=== PATIENT | female | born 1945 | race Caucasian/White ===

== ENCOUNTER → 2017-03-05 | Outpatient (CLI) | payer MEDICARE, OTHER ==
[~2017-03-05] MED LIST: CATHETER FLUSH 10 ML SYR IV PRN; REGADENOSON 0.4 MG/5 ML SYR (LEXISCAN) IV ONE
[2017-03-05 12:41] VITALS: BP 174/69
--- NOTE | 2017-03-05 16:26 | STRESS TEST ---
DATE OF SERVICE: 03/05/2017 PHARMACOLOGICAL STRESS TEST REPORT PRIMARY PHYSICIAN: Dr. Mao Zamora. PRIMARY PILE DRIVER: Dr. Smith. INTERPRETING PILE DRIVER: Dr. Kirby. DIAGNOSIS: Diabetes, preoperative evaluation. PROCEDURE DETAILS: The patient was brought to the stress lab after informed consent was taken. Lexiscan stress test was performed according to the protocol. A 0.4 mg Lexiscan was given IV. Baseline EKG showed sinus rhythm with occasional premature complexes. Heart rate was 75 BPM. Blood pressure was 149/65 mmHg. Maximum heart rate was 93 BPM and blood pressure was 134/64 mmHg. There was no chest pain, arrhythmias or ST-T wave abnormalities during this stress test. A 10.6 mCi of Myoview were given for rest imaging and 29.0 mCi of Myoview were given for stress imaging. TID was 1.21. EF 60%. Mild anterior reversible ischemia noted. There is an intermediate apical small reversible defect noted as well. Normal wall motion. CONCLUSION: 1. Pharmacological stress test is negative for ischemia. 2. Normal EF with no wall motion abnormalities. 3. Elevated t.i.d. and evidence of ischemia in the anterior and apical territories. Coronary angiography was recommended. Job ID: [id number] DocumentID: [id number] Dictated Date: 03/05/2017 16:04:42 Nuclear Medicine Technologist Date: 03/05/2017 16:25:34 Dictated By: SAM KIRBY MD
== END ==
LOC: CARD 09:49
PROVIDERS: ATTEND Internal Medicine Cardiovascular Disease
DX: E11.9 Type 2 diabetes mellitus without complications (principal); I10 Essential (primary) hypertension; E03.9 Hypothyroidism, unspecified; Z72.0 Tobacco use
CPT/HCPCS: 78452; 93017; 93306

== ENCOUNTER 2017-03-12 11:25 | Day surgery (SDC) | payer MEDICARE, OTHER ==
[~2017-03-12] VITALS: Ht 160 cm; Wt 72.6 kg
--- OUTSIDE RECORDS SUMMARY | 2017-03-12 11:29 | XMS REPORT ---
Author Author Teresa Anglin Organization [facility] Address [address] [place], [place] [address] Care Team Providers Care Boat Outboard Engine Mechanic Name Role Phone Teresa Anglin PCP Unavailable Allergies and Adverse Reactions Name Reaction Notes Morphine Sulfate Plan of Treatment Planned Activity Comments Planned Date Planned Time Plan/Goal Boostrix vaccine 03/13/2016 12:00 AM TSH 03/13/2016 12:00 AM screening colonoscopy Medications Active Name Start Date Estimated Completion Date SIG Comments Novolog 100 unit/mL subcutaneous solution inject by subcutaneous route per prescriber's instructions. Insulin dosing requires individualization. Lantus 100 unit/mL subcutaneous solution inject by subcutaneous route as per insulin protocol Plavix 75 mg oral tablet take 1 tablet (75 mg) by oral route once daily levothyroxine 150 mcg oral tablet take 1 tablet (150 mcg) by oral route once daily amlodipine 5 mg oral tablet take 1 tablet (5 mg) by oral route once daily diclofenac sodium 75 mg oral tablet,delayed release (DR/EC) take 1 tablet (75 mg) by oral route 2 times per day cilostazol 50 mg oral tablet take 1 tablet (50 mg) by oral route 2 times per day 1/2 hour before or 2 hours after breakfast and dinner Cymbalta 60 mg oral capsule,delayed release(DR/EC) take 2 capsules (120 mg) by oral route once daily gabapentin 800 mg oral tablet take 1 tablet (800 mg) by oral route 3 times per day Lasix 20 mg oral tablet 03/13/2016 06/11/2016 take 1/2 tablet (10 mg) by oral route once daily PRN for increased swelling Zyban 150 mg oral tablet extended release 03/13/2016 06/11/2016 take 1 tablet by oral route daily for 3 days, then increase to twice a day Problem List Description Status Onset Diabetes Active Hypertension Active Hypothyroidism Active Peripheral edema Active 03/13/2016 PVD (peripheral vascular disease) with claudication Active 03/13/2016 Vital Signs Date Time BP-Sys(mm[Hg] BP-Richa(mm[Hg]) HR(bpm) RR(rpm) Temp WT HT HC BMI BSA BMI Percentile O2 Sat(%) 03/13/2016 8:13:00 AM 118 mmHg 67 mmHg 77 bpm 20 rpm 97.8 F 190 lbs 64 in 32.61 kg/m2 1.97 m2 99 % 03/08/2016 1:53:00 PM 168 mmHg 72 mmHg 77 bpm 18 rpm 97.8 F 186.375 lbs 64 in 31.9909 kg/m 1.9538 m 98 % Social History Name Description Comments Tobacco Current every day smoker Alcohol Use - Rare History of Procedures Date Ordered Description Order Status 03/09/2016 12:00 AM Toradol 60 Mg Injection, RHC Medicare Reviewed 03/09/2016 12:00 AM THER/PROPH/DIAG INJ SC/IM Reviewed 03/11/2016 12:00 AM COMPLETE CBC W/AUTO DIFF WBC Returned 03/11/2016 12:00 AM COMPREHEN METABOLIC PANEL Returned 03/11/2016 12:00 AM GLYCOSYLATED HEMOGLOBIN TEST Returned 03/11/2016 12:00 AM LIPID PANEL Returned 03/11/2016 12:00 AM ASSAY THYROID STIM HORMONE Returned 03/11/2016 12:00 AM ASSAY OF NATRIURETIC PEPTIDE Returned 03/11/2016 12:00 AM URNLS DIP STICK/TABLET REAGENT AUTO MICROSCOPY Returned 03/11/2016 12:00 AM ROUTINE VENIPUNCTURE Reviewed Results Summary Data and Description Results 03/12/2016 8:53 AM WBC 4.5 RBC 4.30 HGB 13.20 g/dLHCT 39.70 %MCV 92.0 fLMCH 30.70 pgMCHC 33.20 g/dLRDW SD 46 RDW CV 13.40 %MPV 10.20 fLPLT 295 NRBC# 0.00 NRBC% 0.0 %NEUT 66.90 %%LYMP 22.30 %%MONO 8.60 %%EOS 2.0 %%BASO 0.0 %#NEUT 3.03 #LYMP 1.01 #MONO 0.39 #EOS 0.09 #BASO 0.00 MANUAL DIFF NOT IND COLOR YELLOW APPEARANCE CLEAR SPEC GRAV 1.015 pH 6.0 PROTEIN NEGATIVE GLUCOSE NEGATIVE mg/ dLKETONE NEGATIVE BILIRUBIN NEGATIVE BLOOD NEGATIVE NITRITE NEGATIVE LEUK SCREEN TRACE MICRO IND? SEE BELOW WBC/HPF 0-5 RBC/HPF NEGATIVE CASTS/LPF NEGATIVE /LPFCRYSTALS NEGATIVE MUCOUS THRDS NEGATIVE BACTERIA 1+ EPITH CELLS 1+ SQUAMOUS /HPFTRICHOMONAS NEGATIVE YEAST FEW BUDDING GLUCOSE 219.0 mg/dLSODIUM 138.0 mmol/LPOTASSIUM 4.90 mmol/LCHLORIDE 103.0 mmol/LCO2 26.0 mmol/LBUN 20.0 mg /dLCREATININE 0.90 mg/dLSGOT/AST 14.0 IU/LSGPT/ALT 11.0 IU/LALK PHOS 89.0 IU/ LTOTAL PROTEIN 7.0 g/dLALBUMIN 4.40 g/dLTOTAL BILI 0.40 mg/dLCALCIUM 9.70 mg/ dLAGE 72 GFR NonAA 62 GFR AA 75 eGFR >60 mL/min/1.73meGFR AA* >60 TRIGLYCERIDES 131.0 mg/dLCHOLESTEROL 289.0 mg/dLHDL 67.0 mg/dLTOT CHOL/HDL 4.3 LDL (CALC) 196.0 mg/dLHGB A1C 5.80 %Est Avg Glucose 119.8 mg/dL History Of Immunizations Name Date Admin Mfg Name Mfg Code Trade Name Lot# Route Inj Vis Given Vis Pub CVX Influenza 01/11/2016 sanofi pasteur PMC Fluzone Quadrivalent Not Entered Not Entered 03/13/2016 01/11/2016 141 Pneumococcal 01/11/2016 Not Entered NE Not Entered Not Entered Not Entered 01/11/2016 02/11/2016 33 History of Past Illness Name Date of Onset Comments Diabetes Hypothyroidism Hypertension Depression Chronic pain Peripheral edema 03/13/2016 2+ pitting edemaVenous stasis from DM vs increased swelling from PVD vs medication side effectAdvised patient on the right size of compression stockingShe can massage the legs to help with the painWill try her on low dose lasix to improve the swelling PVD (peripheral vascular disease) with claudication 03/13/2016 Will get records from her in file operator before deciding if we need to order a doppler for her bypass Pedal edema Mar 08 2016 1:56PM Diabetes Mar 08 2016 1:56PM HTN (hypertension) Mar 08 2016 1:56PM Hypothyroid Mar 08 2016 1:56PM Smoker Mar 08 2016 1:56PM Peripheral edema Mar 13 2016 8:21AM PVD (peripheral vascular disease) with claudication Mar 13 2016 8:21AM Preventative health care Mar 13 2016 8:21AM Tobacco abuse counseling Mar 13 2016 8:21AM Tobacco abuse Mar 13 2016 8:21AM Fatigue Mar 13 2016 11:05AM Payers Insurance Name Company Name Plan Name Plan Number Policy Number Policy Group Number Start Date Medicare RHC Medicare RHC [id number] N/A Hum[employer] Hum[employer] Claims Center [id number] N/A Medicare Part A Medicare - Lab/Xray [id number] N/A [employer] [place] Compensation [employer] [id number] Sunday, November 22, 2009 Medicare Part B Medicare Of [place] [id number] N/A History of Encounters Visit Date Visit Type Provider 03/13/2016 Office visit Teresa Anglin MD 03/12/2016 Laboratory Wayne Lowe APRN 03/08/2016 Office visit 03/08/2016 Office visit Wayne Lowe APRN 01/15/2016 Hospital Kadeem Fowler DO 01/03/2016 Hospital Adan Fermin MD 01/09/2010 Rena Paz MD
--- OUTSIDE RECORDS SUMMARY | 2017-03-12 11:29 | XMS REPORT ---
Author Author Teresa Anglin Organization [facility] Address [address] [facility] [address] [place], [place] [id number] Care Team Providers Care Viscosity Tester Name Role Phone Teresa Anglin PCP Unavailable Allergies and Adverse Reactions Name Reaction Notes Morphine Sulfate Plan of Treatment Planned Activity Comments Planned Date Planned Time Plan/Goal screening colonoscopy Medications Active Name Start Date [...] days, then increase to twice a day Name Start Date Expiration Date SIG Comments lift chair 04/02/2016 05/02/2016 use as needed tizanidine 2 mg oral tablet 04/02/2016 04/16/2016 take 2 tablets by oral route every 6 hours for 14 days [place] 5-325 mg oral tablet 04/04/2016 05/04/2016 take 1 tablet by oral route every 4 hours as needed for pain for 30 days Problem List Description Status Onset Diabetes Active Hypertension Active Hypothyroidism Active Peripheral edema Active 03/13/2016 PVD (peripheral vascular disease) with claudication Active 03/13/2016 Pedal edema Active 03/14/2016 Cellulitis of both lower extremities Active 03/14/2016 Vital Signs Date Time BP-Sys(mm[Hg] BP-Richa(mm[Hg]) HR(bpm) RR(rpm) Temp WT HT HC BMI BSA BMI Percentile O2 Sat(%) 04/02/2016 10:45:00 AM 144 mmHg 85 mmHg 78 bpm 20 rpm 97.9 F 64 in 100 % 03/21/2016 10:50:00 AM 162 mmHg 84 mmHg 89 bpm 22 rpm 97.7 F 191 lbs 64 in 32.7847 kg/m 1.9779 m 97 % 03/13/2016 8:13:00 AM 118 mmHg 67 mmHg [...] 03/09/2016 12:00 AM THER/PROPH/DIAG INJ SC/IM Reviewed 03/13/2016 12:00 AM TDAP VACCINE 7 YRS/> IM Reviewed 03/13/2016 12:00 AM ASSAY THYROID STIM HORMONE Reviewed 03/11/2016 12:00 AM COMPLETE CBC W/AUTO DIFF WBC Reviewed 03/11/2016 12:00 AM COMPREHEN METABOLIC PANEL Reviewed 03/11/2016 12:00 AM GLYCOSYLATED HEMOGLOBIN TEST Reviewed 03/11/2016 12:00 AM LIPID PANEL Reviewed 03/11/2016 12:00 AM ASSAY THYROID STIM HORMONE Reviewed 03/11/2016 12:00 AM ASSAY OF NATRIURETIC PEPTIDE Reviewed 03/11/2016 12:00 AM URNLS DIP STICK/TABLET REAGENT AUTO MICROSCOPY Reviewed 03/11/2016 12:00 AM ROUTINE VENIPUNCTURE Reviewed 03/12/2016 12:00 AM COMPLETE CBC W/AUTO DIFF WBC Reviewed 03/12/2016 12:00 AM COMPREHEN METABOLIC PANEL Reviewed 03/12/2016 12:00 AM GLYCOSYLATED HEMOGLOBIN TEST Reviewed 03/12/2016 12:00 AM LIPID PANEL Reviewed 03/12/2016 12:00 AM ASSAY THYROID STIM HORMONE Reviewed 03/12/2016 12:00 AM ASSAY OF NATRIURETIC PEPTIDE Reviewed 03/12/2016 12:00 AM URNLS DIP STICK/TABLET REAGENT AUTO MICROSCOPY Reviewed 03/12/2016 12:00 AM ROUTINE VENIPUNCTURE Reviewed 03/21/2016 12:00 AM X-RAY EXAM OF HIP Reviewed 03/21/2016 12:00 AM RADEX HIP UNILATERAL COMPLETE MINIMUM 2 VIEWS Reviewed 03/21/2016 12:00 AM RADIOLOGIC EXAMINATION KNEE 3 VIEWS Reviewed 04/02/2016 12:00 AM MRI PELVIS W/O & W/DYE Reviewed Results Summary Data and Description Results [...] mg/dLHGB A1C 5.80 %Est Avg Glucose 119.8 mg/dLBNP 64.0 pg/ mLTSH 0.480 uIU/mL History Of Immunizations Name Date Admin Mfg [...] claudication 03/13/2016 Will get records from her field rep before deciding if we need to order a doppler for her bypass Pedal edema 03/14/2016 Cellulitis of both lower extremities 03/14/2016 Pedal edema Mar 08 2016 1:56PM Diabetes [...] 2016 8:21AM Fatigue Mar 13 2016 11:05AM Peripheral edema Mar 14 2016 5:00PM Cellulitis of left lower limb Mar 14 2016 5:00PM Cellulitis of right lower limb Mar 14 2016 5:00PM Diabetes Mar 14 2016 5:00PM Pain of right hip joint Mar 21 2016 10:54AM Knee pain, right Mar 21 2016 10:54AM Right hip pain Apr 02 2016 10:48AM Payers Insurance Name Company Name Plan Name Plan Number Policy Number Policy Group Number Start Date Medicare RHC Medicare RHC [id number] N/A Hum[employer] Hum[employer] Claims Center [id number] N/A Medicare Part A Medicare - Lab/Xray [id number] N/A [employer] [place] Compensation [employer] [id number] Sunday, November 22, 2009 Medicare Part B Medicare Of [place] [id number] N/A History of Encounters Visit Date Visit Type Provider 04/02/2016 Office visit Teresa Anglin MD 03/21/2016 Office visit Teresa Anglin MD 03/13/2016 Office visit Teresa Anglin MD 03/12/2016 Laboratory Wayne Lowe APRN 03/08/2016 Office visit Wayne Lowe APRN 01/15/2016 Hospital Kadeem Fowler DO 01/03/2016 [facility] Adan Fermin MD 01/09/2010 [facility] Mary Paz MD
--- OUTSIDE RECORDS SUMMARY | 2017-03-12 11:29 | XMS REPORT ---
Author Author Wayne Lowe Organization [facility] Address [address] [place], [place] [address] Care Team Providers Care Medical Office Technologist Name Role Phone Wayne Lowe PCP Unavailable Allergies and Adverse Reactions Name Reaction Notes Morphine Sulfate Plan of Treatment Planned Activity Comments Planned Date Planned Time Plan/Goal CBC for General Health Panel 03/11/2016 12:00 AM CMP 03/11/2016 12:00 AM HGB A1C 03/11/2016 12:00 AM LIPID PANEL 03/11/2016 12:00 AM TSH 03/11/2016 12:00 AM BNP 03/11/2016 12:00 AM URINALYSIS ONLY 03/11/2016 12:00 AM Medications Active Name Start Date Estimated Completion [...] by oral route 3 times per day Problem List Description Status Onset Diabetes Active Hypertension Active Hypothyroidism Active Vital Signs Date Time BP-Sys(mm[Hg] BP-Richa(mm[Hg]) HR(bpm) RR(rpm) Temp WT HT HC BMI BSA BMI Percentile O2 Sat(%) 03/08/2016 1:53:00 PM 168 mmHg 72 mmHg 77 bpm 18 rpm 97.8 F 186.375 lbs 64 in 31.99 kg/m2 1.95 m2 98 % Social History Name Description Comments Tobacco Current every day smoker Alcohol Use - Rare History of Procedures Date Ordered Description Order Status 03/09/2016 12:00 AM Toradol 60 Mg Injection, C Medicare Reviewed 03/09/2016 12:00 AM THER/PROPH/DIAG INJ SC/IM Reviewed Results Summary Not available. History Of Immunizations Not available. History of Past Illness Name Date of Onset Comments Diabetes Hypothyroidism Hypertension Pedal edema Mar 08 2016 1:56PM Diabetes Mar 08 2016 1:56PM HTN (hypertension) Mar 08 2016 1:56PM Hypothyroid Mar 08 2016 1:56PM Smoker Mar 08 2016 1:56PM Payers Insurance Name Company Name Plan Name Plan Number Policy Number Policy Group Number Start Date Medicare RHC Medicare RHC [id number] N/A [employer] Humana Claims Center [id number] N/A Medicare Part A Medicare - Lab/Xray [id number] N/A [employer] [place] Compensation [employer] [id number] Sunday, November 22, 2009 Medicare Part B Medicare Of [place] [id number] N/A History of Encounters Visit Date Visit Type Provider 03/08/2016 Office visit 03/08/2016 Office visit Wayne Lowe APRN 01/15/2016 [facility] Kadeem Fowler DO 01/03/2016 [facility] Adan Fermin MD 01/09/2010 Rena Paz MD
--- OUTSIDE RECORDS SUMMARY | 2017-03-12 11:29 | XMS REPORT | Continuity of Care Document ---
Author Author [facility] Organization [facility] Address [facility] [address] [place] [address] Phone Unavailable Support Name Relationship Address Phone JARVIS HENNING MD Caregiver [address] [place] [address] Unavailable Kendell Pagan MD Caregiver [address] [place] [address] YESSENIA DURAN MD Caregiver [address] [place], [place] [address] FILI SARAH Next Of Kin [address] [id number] Insurance Providers Payer Name Policy Number Subscriber Name Relationship Medicare [id number] Leslye Sarah 18 Self / Same As Patient Humana Other [id number] Leslye Sarah 18 Self / Same As Patient Advance Directives Directive Response Recorded Date/Time Advance Directives No 05/02/16 10:26pm Living Will No 05/02/16 10:26pm Health Care Proxy No 05/02/16 10:26pm Power of Drafting Layout Man for Health Care No 05/02/16 10:26pm Organ, Tissue, or Eye Donor No 05/02/16 10:26pm Do you have a signed organ donor card? No 04/16/16 10:41am Problems No problem information available. Medications Current Home Medications Medication Dose Units Route Directions Days/Qty Instructions Start Date Insulin Aspart 100 U/Ml 8 Units Sub-Q With Meals And At Bedtime Insulin Glargine 100 U/Ml 20 Units Sub-Q Bedtime 04/25/16 Clopidogrel Bisulfate 75 Mg 75 Mg Oral Daily 04/25/16 Levothyroxine Sodium 150 Mcg 150 Mcg Oral Daily 04/25/16 [Cilostazol] 50 Mcg Oral Twice A Day 04/25/16 Duloxetine Hcl 60 Mg 60 Mg Oral Twice A Day 04/25/16 Baclofen 10 Mg 10 Mg Oral Three Times Daily As Needed 04/25/16 Amlodipine Besylate 5 Mg 10 Mg Oral Bedtime 30 05/06/16 Past Home Medications Medication Directions Ordered Status Amlodipine Besylate 5 Mg Tablet, 5 Mg Oral Bedtime 04/25/16 Discontinued Diclofenac Sodium 50 Mg Tablet., 50 Mg Oral Twice A Day 04/25/16 Discontinued Diclofenac Sodium 75 Mg Tablet., 75 Mg Oral Twice A Day 04/25/16 Discontinued Gabapentin 800 Mg Tablet, 800 Mg Oral Five Times Daily 04/25/16 Discontinued Hydrocodone/Acetaminophen 1 Each Tablet, 1 Tab Oral As Needed 04/25/16 Discontinued Social History Social History Problem Response Recorded Date/Time Smoking Status Current every day smoker 05/02/2016 10:26pm Query Response Start Date Stop Date Smoking Status Current every day smoker Hospital Discharge Instructions Discharge Instructions Provider Instructions Make Appointment with: Dr. Fan [phone] Follow Up In: 1 Week Make additional appointment wi: Dr. Pagan [phone] Other: May 16, please call for afternoon appt for staple, wound check Referral: Rehab Services (PT,OT,ST) Diet: Diabetic Smoking Cessation If you are a smoker, the following is recommended: Stop all tobacco use; for help quitting, please call [phone]. Notify Physician If: Weight Gain More Than 5lb, Fever Greater 100.5 F Additional Instructions: Per neurosurgery Pt to be discharged to [facility] today for PT. and pt agree. Pt may have activity as tolerated. Wear TLSO when ambulatory. No lifting greater than 10 lb. No bending or twisting motions. May shower tomorrow. Leave bertha [employer]. Monitor for s/s infection and return and/or report. Drain is removed. No drainage noted from drain site or incisional site. Diabetic diet as tolerated. Appreciate the assistance of medical in managing. Return to clinic at 2 weeks postop, (will need appt in afternoon), for wound check and staple removal. Pt and instructed to call with any questions or concerns. FU with PCP, Dr. Fan, as directed. May restart Plavix tomorrow. Rx on chart. Nursing Instructions Flu Vaccine Received this Visit: No Comment: current Pneumonia Vaccine Received this Visit: No Comment: current VTE Education: Educational session w pt [place] Education Materials Provided: No Education #1 Topic: Lumbar Fusion Methods: Handout Printed Material Provided: Yes Response: Return demonstration Recipient: Family Note: Follow up with Dr. Fan on 05/13/2016 @ 4:20 pm. Follow up with Dr. Pagan for a wound check on 05/16/2016 @ 2:00. Patient specific education materials provided?: Yes Patient Request Electronic Discharge Instructions: No Patient Received Electronic Discharge Instructions: No Patient Health Summary printed/downloaded for the patient?: Yes Valuables Returned: No Plan of Care Discharge Date 05/06/16 2:17pm Disposition [facility] Instructions/Education Provided Lumbar Spinal Fusion (DC) Prescriptions See Medication Section Care Plan and Goals See Discharge Instructions Section Functional Status Query Response Date Recorded Addi Coma Scale Total 15 May 05, 2016 11:04pm Patient Behavior Appropriate Cooperative May 05, 2016 11:04pm Allergies, Adverse Reactions, Alerts Allergen Type Severity Reaction Status Last Updated Morphine Allergy Severe "closes up my throat" Active 05/02/16 Immunizations Name Given Type Hx Influenza Vaccination Y 11/2015 Historical Hx Pneumococcal Vaccination Y 11/2015 Historical Vital Signs Acute Vital Signs Vital Response Date/Time Temperature (Fahrenheit) 98.4 degrees F (97.6 - 99.5) 05/06/2016 12:10pm Temperature Source Temporal Artery 05/06/2016 12:10pm Pulse Rate (adult) 88 bpm (60 - 90) 05/06/2016 12:10pm Respiratory Rate 20 bpm (12 - 24) 05/06/2016 12:10pm Blood Pressure 159/82 mm Hg 05/06/2016 12:10pm O2 Sat by Pulse Oximetry 95 % (90 - 100) 05/06/2016 10:09am Oxygen Flow Rate 3.0 L/min 05/05/2016 1:50pm Pain Intensity 9 05/05/2016 5:00pm Pain Intensity 10 05/04/2016 10:15am Pain Location Body Site Modifier Medial 05/06/2016 6:43am Pain Description 05/06/2016 2:18pm Height 5 ft 3 in Weight 180 lb Body Mass Index 31.0 kg/m^2 Results Pending Laboratory Results Test Name Collection Date/Time Pending Microbiology Results Procedure Source Collection Date/Time Procedures Procedure Status Date Provider(s) CT HEADBRAIN WO DYE Completed 04/16/16 MRI NECK SPINE WO DYE Completed 04/16/16 ROUTINE VENIPUNCTURE Completed 04/17/16 CHEST X-RAY 2VW FRONTAL&LATL Completed 04/17/16 COMPREHEN METABOLIC PANEL Completed 04/17/16 COMPLETE CBC AUTOMATED Completed 04/17/16 ELECTROCARDIOGRAM TRACING Completed 04/17/16 ROUTINE VENIPUNCTURE Completed 04/30/16 KULDEEP TEST INDIRECT QUAL Completed 04/30/16 BLOOD TYPING SEROLOGIC ABO Completed 04/30/16 BLOOD TYPING SEROLOGIC RH(D) Completed 04/30/16 Posterior fusion of lumbar spine with laminectomy Completed 05/02/16 Kendell Pagan MD Computed tomography of head without contrast Active 04/16/16 Pagan,Kendell VARGAS Magnetic resonance imaging of cervical spine without contrast Active Pagan,Kendell VARGAS X-ray of chest, PA and lateral views Active 04/17/16 Pagan,Kendell VARGAS X-ray of lumbar spine, single view Active 05/02/16 Pagan,Kendell VARGAS Flu-W/Wo Pin.(In Surg) Active 05/02/16 Latasha,Kendell VARGAS Portable x-ray of chest Active 05/04/16 YESSENIA DURAN MD Computed tomography of head without contrast Completed 05/05/16 YESSENIA DURAN MD Encounters Encounter Location Arrival/Admit Date Discharge/Depart Date Attending Provider Discharged Inpatient [place] 05/02/16 5:37am 05/06/16 2:17pm YESSENIA DURAN MD Registered Clinic [place] 04/30/16 10:40am Kendell Pagan MD Registered Clinic [place] 04/17/16 3:11pm Kendell Pagan MD Registered Clinic [place] 04/16/16 10:46am Kendell Pagan MD
--- OUTSIDE RECORDS SUMMARY | 2017-03-12 11:30 | XMS REPORT ---
Author Author Teresa Anglin Organization [facility] Address [address] [place], [place] [id number] Care Team Providers Care Small Animal Veterinarian Name Role Phone Teresa Anglin PCP Unavailable Allergies and Adverse Reactions Name Reaction Notes Morphine Sulfate Plan of Treatment Planned Activity Comments Planned Date Planned Time Plan/Goal Boostrix vaccine 03/13/2016 12:00 AM TSH 03/13/2016 12:00 AM CBC for General Health Panel 03/12/2016 12:00 AM CMP 03/12/2016 12:00 AM HGB A1C 03/12/2016 12:00 AM LIPID PANEL 03/12/2016 12:00 AM TSH 03/12/2016 12:00 AM BNP 03/12/2016 12:00 AM URINALYSIS ONLY 03/12/2016 12:00 AM Hip X-ray: AP / Lat 03/21/2016 12:00 AM Hip X-ray: AP / Lat 03/21/2016 12:00 AM Knee 3Views - [place] 03/21/2016 12:00 AM screening colonoscopy Medications Active Name [...] HC BMI BSA BMI Percentile O2 Sat(%) 03/21/2016 10:50:00 AM 162 mmHg 84 mmHg 89 bpm 22 rpm 97.7 F 191 lbs 64 in 32.78 kg/m2 1.98 m2 97 % 03/13/2016 8:13:00 AM 118 mmHg 67 mmHg 77 bpm 20 rpm 97.8 F 190 lbs 64 in 32.6131 kg/m 1.9727 m 99 % 03/08/2016 1:53:00 PM 168 mmHg [...] claudication 03/13/2016 Will get records from her health screener before deciding if we need to order a doppler for her bypass Pedal edema 03/14/2016 Cellulitis of both lower extremities 03/14/2016 Pedal edema Mar 08 2016 1:56PM Diabetes Mar 08 2016 1:56PM HTN (hypertension) Mar 08 2016 1:56PM Hypothyroid Mar 08 2016 1:56PM Smoker Mar 08 2016 1:56PM Peripheral edema b 2016 8:21AM PVD (peripheral vascular disease) with claudication Mar 13 2016 8:21AM Preventative health care Mar 13 2016 8:21AM Tobacco abuse counseling Mar 13 2016 8:21AM Tobacco abuse Mar 13 2016 8:21AM Fatigue Mar 13 2016 11:05AM Peripheral edema b 2016 5:00PM Cellulitis of left lower limb b 2016 5:00PM Cellulitis of right lower limb b 2016 5:00PM Diabetes b 2016 5:00PM Pain of right hip joint Mar 21 2016 10:54AM Knee pain, right b 2016 10:54AM Payers Insurance Name Company Name Plan Name Plan Number Policy Number Policy Group Number Start Date Medicare RHC Medicare RHC [id number] N/A [employer] Hum[employer] Claims [employer] [id number] N/A Medicare Part A Medicare - Lab/Xray [id number] N/A [employer] [place] Compensation Corvel [id number] Sunday, November 22, 2009 Medicare Part B Medicare Of [place] [id number] N/A History of Encounters Visit Date Visit Type Provider 03/21/2016 Office visit Teresa Anglin MD 03/13/2016 Office visit Teresa Anglin MD 03/12/2016 Laboratory Wayne Lowe APRN 03/08/2016 Office visit Wayne Lowe APRN 01/15/2016 [facility] Kadeem Fowler DO 01/03/2016 [facility] Adan Fermin MD 01/09/2010 [facility] Mary Paz MD
--- OUTSIDE RECORDS SUMMARY | 2017-03-12 11:30 | XMS REPORT | CCD ---
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 Name Role Phone OSVALDO HERNANDEZ DO Attphys HERNANDEZOSVALDO DO Prisurg Allergies Allergy Code Allergy Type Reaction Status PROCHLORPERAZINE 8704 Drug allergy Active THIOTHIXENE 42879 Drug allergy Active MORPHINE 7052 Drug allergy ANAPHYLAXIS Active Active Medications Medication Code Dose Units Frequency Route Modification Start Date/Time Cymbalta 60MG Oral Capsule, Delayed Release 974728 60 MILLIGRAMS TWO TIMES A DAY ORAL 09/23/2016 11:38 Prescription Detail 60 MILLIGRAMS ORAL TWO TIMES A DAY HYDROcodone bitartrate-acetaminophen 10MG-325MG Oral Tablet 944650 1 TABLET NEEDED EVERY 4 HR BY MOUTH 09/23/2016 11:38 Prescription Detail 1 TABLET BY MOUTH NEEDED EVERY 4 HR Losartan Potassium 50MG Oral Tablet 240330 50 MILLIGRAMS DAILY ORAL 09/23/2016 11:38 Prescription Detail 50 MILLIGRAMS ORAL DAILY [place] 5MG-325MG Oral Tablet 462285 1 EACH NEEDED EVERY 4 HR ORAL 09/23/2016 11:38 Prescription Detail 1 EACH ORAL NEEDED EVERY 4 HR traMADol HCl 50MG Oral Tablet 187068 50 MILLIGRAMS FOUR TIMES A DAY BY MOUTH 09/23/2016 11:38 Prescription Detail 50 MILLIGRAMS BY MOUTH FOUR TIMES A DAY Polyethylene Glycol 3350 17GM/1Dose Oral Powder for Solution 880535 17 GRAM BEDTIME BY MOUTH 09/23/2016 11: 37 Prescription Detail 17 GRAM BY MOUTH BEDTIME Thera-M Enhanced 90MG-0.03MG-0.15MG-4 Oral Tablet 932762 1 TABLET DAILY BY MOUTH 09/23/2016 11:37 Prescription Detail 1 TABLET BY MOUTH DAILY Nicotine Transdermal System 14MG/24HR Transdermal Patch, Extended Release 218619 14 MILLIGRAMS DAILY TOPICAL APPLICATION 09/23/2016 11:36 Prescription Detail 14 MILLIGRAMS TOPICAL APPLICATION DAILY Protonix 40MG Oral Tablet, Enteric Coated 526933 40 MILLIGRAMS DAILY BY MOUTH 09/23/2016 11:36 Prescription Detail 40 MILLIGRAMS BY MOUTH DAILY Acetaminophen 325MG Oral Tablet 161961 650 MILLIGRAMS NEEDED BY MOUTH 09/23/2016 11:35 Prescription Detail 650 MILLIGRAMS BY MOUTH NEEDED Docusate Sodium 100MG Oral Capsule, Liquid Filled 8133042 100 MILLIGRAMS TWO TIMES A DAY BY MOUTH 2016 11:35 Prescription Detail 100 MILLIGRAMS BY MOUTH TWO TIMES A DAY Levemir 100U/1ML Subcutaneous Solution 327200 15 UNIT AT BEDTIME SUBCUTANEOUS 09/23/2016 11:35 Prescription Detail 15 UNIT SUBCUTANEOUS AT BEDTIME NovoLOG 100U/1ML Subcutaneous Solution 156825 Per Protocol Unit(s) As Needed SUBCUTANEOUS 09/23/2016 11:35 Prescription Detail Per Protocol Unit(s) SUBCUTANEOUS As Needed Phenaseptic 1.4% Oromucosal [place] 297911 1 EACH NEEDED TOPICAL APPLICATION 09/23/2016 11:35 Prescription Detail 1 EACH TOPICAL APPLICATION NEEDED Vitamin C 500MG Oral Tablet 524168 500 MILLIGRAMS DAILY BY MOUTH 09/23/2016 11:35 Prescription Detail 500 MILLIGRAMS BY MOUTH DAILY Vitamin D 62732EI Oral Capsule, Liquid Filled 0974456 1 EACH WEEKLY BY MOUTH 09/12/2016 10:29 Prescription Detail 1 EACH BY MOUTH WEEKLY x 8 WEEKS Aspirin 325MG Oral Tablet, Enteric Coated 943571 325 MILLIGRAMS TWO TIMES A DAY BY MOUTH 09/12/2016 10: 28 Prescription Detail 325 MILLIGRAMS BY MOUTH TWO TIMES A DAY X 2 WEEKS dilTIAZem CD 240MG Oral Capsule, Extended Release, 24 HR 340051 240 MILLIGRAMS DAILY BY MOUTH 09/12/2016 10 :28 Prescription Detail 240 MILLIGRAMS BY MOUTH DAILY Gabapentin 800MG Oral Tablet 779833 800 MILLIGRAMS FIVE TIMES A DAY ORAL 01/15/2016 11:45 Prescription Detail 800 MILLIGRAMS ORAL FIVE TIMES A DAY Levothyroxine 150MCG Oral Tablet 345925 150 MCG DAILY ORAL 01/15/2016 11:45 Prescription Detail 150 MCG ORAL DAILY Plavix 75MG Oral Tablet 829058 75 MILLIGRAMS DAILY ORAL 01/15/2016 11:45 Prescription Detail 75 MILLIGRAMS ORAL DAILY Problems Problem Code Start Date Resolved Date Status Periprosthetic fracture around internal prosthetic right shoulder joint, initial encounter 582419160 09/06/2016 Active Pain in arm 600606084 09/06/2016 Active Procedures Unknown or Not Available. Results Unknown or Not Available. Function Status Unknown or Not Available. History of Immunizations Unknown or Not Available. Plan of Treatment Unknown or Not Available. Social History Smoking Status Code Start Date End Date Current every day smoker [id number] Vital Signs Unknown or Not Available. Function Status Unknown or Not Available. Goals Unknown or Not Available. ASSESSMENTS Unknown or Not Available. Health Concerns Section Unknown or Not Available.
--- OUTSIDE RECORDS SUMMARY | 2017-03-12 11:30 | XMS REPORT ---
Author Author Teresa Anglin Organization [facility] Address [address] [place], [place] [address] Care Team Providers Care Course Instructor Name Role Phone Teresa Anglin PCP Unavailable [...] 12:00 AM URINALYSIS ONLY 03/12/2016 12:00 AM screening colonoscopy Medications Active Name [...] claudication 03/13/2016 Will get records from her lean manufacturing engineer before deciding if we need to order [...] 2016 5:00PM Cellulitis of left lower limb Feb 2016 5:00PM Cellulitis of right lower limb Feb 2016 5:00PM Diabetes Feb 2016 5:00PM Payers Insurance Name Company Name Plan Name Plan Number Policy Number Policy Group Number Start Date Medicare RHC Medicare RHC [id number] N/A [employer] Hum[employer] Claims Center [id number] N/A Medicare Part A Medicare - Lab/Xray [id number] N/A [employer] [place] Compensation Corvel [id number] Sunday, November 22, 2009 Medicare Part B Medicare Of [place] [id number] N/A History of Encounters Visit Date Visit Type Provider 03/13/2016 Office visit Teresa Anglin MD 03/12/2016 Laboratory Wayne Lowe ASSISTANT PASTRY CHEF 03/08/2016 Office visit Wayne Lowe ASSISTANT PASTRY CHEF 01/15/2016 Hospital Kadeem Fowler DO 01/03/2016 Hospital Adan Fermin MD 01/09/2010 Rena Paz MD
--- OUTSIDE RECORDS SUMMARY | 2017-03-12 11:30 | XMS REPORT | CCD ---
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 Active Medications Medication Code Dose Units Frequency Route Modification Start Date/Time Acetaminophen 325MG Oral Tablet 452982 1 TABLET NEEDED EVERY 4 HR BY MOUTH FOR PAIN 01/15/2016 11:45 Prescription Detail 1-2 TABLET BY MOUTH NEEDED EVERY 4 HR FOR PAIN; DO NOT EXCEED 3000MG PER DAY amLODIPine Besylate 5MG Oral Tablet 944062 5 MILLIGRAMS DAILY ORAL 01/15/2016 11:45 Prescription Detail 5 MILLIGRAMS ORAL DAILY Cilostazol 50MG Oral Tablet 847315 50 MILLIGRAMS TWO TIMES A DAY ORAL 01/15/2016 11:45 Prescription Detail 50 MILLIGRAMS ORAL TWO TIMES A DAY Cymbalta 60MG Oral Capsule, Delayed Release 564815 60 MILLIGRAMS DAILY ORAL 01/15/2016 11:45 Prescription Detail 60 MILLIGRAMS ORAL DAILY Gabapentin 800MG Oral Tablet 113017 800 MILLIGRAMS FIVE TIMES A DAY ORAL 01/15/2016 11:45 Prescription Detail 800 MILLIGRAMS ORAL FIVE TIMES A DAY Lantus 100U/1ML Subcutaneous Solution 194141 18 UNIT AT BEDTIME SUBCUTANEOUS 01/15/2016 11:45 Prescription Detail 18 UNIT SUBCUTANEOUS AT BEDTIME Levothyroxine 150MCG Oral Tablet 023626 150 MCG DAILY ORAL 01/15/2016 11:45 Prescription Detail 150 MCG ORAL DAILY NovoLOG 100U/1ML Subcutaneous Solution 157665 8 UNIT THREE TIMES A DAY SUBCUTANEOUS 01/15/2016 11:45 Prescription Detail 8 UNIT SUBCUTANEOUS THREE TIMES A DAY Outpatient Therapy 0 1 <OTHER> WEEKLY <OTHER > 01/15/2016 11:45 Prescription Detail 3 times WEEKLY. NWB TO RIGHT LOWER EXTREMIY. SEE REVERSE SHOULDER PROTOCOLDx: s/p Rt. Rev. TSA Plavix 75MG Oral Tablet 376842 75 MILLIGRAMS DAILY ORAL 01/15/2016 11:45 Prescription Detail 75 MILLIGRAMS ORAL DAILY Ferrous Sulfate 325MG Oral Tablet 321291 325 MILLIGRAMS TWICE WITH MEALS BY MOUTH 01/15/2016 11:44 Prescription Detail 325 MILLIGRAMS BY MOUTH TWICE WITH MEALS oxyCODONE HCl 5MG Oral Tablet 5239535 1 TABLET NEEDED EVERY 4 HR BY MOUTH FOR PAIN 01/15/2016 11:44 Prescription Detail 1 TABLET BY MOUTH NEEDED EVERY 4 HR FOR PAIN Aspirin 325MG Oral Tablet, Enteric Coated 234173 325 MILLIGRAMS DAILY WITH A MEAL BY MOUTH 01/15/2016 11:43 Prescription Detail 325 MILLIGRAMS BY MOUTH DAILY WITH A MEAL Problems Unknown or Not Available. Procedures Procedure Code Procedure Type Date CT HEAD W/O CONTRAST [id number] SNOMED CT 01/03/2016 SHOULDER MINIMUM [address] 01/03/2016 BEDSIDE GLUCOSE 76555788 SNOMED CT 01/03/2016 Results BEDSIDE GLUCOSE - Collect Date/Time: 01/03/2016 17:26 Test Name Code Test Result Test Units Test Ref Range GLUCOSE POCT 234 MG/DL L=70 H=100 Function Status Unknown or Not Available. History of Immunizations Unknown or Not Available. Plan of Treatment Unknown or Not Available. Social History Smoking Status Code Start Date End Date Current every day smoker [id number] Vital Signs Unknown or Not Available. Function Status Unknown or Not Available. Goals Unknown or Not Available. ASSESSMENTS Unknown or Not Available. Health Concerns Section Unknown or Not Available.
--- OUTSIDE RECORDS SUMMARY | 2017-03-12 11:30 | XMS REPORT ---
Author Author Teresa Anglin Organization [facility] Address [address] [place], [place] [address] Care Team Providers Care Assembler Wet Wash Name Role Phone Teresa Anglin PCP Unavailable Allergies and Adverse Reactions Name Reaction Notes Morphine Sulfate Plan of Treatment Planned Activity Comments Planned Date Planned Time Plan/Goal TSH 03/11/2016 12:00 AM BNP 03/11/2016 12:00 AM Boostrix vaccine 03/13/2016 12:00 AM screening colonoscopy Medications Active [...] AM LIPID PANEL Returned 03/11/2016 12:00 AM URNLS DIP STICK/TABLET [...] claudication 03/13/2016 Will get records from her cloud services architect before deciding if we need to order [...] 8:21AM Tobacco abuse Mar 13 2016 8:21AM Payers Insurance Name Company Name Plan Name Plan Number Policy Number Policy Group Number Start Date Medicare RHC Medicare RHC [id number] N/A Hum[employer] Humana Claims Center [id number] N/A Medicare Part A Medicare - Lab/Xray [id number] N/A Cor[employer] [place] Compensation [employer] [id number] Sunday, November 22, 2009 Medicare Part B Medicare Of [place] [id number] N/A History of Encounters Visit Date Visit Type Provider 03/13/2016 Office visit Teresa Anglin MD 03/12/2016 Laboratory Wayne Lowe APRN 03/08/2016 Office visit 03/08/2016 Office visit Wayne Lowe APRN 01/15/2016 Hospital Kadeem Fowler DO 01/03/2016 Hospital Adan Fermin MD 01/09/2010 [facility] Mary Paz MD
--- OUTSIDE RECORDS SUMMARY | 2017-03-12 11:31 | XMS REPORT ---
Author Author Teresa Anglin Organization [facility] Address [address] [place], [place] [address] Care Team Providers Care Barrow Worker Name Role Phone Teresa Anglin PCP Unavailable Allergies and Adverse Reactions Name Reaction Notes Morphine Sulfate Plan of Treatment Planned Activity Comments Planned Date Planned Time Plan/Goal Boostrix vaccine 03/13/2016 12:00 AM TSH 03/13/2016 12:00 AM HGB A1C 03/12/2016 12:00 AM LIPID PANEL 03/12/2016 12:00 AM TSH 03/12/2016 12:00 AM BNP 03/12/2016 12:00 AM URINALYSIS ONLY 03/12/2016 12:00 AM MRI PELVIS W/WO CONTRAST 04/02/2016 12:00 AM screening colonoscopy Medications Active Name [...] days, then increase to twice a day lift chair 04/02/2016 05/02/2016 use as needed tizanidine 2 mg oral tablet 04/02/2016 04/16/2016 take 2 tablets by oral route every 6 hours for 14 days Name Start Date Expiration Date SIG Comments [place] 5-325 mg oral tablet 03/22/2016 03/27/2016 take 1 tablet by oral route every 4 hours as needed for pain for 5 days Problem List Description Status Onset Diabetes [...] Returned 03/11/2016 12:00 AM ROUTINE VENIPUNCTURE Reviewed 03/12/2016 12:00 AM COMPLETE CBC W/AUTO DIFF WBC Reviewed 03/12/2016 12:00 AM COMPREHEN METABOLIC PANEL Reviewed 03/21/2016 12:00 AM X-RAY EXAM OF HIP Returned 03/21/2016 12:00 AM RADEX HIP UNILATERAL COMPLETE MINIMUM 2 VIEWS Returned 03/21/2016 12:00 AM RADIOLOGIC EXAMINATION KNEE 3 VIEWS Returned Results Summary Data and Description Results 03/12/2016 [...] claudication 03/13/2016 Will get records from her restaurant bartender before deciding if we need to order [...] Number Start Date Medicare RHC Medicare RHC [id number] N/A [employer] Humana Claims Center [id number] N/A Medicare Part A Medicare - Lab/Xray [id number] N/A CorVel [place] Compensation Corvel [id number] Sunday, November 22, 2009 Medicare Part B Medicare Of [place] [id number] N/A History of Encounters Visit Date Visit Type Provider 04/02/2016 Office visit Teresa Anglin MD 03/21/2016 Office visit Teresa Anglin MD 03/13/2016 Office visit Teresa Anglin MD 03/12/2016 Laboratory Wayne Lowe APRN 03/08/2016 Office visit Wayne Lowe APRN 01/15/2016 Hospital Kadeem Fowler DO 01/03/2016 [facility] Adan Fermin MD 01/09/2010 [facility] Mary Paz MD
--- OUTSIDE RECORDS SUMMARY | 2017-03-12 11:31 | XMS REPORT ---
Author Author Wayne Lowe Organization [facility] Address [address] [place], [place] [address] Care Team Providers Care Auto Body Straightener Name Role Phone Wayne Lowe PCP Unavailable [...] Number Start Date Medicare RHC Medicare RHC [id number] N/A [employer] Humana Claims Center [id number] N/A Medicare Part A Medicare - Lab/Xray [id number] N/A [employer] [place] Compensation Corvel [id number] Sunday, November 22, 2009 Medicare Part B Medicare Of [place] [id number] N/A History of Encounters Visit Date Visit Type Provider 03/08/2016 Office visit 03/08/2016 Office visit Wayne Lowe APRN 01/15/2016 [facility] Kadeem Fowler DO 01/03/2016 [facility] Adan Fermin MD 01/09/2010 Rena Paz MD
--- OUTSIDE RECORDS SUMMARY | 2017-03-12 11:31 | XMS REPORT | Referral Summary ---
Author Author [facility] Organization [facility] Address Unknown Phone Unavailable Care Team Providers Care Vp Care Management Name Role Phone Jesus Stock PCP Encounter [facility] [id number] Date(s): 08/11/15 - 08/11/15 [facility] [address] [place], [place] [address] Discharge Disposition: 01-Home or Self Care Attending Physician: Allison Arias MD Vital Signs No data available for this section Problem List No data available for this section Allergies, Adverse Reactions, Alerts No data available for this section Medications No data available for this section Results No data available for this section Immunizations No data available for this section Procedures No data available for this section Social History No data available for this section Assessment and Plan No data available for this section
--- OUTSIDE RECORDS SUMMARY | 2017-03-12 11:31 | XMS REPORT | Continuity of Care Document ---
Author Author [facility] Organization [facility] Address Unknown Phone Unavailable Allergies There is no data. Medications There is no data. Problems There is no data. Procedures There is no data. Results There is no data. Encounters ACCT No. Visit Date/Time Discharge Status Pt. Type Provider Facility Loc./Unit Complaint [id number] 12/27/2016 14:10:54 12/27/2016 23:59:59 C[facility] Outpatient Mary Paz [id number] 11/07/2016 13:03:46 11/07/2016 23:59:59 CLS Outpatient Mary Paz [id number] 09/30/2016 16:41:10 09/30/2016 23:59:59 CLS Outpatient Yony Hay [id number] 04/05/2016 14:15:41 04/05/2016 23:59:59 CLS Outpatient Teresa Angiln [id number] 03/22/2016 10:40:06 03/22/2016 23:59:59 CLS Outpatient Teresa Anglin [id number] 03/13/2016 09:11:36 03/13/2016 23:59:59 CLS Outpatient Teresa Anglin [id number] 03/12/2016 09:27:22 03/12/2016 23:59:59 CLS Outpatient Wayne Lowe [id number] 03/08/2016 14:38:13 03/08/2016 23:59:59 CLS Outpatient Wayne Lowe [id number] 01/17/2016 13:31:03 01/17/2016 23:59:59 CLS Outpatient Blanca Ricketts [id number] 01/11/2016 18:36:28 01/11/2016 23:59:59 CLS Outpatient Adan Fermin
--- OUTSIDE RECORDS SUMMARY | 2017-03-12 11:31 | XMS REPORT | CCD ---
Author Author ARMOND ALVARADO Unknown Address [address] [facility] [address] [place] [address] Care Team Providers Care Back Seam Stitcher Name Role Phone SUSAN VARGAS, LEDA Reid Attphys J., MARISELA NASST C., SURESH NASST M., REGAN D NASST B., REGAN NASST B., NICOL NASST O., KAYA B NASST G., SHARONDA NASST S., JOSEMANUEL NASST Allergies Allergy Code Allergy Type Reaction Status PROCHLORPERAZINE 8704 Drug allergy Active THIOTHIXENE 45968 Drug allergy Active MORPHINE 7077 Drug allergy ANAPHYLAXIS Active Active Medications Medication Code Dose Units Frequency Route Modification Start Date/Time Acetaminophen 325MG Oral Tablet 083537 1 TABLET NEEDED EVERY 4 HR BY MOUTH FOR PAIN 01/15/2016 11:45 Prescription Detail 1-2 TABLET BY MOUTH NEEDED EVERY 4 HR FOR PAIN; DO NOT EXCEED 3000MG PER DAY amLODIPine Besylate 5MG Oral Tablet 645114 5 MILLIGRAMS DAILY ORAL 01/15/2016 11:45 Prescription Detail 5 MILLIGRAMS ORAL DAILY Cilostazol 50MG Oral Tablet 035419 50 MILLIGRAMS TWO TIMES A DAY ORAL 01/15/2016 11:45 Prescription Detail 50 MILLIGRAMS ORAL TWO TIMES A DAY Cymbalta 60MG Oral Capsule, Delayed Release 327791 60 MILLIGRAMS DAILY ORAL 01/15/2016 11:45 Prescription Detail 60 MILLIGRAMS ORAL DAILY Gabapentin 800MG Oral Tablet 237603 800 MILLIGRAMS FIVE TIMES A DAY ORAL 01/15/2016 11:45 Prescription Detail 800 MILLIGRAMS ORAL FIVE TIMES A DAY Lantus 100U/1ML Subcutaneous Solution 830527 18 UNIT AT BEDTIME SUBCUTANEOUS 01/15/2016 11:45 Prescription Detail 18 UNIT SUBCUTANEOUS AT BEDTIME Levothyroxine 150MCG Oral Tablet 782046 150 MCG DAILY ORAL 01/15/2016 11:45 Prescription Detail 150 MCG ORAL DAILY NovoLOG 100U/1ML Subcutaneous Solution 464411 8 UNIT THREE TIMES A DAY SUBCUTANEOUS 01/15/2016 11:45 Prescription Detail 8 UNIT SUBCUTANEOUS THREE TIMES A DAY Outpatient Therapy 0 1 <OTHER> WEEKLY <OTHER > 01/15/2016 11:45 Prescription Detail 3 times WEEKLY. NWB TO RIGHT LOWER EXTREMIY. SEE REVERSE SHOULDER PROTOCOLDx: s/p Rt. Rev. TSA Plavix 75MG Oral Tablet 750102 75 MILLIGRAMS DAILY ORAL 01/15/2016 11:45 Prescription Detail 75 MILLIGRAMS ORAL DAILY Ferrous Sulfate 325MG Oral Tablet 597286 325 MILLIGRAMS TWICE WITH MEALS BY MOUTH 01/15/2016 11:44 Prescription Detail 325 MILLIGRAMS BY MOUTH TWICE WITH MEALS oxyCODONE HCl 5MG Oral Tablet 7514490 1 TABLET NEEDED EVERY 4 HR BY MOUTH FOR PAIN 01/15/2016 11:44 Prescription Detail 1 TABLET BY MOUTH NEEDED EVERY 4 HR FOR PAIN Aspirin 325MG Oral Tablet, Enteric Coated 101751 325 MILLIGRAMS DAILY WITH A MEAL BY MOUTH 01/15/2016 11:43 Prescription Detail 325 MILLIGRAMS BY MOUTH DAILY WITH A MEAL Problems Unknown or Not Available. Procedures Procedure Code Procedure Type Date Replacement of Right Shoulder Joint with Reverse Ball and Socket Synthetic [id number] ICD-10 PCS 01/12/2016 OT ADL TRAINING/POSITIONING EA 15MIN [id number] SNOMED CT 01/15/2016 OT THERAPEUTIC ACT. ONE ON ONE EA [address] 01/15/2016 OT THERAPEUTIC ACT. ONE ON ONE EA [address] 01/13/2016 OT EVALUATION 914574844 SNOM[address] CT 01/13/2016 OT THERAPEUTIC ACT. ONE ON ONE EA [address] 01/14/2016 SHOULDER [address] 01/12/2016 BEDSIDE GLUCOSE 09978749 SNOMED CT 01/15/2016 BEDSIDE GLUCOSE 04979159 SNOMED CT 01/12/2016 BEDSIDE GLUCOSE 91898498 SNOMED CT 01/15/2016 BEDSIDE GLUCOSE 57904186 SNOMED CT 01/14/[address] 01/15/[address] 01/15/2016 BEDSIDE GLUCOSE 19353280 SNOMED CT 01/14/2016 BEDSIDE GLUCOSE 91815178 SNOMED CT 01/14/2016 BEDSIDE GLUCOSE 63260655 SNOMED CT 01/14/2016 BEDSIDE GLUCOSE 66071919 SNOMED CT 01/14/2016 BEDSIDE GLUCOSE 63010020 SNOMED CT 01/14/2016 BEDSIDE GLUCOSE 84265365 SNOMED CT 01/14/2016 BEDSIDE GLUCOSE 39258201 SNOMED CT 01/14/2016 BEDSIDE GLUCOSE 37470847 SNOMED CT 01/13/2016 BEDSIDE GLUCOSE 62863283 SNOMED CT 01/13/2016 [address]OGLOBIN A1C 84658949 SNOMED CT 01/14/2016 CBC W/ AUTO DIFF (RFLX MAN DIFF IF IND) 7960955 SNOMED CT 01/15/2016 BASIC METABOLIC PANEL 032817013 SNOMED CT 01/15/2016 CBC W/ AUTO DIFF (RFLX MAN DIFF IF IND) 7810269 SNOMED CT 01/14/2016 BASIC METABOLIC PANEL 807809556 SNOMED CT 01/14/2016 BEDSIDE GLUCOSE 70406789 SNOMED CT 01/13/2016 BEDSIDE GLUCOSE 02036015 SNOMED CT 01/13/2016 BEDSIDE GLUCOSE 72186417 SNOMED CT 01/12/2016 BEDSIDE GLUCOSE 06481277 SNOMED CT 01/12/2016 BEDSIDE GLUCOSE 95420115 SNOMED CT 01/12/2016 INCENTIVE SPIROMETRY EA [address] 03/2015 ^CBC W/AUTO DIFF 9149557 SNOMED CT 01/15/2016 ^CBC W/AUTO DIFF 6256689 SNOMED CT 01/14/2016 BAN AERO ECLIPSE TREATMENT 56867705 SNOMED CT 01/15/2016 BAN AERO ECLIPSE TREATMENT 72401914 SNOMED CT 01/14/2016 BAN AERO ECLIPSE TREATMENT 89376382 SNOMED CT 01/14/2016 BAN AERO ECLIPSE TREATMENT 86721410 SNOMED CT 01/14/2016 BAN AERO ECLIPSE TREATMENT 96964076 SNOMED CT 01/13/2016 BAN AERO ECLIPSE TREATMENT 63253190 SNOMED CT 01/13/2016 BAN AERO ECLIPSE TREATMENT 27379264 SNOMED CT 01/13/2016 BAN AERO ECLIPSE TREATMENT 36937900 SNOMED CT 01/12/2016 BAN AERO ECLIPSE TREATMENT 18933453 SNOMED CT 01/12/2016 Results BASIC METABOLIC PANEL - Collect Date/Time: 01/15/2016 06:30 Test Name Code Test Result Test Units Test Ref Range GLUCOSE 2345-7 190 MG/DL L=70 H=100 SODIUM 2951-2 135 MEQ/L L=135 H=148 POTASSIUM 2823-3 5.0 MEQ/L L=3.5 H=5.3 CHLORIDE 2075-0 101 MEQ/L L=96 H=110 CO2 2028-9 26 MEQ/L L=22 H=29 BUN 3094-0 28 MG/DL L=8 H=22 CREATININE 2160-0 1.0 MG/DL L=0.6 H=1.6 CALCIUM 20403-4 8.9 MG/DL L=8.2 H=10.6 AGE 27[birth year]-9 70 yrs GFR NonAA 88445-1 55 GFR AA 54152-4 67 eGFR 59827-5 55 mL/min/1.7 eGFR AA* 45445-0 >60 N/A BASIC METABOLIC PANEL - Collect Date/Time: 01/14/2016 06:20 Test Name Code Test Result Test Units Test Ref Range GLUCOSE 2345-7 219 MG/DL L=70 H=100 SODIUM 2951-2 133 MEQ/L L=135 H=148 POTASSIUM 2823-3 5.9 MEQ/L L=3.5 H=5.3 CHLORIDE 2075-0 104 MEQ/L L=96 H=110 CO2 2028-9 22 MEQ/L L=22 H=29 BUN 3094-0 32 MG/DL L=8 H=22 CREATININE 2160-0 1.1 MG/DL L=0.6 H=1.6 CALCIUM 68912-7 8.5 MG/DL L=8.2 H=10.6 AGE 50167-8 70 yrs GFR NonAA 88813-3 49 GFR AA 13281-4 59 eGFR 66485-8 49 mL/min/1.7 eGFR AA* 97459-5 59 mL/min/1.7 BEDSIDE GLUCOSE - Collect Date/Time: 01/15/2016 11:32 Test Name Code Test Result Test Units Test Ref Range GLUCOSE POCT 194 MG/DL L=70 H=100 BEDSIDE GLUCOSE - Collect Date/Time: 01/15/2016 05:44 Test Name Code Test Result Test Units Test Ref Range GLUCOSE POCT 204 MG/DL L=70 H=100 BEDSIDE GLUCOSE - Collect Date/Time: 01/14/2016 21:04 Test Name Code Test Result Test Units Test Ref Range GLUCOSE POCT 219 MG/DL L=70 H=100 BEDSIDE GLUCOSE - Collect Date/Time: 01/14/2016 17:10 Test Name Code Test Result Test Units Test Ref Range GLUCOSE POCT 161 MG/DL L=70 H=100 BEDSIDE GLUCOSE - Collect Date/Time: 01/14/2016 15:37 Test Name Code Test Result Test Units Test Ref Range GLUCOSE POCT 188 MG/DL L=70 H=100 BEDSIDE GLUCOSE - Collect Date/Time: 01/14/2016 14:58 Test Name Code Test Result Test Units Test Ref Range GLUCOSE POCT 24 MG/DL L=70 H=100 BEDSIDE GLUCOSE - Collect Date/Time: 01/14/2016 11:30 Test Name Code Test Result Test Units Test Ref Range GLUCOSE POCT 89 MG/DL L=70 H=100 BEDSIDE GLUCOSE - Collect Date/Time: 01/14/2016 10:11 Test Name Code Test Result Test Units Test Ref Range GLUCOSE POCT 222 MG/DL L=70 H=100 BEDSIDE GLUCOSE - Collect Date/Time: 01/14/2016 06:22 Test Name Code Test Result Test Units Test Ref Range GLUCOSE POCT 232 MG/DL L=70 H=100 BEDSIDE GLUCOSE - Collect Date/Time: 01/14/2016 02:52 Test Name Code Test Result Test Units Test Ref Range GLUCOSE POCT 219 MG/DL L=70 H=100 BEDSIDE GLUCOSE - Collect Date/Time: 01/13/2016 20:58 Test Name Code Test Result Test Units Test Ref Range GLUCOSE POCT 230 MG/DL L=70 H=100 BEDSIDE GLUCOSE - Collect Date/Time: 01/13/2016 16:25 Test Name Code Test Result Test Units Test Ref Range GLUCOSE POCT 67 MG/DL L=70 H=100 BEDSIDE GLUCOSE - Collect Date/Time: 01/13/2016 11:10 Test Name Code Test Result Test Units Test Ref Range GLUCOSE POCT 198 MG/DL L=70 H=100 BEDSIDE GLUCOSE - Collect Date/Time: 01/13/2016 05:45 Test Name Code Test Result Test Units Test Ref Range GLUCOSE POCT 319 MG/DL L=70 H=100 BEDSIDE GLUCOSE - Collect Date/Time: 01/12/2016 20:18 Test Name Code Test Result Test Units Test Ref Range GLUCOSE POCT 356 MG/DL L=70 H=100 BEDSIDE GLUCOSE - Collect Date/Time: 01/12/2016 17:02 Test Name Code Test Result Test Units Test Ref Range GLUCOSE POCT 379 MG/DL L=70 H=100 BEDSIDE GLUCOSE - Collect Date/Time: 01/12/2016 14:07 Test Name Code Test Result Test Units Test Ref Range GLUCOSE POCT 277 MG/DL L=70 H=100 BEDSIDE GLUCOSE - Collect Date/Time: 01/12/2016 10:54 Test Name Code Test Result Test Units Test Ref Range GLUCOSE POCT 169 MG/DL L=70 H=100 MAGNESIUM - Collect Date/Time: 01/15/2016 06:30 Test Name Code Test Result Test Units Test Ref Range MAGNESIUM 04285-9 2.1 MG/DL L=1.7 H=2.8 PHOSPHORUS - Collect Date/Time: 01/15/2016 06:30 Test Name Code Test Result Test Units Test Ref Range PHOSPHORUS 2777-1 3.1 MG/DL L=2.5 H=4.5 CBC W/ AUTO DIFF (RFLX MAN DIFF IF IND) - Collect Date/Time: 01/15/2016 06:30 Test Name Code Test Result Test Units Test Ref Range WBC 14252-9 6.3 TH/CMM L=4.5 H=10.8 RBC 789-8 2.76 ML/CMM L=4.20 H=5.40 HGB 718-7 8.3 G/DL L=12.0 H=16.0 HCT 4544-3 25.9 % L=37.0 H=47.0 MCV 84701-8 94 FL L=81 H=99 MCH 24077-4 30.1 PG L=27.0 H=33.0 MCHC 84328-5 32.0 G/DL L=31.0 H=36[place]0 [place] [address]-4 46 FL L=36 H=50 [place] [address]-2 13.5 % L=0.0 H=14.8 MPV 96803-9 10.4 FL L=9.3 H=12.5 PLT 777-3 255 TH/CMM L=130 H=440 NRBC# 42399-8 0.00 TH/CMM L=0.00 H=0.00 NRBC% 74394-1 0.0 /100WBC L=0.0 H=2.0 %NEUT 97812-2 67.1 % %LYMP 81750-5 17.7 % %MONO 76287-1 9.0 % %EOS 40980-8 5.7 % %BASO 32042-3 0.2 % #NEUT 53457-1 4.25 TH/CMM L=2.10 H=8.20 #LYMP 68193-3 1.12 TH/CMM L=0.90 H=5.20 #MONO 90299-9 0.57 TH/CMM L=0.16 H=1.00 #EOS 45532-1 0.36 TH/CMM L=0.00 H=0.80 #BASO 44230-8 0.01 TH/CMM L=0.00 H=0.20 MANUAL DIFF 40783-2 NOT IND N/A CBC W/ AUTO DIFF (RFLX MAN DIFF IF IND) - Collect Date/Time: 01/14/2016 06:20 Test Name Code Test Result Test Units Test Ref Range WBC 48193-8 7.6 TH/CMM L=4.5 H=10.8 RBC 789-8 2.78 ML/CMM L=4.20 H=5.40 HGB 718-7 8.3 G/DL L=12.0 H=16.0 HCT 4544-3 26.5 % L=37.0 H=47.0 MCV 43064-2 95 FL L=81 H=99 MCH 24450-7 29.9 PG L=27.0 H=33.0 MCHC 14497-3 31.3 G/DL L=31.0 H=36[place]0 [place] [address]-3 47 FL L=36 H=50 [place] [address]-0 13.5 % L=0.0 H=14.8 MPV 52338-6 10.6 FL L=9.3 H=12.5 PLT 777-3 251 TH/CMM L=130 H=440 NRBC# 81555-7 0.00 TH/CMM L=0.00 H=0.00 NRBC% 09364-8 0.0 /100WBC L=0.0 H=2.0 %NEUT 38378-3 73.0 % %LYMP 66959-6 12.6 % %MONO 25783-1 10.2 % %EOS 36211-3 3.8 % %BASO 14705-2 0.1 % #NEUT 22080-4 5.51 TH/CMM L=2.10 H=8.20 #LYMP 72532-1 0.95 TH/CMM L=0.90 H=5.20 #MONO 39068-2 0.77 TH/CMM L=0.16 H=1.00 #EOS 24124-3 0.29 TH/CMM L=0.00 H=0.80 #BASO 80272-4 0.01 TH/CMM L=0.00 H=0.20 MANUAL DIFF 88099-8 NOT IND N/A HEMOGLOBIN A1C - Collect Date/Time: 01/14/2016 06:20 Test Name Code Test Result Test Units Test Ref Range HGB A1C 30947-0 6.8 % L=4.0 H=6.4 Est Avg Glucose 90495-7 148.5 mg/dL Function Status Unknown or Not Available. History of Immunizations Unknown or Not Available. Plan of Treatment Unknown or Not Available. Social History Smoking Status Code Start Date End Date Current every day smoker [id number] Vital Signs Vital Sign Value Unit Date/Time Recent/Initial? Weight Measured 180 [lb_av] 01/11/2016 10:08 Initial VS Height 65 [in_i] 01/11/2016 10:08 Initial VS BMI (Body Mass Index) 29.95 kg/m2 01/11/2016 10:08 Initial VS BSA (Body Surface Area) 1.94 m2 01/11/2016 10:08 Initial VS Heart Rate 94 /min 01/12/2016 13:59 Initial VS BP Systolic 149 mm[Hg] 01/12/2016 14:00 Initial VS BP Diastolic 49 mm[Hg] 01/12/2016 14:00 Initial VS Respiratory Rate 21 /min 01/12/2016 14:09 Initial VS O2 % BldC Oximetry 94 % 01/12/2016 14:09 Initial VS Body Temperature 96.7 [degF] 01/12/2016 14:55 Initial VS BP Systolic 158 mm[Hg] 01/15/2016 10:26 Most Recent VS BP Diastolic 57 mm[Hg] 01/15/2016 10:26 Most Recent VS Respiratory Rate 18 /min 01/15/2016 10:26 Most Recent VS Heart Rate 86 /min 01/15/2016 10:26 Most Recent VS O2 % BldC Oximetry 97 % 01/15/2016 10:26 Most Recent VS Body Temperature 99.8 [degF] 01/15/2016 10:26 Most Recent VS Function Status Unknown or Not Available. Goals Unknown or Not Available. ASSESSMENTS Unknown or Not Available. Health Concerns Section Unknown or Not Available.
[2017-03-12] MEDS ORDERED: LIDOCAINE 1% INJ 50 ML (XYLOCAINE) VIAL ONE (11:38)
[2017-03-12] MEDS ORDERED: NS IV 1000 ML 1,000 ML ONE (11:38)
[2017-03-12] MEDS ORDERED: HEParin (CATH LAB) 2,000 ML IV ONE (11:38)
[2017-03-12] MEDS ORDERED: NS IV 1000 ML 1,000 ML IV SCH ×3 (12:15→14:59)
[2017-03-12 12:24] LABS: HEMOGLOBIN 12.5 G/DL (11.5-16.0); MEAN PLATELET VOLUME 9.9 FL (7.4-10.4); RED BLOOD COUNT 3.86 10^6/uL (4.35-5.85); RED CELL DISTRIBUTION WIDTH 13.8 % (10.0-14.5)
[2017-03-12 12:33] LABS: INR 0.9 (0.8-1.4); PROTHROMBIN TIME PATIENT 12.5 SEC (12.2-14.7)
--- NOTE | 2017-03-12 12:34 | Diagnostic Imaging Report ---
INDICATION: Preop for heart catheterization. TIME OF EXAM: 12:20 p.m. No prior studies are available for comparison. The heart is mildly enlarged. The lungs are clear. The pulmonary vascularity is normal. No infiltrate, effusion or pneumothorax is seen. Postop changes of reverse shoulder arthroplasty on the right are noted. IMPRESSION: No acute cardiopulmonary process is detected. PQRS Compliance Statement: One or more of the following individualized dose reduction techniques were utilized for this examination: 1. Automated exposure control 2. Adjustment of the mA and/or kV according to patient size 3. Use of iterative reconstruction technique Dictated by: Dictated on workstation # [id number]
[2017-03-12 12:41] LABS: ALBUMIN 4.3 GM/DL (3.2-4.5); BILIRUBIN,TOTAL 0.3 MG/DL (0.1-1.0); CALCIUM 9.5 MG/DL (8.5-10.1); CREATININE SERUM 0.93 MG/DL (0.60-1.30); POTASSIUM 5.8 MMOL/L (3.6-5.0); TOTAL PROTEIN 7.4 GM/DL (6.4-8.2)
[2017-03-12] MEDS ORDERED: CILO50TA PO (12:43)
[2017-03-12] MEDS ORDERED: LEVO150T6 PO (12:43)
[2017-03-12] MEDS ORDERED: DULO60CA6 PO (12:43)
[2017-03-12] MEDS ORDERED: DICL75TA2 PO (12:43)
[2017-03-12] MEDS ORDERED: CLOP75TA69 PO (12:43)
[2017-03-12] MEDS ORDERED: INSU100I10 SQ (12:43)
[2017-03-12] MEDS ORDERED: GABA800T2 PO (12:43)
[2017-03-12] MEDS ORDERED: AMLO5TAB2 PO (12:43)
[2017-03-12] MEDS ORDERED: INSU100V16 SQ (12:43)
[2017-03-12] MEDS ORDERED: HYDR-3820 PO (13:14)
[2017-03-12] MEDS ORDERED: INFLUENZA TRIvalent 2017-2018 0.5 ML/45 MCG SYR IM ONE (13:30)
--- NOTE | 2017-03-12 13:34 | Cardiac Procedure Note-CS/ASA ---
Pre-Procedure Note Pre-Op Procedure Note H&P Reviewed The H&P was reviewed, patient examined and no changes noted. Date H&P Reviewed: Mar 12, 2017 Time H&P Reviewed: 13:33 Conscious Sedation Pre-Proced Time Reviewed: 13:33 ASA Class: 3 Airway Mallampati Classification: ([place] appropriate class) I. II. III, IV Lungs Heart ASA score ASA 1: a normal healthy patient ASA 2: a patient with a mild systemic disease (mid diabetes, controlled hypertension, obesity x ASA 3: a patient with a severe systemic disease that limits activity (angina , COPD, prior Myocardial infarction) ASA 4: a patient with an incapacitating disease that is a constant threat to life (CHF, renal failure) ASA 5: a moribund patient not expected to survive 24 hrs. (ruptured aneurysm) ASA 6: a declared brain patient whose organs are being harvested. For emergent operations, add the letter E after the classification Grade 3 Sedation Plan: Analgesia, Amnesia, Plan communicated to team members, Discussed options with patient/fam, Discussed risks with patient/fam Note The patient is an appropriate candidate to undergo the planned procedure, sedation, and anesthesia. The patient immediately re-assessed prior to indication. SANCHO SKINNER MD Mar 12, 2017 13:34
[2017-03-12] MEDS ORDERED: MIDAZOLAM 5 MG/5 ML (VERSED) VIAL ONE (14:12)
[2017-03-12] MEDS ORDERED: fentaNYL INJECTION 100 MCG/2 ML AMP ONE (14:12)
[2017-03-12] MEDS ORDERED: HEParin 1000 UNIT/ML (10ML VIAL) FOR BOLUS ONE (14:13)
[2017-03-12] MEDS ORDERED: NITROGLYCERIN DRIP 25 MG/D5W 250 ML IV ONE (14:13)
[2017-03-12] MEDS ORDERED: VERAPAMIL 5 MG/2 ML (CALAN) VIAL IV ONE (14:13)
[2017-03-12] MEDS ORDERED: ATOR10TA PO (15:01)
--- NOTE | 2017-03-12 15:02 | Discharge Inst-Post CATH ---
Discharge Inst-CATH Post Cardiac Cath D/C Inst Follow Up/Plan Appointment with Dr Smith's office in 2-4 weeks CARDIAC CATH DISCHARGE INSTRUCTIONS *Hold Metformin for 48 hours post heart cath. ACTIVITY * Go Home directly and rest. * Limit activity of the leg (or wrist if it was used) for 7 days including aerobics, swimming, jogging, bicycling, etc. * Restrict stair-climbing for 7 days if possible, if not, climb up with your non -cath leg, then bring together on the same step. * Avoid lifting, pushing, pulling or excessive movement of the affected extremity for 7 days. * Customary sexual activity may be resumed after 2 days-use caution not to use a position that strains or causes pain to the affected extremity. * No driving for 24 hours. * NO SMOKING. * Avoid straining for bowel movements for 7 days. * Gentle walking on level ground is allowed. * Returning to work will depend on the type of procedure and the results. Your doctor will discuss this with you. CALL YOUR DOCTOR FOR ANY OF THE FOLLOWING: *If bleeding from the puncture site occurs- Apply gentle pressure to site with clean cloth and call your doctor or EMS. * If a knot or lump forms under the skin, increases in size, or causes pain. * If bruising appears to be worsening or moving further down your leg instead of disappearing. * Temperature above 101 F. CARE OF YOUR GROIN INCISION; * Bruising or purple discoloration of the skin near the puncture site is common. * You may shower only, no bathtub bathing for 5 days. Be careful to avoid slipping as your leg may feel stiff. * If a closure device was used on your femoral artery, please see the attached guide regarding care of the device and your leg. * REMOVE the dressing from your groin the next day after your procedure in the shower. CARE OF YOUR WRIST INCISION; * Bruising or purple discoloration of the skin near the puncture site is common. * You may shower. * DO NOT submerge wrist. * Remove dressing in 24 hours. SANCHO SMITH MD Mar 12, 2017 15:02
--- NOTE | 2017-03-12 15:07 | Cardiac Cath Report ---
Cardiac Cath Report Physician (s)/Hedge Trimmer (s) Physician SANCHO SKINNER MD Pre-Procedure Diagnosis Pre-Procedure Diagnosis: Coronary artery disease Post-Procedure Note Procedure Start Date: Mar 12, 2017 Name of Procedure: Left heart catheterization, left ventriculogram Findings/Procedure Note PROCEDURE NOTE: After explaining the procedure to the patient, all pros and cons were explained, all questions were answered. The patient signed the consent and then she was placed on the cardiac catheterization laboratory. The patient was placed on the cardiac catheterization laboratory. Wrist was prepped SL fashion local anesthesia was used. Sheath placed in the right radial artery. [place] catheter was used to access the coronaries and advanced to the left ventricular cavity Left ventriculogram was done Coronary angiogram was done At the end of the procedure the sheath was removed. vascular band was used FINDINGS: Hemodynamics LV 141/19, end-diastolic pressure of 19 Aorta 146/58 mean of 78 ANATOMY: Left Main has 40-50 percent ostial stenosis nonobstructive disease Left Anterior Descending is calcified with 40-50 percent ostial stenosis, followed by mild aneurysmal dilatation. Mild disease distally Left Circumflex is calcified with mild disease of the ostium Right Coronory Artery is small, mild disease nonobstructive disease LV Gram is normal in size with normal contractility estimated ejection fraction 60 percent CONCLUSION: 1. 40-50% the ostial left main 2. 40-50 percent ostial LAD, calcified artery followed by an aneurysmal vessels patient with mild disease distally 3. Calcified proximal circumflex artery with mild disease 4. Normal left ventricle size and systolic function estimated ejection fraction 60 percent DISCUSSION AND RECOMMENDATION: Patient has multiple moderate disease, nonobstructive disease, medical therapy is recommended, close monitoring is recommended. Anesthesia Type: Conscious Sedation Estimated blood loss (mL): 10 ml Contrast Amount: 55 ml Total Radiation Dose: 100 mGy Post-Procedure Diagnosis Post-operative diagnosis: Coronary artery disease Hypertension Hyperlipidemia Diabetes mellitus SANCHO SKINNER MD Mar 12, 2017 3:07 pm
[2017-03-12 15:28] VITALS: BP 183/69
[2017-03-12 15:30] VITALS: BP 181/76
[2017-03-12 15:51] VITALS: BP 176/69
[2017-03-12 16:00] VITALS: BP 168/63
[2017-03-12 17:00] VITALS: BP 165/73
== END 2017-03-12 17:00 | disposition home or self-care (01) ==
LOC: CATH 11:25
PROVIDERS: ATTEND Internal Medicine Cardiovascular Disease
DX: I25.10 Atherosclerotic heart disease of native coronary artery without angina pectoris (principal); I10 Essential (primary) hypertension; E78.5 Hyperlipidemia, unspecified; E11.43 Type 2 diabetes mellitus with diabetic autonomic (poly)neuropathy; I35.0 Nonrheumatic aortic (valve) stenosis; E03.9 Hypothyroidism, unspecified; I65.23 Occlusion and stenosis of bilateral carotid arteries; M54.9 Dorsalgia, unspecified; R29.898 Other symptoms and signs involving the musculoskeletal system; R01.1 Cardiac murmur, unspecified; F17.210 Nicotine dependence, cigarettes, uncomplicated; Z79.02 Long term (current) use of antithrombotics/antiplatelets; Z79.4 Long term (current) use of insulin; Z79.899 Other long term (current) drug therapy; Z99.3 Dependence on wheelchair
CPT/HCPCS: 36415; 71045; 80053; 80061; 85027; 85610; 85730; 87081; 93005; 93458

== ENCOUNTER 2017-05-07 11:30 | Outpatient (CLI) | payer MEDICARE, OTHER, MEDICAID ==
[~2017-05-07] VITALS: Ht 160 cm; Wt 71.2 kg
[~2017-05-07 11:30] MED LIST changes: +AMLO5TAB2 PO; +ATOR10TA PO; -CATHETER FLUSH 10 ML SYR IV PRN; +CILO50TA PO; +CLOP75TA69 PO; +DICL75TA2 PO; +DULO60CA6 PO; +GABA800T2 PO; +HYDR-3820 PO; +INSU100I10 SQ; +INSU100V16 SQ; +LEVO150T6 PO; -REGADENOSON 0.4 MG/5 ML SYR (LEXISCAN) IV ONE
[2017-05-07 11:52] VITALS: BP 163/61
[2017-05-07 13:00] LABS: BASOPHILS % (AUTO) 0 % (0-10); EOSINOPHILS # (AUTO) 0.1 10^3/uL (0.0-0.3); EOSINOPHILS % (AUTO) 2 % (0-10); HEMATOCRIT 38 % (35-52); HEMOGLOBIN 12.8 G/DL (11.5-16.0); LYMPHOCYTES # (AUTO) 1.2 X 10^3 (1.0-4.0); LYMPHOCYTES % (AUTO) 27 % (12-44); MEAN CORPUSCULAR HEMOGLOBIN 32 PG (25-34); MEAN CORPUSCULAR HGB CONC 34 G/DL (32-36); MEAN CORPUSCULAR VOLUME 94 FL (80-99); MEAN PLATELET VOLUME 9.7 FL (7.4-10.4); MONOCYTES # (AUTO) 0.4 X 10^3 (0.0-1.0); MONOCYTES % (AUTO) 10 % (0-12); NEUTROPHILS # (AUTO) 2.8 X 10^3 (1.8-7.8); NEUTROPHILS % (AUTO) 62 % (42-75); PLATELET COUNT 266 10^3/uL (130-400); RED CELL DISTRIBUTION WIDTH 13.8 % (10.0-14.5); WHITE BLOOD COUNT 4.5 10^3/uL (4.3-11.0)
[2017-05-07 13:20] LABS: ALBUMIN 4.5 GM/DL (3.2-4.5); BILIRUBIN,TOTAL 0.4 MG/DL (0.1-1.0); CALCIUM 9.6 MG/DL (8.5-10.1); CREATININE SERUM 1.06 MG/DL (0.60-1.30); POTASSIUM 5.2 MMOL/L (3.6-5.0); TOTAL PROTEIN 7.3 GM/DL (6.4-8.2)
[2017-05-08] MEDS ORDERED: FLUT16SP22 NS (14:05)
[2017-05-08] MEDS ORDERED: POLY17PO6 PO (14:05)
== END 2017-05-07 14:28 ==
LOC: PREOP 11:30
PROVIDERS: ATTEND Orthopaedic Surgery Orthopaedic Surgery of the Spine
DX: Z01.810 Encounter for preprocedural cardiovascular examination (principal); Z01.812 Encounter for preprocedural laboratory examination; Z11.2 Encounter for screening for other bacterial diseases; M96.3 Postlaminectomy kyphosis; M96.0 Pseudarthrosis after fusion or arthrodesis
CPT/HCPCS: 36415; 80053; 85025; 86850; 86900; 86901; 87081; 93005

== ENCOUNTER 2017-05-12 07:30 | Inpatient (IN) | payer MEDICARE, OTHER, MEDICAID ==
[~2017-05-12] VITALS: Ht 160 cm; Wt 71.2 kg
[~2017-05-12 07:30] MED LIST changes: +FLUT16SP22 NS; +POLY17PO6 PO
[2017-06-02] VITALS (8 sets, daily range): BP systolic 109–150; BP diastolic 40–59
--- OUTSIDE RECORDS SUMMARY | 2017-06-02 05:54 | XMS REPORT ---
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 Name Role Phone Mao Zamora Unavailable PROBLEMS Type Condition ICD9-CM Code MVA88-MB Code Onset Dates Condition Status SNOMED Code Problem Type 2 diabetes mellitus with diabetic polyneuropathy E11.42 Active 104639310 Problem Essential (primary) hypertension I10 Active 17752095 Problem Low back pain M54.5 Active 779264989 Problem Age-related osteoporosis without current pathological fracture M81.0 Active 317052586 Problem Hypothyroidism, unspecified E03.9 Active 93687451 Problem Atherosclerosis of [place] arteries of extremities with intermittent claudication, 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 Active [id number] ALLERGIES No Information ENCOUNTERS Encounter Location Date Diagnosis Mao Zamora MD [address] [place] [phone] Apr, Mao Zamora MD [address] [place] [phone] Apr, Low back pain M54.5 Mao Zamora MD [address] [place] [phone] Apr, Mao Zamora MD [address] [place] [phone] Mar, Mao Zamora MD [address] [place] [phone] Mar, Low back pain M54.5 Mao Zamora MD [address] [place] [phone] Mar, Mao Zamora MD [address] [place] [phone] Feb, Mao Zamora MD [address] [place] [phone] Feb, Low back pain M54.5 and Type 2 diabetes mellitus with diabetic polyneuropathy E11.42 IMMUNIZATIONS No Known Immunizations SOCIAL HISTORY Never Assessed REASON FOR VISIT fluconazole 150mg PLAN OF CARE VITAL SIGNS MEDICATIONS Medication Instructions Dosage Frequency Start Date End Date Duration Status Fluconazole 50 MG Orally Once a day 1 tablet 24h Mar, Apr, 05 days Active RESULTS No Results PROCEDURES No Known procedures INSTRUCTIONS MEDICATIONS ADMINISTERED No Known Medications MEDICAL (GENERAL) HISTORY Type Description Date Medical History Type 2 diabetes mellitus with diabetic polyneuropathy Medical History Essential (primary) hypertension Medical History Hypothyroidism, unspecified Medical History Atherosclerosis of [place] arteries of extremities with intermittent claudication, right leg Medical History Age-related osteoporosis without current pathological fracture Surgical History lumbar spine Surgical History ORIF R shoulder (twice) Surgical History fem-pop bypass, bilateral Surgical History R TKR Hospitalization History Multiple surgeries Hospitalization History Pneumonia at least once
--- OUTSIDE RECORDS SUMMARY | 2017-06-02 05:54 | XMS REPORT | CCD ---
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 Name Role Phone SUSAN VARGAS, LEDA Reid Attphys H., HODA D NASST M., REGAN D NASST S., SURESH NASST A., CEFERINO NASST S., CHRISTIAN Pérez NASST F., JEB Otero NASST K., MICK Pérez NASST B., NICOL NASST S., ALVIN NASST S., GURPREET NASST B., THERESE NASST B., REGAN NASST D., RENÉ S NASST H., HODA D NASST F., LEX NASST H., PALMA S NASST B., NICOL NASST M., ESMER NASST S., MATTHEW BECKMAN NASST Allergies Allergy Code Allergy Type Reaction Status PROCHLORPERAZINE 8704 Drug allergy Active THIOTHIXENE 50023 Drug allergy Active MORPHINE 7052 Drug allergy ANAPHYLAXIS Active Active Medications Medication Code Dose Units Frequency Route Modification Start Date/Time Cymbalta 60MG Oral Capsule, Delayed Release [id number] 60 MILLIGRAMS TWO TIMES A DAY ORAL 09/23/2016 11:38 Prescription Detail 60 MILLIGRAMS ORAL TWO TIMES A DAY HYDROcodone bitartrate-acetaminophen 10MG-325MG Oral Tablet 194435 1 TABLET NEEDED EVERY 4 HR BY MOUTH 09/23/2016 11:38 Prescription Detail 1 TABLET BY MOUTH NEEDED EVERY 4 HR Losartan Potassium 50MG Oral Tablet 004900 50 MILLIGRAMS DAILY ORAL 09/23/2016 11:38 Prescription Detail 50 MILLIGRAMS ORAL DAILY [place] 5MG-325MG Oral Tablet 321064 1 EACH NEEDED EVERY 4 HR ORAL 09/23/2016 11:38 Prescription Detail 1 EACH ORAL NEEDED EVERY 4 HR traMADol HCl 50MG Oral Tablet 056024 50 MILLIGRAMS FOUR TIMES A DAY BY MOUTH 09/23/2016 11:38 Prescription Detail 50 MILLIGRAMS BY MOUTH FOUR TIMES A DAY Polyethylene Glycol 3350 17GM/1Dose Oral Powder for Solution 650900 17 GRAM BEDTIME BY MOUTH 09/23/2016 11: 37 Prescription Detail 17 GRAM BY MOUTH BEDTIME Thera-M Enhanced 90MG-0.03MG-0.15MG-4 Oral Tablet 433856 1 TABLET DAILY BY MOUTH 09/23/2016 11:37 Prescription Detail 1 TABLET BY MOUTH DAILY Nicotine Transdermal System 14MG/24HR Transdermal Patch, Extended Release 167874 14 MILLIGRAMS DAILY TOPICAL APPLICATION 09/23/2016 11:36 Prescription Detail 14 MILLIGRAMS TOPICAL APPLICATION DAILY Protonix 40MG Oral Tablet, Enteric Coated 688903 40 MILLIGRAMS DAILY BY MOUTH 09/23/2016 11:36 Prescription Detail 40 MILLIGRAMS BY MOUTH DAILY Acetaminophen 325MG Oral Tablet 568887 650 MILLIGRAMS NEEDED BY MOUTH 09/23/2016 11:35 Prescription Detail 650 MILLIGRAMS BY MOUTH NEEDED Docusate Sodium 100MG Oral Capsule, Liquid Filled 6415508 100 MILLIGRAMS TWO TIMES A DAY BY MOUTH 2016 11:35 Prescription Detail 100 MILLIGRAMS BY MOUTH TWO TIMES A DAY Levemir 100U/1ML Subcutaneous Solution 249470 15 UNIT AT BEDTIME SUBCUTANEOUS 09/23/2016 11:35 Prescription Detail 15 UNIT SUBCUTANEOUS AT BEDTIME NovoLOG 100U/1ML Subcutaneous Solution 271333 Per Protocol Unit(s) As Needed SUBCUTANEOUS 09/23/2016 11:35 Prescription Detail Per Protocol Unit(s) SUBCUTANEOUS As Needed Phenaseptic 1.4% Oromucosal [place] 364617 1 EACH NEEDED TOPICAL APPLICATION 09/23/2016 11:35 Prescription Detail 1 EACH TOPICAL APPLICATION NEEDED Vitamin C 500MG Oral Tablet 835675 500 MILLIGRAMS DAILY BY MOUTH 09/23/2016 11:35 Prescription Detail 500 MILLIGRAMS BY MOUTH DAILY Vitamin D 00515VJ Oral Capsule, Liquid Filled 9700952 1 EACH WEEKLY BY MOUTH 09/12/2016 10:29 Prescription Detail 1 EACH BY MOUTH WEEKLY x 8 WEEKS Aspirin 325MG Oral Tablet, Enteric Coated 965251 325 MILLIGRAMS TWO TIMES A DAY BY MOUTH 09/12/2016 10: 28 Prescription Detail 325 MILLIGRAMS BY MOUTH TWO TIMES A DAY X 2 WEEKS dilTIAZem CD 240MG Oral Capsule, Extended Release, 24 HR 199469 240 MILLIGRAMS DAILY BY MOUTH 09/12/2016 10 :28 Prescription Detail 240 MILLIGRAMS BY MOUTH DAILY Gabapentin 800MG Oral Tablet 341672 800 MILLIGRAMS FIVE TIMES A DAY ORAL 01/15/2016 11:45 Prescription Detail 800 MILLIGRAMS ORAL FIVE TIMES A DAY Levothyroxine 150MCG Oral Tablet 021847 150 MCG DAILY ORAL 01/15/2016 11:45 Prescription Detail 150 MCG ORAL DAILY Plavix 75MG Oral Tablet 302072 75 MILLIGRAMS DAILY ORAL 01/15/2016 11:45 Prescription Detail 75 MILLIGRAMS ORAL DAILY Problems Problem Code Start Date Resolved Date Status Periprosthetic fracture around internal prosthetic right shoulder joint, initial encounter 124327355 09/06/2016 Active Pain in arm 455140306 09/06/2016 Active Procedures Procedure Code Procedure Type Date Reposition Right Humeral Shaft with Internal Fixation Device, Open Approac [id number] ICD-10 PCS 09/10/2016 Supplement Right Humeral Head with Nonautologous Tissue Substitute, Open A [id number] ICD-10 PCS 09/10/2016 US ECHO 2D COMP WITH DOPP AND COLOR [id number] SNOMED CT 03/2016 CX CHEST [address] 09/11/2016 HUMERUS, [address] 09/10/2016 HUMERUS, [address] 09/10/2016 CT LUMBAR W/O CONTRAST 144168563 SNOMED CT 09/06/2016 LUMBAR SPINE; SINGLE VIEW 51167333 SNOMED CT 09/06/2016 SHOULDER MINIMUM [address] 09/06/2016 CX CHEST [address] 09/06/2016 CT HEAD W/O CONTRAST 020075772 SNOMED CT 09/06/2016 CT CERVICAL W/O CONTRAST 856319433 SNOMED CT 09/06/2016 BEDSIDE GLUCOSE 08817090 SNOMED CT 09/12/2016 BEDSIDE GLUCOSE 10331123 SNOMED CT 09/12/2016 BEDSIDE GLUCOSE 06012754 SNOMED CT 09/11/2016 BEDSIDE GLUCOSE 01000411 SNOMED CT 09/11/2016 PTH INTACT 3612341 SNOMED [address] 09/11/[address] 09/11/2016 BEDSIDE GLUCOSE 04270624 SNOMED CT 09/11/2016 BEDSIDE GLUCOSE 58517774 SNOMED CT 09/10/2016 BEDSIDE GLUCOSE 85823328 SNOMED CT 09/10/2016 BEDSIDE GLUCOSE 79117295 SNOMED CT 09/11/2016 BEDSIDE GLUCOSE 38705769 SNOMED CT 09/10/2016 BEDSIDE GLUCOSE 94508096 SNOMED CT 09/11/2016 CBC W/ AUTO DIFF (RFLX MAN DIFF IF IND) 4065675 SNOMED CT 09/12/2016 BASIC METABOLIC PANEL 865906255 SNOMED CT 09/12/2016 TROPONIN-I ADV 809333117 SNOMED CT 09/10/2016 COMPREHENSIVE METABOLIC PANEL 062983496 SNOMED CT [address] 09/10/2016 BEDSIDE GLUCOSE 38920510 SNOMED CT 09/10/2016 BEDSIDE GLUCOSE 65625651 SNOMED CT 09/10/2016 RENAL FUNCTION PANEL 334158286 SNOMED CT 09/11/2016 CBC W/ AUTO DIFF (RFLX MAN DIFF IF IND) 8380213 SNOMED CT 09/11/2016 BEDSIDE GLUCOSE 64277533 SNOMED CT 09/10/2016 BEDSIDE GLUCOSE 04110456 SNOMED CT 09/09/2016 BEDSIDE GLUCOSE 12656181 SNOMED CT 09/09/2016 BEDSIDE GLUCOSE 30429160 SNOMED CT 09/08/2016 BEDSIDE GLUCOSE 18848110 SNOMED CT 09/09/2016 BEDSIDE GLUCOSE 08008665 SNOMED CT 09/09/2016 CBC W/ AUTO DIFF (RFLX MAN DIFF IF IND) 4671264 SNOMED CT 09/10/[address] 09/10/2016 BEDSIDE GLUCOSE 48716939 SNOMED CT 09/09/2016 BEDSIDE GLUCOSE 31685302 SNOMED CT 09/09/2016 BEDSIDE GLUCOSE 47437569 SNOMED CT 09/08/2016 BEDSIDE GLUCOSE 88462444 SNOMED CT 09/08/2016 BEDSIDE GLUCOSE 11689851 SNOMED CT 09/08/2016 BEDSIDE GLUCOSE 64065254 SNOMED CT 09/08/2016 BEDSIDE GLUCOSE 75385352 SNOMED CT 09/08/2016 BEDSIDE GLUCOSE 51334936 SNOMED CT 09/08/2016 BEDSIDE GLUCOSE 60025839 SNOMED CT 09/08/2016 BEDSIDE GLUCOSE 22596691 SNOMED CT 09/07/2016 BEDSIDE GLUCOSE 85381899 SNOMED CT 09/07/[address] 09/08/2016 BEDSIDE GLUCOSE 07124971 SNOMED CT 09/07/2016 BEDSIDE GLUCOSE 31371351 SNOMED CT 09/07/2016 BEDSIDE GLUCOSE 12651640 SNOMED CT 09/07/2016 L[address] 566[address] 09/07/[address]GLOBIN A1C 36019323 SNOMED CT 09/07/2016 COMPREHENSIVE METABOLIC PANEL 325836242 SNOMED CT 2016 VITAMIN D (25 HYDROXY) 24392508 SNOMED CT 09/07/2016 TYPE AND SCREEN 73236081 SNOMED CT 09/09/2016 COMPREHENSIVE METABOLIC PANEL 554353107 SNOMED CT 2016 COMPREHENSIVE METABOLIC PANEL 701167569 SNOMED CT 2016 COMPREHENSIVE METABOLIC PANEL 198300262 SNOMED CT 2016 CBC W/ AUTO DIFF (RFLX MAN DIFF IF IND) 8618529 SNOMED CT 09/09/2016 CBC W/ AUTO DIFF (RFLX MAN DIFF IF IND) 1205766 SNOMED CT 09/08/2016 CBC W/ AUTO DIFF (RFLX MAN DIFF IF IND) 6231116 SNOMED CT 09/07/2016 BEDSIDE GLUCOSE 07756502 SNOMED CT 09/06/2016 PT THERAPEUTIC EXERCISES [address] 2016 PT GAIT TRAINING/STAIRS EA [address] 09/12 OT THERAPEUTIC ACT. ONE ON ONE EA [address] 09/12/2016 PT THERAPEUTIC ACT. ONE ON ONE EA [address] 09/11/2016 PT EVALUATION; LOW 329903711 SNOMED CT 09/11/2016 PT THERAPEUTIC ACT. ONE ON ONE EA [address] 09/11/2016 PT GAIT TRAINING/STAIRS EA [address] 09/11 OT THERAPEUTIC ACT. ONE ON ONE EA [address] 09/11/2016 OT EVAL; LOW 830367040 SNOMED CT 09/11/2016 FLUOROSCOPY < [address] 09/10/2016 INCENTIVE SPIROMETRY X [address] 09/11/2016 ^CBC W/AUTO DIFF 0704188 SNOMED CT 09/12/2016 ^CBC W/AUTO DIFF 8136432 SNOMED CT 09/11/2016 ^CBC W/AUTO DIFF 0171345 SNOMED CT 09/10/2016 ^CBC W/AUTO DIFF 2309389 SNOMED CT 09/09/2016 ^CBC W/AUTO DIFF 4258465 SNOMED CT 09/08/2016 ^CBC W/AUTO DIFF 0765043 SNOMED CT 09/07/2016 BAN AERO ECLIPSE TREATMENT 42699443 SNOMED CT 09/12/2016 BAN AERO ECLIPSE TREATMENT 78809332 SNOMED CT 09/11/2016 BAN AERO ECLIPSE TREATMENT 97594636 SNOMED CT 09/11/2016 BAN AERO ECLIPSE TREATMENT 21129566 SNOMED CT 09/10/2016 BAN AERO ECLIPSE TREATMENT 97254081 SNOMED CT 09/10/2016 BAN AERO ECLIPSE TREATMENT 43059394 SNOMED CT 09/10/2016 BAN AERO ECLIPSE TREATMENT 96148714 SNOMED CT 09/09/2016 BAN AERO ECLIPSE TREATMENT 33599580 SNOMED CT 09/09/2016 BAN AERO ECLIPSE TREATMENT 89343180 SNOMED CT 09/09/2016 BAN AERO ECLIPSE TREATMENT 63040483 SNOMED CT 09/08/2016 BAN AERO ECLIPSE TREATMENT 05589738 SNOMED CT 09/08/2016 BAN AERO ECLIPSE TREATMENT 89682065 SNOMED CT 09/08/2016 BAN AERO ECLIPSE TREATMENT 79808603 SNOMED CT 09/07/2016 BAN AERO ECLIPSE TREATMENT 00939663 SNOMED CT 09/07/2016 BAN AERO ECLIPSE TREATMENT 20391686 SNOMED CT 09/07/2016 BAN AERO ECLIPSE TREATMENT 02127579 SNOMED CT 09/06/2016 Results BASIC METABOLIC PANEL - Collect Date/Time: 09/12/2016 05:40 Test Name Code Test Result Test Units Test Ref Range GLUCOSE 2345-7 352 MG/DL L=70 H=100 SODIUM 2951-2 134 MEQ/L L=135 H=148 POTASSIUM 2823-3 4.1 MEQ/L L=3.5 H=5.3 CHLORIDE 2075-0 102 MEQ/L L=96 H=110 CO2 2028-9 26 MEQ/L L=22 H=29 BUN 3094-0 14 MG/DL L=8 H=22 CREATININE 2160-0 0.8 MG/DL L=0.6 H=1.6 CALCIUM 95152-4 8.5 MG/DL L=8.2 H=10.6 AGE [birth year]-9 71 yrs GFR NonAA 85646-0 70 GFR AA 20995-5 85 eGFR 25055-3 >60 N/A eGFR AA* 80502-5 >60 N/A BEDSIDE GLUCOSE - Collect Date/Time: 09/12/2016 12:01 Test Name Code Test Result Test Units Test Ref Range GLUCOSE POCT 145 MG/DL L=70 H=100 BEDSIDE GLUCOSE - Collect Date/Time: 09/12/2016 06:46 Test Name Code Test Result Test Units Test Ref Range GLUCOSE POCT 336 MG/DL L=70 H=100 BEDSIDE GLUCOSE - Collect Date/Time: 09/11/2016 21:13 Test Name Code Test Result Test Units Test Ref Range GLUCOSE POCT 192 MG/DL L=70 H=100 BEDSIDE GLUCOSE - Collect Date/Time: 09/11/2016 16:47 Test Name Code Test Result Test Units Test Ref Range GLUCOSE POCT 285 MG/DL L=70 H=100 BEDSIDE GLUCOSE - Collect Date/Time: 09/11/2016 12:05 Test Name Code Test Result Test Units Test Ref Range GLUCOSE POCT 217 MG/DL L=70 H=100 BEDSIDE GLUCOSE - Collect Date/Time: 09/11/2016 05:20 Test Name Code Test Result Test Units Test Ref Range GLUCOSE POCT 132 MG/DL L=70 H=100 BEDSIDE GLUCOSE - Collect Date/Time: 09/11/2016 02:11 Test Name Code Test Result Test Units Test Ref Range GLUCOSE POCT 124 MG/DL L=70 H=100 BEDSIDE GLUCOSE - Collect Date/Time: 09/10/2016 21:36 Test Name Code Test Result Test Units Test Ref Range GLUCOSE POCT 277 MG/DL L=70 H=100 BEDSIDE GLUCOSE - Collect Date/Time: 09/10/2016 19:40 Test Name Code Test Result Test Units Test Ref Range GLUCOSE POCT 274 MG/DL L=70 H=100 BEDSIDE GLUCOSE - Collect Date/Time: 09/10/2016 18:11 Test Name Code Test Result Test Units Test Ref Range GLUCOSE POCT 208 MG/DL L=70 H=100 BEDSIDE GLUCOSE - Collect Date/Time: 09/10/2016 13:54 Test Name Code Test Result Test Units Test Ref Range GLUCOSE POCT 277 MG/DL L=70 H=100 BEDSIDE GLUCOSE - Collect Date/Time: 09/10/2016 11:41 Test Name Code Test Result Test Units Test Ref Range GLUCOSE POCT 393 MG/DL L=70 H=100 BEDSIDE GLUCOSE - Collect Date/Time: 09/10/2016 05:43 Test Name Code Test Result Test Units Test Ref Range GLUCOSE POCT 135 MG/DL L=70 H=100 BEDSIDE GLUCOSE - Collect Date/Time: 09/09/2016 20:25 Test Name Code Test Result Test Units Test Ref Range GLUCOSE POCT 150 MG/DL L=70 H=100 BEDSIDE GLUCOSE - Collect Date/Time: 09/09/2016 17:21 Test Name Code Test Result Test Units Test Ref Range GLUCOSE POCT 166 MG/DL L=70 H=100 BEDSIDE GLUCOSE - Collect Date/Time: 09/09/2016 11:58 Test Name Code Test Result Test Units Test Ref Range GLUCOSE POCT 275 MG/DL L=70 H=100 BEDSIDE GLUCOSE - Collect Date/Time: 09/09/2016 09:50 Test Name Code Test Result Test Units Test Ref Range GLUCOSE POCT 268 MG/DL L=70 H=100 BEDSIDE GLUCOSE - Collect Date/Time: 09/09/2016 05:15 Test Name Code Test Result Test Units Test Ref Range GLUCOSE POCT 205 MG/DL L=70 H=100 BEDSIDE GLUCOSE - Collect Date/Time: 09/09/2016 04:06 Test Name Code Test Result Test Units Test Ref Range GLUCOSE POCT 260 MG/DL L=70 H=100 BEDSIDE GLUCOSE - Collect Date/Time: 09/08/2016 21:08 Test Name Code Test Result Test Units Test Ref Range GLUCOSE POCT 125 MG/DL L=70 H=100 BEDSIDE GLUCOSE - Collect Date/Time: 09/08/2016 18:56 Test Name Code Test Result Test Units Test Ref Range GLUCOSE POCT 232 MG/DL L=70 H=100 BEDSIDE GLUCOSE - Collect Date/Time: 09/08/2016 17:04 Test Name Code Test Result Test Units Test Ref Range GLUCOSE POCT 122 MG/DL L=70 H=100 BEDSIDE GLUCOSE - Collect Date/Time: 09/08/2016 17:01 Test Name Code Test Result Test Units Test Ref Range GLUCOSE POCT 88751-3 <20 MG/DL L=70 H=100 BEDSIDE GLUCOSE - Collect Date/Time: 09/08/2016 11:48 Test Name Code Test Result Test Units Test Ref Range GLUCOSE POCT 274 MG/DL L=70 H=100 BEDSIDE GLUCOSE - Collect Date/Time: 09/08/2016 05:10 Test Name Code Test Result Test Units Test Ref Range GLUCOSE POCT 83 MG/DL L=70 H=100 BEDSIDE GLUCOSE - Collect Date/Time: 09/08/2016 04:13 Test Name Code Test Result Test Units Test Ref Range GLUCOSE POCT 38 MG/DL L=70 H=100 BEDSIDE GLUCOSE - Collect Date/Time: 09/08/2016 04:02 Test Name Code Test Result Test Units Test Ref Range GLUCOSE POCT 31 MG/DL L=70 H=100 BEDSIDE GLUCOSE - Collect Date/Time: 09/07/2016 20:54 Test Name Code Test Result Test Units Test Ref Range GLUCOSE POCT 157 MG/DL L=70 H=100 BEDSIDE GLUCOSE - Collect Date/Time: 09/07/2016 17:13 Test Name Code Test Result Test Units Test Ref Range GLUCOSE POCT 145 MG/DL L=70 H=100 BEDSIDE GLUCOSE - Collect Date/Time: 09/07/2016 12:19 Test Name Code Test Result Test Units Test Ref Range GLUCOSE POCT 214 MG/DL L=70 H=100 BEDSIDE GLUCOSE - Collect Date/Time: 09/07/2016 05:18 Test Name Code Test Result Test Units Test Ref Range GLUCOSE POCT 97 MG/DL L=70 H=100 BEDSIDE GLUCOSE - Collect Date/Time: 09/07/2016 01:20 Test Name Code Test Result Test Units Test Ref Range GLUCOSE POCT 344 MG/DL L=70 H=100 BEDSIDE GLUCOSE - Collect Date/Time: 09/06/2016 21:26 Test Name Code Test Result Test Units Test Ref Range GLUCOSE POCT 267 MG/DL L=70 H=100 COMPREHENSIVE METABOLIC PANEL - Collect Date/Time: 09/10/2016 22:32 Test Name Code Test Result Test Units Test Ref Range GLUCOSE 2345-7 242 MG/DL L=70 H=100 SODIUM 2951-2 138 MEQ/L L=135 H=148 POTASSIUM 2823-3 4.2 MEQ/L L=3.5 H=5.3 CHLORIDE 2075-0 106 MEQ/L L=96 H=110 CO2 2028-9 22 MEQ/L L=22 H=29 BUN 3094-0 17 MG/DL L=8 H=22 CREATININE 2160-0 0.8 MG/DL L=0.6 H=1.6 SGOT/AST 1920-8 16 IU/L L=10 H=40 SGPT/ALT 1742-6 9 IU/L L=8 H=54 ALK PHOS 6768-6 84 IU/L L=35 H=115 TOTAL PROTEIN 2885-2 5.6 G/DL L=5.5 H=8.5 ALBUMIN 1751-7 3.2 G/DL L=3.1 H=5.4 TOTAL BILI 1975-2 0.3 MG/DL L=0.0 H=1.5 CALCIUM 69345-6 8.4 MG/DL L=8.2 H=10.6 AGE [birth year]-4 71 yrs GFR NonAA 98215-5 70 GFR AA 19118-0 85 eGFR 25353-2 >60 N/A eGFR AA* 49171-3 >60 N/A COMPREHENSIVE METABOLIC PANEL - Collect Date/Time: 09/10/2016 06:45 Test Name Code Test Result Test Units Test Ref Range GLUCOSE 2345-7 182 MG/DL L=70 H=100 SODIUM 2951-2 138 MEQ/L L=135 H=148 POTASSIUM 2823-3 4.5 MEQ/L L=3.5 H=5.3 CHLORIDE 2075-0 99 MEQ/L L=96 H=110 CO2 2028-9 31 MEQ/L L=22 H=29 BUN 3094-0 14 MG/DL L=8 H=22 CREATININE 2160-0 0.8 MG/DL L=0.6 H=1.6 SGOT/AST 1920-8 16 IU/L L=10 H=40 SGPT/ALT 1742-6 9 IU/L L=8 H=54 ALK PHOS 6768-6 106 IU/L L=35 H=115 TOTAL PROTEIN 2885-2 6.8 G/DL L=5.5 H=8.5 ALBUMIN 1751-7 4.0 G/DL L=3.1 H=5.4 TOTAL BILI 1975-2 0.5 MG/DL L=0.0 H=1.5 CALCIUM 43767-5 9.7 MG/DL L=8.2 H=10.6 AGE 62026-9 71 yrs GFR NonAA 19799-9 70 GFR AA 00127-7 85 eGFR 14850-2 >60 N/A eGFR AA* 91087-8 >60 N/A COMPREHENSIVE METABOLIC PANEL - Collect Date/Time: 09/09/2016 05:10 Test Name Code Test Result Test Units Test Ref Range GLUCOSE 2345-7 203 MG/DL L=70 H=100 SODIUM 2951-2 139 MEQ/L L=135 H=148 POTASSIUM 2823-3 4.4 MEQ/L L=3.5 H=5.3 CHLORIDE 2075-0 104 MEQ/L L=96 H=110 CO2 2028-9 28 MEQ/L L=22 H=29 BUN 3094-0 16 MG/DL L=8 H=22 CREATININE 2160-0 0.8 MG/DL L=0.6 H=1.6 SGOT/AST 1920-8 15 IU/L L=10 H=40 SGPT/ALT 1742-6 10 IU/L L=8 H=54 ALK PHOS 6768-6 90 IU/L L=35 H=115 TOTAL PROTEIN 2885-2 5.7 G/DL L=5.5 H=8.5 ALBUMIN 1751-7 3.4 G/DL L=3.1 H=5.4 TOTAL BILI 1975-2 0.4 MG/DL L=0.0 H=1.5 CALCIUM 91038-8 9.2 MG/DL L=8.2 H=10.6 AGE [address]1031-0 71 yrs GFR NonAA 48992-7 70 GFR AA 78168-1 85 eGFR 65021-1 >60 N/A eGFR AA* 60402-6 >60 N/A COMPREHENSIVE METABOLIC PANEL - Collect Date/Time: 09/08/2016 05:10 Test Name Code Test Result Test Units Test Ref Range GLUCOSE 2345-7 78 MG/DL L=70 H=100 SODIUM 2951-2 139 MEQ/L L=135 H=148 POTASSIUM 2823-3 4.6 MEQ/L L=3.5 H=5.3 CHLORIDE 2075-0 109 MEQ/L L=96 H=110 CO2 2028-9 20 MEQ/L L=22 H=29 BUN 3094-0 27 MG/DL L=8 H=22 CREATININE 2160-0 0.7 MG/DL L=0.6 H=1.6 SGOT/AST 1920-8 16 IU/L L=10 H=40 SGPT/ALT 1742-6 10 IU/L L=8 H=54 ALK PHOS 6768-6 79 IU/L L=35 H=115 TOTAL PROTEIN 2885-2 5.3 G/DL L=5.5 H=8.5 ALBUMIN 1751-7 3.4 G/DL L=3.1 H=5.4 TOTAL BILI 1975-2 0.2 MG/DL L=0.0 H=1.5 CALCIUM 36115-6 8.6 MG/DL L=8.2 H=10.6 AGE 20285-0 71 yrs GFR NonAA 30842-5 82 GFR AA 27665-1 99 eGFR 74008-0 >60 N/A eGFR AA* 15749-7 >60 N/A COMPREHENSIVE METABOLIC PANEL - Collect Date/Time: 09/07/2016 05:12 Test Name Code Test Result Test Units Test Ref Range GLUCOSE 2345-7 108 MG/DL L=70 H=100 SODIUM 2951-2 137 MEQ/L L=135 H=148 POTASSIUM 2823-3 4.3 MEQ/L L=3.5 H=5.3 CHLORIDE 2075-0 106 MEQ/L L=96 H=110 CO2 2028-9 25 MEQ/L L=22 H=29 BUN 3094-0 37 MG/DL L=8 H=22 CREATININE 2160-0 0.9 MG/DL L=0.6 H=1.6 SGOT/AST 1920-8 13 IU/L L=10 H=40 SGPT/ALT 1742-6 8 IU/L L=8 H=54 ALK PHOS 6768-6 67 IU/L L=35 H=115 TOTAL PROTEIN 2885-2 5.6 G/DL L=5.5 H=8.5 ALBUMIN 1751-7 3.4 G/DL L=3.1 H=5.4 TOTAL BILI 1975-2 0.3 MG/DL L=0.0 H=1.5 CALCIUM 49230-3 9.0 MG/DL L=8.2 H=10.6 AGE 18824-6 71 yrs GFR NonAA 14169-5 61 GFR AA 19826-0 74 eGFR 98779-4 >60 N/A eGFR AA* 99508-5 >60 N/A LIPID PANEL - Collect Date/Time: 09/07/2016 05:12 Test Name Code Test Result Test Units Test Ref Range TRIGLYCERIDES 3043-7 153 MG/DL L=0 H=135 CHOLESTEROL 2093-3 217 MG/DL L=0 H=199 HDL 2085-9 48 MG/DL L=29 H=89 TOT CHOL/HDL 94582-9 4.5 L=0.0 H=5.0 LDL (CALC) 15902-7 138 MG/DL L=0 H=129 RENAL FUNCTION PANEL - Collect Date/Time: 09/11/2016 05:18 Test Name Code Test Result Test Units Test Ref Range GLUCOSE 2345-7 121 MG/DL L=70 H=100 SODIUM 2951-2 136 MEQ/L L=135 H=148 POTASSIUM 2823-3 5.0 MEQ/L L=3.5 H=5.3 CHLORIDE 2075-0 104 MEQ/L L=96 H=110 CO2 2028-9 23 MEQ/L L=22 H=29 BUN 3094-0 17 MG/DL L=8 H=22 CREATININE 2160-0 0.8 MG/DL L=0.6 H=1.6 ALBUMIN 1751-7 3.4 G/DL L=3.1 H=5.4 CALCIUM 77542-0 8.5 MG/DL L=8.2 H=10.6 PHOSPHORUS 2777-1 4.6 MG/DL L=2.5 H=4.5 AGE [address]40-1 71 yrs GFR NonAA 11752-4 70 [place] 20147-2 85 eGFR 33645-4 >60 N/A eGFR AA* 78522-1 >60 N/A CBC W/ AUTO DIFF (RFLX MAN DIFF IF IND) - Collect Date/Time: 09/12/2016 05:40 Test Name Code Test Result Test Units Test Ref Range WBC 69212-4 7.5 TH/CMM L=4.5 H=10.8 RBC 789-8 2.95 ML/CMM L=4.20 H=5.40 HGB 718-7 9.1 G/DL L=12.0 H=16.0 HCT 4544-3 28.3 % L=37.0 H=47.0 MCV 78598-1 96 FL L=81 H=99 MCH 47342-1 30.8 PG L=27.0 H=33.0 MCHC 35598-8 32.2 G/DL L=31.0 H=36[place]0 [place] [address]-0 54 FL L=36 H=50 [place] 65[address]-3 15.7 % L=0.0 H=14.8 MPV 84447-5 10.4 FL L=9.3 H=12.5 PLT 777-3 324 TH/CMM L=130 H=440 NRBC# 40978-4 0.07 TH/CMM L=0.00 H=0.00 NRBC% 59009-7 0.9 /100WBC L=0.0 H=2.0 %NEUT 94018-0 72.4 % %LYMP 61339-2 16.5 % %MONO 97606-4 10.7 % %EOS 95367-6 0.0 % %BASO 65585-1 0.0 % #NEUT 58352-7 5.44 TH/CMM L=2.10 H=8.20 #LYMP 27870-7 1.24 TH/CMM L=0.90 H=5.20 #MONO 45288-8 0.80 TH/CMM L=0.16 H=1.00 #EOS 35903-2 0.00 TH/CMM L=0.00 H=0.80 #BASO 41303-0 0.00 TH/CMM L=0.00 H=0.20 MANUAL DIFF 40482-2 NOT IND N/A CBC W/ AUTO DIFF (RFLX MAN DIFF IF IND) - Collect Date/Time: 09/11/2016 05:18 Test Name Code Test Result Test Units Test Ref Range WBC 24861-6 10.0 TH/CMM L=4.5 H=10.8 RBC 789-8 3.22 ML/CMM L=4.20 H=5.40 HGB 718-7 10.1 G/DL L=12.0 H=16.0 HCT 4544-3 30.4 % L=37.0 H=47.0 MCV 04350-5 94 FL L=81 H=99 MCH 00121-3 31.4 PG L=27.0 H=33.0 MCHC 34238-8 33.2 G/DL L=31.0 H=36[place] [address]-3 52 FL L=36 H=50 [place] [address]-7 15.1 % L=0.0 H=14.8 MPV 49378-4 10.1 FL L=9.3 H=12.5 PLT 777-3 285 TH/CMM L=130 H=440 NRBC# 10173-4 0.08 TH/CMM L=0.00 H=0.00 NRBC% 21174-8 0.8 /100WBC L=0.0 H=2.0 %NEUT 81823-3 81.2 % %LYMP 51742-5 8.8 % %MONO 91650-6 9.4 % %EOS 86168-9 0.0 % %BASO 45833-9 0.1 % #NEUT 92670-0 8.13 TH/CMM L=2.10 H=8.20 #LYMP 57041-7 0.88 TH/CMM L=0.90 H=5.20 #MONO 67659-0 0.94 TH/CMM L=0.16 H=1.00 #EOS 22569-8 0.00 TH/CMM L=0.00 H=0.80 #BASO 91017-9 0.01 TH/CMM L=0.00 H=0.20 MANUAL DIFF 31201-4 NOT IND N/A CBC W/ AUTO DIFF (RFLX MAN DIFF IF IND) - Collect Date/Time: 09/10/2016 06:45 Test Name Code Test Result Test Units Test Ref Range WBC 45823-1 5.5 TH/CMM L=4.5 H=10.8 RBC 789-8 3.80 ML/CMM L=4.20 H=5.40 HGB 718-7 11.7 G/DL L=12.0 H=16.0 HCT 4544-3 36.1 % L=37.0 H=47.0 MCV 68912-7 95 FL L=81 H=99 MCH 16905-5 30.8 PG L=27.0 H=33.0 MCHC 24016-0 32.4 G/DL L=31.0 H=36[place] [address]-0 52 FL L=36 H=50 [place] [address]-5 14.8 % L=0.0 H=14.8 MPV 95011-0 10.0 FL L=9.3 H=12.5 PLT 777-3 325 TH/CMM L=130 H=440 NRBC# 60837-0 0.04 TH/CMM L=0.00 H=0.00 NRBC% 15615-0 0.7 /100WBC L=0.0 H=2.0 %NEUT 27794-4 66.4 % %LYMP 19256-0 24.6 % %MONO 49231-3 8.3 % %EOS 81317-3 0.0 % %BASO 36512-0 0.0 % #NEUT 45473-4 3.62 TH/CMM L=2.10 H=8.20 #LYMP 90490-2 1.34 TH/CMM L=0.90 H=5.20 #MONO 14806-8 0.45 TH/CMM L=0.16 H=1.00 #EOS 86880-8 0.00 TH/CMM L=0.00 H=0.80 #BASO 12599-4 0.00 TH/CMM L=0.00 H=0.20 MANUAL DIFF 08430-0 NOT IND N/A CBC W/ AUTO DIFF (RFLX MAN DIFF IF IND) - Collect Date/Time: 09/09/2016 05:10 Test Name Code Test Result Test Units Test Ref Range WBC 30654-0 4.9 TH/CMM L=4.5 H=10.8 RBC 789-8 3.20 ML/CMM L=4.20 H=5.40 HGB 718-7 10.1 G/DL L=12.0 H=16.0 HCT 4544-3 30.5 % L=37.0 H=47.0 MCV 35118-7 95 FL L=81 H=99 MCH 34355-1 31.6 PG L=27.0 H=33.0 MCHC 86576-1 33.1 G/DL L=31.0 H=36[place] [address]-7 51 FL L=36 H=50 [place] [address]-5 14.6 % L=0.0 H=14.8 MPV 97753-7 10.4 FL L=9.3 H=12.5 PLT 777-3 241 TH/CMM L=130 H=440 NRBC# 58288-9 0.00 TH/CMM L=0.00 H=0.00 NRBC% 53676-3 0.0 /100WBC L=0.0 H=2.0 %NEUT 80653-1 67.2 % %LYMP 19823-0 23.2 % %MONO 52143-2 8.6 % %EOS 52824-5 0.0 % %BASO 38713-7 0.2 % #NEUT 31802-5 3.27 TH/CMM L=2.10 H=8.20 #LYMP 60712-7 1.13 TH/CMM L=0.90 H=5.20 #MONO 14440-3 0.42 TH/CMM L=0.16 H=1.00 #EOS 46317-7 0.00 TH/CMM L=0.00 H=0.80 #BASO 42002-4 0.01 TH/CMM L=0.00 H=0.20 MANUAL DIFF 91924-5 NOT IND N/A CBC W/ AUTO DIFF (RFLX MAN DIFF IF IND) - Collect Date/Time: 09/08/2016 05:10 Test Name Code Test Result Test Units Test Ref Range WBC 69607-7 5.5 TH/CMM L=4.5 H=10.8 RBC 789-8 3.20 ML/CMM L=4.20 H=5.40 HGB 718-7 9.9 G/DL L=12.0 H=16.0 HCT 4544-3 31.0 % L=37.0 H=47.0 MCV 56895-0 97 FL L=81 H=99 MCH 36852-3 30.9 PG L=27.0 H=33.0 MCHC 45619-7 31.9 G/DL L=31.0 H=36.0 [place] [address]-9 53 FL L=36 H=50 [place] [address]-4 14.9 % L=0.0 H=14.8 MPV 11954-4 10.4 FL L=9.3 H=12.5 PLT 777-3 237 TH/CMM L=130 H=440 NRBC# 31371-8 0.00 TH/CMM L=0.00 H=0.00 NRBC% 64901-3 0.0 /100WBC L=0.0 H=2.0 %NEUT 24162-4 64.7 % %LYMP 16827-0 23.4 % %MONO 87011-9 11.5 % %EOS 49981-8 0.0 % %BASO 21110-0 0.0 % #NEUT 90165-9 3.54 TH/CMM L=2.10 H=8.20 #LYMP 10539-4 1.28 TH/CMM L=0.90 H=5.20 #MONO 38786-8 0.63 TH/CMM L=0.16 H=1.00 #EOS 76827-7 0.00 TH/CMM L=0.00 H=0.80 #BASO 04004-3 0.00 TH/CMM L=0.00 H=0.20 MANUAL DIFF 52985-6 NOT IND N/A CBC W/ AUTO DIFF (RFLX MAN DIFF IF IND) - Collect Date/Time: 09/07/2016 05:12 Test Name Code Test Result Test Units Test Ref Range WBC 43837-0 7.5 TH/CMM L=4.5 H=10.8 RBC 789-8 3.19 ML/CMM L=4.20 H=5.40 HGB 718-7 10.0 G/DL L=12.0 H=16.0 HCT 4544-3 30.0 % L=37.0 H=47.0 MCV 90361-7 94 FL L=81 H=99 MCH 95151-4 31.3 PG L=27.0 H=33.0 MCHC 66044-2 33.3 G/DL L=31.0 H=36[place]0 [place] [address]-8 51 FL L=36 H=50 [place] [address]-8 14.8 % L=0.0 H=14.8 MPV 61761-7 10.3 FL L=9.3 H=12.5 PLT 777-3 235 TH/CMM L=130 H=440 NRBC# 64941-0 0.00 TH/CMM L=0.00 H=0.00 NRBC% 64400-6 0.0 /100WBC L=0.0 H=2.0 %NEUT 92429-4 68.1 % %LYMP 07701-7 21.6 % %MONO 82219-8 9.8 % %EOS 64549-0 0.0 % %BASO 51338-7 0.1 % #NEUT 80729-3 5.09 TH/CMM L=2.10 H=8.20 #LYMP 24604-9 1.61 TH/CMM L=0.90 H=5.20 #MONO 18034-5 0.73 TH/CMM L=0.16 H=1.00 #EOS 54387-6 0.00 TH/CMM L=0.00 H=0.80 #BASO 60441-2 0.01 TH/CMM L=0.00 H=0.20 MANUAL DIFF 14183-5 NOT IND N/A PT/PTT - Collect Date/Time: 09/10/2016 06:45 Test Name Code Test Result Test Units Test Ref Range PROTIME 5964-2 9.8 SEC L=9.9 H=11.9 INR 40408-1 0.9 PTT 3173-2 25.9 SEC L=22.2 H=37.2 PT/PTT - Collect Date/Time: 09/07/2016 05:12 Test Name Code Test Result Test Units Test Ref Range PROTIME 5964-2 9.9 SEC L=9.9 H=11.9 INR 11548-7 0.9 PTT 3173-2 23.3 SEC L=22.2 H=37.2 TYPE AND SCREEN - Collect Date/Time: 09/09/2016 05:10 Test Name Code Test Result Test Units Test Ref Range ABO/Rh Type 895-3 AB Negative N/A Antibody Screen-Gel 895-3 Negative N/A PTH INTACT - Collect Date/Time: 09/11/2016 05:18 Test Name Code Test Result Test Units Test Ref Range PTH, Intact 2731-8 28 pg/mL 15-65 HEMOGLOBIN A1C - Collect Date/Time: 09/07/2016 05:12 Test Name Code Test Result Test Units Test Ref Range HGB A1C 03568-1 6.5 % L=4.0 H=6.4 Est Avg Glucose 09086-7 139.9 mg/dL TROPONIN-I ADV - Collect Date/Time: 09/10/2016 22:32 Test Name Code Test Result Test Units [place] 02023-4 <0.04 ng/mL L=0.04 H= 0.40 VITAMIN D (25 HYDROXY) - Collect Date/Time: 09/07/2016 05:12 Test Name Code Test Result Test Units Test Ref Range VITAMIN D 1988-3 13.0 ng/mL L=30.0 H=100 TSH - Collect Date/Time: 09/11/2016 05:18 Test Name Code Test Result Test Units Test Ref Range TSH 22940-0 2.09 mIU/L L=0.35 H=4.94 TSH - Collect Date/Time: 09/08/2016 05:10 Test Name Code Test Result Test Units Test Ref Range TSH 28696-7 4.60 mIU/L L=0.35 H=4.94 MAGNESIUM - Collect Date/Time: 09/10/2016 22:32 Test Name Code Test Result Test Units Test Ref Range MAGNESIUM 66791-5 1.6 MG/DL L=1.7 H=2.8 MAGNESIUM - Collect Date/Time: 09/10/2016 06:45 Test Name Code Test Result Test Units Test Ref Range MAGNESIUM 67879-5 1.8 MG/DL L=1.7 H=2.8 Function Status Unknown or Not Available. History of Immunizations Unknown or Not Available. Plan of Treatment Unknown or Not Available. Social History Smoking Status Code Start Date End Date Current every day smoker [id number] Vital Signs Vital Sign Value Unit Date/Time Recent/Initial? BMI (Body Mass Index) 29.72 kg/m2 09/06/2016 20:35 Initial VS Weight Measured 167.8 [lb_av] 09/06/2016 20:35 Initial VS Height 63 [in_i] 09/06/2016 20:35 Initial VS BSA (Body Surface Area) 1.84 m2 09/06/2016 20:35 Initial VS Body Temperature 98.1 [degF] 09/06/2016 20:35 Initial VS BP Systolic 157 mm[Hg] 09/06/2016 20:45 Initial VS BP Diastolic 56 mm[Hg] 09/06/2016 20:45 Initial VS Respiratory Rate 16 /min 09/06/2016 20:46 Initial VS Heart Rate 81 /min 09/06/2016 20:46 Initial VS O2 % BldC Oximetry 100 % 09/06/2016 20:46 Initial VS BMI (Body Mass Index) 29.58 kg/m2 09/06/2016 20:57 Most Recent VS Weight Measured 167.8 [lb_av] 09/06/2016 20:57 Most Recent VS Height 63 [in_i] 09/06/2016 20:57 Most Recent VS BSA (Body Surface Area) 1.84 m2 09/06/2016 20:57 Most Recent VS BP Systolic 131 mm[Hg] 09/12/2016 11:06 Most Recent VS BP Diastolic 50 mm[Hg] 09/12/2016 11:06 Most Recent VS Respiratory Rate 18 /min 09/12/2016 11:06 Most Recent VS Heart Rate 66 /min 09/12/2016 11:06 Most Recent VS O2 % BldC Oximetry 98 % 09/12/2016 11:06 Most Recent VS Body Temperature 98.4 [degF] 09/12/2016 11:06 Most Recent VS Function Status Unknown or Not Available. Goals Unknown or Not Available. ASSESSMENTS Unknown or Not Available. Health Concerns Section Unknown or Not Available.
--- OUTSIDE RECORDS SUMMARY | 2017-06-02 05:55 | XMS REPORT ---
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 Active 191196887 Problem Essential (primary) hypertension I10 Active 46986103 Problem Low back pain M54.5 Active 034997790 Problem Age-related osteoporosis without current pathological fracture M81.0 Active 522860818 Problem Hypothyroidism, unspecified E03.9 Active 58431682 Problem Atherosclerosis of [place] arteries of extremities with intermittent claudication, 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 Active [id number] ALLERGIES No Information ENCOUNTERS Encounter Location Date Diagnosis Mao Zamora MD [address] [place] [phone] Apr, Mao Zamora MD [address] [place] [phone] Apr, Low back pain M54.5 Mao Zamora MD [address] [place] [phone] Apr, Mao Zamora MD [address] [place] [phone] Mar, Mao Zamora MD [address] [place] [phone] Mar, Low back pain M54.5 Mao Zamora MD [address] [place] [phone] Mar, Mao Zamora MD [address] [place] [phone] Feb, Mao Zamora MD [address] [place] [phone] Feb, Low back pain M54.5 and Type 2 diabetes mellitus with diabetic polyneuropathy E11.42 IMMUNIZATIONS No Known Immunizations SOCIAL HISTORY Never Assessed REASON FOR VISIT Cilostazol 50mg PLAN OF CARE VITAL SIGNS MEDICATIONS Medication Instructions Dosage Frequency Start Date End Date Duration Status Cilostazol 50 MG Orally Twice a day 1 tablet 30 minutes before or 2 hours after breakfast and dinner 12h 30 days Active RESULTS No Results PROCEDURES No Known procedures INSTRUCTIONS MEDICATIONS ADMINISTERED No Known Medications MEDICAL (GENERAL) HISTORY Type Description Date Medical History Type 2 diabetes mellitus with diabetic polyneuropathy Medical History Essential (primary) hypertension Medical History Hypothyroidism, unspecified Medical History Atherosclerosis of [place] arteries of extremities with intermittent claudication, right leg Medical History Age-related osteoporosis without current pathological fracture Surgical History lumbar spine Surgical History ORIF R shoulder (twice) Surgical History fem-pop bypass, bilateral Surgical History R TKR Hospitalization History Multiple surgeries Hospitalization History Pneumonia at least once
--- OUTSIDE RECORDS SUMMARY | 2017-06-02 05:55 | XMS REPORT ---
Author Author Mao Zamora MD Address [address] [place] [phone] Care Team Providers Care Tv Production Assistant Name Role Phone Mao Zamora Unavailable PROBLEMS Type Condition ICD9-CM Code ACT84-ET Code Onset Dates Condition Status SNOMED Code Problem Type 2 diabetes mellitus with diabetic polyneuropathy E11.42 Active 928539408 Problem Essential (primary) hypertension I10 Active 04855965 Problem Low back pain M54.5 Active 662521703 Problem Age-related osteoporosis without current pathological fracture M81.0 Active 738229827 Problem Hypothyroidism, unspecified E03.9 Active 48618345 Problem Atherosclerosis of [place] arteries of extremities with intermittent claudication, 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 Active [id number] ALLERGIES No Information ENCOUNTERS Encounter Location Date Diagnosis Mao Zamora MD [address] [place] [phone] Apr, Mao Zamora MD [address] [place] [phone] Apr, Low back pain M54.5 Mao Zamora MD [address] [place] [phone] Apr, Mao Zamora MD [address] [place] [phone] Mar, Mao Zamora MD [address] [place] [phone] Mar, Low back pain M54.5 Mao Zamora MD [address] [place] [phone] Mar, Mao Zamora MD [address] [place] [phone] Feb, Mao Zamora MD [address] [place] [phone] Feb, Low back pain M54.5 and Type 2 diabetes mellitus with diabetic polyneuropathy E11.42 IMMUNIZATIONS No Known Immunizations SOCIAL HISTORY Never Assessed REASON FOR VISIT refil on her [facility] PLAN OF CARE VITAL SIGNS MEDICATIONS Medication Instructions Dosage Frequency Start Date End Date Duration Status Hydrocodone-Acetaminophen 10-325 MG Orally every 4- 6 hrs 1 tablet as needed Feb, Active RESULTS No Results PROCEDURES No Known procedures INSTRUCTIONS MEDICATIONS ADMINISTERED No Known Medications MEDICAL (GENERAL) HISTORY Type Description Date Medical History Type 2 diabetes mellitus with diabetic polyneuropathy Medical History Essential (primary) hypertension Medical History Hypothyroidism, unspecified Medical History Atherosclerosis of [place] arteries of extremities with intermittent claudication, right leg Medical History Age-related osteoporosis without current pathological fracture Surgical History lumbar spine Surgical History ORIF R shoulder (twice) Surgical History fem-pop bypass, bilateral Surgical History R TKR Hospitalization History Multiple surgeries Hospitalization History Pneumonia at least once
--- OUTSIDE RECORDS SUMMARY | 2017-06-02 05:57 | XMS REPORT ---
Author Author Mao Zamora MD Address [address] [place] [phone] Care Team Providers Care Milk And Cream Grader Name Role Phone Mao Zamora Unavailable PROBLEMS Type Condition ICD9-CM Code IPL14-OJ Code Onset Dates Condition Status SNOMED Code Problem Type 2 diabetes mellitus with diabetic polyneuropathy E11.42 Active 991249780 Problem Essential (primary) hypertension I10 Active 61545614 Problem Low back pain M54.5 Active 247819288 Problem Age-related osteoporosis without current pathological fracture M81.0 Active 340515062 Problem Hypothyroidism, unspecified E03.9 Active 94180036 Problem Atherosclerosis of [place] arteries of extremities with intermittent claudication, 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 Active [id number] ALLERGIES No Information ENCOUNTERS Encounter Location Date Diagnosis Mao Zamora MD [address] [place] [phone] Apr, Mao Zamora MD [address] [place] [phone] Apr, Low back pain M54.5 Mao Zamora MD [address] [place] [phone] Apr, Mao Zamora MD [address] [place] [phone] Mar, Mao Zamora MD [address] [place] [phone] Mar, Low back pain M54.5 Mao Zamora MD [address] [place] [phone] Mar, Mao Zamora MD [address] [place] [phone] Feb, Mao Zamora MD [address] [place] [phone] Feb, Low back pain M54.5 and Type 2 diabetes mellitus with diabetic polyneuropathy E11.42 IMMUNIZATIONS No Known Immunizations SOCIAL HISTORY Never Assessed REASON FOR VISIT diclofenac gel PLAN OF CARE VITAL SIGNS MEDICATIONS Medication Instructions Dosage Frequency Start Date End Date Duration Status PEG 3350 - Orally once a day 1 capful 24h Apr, Active RESULTS No Results PROCEDURES No Known procedures INSTRUCTIONS MEDICATIONS ADMINISTERED No Known Medications MEDICAL (GENERAL) HISTORY Type Description Date Medical History Type 2 diabetes mellitus with diabetic polyneuropathy Medical History Essential (primary) hypertension Medical History Hypothyroidism, unspecified Medical History Atherosclerosis of [place] arteries of extremities with intermittent claudication, right leg Medical History Age-related osteoporosis without current pathological fracture Surgical History lumbar spine Surgical History ORIF R shoulder (twice) Surgical History fem-pop bypass, bilateral Surgical History R TKR Hospitalization History Multiple surgeries Hospitalization History Pneumonia at least once
--- OUTSIDE RECORDS SUMMARY | 2017-06-02 05:57 | XMS REPORT ---
Author Author Mao Zamora MD Address [address] [place] [phone] Care Team Providers Care Horse Identifier Name Role Phone Mao Zamora Unavailable PROBLEMS Type Condition ICD9-CM Code [id number] Code Onset Dates Condition Status SNOMED Code Problem Type 2 diabetes mellitus with diabetic polyneuropathy E11.42 Active 526154462 Problem Essential (primary) hypertension I10 Active 19695596 Problem Low back pain M54.5 Active 240965986 Problem Age-related osteoporosis without current pathological fracture M81.0 Active 749252934 Problem Hypothyroidism, unspecified E03.9 Active 72449671 Problem Atherosclerosis of [place] arteries of extremities with intermittent claudication, 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 Active [id number] ALLERGIES Substance Reaction Event Type Date Status Morphine Sulfate anaphylaxis Drug Allergy Feb, Active ENCOUNTERS Encounter Location Date Diagnosis Mao Zamora MD [address] [place] [phone] Apr, Mao Zamora MD [address] [place] [phone] Apr, Low back pain M54.5 Mao Zamora MD [address] [place] [phone] Apr, Mao Zamora MD [address] [place] [phone] Mar, Mao Zamora MD [address] [place] [phone] Mar, Low back pain M54.5 Mao Zamora MD [address] [place] [phone] Mar, Mao Zamora MD [address] [place] [phone] Feb, Mao Zamora MD [address] [place] [phone] Feb, Low back pain M54.5 and Type 2 diabetes mellitus with diabetic polyneuropathy E11.42 IMMUNIZATIONS No Known Immunizations SOCIAL HISTORY Never Assessed REASON FOR VISIT Estab care PLAN OF CARE Activity Details Follow Up 3 Months Reason: VITAL SIGNS Height 0000 in 2017-02-13 Weight 0000 lbs 2017-02-13 Heart Rate 80 /min 2017-02-13 Oximetry 98 % 2017-02-13 Blood pressure systolic 122 mm Hg 2017-02-13 Blood pressure diastolic 75 mm Hg 2017-02-13 MEDICATIONS Medication Instructions Dosage Frequency Start Date End Date Duration Status Cymbalta 60 MG Orally twice a day 1 capsule 12h Active Cilostazol 50 MG Orally Twice a day 1 tablet 30 minutes before or 2 hours after breakfast and dinner 12h Active Diclofenac Sodium 75 MG Orally Twice a day 1 tablet with food or milk 12h Active Plavix 75 MG Orally Once a day 1 tablet 24h Active Amlodipine Besylate 5 MG Orally Once a day 1 tablet 24h Active Hydrocodone-Acetaminophen 10-325 MG Orally every 4- 6 hrs 1 tablet as needed Feb, Active NovoLog 100 UNIT/ML Subcutaneous 4 time a day 8U Active Levothyroxine Sodium 150 MCG Orally Once a day 1 tablet on an empty stomach in the morning 24h Active Hydrocodone-Acetaminophen 10-325 MG Orally every 6 hrs 1 tablet as needed 6h Active Lantus 100 UNIT/ML Subcutaneous hs 18 U Active Gabapentin 800 MG Orally 5 X day 1 tablet Active RESULTS No Results PROCEDURES No Known procedures INSTRUCTIONS MEDICATIONS ADMINISTERED No Known Medications MEDICAL (GENERAL) HISTORY Type Description Date Medical History Type 2 diabetes mellitus with diabetic polyneuropathy Medical History Essential (primary) hypertension Medical History Hypothyroidism, unspecified Medical History Atherosclerosis of [place] arteries of extremities with intermittent claudication, right leg Medical History Age-related osteoporosis without current pathological fracture Surgical History lumbar spine Surgical History ORIF R shoulder (twice) Surgical History fem-pop bypass, bilateral Surgical History R TKR Hospitalization History Multiple surgeries Hospitalization History Pneumonia at least once
--- OUTSIDE RECORDS SUMMARY | 2017-06-02 05:57 | XMS REPORT ---
Author Author Mao Zamora MD Address [address] [place] [phone] Care Team Providers Care Program Director/Music Director Name Role Phone Mao Zamora Unavailable PROBLEMS Type Condition ICD9-CM Code [id number] Code Onset Dates Condition Status SNOMED Code Problem Type 2 diabetes mellitus with diabetic polyneuropathy E11.42 Active 301417021 Problem Essential (primary) hypertension I10 Active 23311703 Problem Low back pain M54.5 Active 720324588 Problem Age-related osteoporosis without current pathological fracture M81.0 Active 367783132 Problem Hypothyroidism, unspecified E03.9 Active 23835473 Problem Atherosclerosis of [place] arteries of extremities with intermittent claudication, 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 Active [id number] ALLERGIES No Information ENCOUNTERS Encounter Location Date Diagnosis Mao Zamora MD [address] [place] [phone] Apr, Mao Zamora MD [address] [place] [phone] Apr, Low back pain M54.5 Mao Zamora MD [address] [place] [phone] Apr, Mao Zamora MD [address] [place] [phone] Mar, Mao Zamora MD [address] [place] [phone] Mar, Low back pain M54.5 Mao Zamora MD [address] [place] [phone] Mar, Mao Zamora MD [address] [place] [phone] Feb, Mao Zamora MD [address] [place] [phone] Feb, Low back pain M54.5 and Type 2 diabetes mellitus with diabetic polyneuropathy E11.42 IMMUNIZATIONS No Known Immunizations SOCIAL HISTORY Never Assessed REASON FOR VISIT Rocael PLAN OF CARE VITAL SIGNS MEDICATIONS Medication Instructions Dosage Frequency Start Date End Date Duration Status NovoLog 100 UNIT/ML Subcutaneous 4 time a day 8U 30 days Active Lantus 100 UNIT/ML Subcutaneous at bedtime 18 U 30 days Active RESULTS No Results PROCEDURES No Known procedures INSTRUCTIONS MEDICATIONS ADMINISTERED No Known Medications MEDICAL (GENERAL) HISTORY Type Description Date Medical History Type 2 diabetes mellitus with diabetic polyneuropathy Medical History Essential (primary) hypertension Medical History Hypothyroidism, unspecified Medical History Atherosclerosis of [place] arteries of extremities with intermittent claudication, right leg Medical History Age-related osteoporosis without current pathological fracture Surgical History lumbar spine Surgical History ORIF R shoulder (twice) Surgical History fem-pop bypass, bilateral Surgical History R TKR Hospitalization History Multiple surgeries Hospitalization History Pneumonia at least once
--- OUTSIDE RECORDS SUMMARY | 2017-06-02 05:57 | XMS REPORT ---
Author Author Mao Zamora MD Address [address] [place] [phone] Care Team Providers Care Kaiawhina Kohanga Reo Name Role Phone Mao Zamora Unavailable PROBLEMS Type Condition ICD9-CM Code GVE61-JO Code Onset Dates Condition Status SNOMED Code Problem Type 2 diabetes mellitus with diabetic polyneuropathy E11.42 Active 569167896 Problem Essential (primary) hypertension I10 Active 34434492 Problem Low back pain M54.5 Active 047606148 Problem Age-related osteoporosis without current pathological fracture M81.0 Active 744512986 Problem Hypothyroidism, unspecified E03.9 Active 95228817 Problem Atherosclerosis of [place] arteries of extremities with intermittent claudication, 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 Active [id number] ALLERGIES No Information ENCOUNTERS Encounter Location Date Diagnosis Mao Zamora MD [address] [place] [phone] Apr, Mao Zamora MD [address] [place] [phone] Apr, Low back pain M54.5 Mao Zamora MD [address] [place] [phone] Apr, Mao Zamora MD [address] [place] [phone] Mar, Mao Zamora MD [address] [place] [phone] Mar, Low back pain M54.5 Mao Zamora MD [address] [place] [phone] Mar, Mao Zamora MD [address] [place] [phone] Feb, Mao Zamora MD [address] [place] [phone] Feb, Low back pain M54.5 and Type 2 diabetes mellitus with diabetic polyneuropathy E11.42 IMMUNIZATIONS No Known Immunizations SOCIAL HISTORY Never Assessed REASON FOR VISIT plavix PLAN OF CARE VITAL SIGNS MEDICATIONS Medication Instructions Dosage Frequency Start Date End Date Duration Status Plavix 75 MG Orally Once a day 1 tablet 24h 30 days Active RESULTS No Results PROCEDURES No Known procedures INSTRUCTIONS MEDICATIONS ADMINISTERED No Known Medications MEDICAL (GENERAL) HISTORY Type Description Date Medical History Type 2 diabetes mellitus with diabetic polyneuropathy Medical History Essential (primary) hypertension Medical History Hypothyroidism, unspecified Medical History Atherosclerosis of [place] arteries of extremities with intermittent claudication, right leg Medical History Age-related osteoporosis without current pathological fracture Surgical History lumbar spine Surgical History ORIF R shoulder (twice) Surgical History fem-pop bypass, bilateral Surgical History R TKR Hospitalization History Multiple surgeries Hospitalization History Pneumonia at least once
--- OUTSIDE RECORDS SUMMARY | 2017-06-02 05:57 | XMS REPORT ---
Author Author Mao Zamora MD Address [address] [place] [phone] Care Team Providers Care Advertising Sales Representative Name Role Phone Mao Zamora Unavailable PROBLEMS Type Condition ICD9-CM Code VGE23-HQ Code Onset Dates Condition Status SNOMED Code Problem Type 2 diabetes mellitus with diabetic polyneuropathy E11.42 Active 415813524 Problem Essential (primary) hypertension I10 Active 54400499 Problem Low back pain M54.5 Active 354366980 Problem Age-related osteoporosis without current pathological fracture M81.0 Active 439368892 Problem Hypothyroidism, unspecified E03.9 Active 14165741 Problem Atherosclerosis of [place] arteries of extremities with intermittent claudication, 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 Active 64720322040742712 ALLERGIES No Information ENCOUNTERS Encounter Location Date Diagnosis Mao Zamora MD [address] [place] [phone] Apr, Mao Zamora MD [address] [place] [phone] Apr, Low back pain M54.5 Mao Zamora MD [address] [place] [phone] Apr, Mao Zamora MD [address] [place] [phone] Mar, Mao Zamora MD [address] [place] [phone] Mar, Low back pain M54.5 Mao Zamora MD [address] [place] [phone] Mar, Mao Zamora MD [address] [place] [phone] Feb, Mao Zamora MD [address] [place] [phone] Feb, Low back pain M54.5 and Type 2 diabetes mellitus with diabetic polyneuropathy E11.42 IMMUNIZATIONS No Known Immunizations SOCIAL HISTORY Never Assessed REASON FOR VISIT refil on her [facility] PLAN OF CARE VITAL SIGNS MEDICATIONS Medication [...] History Hypothyroidism, unspecified Medical History Atherosclerosis of [place] arteries of extremities with intermittent claudication, right leg Medical History Age-related osteoporosis without current pathological fracture Surgical History lumbar spine Surgical History ORIF R shoulder (twice) Surgical History fem-pop bypass, bilateral Surgical History R TKR Hospitalization History Multiple surgeries Hospitalization History Pneumonia at least once
--- OUTSIDE RECORDS SUMMARY | 2017-06-02 05:58 | XMS REPORT | Continuity of Care Document ---
Author Author [facility] Organization [facility] Address Unknown Phone Unavailable Allergies Active Description Code Type Severity Reaction Onset Reported/Identified Relationship to Patient Clinical Status Yes MORPHINE SULFATE [id number] Drug Allergy N/A N/A Yes MORPHINE [id number] DRUG N/A ANAPHYLAXIS Yes PROCHLORPERAZINE [id number] DRUG N/A N/A Yes THIOTHIXENE [id number] DRUG N/A N/A Yes No Allergy Information Available [id number] Drug Allergy Unknown N/A 2017 Yes morphine [id number] Drug Allergy Unknown N/A 03/12/2017 Yes morphine [id number] Drug Allergy Severe ANAPHYLAXIS 05/07/2017 Medications Medication Packaging Start Date Stop Date Route Dosage Sig PERCOCET ORAL 01/30/2016 02/10/2016 ORAL 2020 every 6 hours TIZANIDINE HCL ORAL 04/12/2016 04/22/2016 ORAL 3030 3 times a day PLAVIX ORAL 04/12/2016 08/28/2016 ORAL 3030 daily OXYCODONE HCL ORAL 04/12/2016 04/22/2016 ORAL 411718 every 6 hours NOVOLOG Subcutaneous 04/12/2016 Subcutaneous 1010 every 6 hours before meal LEVOTHYROXINE SODIUM ORAL 201612/02/2016 ORAL 3030 daily GABAPENTIN ORAL 04/12/2016 07/19/2016 ORAL 9090 five times daily DICLOFENAC SODIUM ORAL 04/12/2016 10/04/2016 ORAL 6060 twice daily CYMBALTA ORAL 04/12/2016 08/28/2016 ORAL 3030 daily BACLOFEN ORAL 04/12/2016 10/04/2016 ORAL AMLODIPINE BESYLATE ORAL 201607/19/2016 ORAL 3030 daily TIZANIDINE HCL ORAL 04/23/2016 05/03/2016 ORAL 3030 every 6 hours HYDROCODONE-ACETAMINOPHEN ORAL 06/29/2016 ORAL every 6 hours HYDROCODONE-ACETAMINOPHEN ORAL 11/201607/19/2016 ORAL 6060 every 6 hours FLUTICASONE PROPIONATE Nasal 2016 Nasal 1616 daily per nostril LANTUS Subcutaneous 07/19/2016 02/07/2017 Subcutaneous 163958 at bedtime HYDROCODONE-ACETAMINOPHEN ORAL 10/201608/18/2016 ORAL 6060 every 6 hours GABAPENTIN ORAL 07/19/2016 01/05/2017 ORAL 178390 four times daily BUPROPION HCL ER (XL) ORAL 201607/19/2016 ORAL 3030 daily AMLODIPINE BESYLATE ORAL 201610/17/2016 ORAL 9090 daily IMIQUIMOD External 07/26/2016 08/23/2016 External 11 three times weekly HYDROCODONE-ACETAMINOPHEN ORAL 08/20/2016 ORAL 6060 every 6 hours LYRICA ORAL 08/20/2016 09/19/2016 ORAL 6060 twice HYDROCODONE-ACETAMINOPHEN ORAL 12/201609/03/2016 ORAL 9090 every 6 hours PLAVIX ORAL 08/28/2016 11/06/2016 ORAL 3030 daily CYMBALTA ORAL 08/28/2016 10/25/2016 ORAL 6060 daily TRAZODONE HCL ORAL 09/03/2016 11/20/2016 ORAL 3030 at bedtime HYDROCODONE-ACETAMINOPHEN ORAL 11/20/2016 ORAL 798643 q4-6h HYDROCODONE-ACETAMINOPHEN ORAL 10/27/2016 ORAL 287117 q4-6h FENTANYL Transdermal 09/27/2016 12/12/2016 Transdermal 1010 every 3 days LIDODERM External 10/04/2016 External 3030 daily DICLOFENAC SODIUM ORAL 10/04/2016 ORAL 6060 twice daily VITAMIN D3 ORAL 10/07/2016 ORAL Q7D GABAPENTIN ORAL 10/07/2016 ORAL 026434 four times daily CILOSTAZOL ORAL 10/07/2016 11/06/2016 ORAL twice daily TRAZODONE HCL ORAL 10/21/2016 11/20/2016 ORAL 3030 at bedtime OXYCONTIN ORAL 10/21/2016 10/21/2016 ORAL 6060 twice daily HYDROCODONE-ACETAMINOPHEN ORAL 12/201612/12/2016 ORAL 780595 q4-6h CYMBALTA ORAL 10/25/2016 ORAL 307478 daily PLAVIX ORAL 11/06/2016 ORAL 3030 daily CILOSTAZOL ORAL 11/06/2016 11/19/2016 ORAL 6060 twice daily CILOSTAZOL ORAL 11/19/2016 01/27/2017 ORAL 6060 twice daily LEVOTHYROXINE SODIUM ORAL 201612/03/2016 ORAL 9090 daily LEVOTHYROXINE SODIUM ORAL 2016 ORAL 9090 daily LYRICA ORAL 12/12/2016 02/07/2017 ORAL 9090 3 times a day IBUPROFEN ORAL 12/12/2016 ORAL 9090 3 times a day HYDROCODONE-ACETAMINOPHEN ORAL 03/201601/17/2017 ORAL 119474 q4-6h AMLODIPINE BESYLATE ORAL 2016 ORAL 9090 daily LANCETS ORAL 12/22/2016 02/07/2017 ORAL 342266 three times daily LYRICA ORAL 01/08/2017 02/07/2017 ORAL three times each day LANTUS Subcutaneous 01/08/2017 02/11/2017 Subcutaneous HYDROCODONE-ACETAMINOPHEN ORAL 09/2016 ORAL 897538 q4 -6h CILOSTAZOL Oral 01/27/2017 Oral 6060 twice daily GABAPENTIN ORAL 02/07/2017 ORAL 825731 four times daily LANTUS SOLOSTAR Subcutaneous 2017 Subcutaneous 55 Problems Date Dx Coded Attending Type Code Diagnosis Diagnosed By 08/22/2015 Arias Randee Final I70.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 with in 08/22/2015 Arias Randee Reason I73.9 Peripheral vascular disease, unspecified 08/22/2015 Arias Randee Final R26.89 Other abnormalities of gait and mobility 03/06/2017 SANCHO SKINNER MD Ot E03.9 HYPOTHYROIDISM, UNSPECIFIED 03/06/2017 SANCHO SKINNER MD Ot E11.9 TYPE 2 DIABETES MELLITUS WITHOUT COMPLIC 03/06/2017 SANCHO SKINNER MD Ot I10 ESSENTIAL (PRIMARY) HYPERTENSION 03/06/2017 SANCHO SKINNER MD Ot Z72.0 TOBACCO USE 03/11/2017 SANCHO SKINNER MD Ot E03.9 HYPOTHYROIDISM, UNSPECIFIED 03/11/2017 SANCHO SKINNER MD Ot E11.9 TYPE 2 DIABETES MELLITUS WITHOUT COMPLIC 03/11/2017 SANCHO SKINNER MD Ot I10 ESSENTIAL (PRIMARY) HYPERTENSION 03/11/2017 SANCHO SKINNER MD Ot Z72.0 TOBACCO USE 03/12/2017 SANCHO SKINNER MD Ot E03.9 HYPOTHYROIDISM, UNSPECIFIED 03/12/2017 SANCHO SKINNER MD Ot E11.43 TYPE 2 DIABETES W DIABETIC AUTONOMIC (PO 03/12/2017 SANCHO SKINNER MD Ot E78.5 HYPERLIPIDEMIA, UNSPECIFIED 03/12/2017 SANCHO SKINNER MD Ot F17.210 NICOTINE DEPENDENCE, CIGARETTES, UNCOMPL 03/12/2017 SANCHO SKINNER MD Ot I10 ESSENTIAL (PRIMARY) HYPERTENSION 03/12/2017 SANCHO SKINNER MD Ot I25.10 ATHSCL HEART DISEASE OF [place] CORONARY 03/12/2017 SANCHO SKINNER MD Ot I35.0 NONRHEUMATIC AORTIC (VALVE) STENOSIS 03/12/2017 SANCHO SKINNER MD Ot I65.23 OCCLUSION AND STENOSIS OF BILATERAL [place] 03/12/2017 SANCHO SKINNER MD Ot M54.9 DORSALGIA, UNSPECIFIED 03/12/2017 SANCHO SKINNER MD Ot R01.1 CARDIAC MURMUR, UNSPECIFIED 03/12/2017 SANCHO SKINNER MD Ot R29.898 OT SYMPTOMS AND SIGNS INVOLVING THE MUS 03/12/2017 SANCHO SKINNER MD Ot Z79.02 DETENTION (CURRENT) USE OF ANTITHROMBOTI 03/12/2017 SANCHO SKINNER MD Ot Z79.4 DETENTION (CURRENT) USE OF INSULIN 03/12/2017 SANCHO SKINNER MD Ot Z79.899 OTHER DETENTION (CURRENT) DRUG THERAPY 03/12/2017 SANCHO SKINNER MD Ot Z99.3 DEPENDENCE ON WHEELCHAIR 03/14/2017 SANCHO SKINNER MD Ot E03.9 HYPOTHYROIDISM, UNSPECIFIED 03/14/2017 SANCHO SKINNER MD Ot E11.43 TYPE 2 DIABETES W DIABETIC AUTONOMIC (PO 03/14/2017 SANCHO SKINNER MD Ot E78.5 HYPERLIPIDEMIA, UNSPECIFIED 03/14/2017 SANCHO SKINNER MD Ot F17.210 NICOTINE DEPENDENCE, CIGARETTES, UNCOMPL 03/14/2017 SANCHO SKINNER MD Ot I10 ESSENTIAL (PRIMARY) HYPERTENSION 03/14/2017 SANCHO SKINNER MD Ot I25.10 ATHSCL HEART DISEASE OF [place] CORONARY 03/14/2017 SANCHO SKINNER MD Ot I35.0 NONRHEUMATIC AORTIC (VALVE) STENOSIS 03/14/2017 SANCHO SKINNER MD Ot I65.23 OCCLUSION AND STENOSIS OF BILATERAL [place] 03/14/2017 SANCHO SKINNER MD Ot M54.9 DORSALGIA, UNSPECIFIED 03/14/2017 SANCHO SKINNER MD Ot R01.1 CARDIAC MURMUR, UNSPECIFIED 03/14/2017 SANCHO SKINNER MD Ot R29.898 OTH SYMPTOMS AND SIGNS INVOLVING THE MUS 03/14/2017 SANCHO SKINNER MD Ot Z79.02 EXPENSE ANALYST (CURRENT) USE OF ANTITHROMBOTI 03/14/2017 SANCHO SKINNER MD Ot Z79.4 DETENTION (CURRENT) USE OF INSULIN 03/14/2017 SANCHO SKINNER MD Ot Z79.899 OTHER DETENTION (CURRENT) DRUG THERAPY 03/14/2017 SANCHO SKINNER MD Ot Z99.3 DEPENDENCE ON WHEELCHAIR 03/18/2017 SANCHO SKINNER MD Ot E03.9 HYPOTHYROIDISM, UNSPECIFIED 03/18/2017 SANCHO SKINNER MD Ot E11.43 TYPE 2 DIABETES W DIABETIC AUTONOMIC (PO 03/18/2017 SANCHO SKINNER MD Ot E78.5 HYPERLIPIDEMIA, UNSPECIFIED 03/18/2017 SANCHO SKINNER MD Ot F17.210 NICOTINE DEPENDENCE, CIGARETTES, UNCOMPL 03/18/2017 SANCHO SKINNER MD Ot I10 ESSENTIAL (PRIMARY) HYPERTENSION 03/18/2017 SANCHO SKINNER MD Ot I25.10 ATHSCL HEART DISEASE OF [place] CORONARY 03/18/2017 SANCHO SKINNER MD Ot I35.0 NONRHEUMATIC AORTIC (VALVE) STENOSIS 03/18/2017 SANCHO SKINNER MD Ot I65.23 OCCLUSION AND STENOSIS OF [place]ILATERAL [place] 03/18/2017 SANCHO SKINNER MD Ot M54.9 DORSALGIA, UNSPECIFIED 03/18/2017 SANCHO SKINNER MD Ot R01.1 CARDIAC MURMUR, UNSPECIFIED 03/18/2017 SANCHO SKINNER MD Ot R29.898 OTH SYMPTOMS AND SIGNS INVOLVING THE MUS 03/18/2017 SANCHO SKINNER MD Ot Z79.02 DETENTION (CURRENT) USE OF ANTITHROMBOTI 03/18/2017 SANCHO SKINNER MD Ot Z79.4 DETENTION (CURRENT) USE OF INSULIN 03/18/2017 SANCHO SKINNER MD Ot Z79.899 OTHER DETENTION (CURRENT) DRUG THERAPY 03/18/2017 SANCHO SKINNER MD Ot Z99.3 DEPENDENCE ON WHEELCHAIR 03/26/2017 SANCHO SKINNER MD Ot E03.9 HYPOTHYROIDISM, UNSPECIFIED 03/26/2017 SANCHO SKINNER MD Ot E11.9 TYPE 2 DIABETES MELLITUS WITHOUT COMPLIC 03/26/2017 SANCHO SKINNER MD Ot I10 ESSENTIAL (PRIMARY) HYPERTENSION 03/26/2017 SANCHO SKINNER MD Ot Z72.0 TOBACCO USE 04/02/2017 SANCHO SKINNER MD Ot E03.9 HYPOTHYROIDISM, UNSPECIFIED 04/02/2017 SANCHO SKINNER MD Ot E11.9 TYPE 2 DIABETES MELLITUS WITHOUT COMPLIC 04/02/2017 SANCHO SKINNER MD Ot I10 ESSENTIAL (PRIMARY) HYPERTENSION 04/02/2017 SANCHO SKINNER MD Ot Z72.0 TOBACCO USE 04/23/2017 SANCHO SKINNER MD Ot E03.9 HYPOTHYROIDISM, UNSPECIFIED 04/23/2017 SANCHO SKINNER MD Ot E11.9 TYPE 2 DIABETES MELLITUS WITHOUT COMPLIC 04/23/2017 SANCHO SKINNER MD Ot I10 ESSENTIAL (PRIMARY) HYPERTENSION 04/23/2017 SANCHO SKINNER MD Ot Z72.0 TOBACCO USE 05/07/2017 LUIS CARLOS ANNA MD Ot M96.0 PSEUDARTHROSIS AFTER FUSION OR ARTHRODES 05/07/2017 LUIS CARLOS ANNA MD Ot 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 Results Test Result Range PTH, Intact - 09/11/16 05:18 PTH, Intact 28 pg/mL 15-65 Automated blood complete blood count (hemogram) panel - 03/12/17 12:10 Blood leukocytes automated count (number/volume) 4.0 10*3/uL 4.3-11.0 Blood erythrocytes automated count (number/volume) 3.86 10*6/uL 4.35-5.85 Venous blood hemoglobin measurement (mass/volume) 12.5 g/dL 11.5-16.0 Blood hematocrit (volume fraction) 36 % 35-52 Automated erythrocyte mean corpuscular volume 93 [foz_us] 80-99 Automated erythrocyte mean corpuscular hemoglobin (mass per erythrocyte) 32 pg 25-34 Automated erythrocyte mean corpuscular hemoglobin concentration measurement ( mass/volume) 35 g/dL 32-36 Automated erythrocyte distribution width ratio 13.8 % 10.0-14.5 Automated blood platelet count (count/volume) 295 10*3/uL 130-400 Automated blood platelet mean volume measurement 9.9 [foz_us] 7.4-10.4 PT panel in platelet poor plasma by coagulation assay - 03/12/17 12:10 Prothrombin time (PT) in platelet poor plasma by coagulation assay 12.5 s 12.2-14.7 INR in platelet poor plasma or blood by coagulation assay 0.9 0.8-1.4 Activated partial thromboplastin time (aPTT) in platelet poor plasma bycoagulation assay - 03/12/17 12:10 Activated partial thromboplastin time (aPTT) in platelet poor plasma bycoagulation assay 29 s 24-35 Comprehensive metabolic panel - 03/12/17 12:10 Serum or plasma sodium measurement (moles/volume) 136 mmol/L 135-145 Serum or plasma potassium measurement (moles/volume) 5.8 mmol/L 3.6-5.0 Serum or plasma chloride measurement (moles/volume) 102 mmol/L 98-107 Carbon dioxide 25 mmol/L 21-32 Serum or plasma anion gap determination (moles/volume) 9 mmol/L 5-14 Serum or plasma urea nitrogen measurement (mass/volume) 20 mg/dL 7-18 Serum or plasma creatinine measurement (mass/volume) 0.93 mg/dL 0.60-1.30 Serum or plasma urea nitrogen/creatinine mass ratio 22 NRG Serum or plasma creatinine measurement with calculation of estimated glomerular filtration rate 59 NRG Serum or plasma glucose measurement (mass/volume) 167 mg/dL 70-105 Serum or plasma calcium measurement (mass/volume) 9.5 mg/dL 8.5-10.1 Serum or plasma total bilirubin measurement (mass/volume) 0.3 mg/dL 0.1-1.0 Serum or plasma alkaline phosphatase measurement (enzymatic activity/volume) 63 U/L 40-136 Serum or plasma aspartate aminotransferase measurement (enzymatic activity/ volume) 15 U/L 5-34 Serum or plasma alanine aminotransferase measurement (enzymatic activity/volume ) 10 U/L 0-55 Serum or plasma protein measurement (mass/volume) 7.4 g/dL 6.4-8.2 Serum or plasma albumin measurement (mass/volume) 4.3 g/dL 3.2-4.5 Lipid 1996 panel - 03/12/17 12:10 Serum or plasma triglyceride measurement (mass/volume) 140 mg/dL <150 Serum or plasma cholesterol measurement (mass/volume) 266 mg/dL < 200 Serum or plasma cholesterol in HDL measurement (mass/volume) 77 mg/ dL 40-60 Cholesterol in LDL [mass/volume] in serum or plasma by direct assay 158 mg/dL 1-129 Serum or plasma cholesterol in VLDL measurement (mass/volume) 28 mg/ dL 5-40 Methicillin resistant Staphylococcus aureus (MRSA) screening culture - 12:10 Methicillin resistant Staphylococcus aureus (MRSA) screening culture NEG NR Methicillin resistant Staphylococcus aureus (MRSA) screening culture - 12:40 Methicillin resistant Staphylococcus aureus (MRSA) screening culture NEG NRG Complete blood count (CBC) with automated white blood cell (WBC) differential - 05/07/17 12:45 Blood leukocytes automated count (number/volume) 4.5 10*3/uL 4.3-11.0 Blood erythrocytes automated count (number/volume) 4.00 10*6/uL 4.35-5.85 Venous blood hemoglobin measurement (mass/volume) 12.8 g/dL 11.5-16.0 Blood hematocrit (volume fraction) 38 % 35-52 Automated erythrocyte mean corpuscular volume 94 [foz_us] 80-99 Automated erythrocyte mean corpuscular hemoglobin (mass per erythrocyte) 32 pg 25-34 Automated erythrocyte mean corpuscular hemoglobin concentration measurement ( mass/volume) 34 g/dL 32-36 Automated erythrocyte distribution width ratio 13.8 % 10.0-14.5 Automated blood platelet count (count/volume) 266 10*3/uL 130-400 Automated blood platelet mean volume measurement 9.7 [foz_us] 7.4-10.4 Automated blood neutrophils/100 leukocytes 62 % 42-75 Automated blood lymphocytes/100 leukocytes 27 % 12-44 Blood monocytes/100 leukocytes 10 % 0-12 Automated blood eosinophils/100 leukocytes 2 % 0-10 Automated blood basophils/100 leukocytes 0 % 0-10 Blood neutrophils automated count (number/volume) 2.8 10*3 1.8-7.8 Blood lymphocytes automated count (number/volume) 1.2 10*3 1.0-4.0 Blood monocytes automated count (number/volume) 0.4 10*3 0.0-1.0 Automated eosinophil count 0.1 10*3/uL 0.0-0.3 Automated blood basophil count (count/volume) 0.0 10*3/uL 0.0-0.1 Comprehensive metabolic panel - 05/07/17 12:45 Serum or plasma sodium measurement (moles/volume) 134 mmol/L 135-145 Serum or plasma potassium measurement (moles/volume) 5.2 mmol/L 3.6-5.0 Serum or plasma chloride measurement (moles/volume) 101 mmol/L 98-107 Carbon dioxide 27 mmol/L 21-32 Serum or plasma anion gap determination (moles/volume) 6 mmol/L 5-14 Serum or plasma urea nitrogen measurement (mass/volume) 29 mg/dL 7-18 Serum or plasma creatinine measurement (mass/volume) 1.06 mg/dL 0.60-1.30 Serum or plasma urea nitrogen/creatinine mass ratio 27 NRG Serum or plasma creatinine measurement with calculation of estimated glomerular filtration rate 51 NRG Serum or plasma glucose measurement (mass/volume) 154 mg/dL 70-105 Serum or plasma calcium measurement (mass/volume) 9.6 mg/dL 8.5-10.1 Serum or plasma total bilirubin measurement (mass/volume) 0.4 mg/dL 0.1-1.0 Serum or plasma alkaline phosphatase measurement (enzymatic activity/volume) 75 U/L 40-136 Serum or plasma aspartate aminotransferase measurement (enzymatic activity/ volume) 18 U/L 5-34 Serum or plasma alanine aminotransferase measurement (enzymatic activity/volume ) 13 U/L 0-55 Serum or plasma protein measurement (mass/volume) 7.3 g/dL 6.4-8.2 Serum or plasma albumin measurement (mass/volume) 4.5 g/dL 3.2-4.5 Blood type T Indirect antibody screen panel - 05/07/17 12:45 ABO+Rh group ABN NRG Blood group antibody screen NEGATIVE NRG Encounters ACCT No. Visit Date/Time Discharge Status Pt. Type Provider Facility Loc./Unit Complaint [id number] 12/27/2016 14:10:54 12/27/2016 23:59:59 CLS Outpatient Mary Paz [id number] 11/07/2016 13:03:46 11/07/2016 23:59:59 CLS Outpatient Mary Paz [id number] 09/30/2016 16:41:10 09/30/2016 23:59:59 CLS Outpatient Yony Hay [id number] 04/05/2016 14:15:41 04/05/2016 23:59:59 CLS Outpatient Teresa Anglin [id number] 03/22/2016 10:40:06 03/22/2016 23:59:59 CLS Outpatient Teresa Anglin [id number] 03/13/2016 09:11:36 03/13/2016 23:59:59 CLS Outpatient Teresa Anglin [id number] 03/12/2016 09:27:22 03/12/2016 23:59:59 CLS Outpatient Wayne Lowe [id number] 03/08/2016 14:38:13 03/08/2016 23:59:59 CLS Outpatient Wayne Lowe [id number] 01/17/2016 13:31:03 01/17/2016 23:59:59 CLS Outpatient Blanca Ricketts [id number] 01/11/2016 18:36:28 01/11/2016 23:59:59 CLS Outpatient Adan Fermin [id number] 09/24/2016 12:16:14 Document Registration [id number] 08/11/2015 12:36:00 08/11/2015 23:59:00 DIS Outpatient Arias Randee [facility] on [facility] Scan Claudication. History of stents [id number] 02/12/2017 06:06:37 02/12/2017 06:06:37 DIS Outpatient [facility] [id number] 09/12/2016 15:06:00 Document Registration [id number] 05/12/2017 07:30:00 05/12/2017 23:59:59 CLS Preadmit LUIS CARLOS ANNA MD LUMBAR KYPHOSIS [id number] 05/07/2017 11:30:00 05/07/2017 14:28:00 DIS Outpatient LUIS CARLOS ANNA MD Via [facility] PREOP LUMBAR KYPHOSIS [id number] 03/12/2017 11:25:00 03/12/2017 17:00:00 DIS Outpatient SANCHO SKINNER MD [facility] CATH ABNORMAL STRESS TEST [id number] 03/05/2017 09:49:00 03/05/2017 23:59:59 CLS Outpatient SANCHO SKINNER MD [facility] CARD DIABETES [id number] 03/05/2017 14:32:00 Document Registration
[2017-06-02] MEDS ORDERED: PROPOFOL INJECTION 50 ML IV ONE (06:44)
[2017-06-02] MEDS ORDERED: fentaNYL INJECTION 100 MCG/2 ML AMP ONE ×2 (06:44→13:45)
[2017-06-02] MEDS ORDERED: LIDOCAINE PF 2% 5 ML (XYLOCAINE) VIAL ONE (06:44)
[2017-06-02] MEDS ORDERED: SEVOFLURANE (ULTANE) 15 ML INHAL SOLN ONE ×2 (06:44→12:46)
[2017-06-02] MEDS ORDERED: NS (IVPB) 50 ML ONE (06:50)
[2017-06-02] MEDS ORDERED: ceFAZolin 2 GM IV Premixed 50 ML ONE (06:54)
[2017-06-02] MEDS ORDERED: FAMOTIDINE 20MG/2ML IV (PEPCID) IVP ONE (07:00)
[2017-06-02 07:18] LABS: MEAN PLATELET VOLUME 9.7 FL (7.4-10.4); RED BLOOD COUNT 3.75 10^6/uL (4.35-5.85); RED CELL DISTRIBUTION WIDTH 13.5 % (10.0-14.5)
[2017-06-02] MEDS: LACTATED RINGERS 1,000 ML IV PRN ×3 (07:27→14:00)
[2017-06-02] MEDS ORDERED: ceFAZolin 2 GM IV Premixed 50 ML IV ONE (07:30)
[2017-06-02] MEDS: GENTAMICIN 40 MG/ML 2 ML INJ SDV ONE ×2 (07:50→12:40)
[2017-06-02] MEDS ORDERED: NS (IVPB) 100 ML ONE (08:07)
[2017-06-02] MEDS ORDERED: TRANEXAMIC ACID 100 MG/ML 10 ML INJECTION IV ONE ×2 (08:20→11:25)
[2017-06-02] MEDS ORDERED: fentaNYL INJECTION 250 MCG/5 ML AMP ONE (08:20)
[2017-06-02] MEDS ORDERED: VANCOMYCIN 1000 MG/VIAL ONE (08:21)
[2017-06-02] MEDS ORDERED: LACTATED RINGERS 1,000 ML IV SCH (09:15)
[2017-06-02] MEDS ORDERED: DEXMEDETOMIDINE 200 MCG/2 ML (PRECEDEX) VIAL IV ONE (09:26)
[2017-06-02] MEDS: CLINDAMYCIN 600 MG/4ML (CLEOCIN) VIAL ONE ×2 (11:16→12:45)
[2017-06-02] MEDS ORDERED: CLINDAMYCIN 600 MG/50 ML IVPB 50 ML IV ONE (11:30)
[2017-06-02] MEDS ORDERED: PHENYLEPHRINE 100 MCG/ML 10 ML (ANESTHESIA) SYR ONE (11:36)
[2017-06-02] MEDS ORDERED: ONDANSETRON 4 MG/2 ML (SDV) Z0FRAN ONE (12:46)
--- NOTE | 2017-06-02 12:46 | Progress Note-Post Operative ---
Post-Operative Progess Note Surgeon (s)/[employer] Cork Insulator (s) Surgeon LUIS CARLOS ANNA MD [employer] Insulator: FREDERICK Payne Pre-Operative Diagnosis Lumbar Kyphosis, post Laminectomy Syndrome, Non-Union Post-Operative Diagnosis Same Procedure & Operative Findings Date of Procedure 06/02/17 Procedure Performed/Findings L2-Pelvis anterior/lateral/posterior spinal fusion, with [facility] Osteotomies. Anesthesia Type GETA Estimated Blood Loss Estimated blood loss (mL): 750 Specimens/Packing Specimens Removed None Packing: None LUIS CARLOS ANNA MD Jun 02, 2017 12:46
[2017-06-02] MEDS ORDERED: ROCURONIUM 10 MG/ML 5 ML SYRINGE IV ONE (12:51)
--- NOTE | 2017-06-02 13:12 | Diagnostic Imaging Report ---
INDICATION: Lumbar spine fusion. Comparison: None FINDINGS: Multiple intraoperative image intensifier views of the lumbar spine were obtained during lumbosacral fusion. Multiple interpedicular screws and posterior fusion rods are identified. Intervertebral disc spaces are also noted. Please note, interpreting radiologist is not present during the procedure. IMPRESSION: 1. Fluoroscopic guidance provided during lumbosacral fusion. Dictated by: Dictated on workstation # [id number]
[2017-06-02] MEDS ORDERED: MILK OF MAGNESIA 400 MG/5 ML 30 ML UDC PO PRN (13:15)
[2017-06-02] MEDS ORDERED: ACETAMINOPHEN 325 MG TABLET/CAPLET (TYLENOL) PO PRN (13:15)
[2017-06-02] MEDS ORDERED: PROMETHAZINE 25 MG (PHENERGAN) TAB PO PRN (13:15)
[2017-06-02] MEDS ORDERED: NON-FORMULARY MEDICATION 1 EA EA (Fluticasone Propionate 1 SPRAY) NS PRN (13:15)
[2017-06-02] MEDS ORDERED: ONDANSETRON 4 MG/2 ML (SDV) Z0FRAN IV PRN (13:15)
[2017-06-02] MEDS ORDERED: inSUlin (REGULAR) HUMAN 1 UNIT/0.01 ML (CHARGE PER UNIT) ONE (13:40)
[2017-06-02] MEDS ORDERED: fentaNYL INJECTION 100 MCG/2 ML AMP IVP PRN (14:00)
[2017-06-02 14:13] LABS: HEMOGLOBIN 9.7 G/DL (11.5-16.0); MEAN PLATELET VOLUME 9.9 FL (7.4-10.4); RED BLOOD COUNT 3.09 10^6/uL (4.35-5.85); RED CELL DISTRIBUTION WIDTH 13.3 % (10.0-14.5)
[2017-06-02] MEDS ORDERED: inSUlin ASPART (NovoLOG) 1 UNIT/0.01 ML (CHARGE PER UNIT) ONE (14:13)
[2017-06-02] MEDS ORDERED: FLUTICASONE NASAL SPRAY (FLONASE) 16 GM BTL NS PRN (15:45)
[2017-06-02] MEDS: HYDROcodone/APAP 10 MG/325 MG (LORTAB) TAB PO PRN ×2 (15:46→19:34)
[2017-06-02] MEDS ORDERED: NON-FORMULARY MEDICATION 1 EA EA (Gabapentin 800 MG) PO SCH (17:00)
[2017-06-02] MEDS: GABAPENTIN 400 MG (NEURONTIN) CAP PO SCH ×2 (17:07→21:04)
[2017-06-02] MEDS: NS IV 1000 ML 1,000 ML IV SCH (17:07)
[2017-06-02] MEDS ORDERED: ceFAZolin 2 GM/50 ML PRE-MIXED IVPB IV SCH (17:15)
[2017-06-02] MEDS ORDERED: ceFAZolin INJECTION 2,000 MG in NS (IVPB) 100 ML IV SCH (17:15)
[2017-06-02] MEDS: inSUlin ASPART (NovoLOG) 1 UNIT/0.01 ML (CHARGE PER UNIT) SC SCH ×2 (18:44→20:50)
[2017-06-02] MEDS: inSUlin DETERMIR 1 UNIT/0.01 ML (LEVEMIR) CHARGE PER UNIT SQ SCH (20:50)
[2017-06-02] MEDS ORDERED: NON-FORMULARY MEDICATION 1 EA EA (Amlodipine Besylate 5 MG) PO SCH (21:00)
[2017-06-02] MEDS ORDERED: NON-FORMULARY MEDICATION 1 EA EA (Duloxetine HCl (Cymbalta) 60 MG) PO SCH (21:00)
[2017-06-02] MEDS ORDERED: NON-FORMULARY MEDICATION 1 EA EA (Insulin Glargine,Hum.rec.anlog (Lantus Solostar) 20 UNIT SQ SCH (21:00)
[2017-06-02] MEDS: DOCUSATE SODIUM 100 MG (COLACE) CAP PO SCH (21:03)
[2017-06-02] MEDS: SENNOSIDES 8.6 MG (SENOKOT) TAB PO SCH (21:03)
[2017-06-02] MEDS: amLODIPine 5 MG (NORVASC) TAB PO SCH (21:04)
[2017-06-02] MEDS: DULoxetine 30 MG (CYMBALTA) CAP PO SCH (21:04)
[2017-06-02] MEDS ORDERED: NS IV 1000 ML 1,000 ML IV SCH (23:15)
[2017-06-02] MEDS: fentaNYL INJECTION 100 MCG/2 ML AMP IVP PRN (23:24)
[2017-06-02 23:29] LABS: BASOPHILS % (AUTO) 0 % (0-10); EOSINOPHILS % (AUTO) 0 % (0-10); HEMATOCRIT 26 % (35-52); HEMOGLOBIN 8.9 G/DL (11.5-16.0); LYMPHOCYTES # (AUTO) 0.4 X 10^3 (1.0-4.0); LYMPHOCYTES % (AUTO) 4 % (12-44); MEAN CORPUSCULAR HEMOGLOBIN 32 PG (25-34); MEAN CORPUSCULAR HGB CONC 34 G/DL (32-36); MEAN CORPUSCULAR VOLUME 96 FL (80-99); MEAN PLATELET VOLUME 9.2 FL (7.4-10.4); MONOCYTES % (AUTO) 9 % (0-12); NEUTROPHILS # (AUTO) 9.6 X 10^3 (1.8-7.8); NEUTROPHILS % (AUTO) 87 % (42-75); PLATELET COUNT 216 10^3/uL (130-400); RED BLOOD COUNT 2.75 10^6/uL (4.35-5.85); RED CELL DISTRIBUTION WIDTH 13.5 % (10.0-14.5); WHITE BLOOD COUNT 11.1 10^3/uL (4.3-11.0)
[2017-06-02 23:41] LABS: PROTHROMBIN TIME PATIENT 13.7 SEC (12.2-14.7)
[2017-06-02 23:48] LABS: ALBUMIN 3.3 GM/DL (3.2-4.5); BILIRUBIN,TOTAL 0.3 MG/DL (0.1-1.0); CALCIUM 8.3 MG/DL (8.5-10.1); CREATININE SERUM 1.05 MG/DL (0.60-1.30); MAGNESIUM 1.6 MG/DL (1.8-2.4); POTASSIUM 5.7 MMOL/L (3.6-5.0)
[2017-06-03] VITALS (15 sets, daily range): BP systolic 90–159; BP diastolic 48–87
[2017-06-03] MEDS ORDERED: NORMAL SALINE 250 ML ONE (00:13)
[2017-06-03] MEDS ORDERED: inSUlin (REGULAR) HUMAN 1 UNIT/0.01 ML (CHARGE PER UNIT) SC ONE (00:15)
[2017-06-03] MEDS ORDERED: inSUlin REGULAR TPN/DRIP ONLY 250 UNITS in NORMAL SALINE 250 ML IV SCH (00:15)
[2017-06-03] MEDS ORDERED: ceFAZolin 2 GM/50 ML PRE-MIXED IVPB IV SCH (01:00)
[2017-06-03] MEDS: HYDROcodone/APAP 10 MG/325 MG (LORTAB) TAB PO PRN ×6 (01:45→18:08)
[2017-06-03] MEDS: fentaNYL INJECTION 100 MCG/2 ML AMP IVP PRN ×2 (03:10→05:53)
[2017-06-03 03:17] LABS: BASOPHILS % (AUTO) 0 % (0-10); EOSINOPHILS % (AUTO) 0 % (0-10); HEMATOCRIT 25 % (35-52); HEMOGLOBIN 8.5 G/DL (11.5-16.0); LYMPHOCYTES # (AUTO) 0.5 X 10^3 (1.0-4.0); LYMPHOCYTES % (AUTO) 5 % (12-44); MEAN CORPUSCULAR HEMOGLOBIN 32 PG (25-34); MEAN CORPUSCULAR HGB CONC 34 G/DL (32-36); MEAN CORPUSCULAR VOLUME 95 FL (80-99); MEAN PLATELET VOLUME 9.8 FL (7.4-10.4); MONOCYTES # (AUTO) 0.7 X 10^3 (0.0-1.0); MONOCYTES % (AUTO) 7 % (0-12); NEUTROPHILS # (AUTO) 8.7 X 10^3 (1.8-7.8); NEUTROPHILS % (AUTO) 88 % (42-75); PLATELET COUNT 223 10^3/uL (130-400); RED BLOOD COUNT 2.66 10^6/uL (4.35-5.85); RED CELL DISTRIBUTION WIDTH 13.4 % (10.0-14.5); WHITE BLOOD COUNT 9.9 10^3/uL (4.3-11.0)
[2017-06-03 03:37] LABS: ALANINE AMINOTRANSFERASE 14 U/L (0-55); ALBUMIN 3.3 GM/DL (3.2-4.5); ALKALINE PHOSPHATASE 51 U/L (40-136); BILIRUBIN,TOTAL 0.2 MG/DL (0.1-1.0); BUN/CREATININE RATIO 30; CALCIUM 8.2 MG/DL (8.5-10.1); CARBON DIOXIDE 21 MMOL/L (21-32); CHLORIDE 109 MMOL/L (98-107); CREATININE SERUM 0.84 MG/DL (0.60-1.30); GFR ESTIMATED > 60; GLUCOSE 154 MG/DL (70-105); MAGNESIUM 1.6 MG/DL (1.8-2.4); PHOSPHORUS 2.1 MG/DL (2.3-4.7); POTASSIUM 4.7 MMOL/L (3.6-5.0); SODIUM 138 MMOL/L (135-145)
--- NOTE | 2017-06-03 05:00 | Pulmonary Consultation ---
History of Present Illness History of Present Illness Date of Consultation 06/03/17 04:54 Time Seen by Provider: 09:00 Date of Admission History of Present Illness 71yo who was admitted for elective spinal surgery by Dr. Zuñiga. Surgery was uncomplicated.Pt did become hypotensive post op. She is getting IVF boluses currently. Labs also show pt to be a little dehydrated and with a metabolic acidosis. I am consulted for ICU management. Allergies and Home Medications Allergies Coded Allergies: morphine (Verified Allergy, Severe, ANAPHYLAXIS, 05/07/17) Home Medications Amlodipine Besylate 5 Mg Tablet, 5 MG PO HS, (Reported) Cilostazol 50 Mg Tablet, 50 MG PO BID, (Reported) Clopidogrel Bisulfate 75 Mg Tablet, 75 MG PO HS, (Reported) Docusate Sodium 100 Mg Capsule, 100 MG PO BID Prescribed by: SHERRIE LOUIS on 06/06/17 1213 Duloxetine HCl 60 Mg Capsule.dr, 60 MG PO BID, (Reported) Fluticasone Propionate 16 Gm [place].susp, 1 SPRAY NS BID PRN for CONGESTION, ( Reported) Gabapentin 800 Mg Tablet, 800 MG PO 5XD, (Reported) Hydrocodone/Acetaminophen 1 Each Tablet, 1-2 EA PO Q4H PRN for PAIN-MODERATE Prescribed by: HOUSTON CARDOZO on 06/06/17 0524 Insulin Aspart 100 Unit/1 Ml Susp, 8 UNIT SQ ACHS, (Reported) Insulin Glargine,Hum.rec.anlog 100 Unit/1 Ml Insuln.pen, 20 UNIT SQ HS, ( Reported) Levothyroxine Sodium 150 Mcg Tablet, 150 MCG PO DAILY, (Reported) Magnesium Hydroxide 400 Mg/5 Ml Oral.susp, 30 ML PO DAILY PRN for CONSTIPATION- 7TH LINE Prescribed by: SHERRIE LOUIS on 06/06/17 1213 Polyethylene Glycol 3350 17 Gm Powd.pack, 17 GM PO DAILY, (Reported) Polyethylene Glycol 3350 17 Gm Powd.pack, 17 GM PO DAILY@0800 Prescribed by: SHERRIE LOUIS on 06/06/17 1213 Sennosides 8.6 Mg Tablet, 8.6 MG PO BID Prescribed by: SHERRIE LOUIS on 06/06/17 1213 Past Xvtgopv-Tttvpt-Gdfudb Hx Patient Social History Alcohol Use: Denies Use Recreational Drug Use: No Smoking Status: Current Everyday Smoker Type Used: Cigarettes Recent Foreign Travel: No Contact w/Someone Who Travel: No Recent Infectious Disease Expo: No Recent Hopitalizations: No Immunizations Up To Date Date of Pneumonia Vaccine: May 07, 2013 Seasonal Allergies Seasonal Allergies: Yes (MILD) Past Medical History Surgeries: Yes (SHOULDER X2, STENTS IN EACH LEG, BYPASS NIRMAL LEGS, BACK, R TKR) Respiratory: No Cardiac: Yes Neurological: No Female Reproductive Disorders: Denies Sexually Transmitted Disease: No HIV/AIDS: No Genitourinary: No Gastrointestinal: Yes Chronic Constipation Musculoskeletal: Yes (LUMBAR KYPHOSIS) Arthritis, Chronic Back Pain Endocrine: Yes HEENT: Yes (GLASSES, TOP DENTURES) Loss of Vision: Bilateral Hearing Impairment: Denies Cancer: No Psychosocial: Yes Anxiety, Depression Integumentary: No Blood Disorders: No Adverse Reaction/Blood Tranf: No (HAS HAD BLOOD WITH NO REACTION) Review of Systems Time Seen by Provider: 09:01 Constitutional: Weakness, Malaise; No: Fever, Chills, Sweats, Other Eyes: No: Pain, Vision change, Conjunctivae inflammation, Eyelid inflammation, Other, Redness ENT: No: Ear pain, Ear discharge, Nose pain, Nose discharge, Nose congestion, Mouth pain, Mouth swelling, Throat pain, Throat swelling, Other Respiratory: Cough, Dry, Shortness of breath Cardiovascular: No: Chest Pain, Palpitations, Orthopnea, Paroxysmal Noc. Dyspnea, Edema, Lt Headedness, Other Gastrointestinal: No: Nausea, Vomiting, Abdominal Pain, Diarrhea, Constipation , Melena, Hematochezia, Other Exam Exam Vital Signs Date Time Temp Pulse Resp B/P (MAP) Pulse Ox O2 Delivery O2 Flow Rate FiO2 06/03/17 04:00 100 19 149/51 (83) 96 Nasal Cannula 2.00 06/03/17 03:00 101 18 148/62 (90) 96 Nasal Cannula 2.00 06/03/17 02:00 133 17 143/54 (83) 100 Nasal Cannula 2.00 06/03/17 01:00 133 21 159/58 (91) 100 Nasal Cannula 2.00 06/03/17 01:00 133 06/03/17 00:00 137 14 151/64 (93) 100 Nasal Cannula 2.00 06/02/17 23:00 138 18 136/59 (84) 100 Nasal Cannula 2.00 06/02/17 22:10 Nasal Cannula 2.00 06/02/17 22:00 105 30 109/42 (64) 100 Nasal Cannula 2.00 06/02/17 21:00 105 13 117/51 (73) 100 Nasal Cannula 2.00 06/02/17 20:00 93 15 123/44 (70) 100 Nasal Cannula 2.00 06/02/17 19:00 90 06/02/17 19:00 90 15 111/40 (63) 100 Nasal Cannula 2.00 06/02/17 16:50 94 Nasal Cannula 2.00 06/02/17 15:00 82 19 134/55 (81) 94 Nasal Cannula 2.00 06/02/17 14:35 96.9 83 11 119/44 (69) 97 06/02/17 14:35 94 Nasal Cannula 2.00 06/02/17 07:32 98.7 63 16 150/46 (80) 99 Room Air I & O 06/03/17 07:00 Intake Total 3000 ml Output Total 1450 ml Balance 1550 ml General Appearance: No Apparent Distress HEENT: TMs Normal, Pharynx Normal Neck: Normal Inspection, Non Tender, Supple Respiratory: Chest Non Tender, Lungs Clear, Normal Breath Sounds, No Accessory Muscle Use, No Respiratory Distress Cardiovascular: Regular Rate, Rhythm, No Edema, No JVD, No Murmur Gastrointestinal: normal bowel sounds, non tender, soft, no organomegaly Extremity: Normal Capillary Refill, Normal Inspection, Normal Range of Motion Neurologic/Psychiatric: Alert, Oriented x3 Skin: Normal Color, Warm/Dry Results Lab Laboratory Tests 06/02/17 07:05 06/02/17 14:01 06/02/17 23:20 06/03/17 03:10 Assessment/Plan Assessment/Plan S/P Lumbar fusion IDDM -Currently on Insulin gtt -Novolog, Levemir 20 units Metabolic acidosis -IVF Dehydration -IVF currently 100cc/hr with NS Hypotension - responded to IVF Anemia - post surgical -monitor Hypomagnesium -replace Hypothyroid -Synthroid 255 BONNIE PECK DO Jun 03, 2017 05:00
[2017-06-03] MEDS: NS IV 1000 ML 1,000 ML IV SCH ×2 (05:46→09:26)
[2017-06-03] MEDS: inSUlin ASPART (NovoLOG) 1 UNIT/0.01 ML (CHARGE PER UNIT) SC SCH ×4 (06:00→21:47)
[2017-06-03] MEDS ORDERED: POTASSIUM CL 10MEQ/50ML IVPB 50 ML IV SCH (06:00)
[2017-06-03] MEDS ORDERED: KCL 20 MEQ TAB (K-DUR) PO SCH (06:00)
[2017-06-03] MEDS ORDERED: MAGNESIUM 1 GM/100 ML IVPB 100 ML IV SCH (06:00)
--- NOTE | 2017-06-03 06:50 | Progress Note (SOAP) ---
Subjective Date Seen by Provider: Jun 03, 2017 Time Seen by Provider: 06:48 Subjective/Events-last exam Hurting, but about what she expected. Legs better. Focused Exam Lactate Level 06/03/17 03:10: Lactic Acid Level 3.44*H 06/03/17 05:10: Lactic Acid Level 2.09*H Lactic Acid Level Laboratory Tests Test 06/03/17 03:10 06/03/17 05:10 Lactic Acid Level 3.44 MMOL/L (0.50-2.00) *H 2.09 MMOL/L (0.50-2.00) *H Objective Exam Vital Signs Date Time Temp Pulse Resp B/P (MAP) Pulse Ox O2 Delivery O2 Flow Rate FiO2 06/03/17 05:00 98 17 90/73 (79) 97 Nasal Cannula 2.00 06/03/17 04:00 100 19 149/51 (83) 96 Nasal Cannula 2.00 06/03/17 03:00 101 18 148/62 (90) 96 Nasal Cannula 2.00 06/03/17 02:00 133 17 143/54 (83) 100 Nasal Cannula 2.00 06/03/17 01:00 133 21 159/58 (91) 100 Nasal Cannula 2.00 06/03/17 01:00 133 06/03/17 00:00 137 14 151/64 (93) 100 Nasal Cannula 2.00 06/02/17 23:00 138 18 136/59 (84) 100 Nasal Cannula 2.00 06/02/17 22:10 Nasal Cannula 2.00 06/02/17 22:00 105 30 109/42 (64) 100 Nasal Cannula 2.00 06/02/17 21:00 105 13 117/51 (73) 100 Nasal Cannula 2.00 06/02/17 20:00 93 15 123/44 (70) 100 Nasal Cannula 2.00 06/02/17 19:00 90 06/02/17 19:00 90 15 111/40 (63) 100 Nasal Cannula 2.00 06/02/17 16:50 94 Nasal Cannula 2.00 06/02/17 15:00 82 19 134/55 (81) 94 Nasal Cannula 2.00 06/02/17 14:35 96.9 83 11 119/44 (69) 97 06/02/17 14:35 94 Nasal Cannula 2.00 06/02/17 07:32 98.7 63 16 150/46 (80) 99 Room Air I & O 06/03/17 07:00 Intake Total 4000 ml Output Total 1450 ml Balance 2550 ml Capillary Refill : General Appearance: No Apparent Distress Neck: Non Tender, Supple Respiratory: Normal Breath Sounds, No Accessory Muscle Use, No Respiratory Distress Cardiovascular: Regular Rate, Rhythm Gastrointestinal: soft Neurologic/Psychiatric: Oriented x3, No Motor/Sensory Deficits Results Lab Laboratory Tests 06/02/17 07:05: White Blood Count 4.0L, Red Blood Count 3.75L, Hemoglobin 12.0, Hematocrit 36, Mean Corpuscular Volume 95, Mean Corpuscular Hemoglobin 32, Mean Corpuscular Hemoglobin Concent 34, Red Cell Distribution Width 13.5, Platelet Count 239, Mean Platelet Volume 9.7 06/02/17 13:20: Glucometer 362H 06/02/17 14:01: White Blood Count 7.0, Red Blood Count 3.09L, Hemoglobin 9.7L, Hematocrit 29L, Mean Corpuscular Volume 95, Mean Corpuscular Hemoglobin 31, Mean Corpuscular Hemoglobin Concent 33, Red Cell Distribution Width 13.3, Platelet Count 181, Mean Platelet Volume 9.9 06/02/17 14:15: Glucometer 374H 06/02/17 15:26: Glucometer 328H 06/02/17 20:45: Glucometer 413*H 06/02/17 22:55: Glucometer 405*H 06/02/17 23:04: Glucometer 381H 06/02/17 23:20: White Blood Count 11.1H, Red Blood Count 2.75L, Hemoglobin 8.9L, Hematocrit 26L , Mean Corpuscular Volume 96, Mean Corpuscular Hemoglobin 32, Mean Corpuscular Hemoglobin Concent 34, Red Cell Distribution Width 13.5, Platelet Count 216, Mean Platelet Volume 9.2, Neutrophils (%) (Auto) 87H, Lymphocytes (%) (Auto) 4L , Monocytes (%) (Auto) 9, Eosinophils (%) (Auto) 0, Basophils (%) (Auto) 0, Neutrophils # (Auto) 9.6H, Lymphocytes # (Auto) 0.4L, Monocytes # (Auto) 1.0, Eosinophils # (Auto) 0.0, Basophils # (Auto) 0.0, Prothrombin Time 13.7, INR Comment 1.0, Sodium Level 138, Potassium Level 5.7H, Chloride Level 108H, Carbon Dioxide Level 20L, Anion Gap 10, Blood Urea Nitrogen 31H, Creatinine 1.05 , Estimat Glomerular Filtration Rate 51, BUN/Creatinine Ratio 30, Glucose Level 348H, Calcium Level 8.3L, Magnesium Level 1.6L, Total Bilirubin 0.3, Aspartate Amino Transf (AST/SGOT) 24, Alanine Aminotransferase (ALT/SGPT) 14, Alkaline Phosphatase 54, Total Protein 5.0L, Albumin 3.3 06/03/17 00:35: Glucometer 298H 06/03/17 01:41: Glucometer 228H 06/03/17 02:55: Glucometer 185H 06/03/17 03:10: White Blood Count 9.9, Red Blood Count 2.66L, Hemoglobin 8.5L, Hematocrit 25L, Mean Corpuscular Volume 95, Mean Corpuscular Hemoglobin 32, Mean Corpuscular Hemoglobin Concent 34, Red Cell Distribution Width 13.4, Platelet Count 223, Mean Platelet Volume 9.8, Neutrophils (%) (Auto) 88H, Lymphocytes (%) (Auto) 5L , Monocytes (%) (Auto) 7, Eosinophils (%) (Auto) 0, Basophils (%) (Auto) 0, Neutrophils # (Auto) 8.7H, Lymphocytes # (Auto) 0.5L, Monocytes # (Auto) 0.7, Eosinophils # (Auto) 0.0, Basophils # (Auto) 0.0, Sodium Level 138, Potassium Level 4.7, Chloride Level 109H, Carbon Dioxide Level 21, Anion Gap 8, Blood Urea Nitrogen 25H, Creatinine 0.84, Estimat Glomerular Filtration Rate > 60, BUN /Creatinine Ratio 30, Glucose Level 154H, Lactic Acid Level 3.44*H, Calcium Level 8.2L, Phosphorus Level 2.1L, Magnesium Level 1.6L, Total Bilirubin 0.2, Aspartate Amino Transf (AST/SGOT) 30, Alanine Aminotransferase (ALT/SGPT) 14, Alkaline Phosphatase 51, Total Protein 5.0L, Albumin 3.3 06/03/17 03:53: Glucometer 146H 06/03/17 05:06: Glucometer 114H 06/03/17 05:10: Lactic Acid Level 2.09*H 4/24/18 05:38: Glucometer 90 Assessment/Plan Assessment/Plan Assess & Plan/Chief Complaint Lumbar Kyphosis/flat back phenomenon Post Laminectomy Kyphosis Lumbar Non-union Plan: up with PT today Pain control Ok to goto floor if remains stable Clinical Quality Measures DVT/VTE Risk/Contraindication: Risk Factor Score Per Nursin RFS Level Per Nursing on Admit: 4+=Very High LUIS CARLOS ANNA MD Jun 03, 2017 6:50 am
--- NOTE | 2017-06-03 08:08 | Anesthesia-General Post-Op ---
General Patient Condition Mental Status/LOC: Same as Preop Cardiovascular: Satisfactory Nausea/Vomiting: Absent Respiratory: Satisfactory Pain: Controlled Complications: Absent Post Op Complications Complications None Follow Up Care/Instructions Patient Instructions None needed. Anesthesia/Patient Condition Patient Condition Patient is doing well, no complaints, stable vital signs, no apparent adverse anesthesia problems. No complications reported per nursing. ADRIAN GOLDBERG CRNA Jun 03, 2017 08:08
--- NOTE | 2017-06-03 08:37 | Diagnostic Imaging Report ---
INDICATION: Dyspnea. COMPARISON: 03/12/2017. FINDINGS: The heart size is mildly enlarged, similar to the prior exam, with no gross overdistention of the vascularity. No focal consolidation or findings suggestive of edema. No pleural fluid or pneumothorax. Reverse right shoulder arthroplasty is again noted with postsurgical changes to the visualized spine. IMPRESSION: Stable enlargement of the cardiac silhouette with no acute appearing abnormality identified. Dictated by: Dictated on workstation # [id number]
[2017-06-03] MEDS ORDERED: LEVOTHYROXINE SODIUM 150 MCG PO SCH (09:00)
[2017-06-03] MEDS ORDERED: ANCEF 2 GM/50 ML PRE-MIXED IVPB IV NR (09:00)
[2017-06-03] MEDS: POLYETHYLENE GLYCOL 17 GM (MIRALAX) PACK PO SCH (09:24)
[2017-06-03] MEDS: DULoxetine 30 MG (CYMBALTA) CAP PO SCH ×2 (09:24→21:47)
[2017-06-03] MEDS: PANTOPRAZOLE 40 MG (PROTONIX) TAB PO SCH (09:25)
[2017-06-03] MEDS: GABAPENTIN 400 MG (NEURONTIN) CAP PO SCH ×4 (09:25→21:48)
[2017-06-03] MEDS: SENNOSIDES 8.6 MG (SENOKOT) TAB PO SCH ×2 (09:25→21:47)
[2017-06-03] MEDS: DOCUSATE SODIUM 100 MG (COLACE) CAP PO SCH ×2 (09:25→21:47)
[2017-06-03] MEDS: MULTIVIT W/MINERALS TAB (THERAGRAN M) PO SCH (09:25)
[2017-06-03] MEDS: LEVOTHYROXINE 150 MCG (LEVOTHROID) TAB PO SCH (09:26)
--- NOTE | 2017-06-03 09:52 | Consultation-Hospitalist ---
HPI History of Present Illness: HPI/Chief Complaint CC: Medical management following extensive spine surgery HPI: This is a 71-year-old white female patient of Dr. Zamora in [facility] who presents to the ICU following an uncomplicated extensive spine surgery by Dr. Zuñiga. She is reporting a lot of pain as expected and she is now currently in a chair. I review her home medications and medical problems and visit with patient and her . I instructed her how to use incentive spirometer which will be followed up with instruction by nurse. At this current time she is tolerating sitting in a chair and reports no nausea currently. Source: patient Exam Limitations: no limitations Date Seen 06/03/17 Attending Physician Winston Zuñiga MD PCP Mao Zamora MD Referring Physician Date of Admission Jun 02, 2017 at 05:48 Home Medications & Allergies Home Medications Reviewed patient Home Medication Reconciliation performed by pharmacy medication reconciliations marine services technician and/or nursing. Patients Allergies have been reviewed. Allergies Allergies Coded Allergies morphine (Verified Allergy, Severe, ANAPHYLAXIS, 05/07/17) Past Zkambov-Nmvkav-Ahorzu Hx Past Med/Social Hx: Reviewed Nursing Past Med/Soc Hx, Reviewed and Corrections made Patient Social History Marrital Status: Employed/Student: retired Alcohol Use: Denies Use Recreational Drug Use: No Smoking Status: Current Everyday Smoker Type Used: Cigarettes Physical Abuse Screen: No Sexual Abuse: No Recent Foreign Travel: No Contact w/other who traveled: No Recent Hopitalizations: No Recent Infectious Disease Expo: No Immunizations Up To Date Date of Pneumonia Vaccine: May 07, 2013 Seasonal Allergies Seasonal Allergies: Yes (MILD) Past Medical History Surgeries: Orthopedic Neurological: Neuropathy Sexually Transmitted Disease: No HIV/AIDS: No Female Reproductive Disorders: Denies Gastrointestinal: Chronic Constipation Musculoskeletal: Arthritis, Chronic Back Pain Endocrine: Diabetes, Insulin dep Loss of Vision: Bilateral Hearing Impairment: Denies Psychosocial: Anxiety, Depression History of Blood Disorders: No Adverse Reaction to Blood Ellis: No (HAS HAD BLOOD WITH NO REACTION) Family History Diabetes Review of Systems Constitutional: see HPI, weakness EENTM: no symptoms reported Respiratory: no symptoms reported Cardiovascular: no symptoms reported Gastrointestinal: loss of appetite Genitourinary: no symptoms reported Musculoskeletal: back pain Skin: no symptoms reported Psychiatric/Neurological: No Symptoms Reported All Other Systems Reviewed Negative Unless Noted: Yes Physical Exam Physical Exam Vital Signs Vital Signs - First Documented 06/02/17 07:32 Temp 98.7 Pulse 63 Resp 16 B/P (MAP) 150/46 (80) Pulse Ox 99 O2 Delivery Room Air Capillary Refill : General Appearance: No Apparent Distress, WD/WN, Chronically ill Eyes: Bilateral Eye Normal Inspection, Bilateral Eye PERRL HEENT: PERRL/EOMI, Normal ENT Inspection, Pharynx Normal Neck: Full Range of Motion, Normal Inspection, Non Tender, Supple, Carotid Bruit Respiratory: Chest Non Tender, Lungs Clear, Normal Breath Sounds, No Accessory Muscle Use, No Respiratory Distress Cardiovascular: Regular Rate, Rhythm, No Edema, No Gallop, No JVD, No Murmur, Normal Peripheral Pulses Gastrointestinal: Normal Bowel Sounds, No Organomegaly, No Pulsatile Mass, Non Tender, Soft Back: Decreased Range of Motion, Other (brace in place) Extremity: Normal Capillary Refill, Normal Inspection, Normal Range of Motion, Non Tender, No Calf Tenderness, No Pedal Edema Neurologic/Psychiatric: Alert, Oriented x3, No Motor/Sensory Deficits, Normal Mood/Affect Skin: Normal Color, Warm/Dry Lymphatic: No Adenopathy Results Results/Procedures Labs Laboratory Tests 06/02/17 07:05 06/02/17 14:01 06/02/17 23:20 06/03/17 03:10 Patient resulted labs reviewed. Assessment/Plan Assessment and Plan Assess & Plan/Chief Complaint Assessment: Status post uncomplicated extensive spine surgery by Dr. 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 use: with ambulette driver use Diabetes mellitus complication status: with neurologic complications Diabetes mellitus complication detail: with polyneuropathy Qualified Codes: E11.42 - Type 2 diabetes mellitus with diabetic polyneuropathy ; 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
--- NOTE | 2017-06-03 09:58 | Physical Therapy Evaluation ---
PT Evaluation-General Medical Diagnosis Admission Date Jun 02, 2017 at 05:48 Medical Diagnosis: lumbar kyphosis Onset Date: Jun 02, 2017 Therapy Diagnosis Therapy Diagnosis: generalized weakness/debility Height/Weight Height (Feet): 5 Height (Inches): 3.00 Weight (Pounds): 157 Weight (Ounces): 1.0 Precautions Precautions/Isolations: Fall Prevention, Standard Precautions Weight Bear Status Right Lower Extremity: Right Full Weight Bearing Left Lower Extremity: Left Full Weight Bearing Referral Physician: Zara Reason for Referral: Evaluation/Treatment Medical History Pertinent Medical History: PVD, Smoking Additional Medical History multiple falls with fractures Current History s/p lumbar laminectomy/spinal fusion Reviewed History: Yes Social History Home: Single Level Current Living Status: Spouse Entry Into Home: Ramp utilizes powerchair for mobility Prior/Core FIM Prior Level of Function Functional [place] Measure 0=Not Assessed/NA 4=Minimal Assistance 1=Total Assistance 5=Supervision or Setup 2=Maximal Assistance 6=Modified Childress 3=Moderate Assistance 7=Complete Childress Bed Mobility: 3 Transfers (B,C,W/C) (FIM): 3 Gait: 0 patient is nonambulatory and utilizes powerchair for mobility PT Evaluation-Current Subjective Patient agrees to PT. Pain Numeric Pain Scale: 10-Worst Possible Pain Location: Lower Location Body Site: Back Pain Description: Pressure, Acute Objective Patient Orientation: Normal For Age Problem Solving: Poor Attachments: Drains, Morris Catheter ROM/Strength ROM Lower Extremities bilateral LE WNL Strength Lower Extremities right knee flexion/extension 3-/5; hip flexion NT/ DF/PF 3/5 left knee flexion/extension 3-/5; hip flexion NT/ DF/PF 3/5 Integumentary/Posture Integumentary refer to nursing notes Bladder Incontinence: Morris Cath Posture WNL Neuromuscular (Tone, Coordination, Reflexes) severely diminished coordination due to inactivity/injury Sensory Vision: Wears Glasses Hearing: Impaired Sensation Right Lower Extremit: Impaired Sensation Left Lower Extremity: Impaired Transfers Functional Child[place] Measure 0=Not Assessed/NA 4=Minimal Assistance 1=Total Assistance 5=Supervision or Setup 2=Maximal Assistance 6=Modified Childress 3=Moderate Assistance 7=Complete Childress Transfers (B, C, W/C) (FIM): 2 Scootin Rollin Supine to/from Sit: 2 Sit to/from Stand: 2 bed t/f WC(FIM only if WC use): 2 Patient is able to stand with PT, however, appears very anxious with SPT bed to recliner and is very resistive Gait Mode of Locomotion: Wheelchair Anticipated Mode of Locomotion: Wheelchair Gait (FIM): 0 Balance Sitting Static: Fair Sitting Dynamic: Fair Standing Static: Fair Standing Dynamic: Poor Assessment/Needs 71 y.o. female, will benefit from skilled PT to address functional strength and mobility to improve LOF. Patient is nonambulatory PLOF, however, utilizes power chair for mobility at home and in community. Spouse assist with bed mobility and transfers PLOF. Rehab Potential: Fair PT Group Home Goals Brake Liner Goals PT Brake Liner Goals Time Frame: June 20, 2017 Transfers (B,C,W/C) (FIM): 4 PT Plan Problem List Problem List: Activity Tolerance, Functional Strength, Safety, Balance, Transfer, Bed Mobility Treatment/Plan Treatment Plan: Continue Plan of Care Treatment Plan: Bed Mobility, Education, Functional Activity [place], Functional Strength, Safety, Therapeutic Exercise, Transfers Treatment Duration: June 20, 2017 Frequency: 11 times per week Estimated Hrs Per Day: .5 hour per day Patient and/or Family Agrees t: Yes Safety Risks/Education Patient Education: Transfer Techniques Teaching Recipient: Patient Response to Teaching: Reinforcement Needed Discharge Recommendations Therapy D/C Recommendations: Correction Placement, Nursing Home (TCU/NH) Time/GCodes Time In: 846 Time Out: 903 Total Billed Treatment Time: 17 Total Billed Treatment 1 visit EVMod 17 min ROSA BUNDY PT Jun 03, 2017 09:58
--- NOTE | 2017-06-03 11:51 | Occupational Therapy Eval ---
OT Evaluation-General/PLF Medical Diagnosis Admission Date Jun 02, 2017 at 05:48 Medical Diagnosis: lumbar kyphosis/L2-pelvis lumbar fusion Onset Date: Jun 02, 2017 Therapy Diagnosis Therapy Diagnosis: Weakness Height/Weight Height (Feet): 5 Height (Inches): 3.00 Weight (Pounds): 157 Weight (Ounces): 1.0 Precautions Precautions/Isolations: Fall Prevention, Standard Precautions Safety Interventions: Notify Family, Reorient-Attempt, Reorient-PRN Comments Pt. has TLSO in room that is to be worn when up. Pt. has back precuations. Weight Bear Status Weight Bearing Restriction: Weight Bearing/Tolerated Referral Physician: Zara Referral Reason: Activity Tolerance, Self Care, Evaluation/Treatment, Strengthening/ROM Medical History Pertinent Medical History: PVD, Smoking Additional Medical History Pt. has had shoulder surgery x2, stents in bilateral LE, Right TKR, dehydration , hypotension. Current History spouse in room. States that pt. fell approximately 1 1/2 years ago. Broke her shoulder and had back trouble after that. States that she slowly lost function of her legs. Has not actively "walked" in over a year. Pt. uses a scooter to get around. States that she can stand and pivot to toilet and to bed. Reviewed History: Yes Social History Home: Single Level Current Living Status: Spouse Entry Into Home: Ramp ADL-Prior Level of Function ADL PLOF Comments Pt. is able to bathe herself but has assist from spouse to dress self. Pt. is able to toilet self. Uses lift chair at home to get onto scooter. DME/Equipment: Bath Chair, Tub/Shower DME/Equipment Comments Pt. has scooter, lift chair, bench in shower, and BSC. Drive Self: No OT Current Status Subjective Pt. does not report pain level, but does report pain with movement. Pain medication on board. Appearance Pt. in bed. Multiple lines. Agrees to treatment. Mental Status/Objective Patient Orientation: Confused Attachments: Drains, Morris Catheter, IV, Oxygen Current Upper Extremity ROM Left- WFL Right- pt. is able to flex right shoulder to approximately 45 degrees due to previous shoulder surgery. ADL-Treatment Functional [place] Measure 0=Not Assessed/NA 4=Minimal Assistance 1=Total Assistance 5=Supervision or Setup 2=Maximal Assistance 6=Modified [place] 3=Moderate Assistance 7=Complete IndependenceIRFPAI Quality Coding Scale 6 Independent with activity with or without an assistive device 5 Patient requires set up or clean up by helper. Patient completes activity by themselves 4 Supervision or touching assist (CGA). [place] provide cues , steadying assist 3 The helper provides less than half the effort to complete the activity 2 The helper provides more than half the effort to complete the activity 1 Dependent. The helper does all the effort to complete an activity 7 Patient refused to complete or attempt activity 9 The patient did not perform the activity before the current illness or injury 88 Not attempted due to Medical conditions or safety concerns Grooming (FIM): 2 (OT brushes pt. hair due to pt. unable to problems solve how to do this.) Lower Body Dressing (FIM): 1 (Dependent to don socks.) Transfers (B, C, W/C) (FIM): 1 (OT/PT co-treat due to pt. fatigue level. Max x 2 supine-sit and max x 1-2 for stand an pivot to chair. Pt. fearful. OT facilitates UE ROM testing and ADLs while PT facilitates transfer training. Pt. is dependent with donning TLSO brace.) Education OT Patient Education: Home exercise program, Modified ADL techniques, Progress toward Goal/Update tx plan, Purpose of tx/functional activities, Reviewed precautions, Rehab process, Transfer techniques Teaching Recipient: Patient Teaching Methods: Demonstration Response to Teaching: Verbalize Understanding, Return Demonstration OT Short Term Goals Short Term Goals Time Frame: June 10, 2017 Eating(FIM): 5 Grooming(FIM): 4 Bathing(FIM): 3 Upper Body Dressing(FIM): 4 Lower Body Dressing(FIM): 3 Toileting(FIM): 4 Transfers (B,C,W/C) (FIM): 4 Toilet/Commode Transfer(FIM): 4 Additional Short Term Goals: 1-Demonstrate ADL Tasks, 2-Verbalize Understanding , 3-ImproveStrength/Tyler 1=Demonstrate adherence to instructed precautions during ADL tasks. 2=Patient will verbalize/demonstrate understanding of assistive devices/ modifications for ADL. 3=Patient will improve strength/tolerance for activity to enable patient to perform ADL's. OT Shelter Goals Shelter Goals Time Frame: June 24, 2017 Eating (FIM): 6 Grooming(FIM): 6 Bathing(FIM): 4 Upper Body Dressing(FIM): 5 Lower Body Dressing(FIM): 5 Toileting(FIM): 5 Transfers (B,C,W/C) (FIM): 5 Toilet/Commode Transfer(FIM): 5 Shower Transfer(FIM): 4 Additional Goals: 1-Demonstrate ADL Tasks, 2-Verbalize Understanding, 3- ImproveStrength/Tyler 1=Demonstrate adherence to instructed precautions during ADL tasks. 2=Patient will verbalize/demonstrate understanding of assistive devices/ modifications for ADL. 3=Patient will improve strength/tolerance for activity to enable patient to perform ADL's. OT Education/Plan Problem List/Assessment Assessment: Decreased Activ Tolerance, Decreased Safety Aware, Decreased UE Strength, Dependent Transfers, Impaired Bed Mobility, Impaired Cognition, Impaired Funct Balance, Impaired I ADL's, Impaired Self-Care Skills, Restricted Funct UE ROM Discharge Recommendations Plan/Recommendations: Continue POC Therapy D/C Recommendations: 24 hr Supervision, Alf (TCU/NH) Treatment Plan/Plan of Care Treatment,Training & Education: Yes Patient would benefit from OT for education, treatment and training to promote independence in ADL's, mobility, safety and/or upper extremity function for ADL' s. Plan of Care: ADL Retraining, Caregiver Training, Functional Mobility, UE Funct Exercise/Act Treatment Duration: June 24, 2017 Frequency: 5 times per week Estimated Hrs Per Day: .25 hour per day Agreement: Yes Rehab Potential: Fair Time/GCodes Start Time: 08:30 Stop Time: 09:00 Total Time Billed (hr/min): 30 Billed Treatment Time 1, EVH x 15minutes, FA x 15minutes Partial co-treat with PT. Please see above note. SHADY CHANDLER OT Jun 03, 2017 11:51
--- NOTE | 2017-06-03 12:18 | OPERATIVE REPORT ---
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 PROCEDURES PERFORMED: 1. Posterior Vivar-Barrow osteotomies at L4-L5 with removal of L3-L5 posterior segmental instrumentation. 2. L5-S1 anterior lumbar interbody fusion for deformity. 3. L4-L5 anterior lumbar interbody fusion for deformity. 4. L2-L3 anterolateral XLIF interbody fusion for deformity. 5. L2-3, L4-5 and L5-S1 interbody cage instrumentation without interval fixation. 6. L2 to the pelvis fusion posteriorly for deformity. 7. L2 to pelvis posterior segmental pedicle screw instrumentation. 8. Pelvic fixation at the caudal end of a construct. 9. Autograft for spine surgery, local. 10. Allograft for spine surgery morcellized. DATE AND TIME OF SURGERY: Please see anesthesia record. IMPLANTS USED: 1. K2M [place] pedicle screws. 2. K2M [place] lateral cage. 3. K2M [place] plate. 4. 4Web titanium ALIF. 5. K2M [place] bone graft Medtronic. 6. Magnifused bone graft. 7. Medtronic infused bone graft. SURGEON: Winston Zuñiga M.D. AWARD CLERK: JORI Payne. ROLE OF POWER REACTOR SUPERVISOR: Aid in retraction of the procedure, aid in implantation, instrumentation and wound closure. ANESTHESIA: General endotracheal. ESTIMATED BLOOD LOSS: 750 mL. INTRAVENOUS FLUIDS: Please see anesthesia record. ANTIBIOTICS: Ancef and vancomycin. COMPLICATIONS: None. INDICATIONS FOR PROCEDURE: The patient is a 71-year-old female with previous fusions elsewhere. She has developed a nonunion, persistent pain, stenosis, flat back deformity, sagittal imbalance and gait disturbance. Risks, benefits and alternatives discussed and desires to proceed with operative treatment. DESCRIPTION OF PROCEDURE: The patient was taken to the preoperative holding area and brought back to the operative suite. After adequate induction of general anesthesia, preoperative spinal monitoring. Standard intraoperative neurophysiologic monitoring carried out by means of real time continuous high quality bidirectional remote, audio and visual communication to both the safety technician and surgeon by Dr. Ariza was performed. SSEPs, EMGs, TcMEPs and TOFs were carried out continuously and stable. The patient was originally started prone on the [place] table. Her previous incision was opened, dissection carried down to the hardware. Hardware was removed and it was noted to be loose in the L4 and L5 levels. A complete transfacet osteotomies at the L4-L5 level were performed both through the fusion mass that was not healed and through the facet joints once they were completely freed up and mobile screw holes were filled with bone wax and then the wound was closed in layers and the patient placed supine on the [place] table utilizing the 360 degree capability [place] table. Abdomen was prepped and draped and left-sided retroperitoneal exposure of the L4-L5and L5-S1 levels were carried out and then both disks were prepped. Trial spacer was utilized and 25 degree high lordosis 4Web implants were impacted into position, filled with allograft bone and infused around the cage and then a [place] plate was placed anterior to each of them to prevent kick out of the spacer. At this point, the abdomen was closed in layers. The patient placed in lateral decubitus position and her standard lateral left-sided approach to L2-L3 disk space was carried out. Disk was prepped and a slightly hyperlordotic 12-degree [place] cage was placed into the L2-L3 level after adequate disk prep, cage was filled with allograft bone and infused as well and once cage was in placed the wound was closed in layers. Hemostasis was satisfactory and the patient was turned back prone on the [place] table careful padding torsion to all extremities, sterilely prepped and draped posterior lumbar spine. Previous incision was opened and carried slightly proximal up to the two level and down to the pelvis. Once full exposure was carried out, fluoroscopic guidance for bilateral SI2 iliac screws were placed and then bilateral S1 screws. New screws were placed in the L4-L5 and 3 and then new screws were placed in L2 as well. All screws were stimulated checked with neuromonitoring and noted to be satisfactory. Rods were fitted fashioned and contoured the lordosis correction was measured and her pelvic incidence lumbar lordosis mismatch was corrected as well and final tightening of the rods and construct was performed. Cross connector was placed. High speed bur was used to decorticate posterior elements and a combination of autograft and allograft bone was packed posterior and posterolaterally for the fusion portion of the procedure. Deep drain was placed. Wound was closed in layers. The patient transferred to recovery room in stable condition and tolerated procedure well. Job ID: [id number] DocumentID: [id number] Dictated Date: 06/02/2017 12:52:39 Electronics Commodity Manager Date: 06/03/2017 12:16:02 Dictated By: WINSTON ZUÑIGA MD
[2017-06-03] MEDS: MAGNESIUM 1 GM/100 ML IVPB 100 ML IV SCH ×2 (12:22→13:29)
--- NOTE | 2017-06-03 12:41 | Physical Therapy Daily Note ---
PT Daily Note-Current Subjective Patient is very fatigued and requests back to bed. Pain Numeric Pain Scale: 10-Worst Possible Pain Location: Lower Location Body Site: Back Pain Description: Acute Mental Status Patient Orientation: Person, Time, Situation Attachments: Drains, Morris Catheter, IV Transfers Functional [place] Measure 0=Not Assessed/NA 4=Minimal Assistance 1=Total Assistance 5=Supervision or Setup 2=Maximal Assistance 6=Modified [place] 3=Moderate Assistance 7=Complete IndependenceIRFPAI Quality Coding Scale 6 Independent with activity with or without an assistive device 5 Patient requires set up or clean up by helper. Patient completes activity by themselves 4 Supervision or touching assist (CGA). [place] provide cues , steadying assist 3 The helper provides less than half the effort to complete the activity 2 The helper provides more than half the effort to complete the activity 1 Dependent. The helper does all the effort to complete an activity 7 Patient refused to complete or attempt activity 9 The patient did not perform the activity before the current illness or injury 88 Not attempted due to Medical conditions or safety concerns Transfers (B, C, W/C) (FIM): 1 Scootin Rollin Supine to/from Sit: 1 Sit to/from Stand: 2 Bed to/from Chair: 2 Patient requires more assistance due to fatigue and back pain. Nursing in room. Weight Bearing Right Lower Extremity: Right Full Weight Bearing Left Lower Extremity: Left Full Weight Bearing Assessment Patient requires much time to complete all tasks. From a PT standpoint, patient will benefit from LTCF to improve LOF. PT Short Term Goals Short Term Goals Transfers (B,C,W/C) (FIM): 4 PT Retirement Goals Retirement Goals PT Retirement Goals Time Frame: June 20, 2017 Transfers (B,C,W/C) (FIM): 4 PT Plan Treatment/Plan Treatment Plan: Continue Plan of Care Treatment Plan: Bed Mobility, Education, Functional Activity [place], Functional Strength, Safety, Therapeutic Exercise, Transfers Treatment Duration: June 20, 2017 Frequency: 11 times per week Estimated Hrs Per Day: .5 hour per day Patient and/or Family Agrees t: Yes Time/GCodes Time In: 1050 Time Out: 1058 Total Billed Treatment Time: 8 Total Billed Treatment 1 visit FA 8 min ROSA BUNDY PT Jun 03, 2017 12:41
[2017-06-03] MEDS: inSUlin DETERMIR 1 UNIT/0.01 ML (LEVEMIR) CHARGE PER UNIT SQ SCH (21:47)
[2017-06-03] MEDS: amLODIPine 5 MG (NORVASC) TAB PO SCH (21:48)
[2017-06-04] VITALS: BP 116/62
[2017-06-04] MEDS: HYDROcodone/APAP 10 MG/325 MG (LORTAB) TAB PO PRN ×3 (02:38→15:25)
[2017-06-04 04:00] VITALS: BP 113/84
[2017-06-04] MEDS: PANTOPRAZOLE 40 MG (PROTONIX) TAB PO SCH (06:38)
[2017-06-04] MEDS: GABAPENTIN 400 MG (NEURONTIN) CAP PO SCH ×5 (06:39→21:02)
[2017-06-04] MEDS: MULTIVIT W/MINERALS TAB (THERAGRAN M) PO SCH (06:39)
[2017-06-04] MEDS: LEVOTHYROXINE 150 MCG (LEVOTHROID) TAB PO SCH (06:39)
[2017-06-04] MEDS: inSUlin ASPART (NovoLOG) 1 UNIT/0.01 ML (CHARGE PER UNIT) SC SCH ×4 (06:39→20:53)
[2017-06-04 08:01] VITALS: BP 108/50
--- NOTE | 2017-06-04 08:21 | Progress Note (SOAP) ---
Subjective Time Seen by Provider: 06:00 Subjective/Events-last exam POD #2, s/p L4-S1 ALIF, L2-3 anterolateral, L4-5 Lina osteotomy, L3-5 HDWR, L2- Pelvis fusion NAD Complains of mild low back pain Denies lower extremity radiculopathy Review of Systems General: No Chills Pulmonary: No Cough Gastrointestinal: No: Nausea, Abdominal Pain Musculoskeletal: back pain; No: leg pain Neurological: Weakness Focused Exam Lactate Level 06/03/17 03:10: Lactic Acid Level 3.44*H 06/03/17 05:10: Lactic Acid Level 2.09*H Objective Exam Vital Signs Date Time Temp Pulse Resp B/P (MAP) Pulse Ox O2 Delivery O2 Flow Rate FiO2 06/04/17 08:01 98.4 82 20 108/50 (69) 97 Room Air 06/04/17 04:00 99.3 95 16 113/84 (94) 92 Room Air 06/04/17 00:00 100.1 92 19 116/62 (80) 95 Room Air 06/03/17 20:01 100.4 92 17 126/56 (79) 92 Room Air 06/03/17 20:00 Room Air 06/03/17 17:28 Room Air 06/03/17 16:00 99.3 92 19 108/50 (69) 94 Room Air 06/03/17 13:00 103 06/03/17 12:15 Room Air 06/03/17 12:00 86 12 112/48 (69) 95 Room Air 06/03/17 11:44 99.0 06/03/17 11:00 106 28 122/52 (75) 95 Room Air 06/03/17 10:00 92 15 136/59 (84) 98 Room Air 06/03/17 09:37 98.3 06/03/17 09:25 Room Air 06/03/17 09:00 112 28 123/51 (75) 95 Nasal Cannula 2.00 06/03/17 08:30 Room Air I & O 06/04/17 07:00 Intake Total 1980 ml Output Total 2035 ml Balance -55 ml Capillary Refill : General Appearance: No Apparent Distress, WD/WN Neck: Non Tender Respiratory: No Accessory Muscle Use, No Respiratory Distress Cardiovascular: Regular Rate, Rhythm, Normal Peripheral Pulses Gastrointestinal: non tender, soft, other (No Lu Davis's or Jeremy's sign) Extremity: No Calf Tenderness Neurologic/Psychiatric: Alert, Oriented x3, No Motor/Sensory Deficits, Normal Mood/Affect, air control electronics operator II-XII Norm as Tested, Abnormal Cerebellar Tests Skin: Other (Dressings CDI) Results Lab Laboratory Tests 06/03/17 09:36: Glucometer 109 06/03/17 11:46: Glucometer 125H 06/03/17 16:33: Glucometer 168H 06/03/17 20:09: Glucometer 225H 06/03/17 23:35: Glucometer 184H 06/04/17 06:04: Glucometer 75 Assessment/Plan Assessment/Plan Assess & Plan/Chief Complaint Lumbar kyphosis pseudarthrosis s/p L4-S1 ALIF, L2-3 anterolateral, L4-5 Lina osteotomy, L3-5 HDWR, L2-Pelvis fusion Deconditioning Patient has not ambulate since surgery. She has strength in BLE. She has poor effort, which I discussed with her. She states that she will attempt to participate with PT, today. I expressed my concerns with her returning home, in her current condition. If her physical abilities do not improve, then I would recommend IRF vs. SNF. Clinical Quality Measures DVT/VTE Risk/Contraindication: Risk Factor Score Per Nursin RFS Level Per Nursing on Admit: 4+=Very High HOUSTON CARDOZO Jun 04, 2017 08:21
--- NOTE | 2017-06-04 10:02 | Physical Therapy Daily Note ---
PT Daily Note-Current Subjective Pt. in bed, groggy, eyes drifting and speech slurred but more alert when stimulated. When awake cooperated and answered questions appropriately. Did not c/o pain except briefly during sup to sit. Pain Numeric Pain Scale: 0-No Pain Appearance groggy at first, improved with conversation and movement Mental Status Patient Orientation: Normal For Age Attachments: Drains, Other-See Comments (back brace applied in sitting EOB.) pt. spoke of her recent functional history and that she really hopes to walk more than she had been in past yr Transfers Functional [place] Measure 0=Not Assessed/NA 4=Minimal Assistance 1=Total Assistance 5=Supervision or Setup 2=Maximal Assistance 6=Modified [place] 3=Moderate Assistance 7=Complete IndependenceIRFPAI Quality Coding Scale 6 Independent with activity with or without an assistive device 5 Patient requires set up or clean up by helper. Patient completes activity by themselves 4 Supervision or touching assist (CGA). [place] provide cues , steadying assist 3 The helper provides less than half the effort to complete the activity 2 The helper provides more than half the effort to complete the activity 1 Dependent. The helper does all the effort to complete an activity 7 Patient refused to complete or attempt activity 9 The patient did not perform the activity before the current illness or injury 88 Not attempted due to Medical conditions or safety concerns Transfers (B, C, W/C) (FIM): 3 Scootin Rollin Supine to/from Sit: 3 Sit to/from Stand: 3 Bed to/from Chair: 4 pt. needed time for TRF. bed pad was used to assist pt in rolling to side as well as scooting to edge with mod assist Weight Bearing Right Lower Extremity: Right Full Weight Bearing Left Lower Extremity: Left Full Weight Bearing Gait Training Gait (FIM): 1 Distance (FIM): 1=up to 49 ft (6ft) Gait Level of Assist: 4 Gait Persons Needed: 1 Gait Assistive Device: Handheld Assist pt. took several forwrd steps , then side steps to recliner with CONTRACTOR GENERAL ENGINEERING. Exercises Supine Ex: Ankle pumps, Quad Set, Rolling, Glut sets, Heel Slides, Short Arc Quads, Scooting, Hip abd/add Supine Reps: 12 Seated Therapy Exercises: Ankle pumps, Sit to stand, Long arc quads Seated Reps: 5 Treatments pt. sat at EOB for several minutes indep, then in standing stood several minutes with good tolerance Assessment Current Status: Good Progress pt. tolerated Rx well, PT Short Term Goals Short Term Goals Transfers (B,C,W/C) (FIM): 4 PT Checker Cashier Goals Checker Cashier Goals PT Retirement Goals Time Frame: June 20, 2017 Transfers (B,C,W/C) (FIM): 4 PT Plan Treatment/Plan Treatment Plan: Continue Plan of Care Treatment Plan: Bed Mobility, Education, Functional Activity [place], Functional Strength, Safety, Therapeutic Exercise, Transfers Treatment Duration: June 20, 2017 Frequency: 11 times per week Estimated Hrs Per Day: .5 hour per day Patient and/or Family Agrees t: Yes Safety Risks/Education Patient Education: Transfer Techniques, Correct Positioning, Disease Process, Safety Issues Teaching Recipient: Patient Teaching Methods: Demonstration, Discussion Response to Teaching: Verbalize Understanding, Return Demonstration, Reinforcement Needed Time/GCodes Time In: 915 Time Out: 945 Total Billed Treatment Time: 30 Total Billed Treatment 1,EX10m,FA20m G Codes Necessary: KAT Desai PATTERNMAKER PRESSURE CAST Jun 04, 2017 10:02
[2017-06-04] MEDS: CILOSTAZOL 50 MG PO SCH ×2 (10:42→21:03)
[2017-06-04] MEDS: DULoxetine 30 MG (CYMBALTA) CAP PO SCH ×2 (10:43→21:02)
[2017-06-04] MEDS: SENNOSIDES 8.6 MG (SENOKOT) TAB PO SCH ×2 (10:43→20:15)
[2017-06-04] MEDS: DOCUSATE SODIUM 100 MG (COLACE) CAP PO SCH ×2 (10:45→20:15)
[2017-06-04] MEDS: POLYETHYLENE GLYCOL 17 GM (MIRALAX) PACK PO SCH (10:45)
--- NOTE | 2017-06-04 11:02 | Occupational Ther Daily Note ---
OT Current Status-Daily Note Subjective Pt lying in bed finishing up breakfast. present in room. Pt agreed to therapy. Did not rate pain, c/o pain. Mental Status/Objective Patient Orientation: Person, Place, Time, Situation Functional [place] Measure 0=Not Assessed/NA 4=Minimal Assistance 1=Total Assistance 5=Supervision or Setup 2=Maximal Assistance 6=Modified [place] 3=Moderate Assistance 7=Complete [place] ADL-Treatment Max A for supine to sitting with HOB raised. After set up, pt able to complete grooming and upper body bathing sitting on EOB. Max A to go from supine to sitting and assist x2 for scooting up in bed. After therapy, pt lying in bed with call light/phone in reach. All needs met in room. Functional [place] Measure 0=Not Assessed/NA 4=Minimal Assistance 1=Total Assistance 5=Supervision or Setup 2=Maximal Assistance 6=Modified [place] 3=Moderate Assistance 7=Complete IndependenceIRFPAI Quality Coding Scale 6 Independent with activity with or without an assistive device 5 Patient requires set up or clean up by helper. Patient completes activity by themselves 4 Supervision or touching assist (CGA). [place] provide cues , steadying assist 3 The helper provides less than half the effort to complete the activity 2 The helper provides more than half the effort to complete the activity 1 Dependent. The helper does all the effort to complete an activity 7 Patient refused to complete or attempt activity 9 The patient did not perform the activity before the current illness or injury 88 Not attempted due to Medical conditions or safety concerns Eating (FIM): 5 Eating (QC): 5 Grooming (FIM): 5 Oral Hygiene (QC): 5 OT Short Term Goals Short Term Goals Time Frame: June 10, 2017 Eating(FIM): 5 Grooming(FIM): 4 Bathing(FIM): 3 Upper Body Dressing(FIM): 4 Lower Body Dressing(FIM): 3 Toileting(FIM): 4 Transfers (B,C,W/C) (FIM): 4 Toilet/Commode Transfer(FIM): 4 Additional Short Term Goals: 1-Demonstrate ADL Tasks, 2-Verbalize Understanding , 3-ImproveStrength/Tyler 1=Demonstrate adherence to instructed precautions during ADL tasks. 2=Patient will verbalize/demonstrate understanding of assistive devices/ modifications for ADL. 3=Patient will improve strength/tolerance for activity to enable patient to perform ADL's. OT Care Home Goals Crane Operator Goals Time Frame: June 24, 2017 Eating (FIM): 6 Groomin Bathing(FIM): 4 Upper Body Dressing(FIM): 5 Lower Body Dressing(FIM): 5 Toileting(FIM): 5 Transfers (B,C,W/C) (FIM): 5 Toilet/Commode Transfer(FIM): 5 Shower Transfer(FIM): 4 Additional Goals: 1-Demonstrate ADL Tasks, 2-Verbalize Understanding, 3- ImproveStrength/Tyler 1=Demonstrate adherence to instructed precautions during ADL tasks. 2=Patient will verbalize/demonstrate understanding of assistive devices/ modifications for ADL. 3=Patient will improve strength/tolerance for activity to enable patient to perform ADL's. OT Education/Plan Discharge Recommendations Plan/Recommendations: Continue POC Treatment Plan/Plan of Care Patient would benefit from OT for education, treatment and training to promote independence in ADL's, mobility, safety and/or upper extremity function for ADL' s. Plan of Care: ADL Retraining, Caregiver Training, Functional Mobility, UE Funct Exercise/Act Treatment Duration: June 24, 2017 Frequency: 5 times per week Estimated Hrs Per Day: .25 hour per day Agreement: Yes Rehab Potential: Fair Time/GCodes Start Time: 08:20 Stop Time: 08:58 Total Time Billed (hr/min): 38 Billed Treatment Time 1 visit-ADL 3 (38 min) AARON SANTOS Jun 04, 2017 11:02
--- NOTE | 2017-06-04 11:12 | Diagnostic Imaging Report ---
Lumbar spine at 10:52. Indication: Postop back pain. AP and lateral views of lumbar spine were received from the OR. In the interval since the previous CTA abdomen/pelvis exam of 08/11/2015, the patient has undergone an extensive surgical procedure. There are now bilateral pedicle screws in place at L2-L3, L4-L5 and S1. There are also orthopedic fixation screws traversing each sacroiliac joint. Interbody devices are also noted at the L2-3, L4-5 and L5-S1 levels. There are skin bertha overlying the lower pelvis on the left. There is also a metallic rectangular artifact overlying the right ilium on the AP view. There is no fracture or acute bony abnormality identified. Impression: There are extensive postsurgical changes involving the lumbar spine. There is no acute abnormality identified. Dictated by: Dictated on workstation # [id number]
--- NOTE | 2017-06-04 11:36 | Progress Note-Hospitalist ---
Subjective HPI/CC On Admission Date Seen by Provider: Jun 04, 2017 Time Seen by Provider: 11:00 CC: Medical management following extensive spine surgery HPI: This is a 71-year-old white female patient of Dr. Zamora in [facility] who presents to the ICU following an uncomplicated extensive spine surgery by Dr. Zuñiga. She is reporting a lot of pain as expected and she is now currently in a chair. I review her home medications and medical problems and visit with patient and her . I instructed her how to use incentive spirometer which will be followed up with instruction by nurse. At this current time she is tolerating sitting in a chair and reports no nausea currently. Subjective/Events-last exam Patient doing much better now on fourth floor and participating in therapy intermediate placement at discharge Denies any significant pain other than the back from surgery Using incentive spirometer but appears to be drowsy Removed catheter has not urinated yet so we'll monitor that in case retention as occurred No bowels haven't moved yet but passing gas Review of Systems General: Fatigue, Malaise Gastrointestinal: Constipation Focused Exam Lactate Level 06/03/17 03:10: Lactic Acid Level 3.44*H 06/03/17 05:10: Lactic Acid Level 2.09*H Objective Exam Vital Signs Vital Signs Date Time Temp Pulse Resp B/P (MAP) Pulse Ox O2 Delivery O2 Flow Rate FiO2 06/04/17 12:00 100.3 80 18 108/52 (70) 98 Room Air 06/03/17 09:00 2.00 Capillary Refill : General Appearance: No Apparent Distress, WD/WN, Chronically ill HEENT: Normal ENT Inspection Neck: Normal Inspection, Non Tender Respiratory: Lungs Clear, Normal Breath Sounds, Decreased Breath Sounds Cardiovascular: Regular Rate, Rhythm, No Edema Extremity: Normal Capillary Refill, Normal Inspection, Normal Range of Motion, Non Tender, No Calf Tenderness Neurologic/Psychiatric: Alert, Oriented x3, No Motor/Sensory Deficits, Normal Mood/Affect, steam flattener II-XII Norm as Tested Skin: Normal Color, Warm/Dry Lymphatic: No Adenopathy Results/Procedures Lab Patient resulted labs reviewed. Assessment/Plan Assessment and Plan Assess & Plan/Chief Complaint Assessment: Status post uncomplicated extensive spine surgery by Dr. 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: with local intermodal truck driver use Diabetes mellitus complication status: with neurologic complications Diabetes mellitus complication detail: with polyneuropathy Qualified Codes: E11.42 - Type 2 diabetes mellitus with diabetic polyneuropathy ; Z79.4 - 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
[2017-06-04 12:00] VITALS: BP 108/52
--- NOTE | 2017-06-04 12:58 | Physical Therapy Daily Note ---
PT Daily Note-Current Subjective Pt. agrees to Rx. State she has tolerated being up in the chair well but wants on the BSC to try to urinate, "I havent gone since they took my catheter out" Pain Numeric Pain Scale: 3 Location: Lower Location Body Site: Back Pain Description: Ache Mental Status Patient Orientation: Normal For Age Attachments: Drains, Other-See Comments (back brace) Transfers Functional [place] Measure 0=Not Assessed/NA 4=Minimal Assistance 1=Total Assistance 5=Supervision or Setup 2=Maximal Assistance 6=Modified [place] 3=Moderate Assistance 7=Complete IndependenceIRFPAI Quality Coding Scale 6 Independent with activity with or without an assistive device 5 Patient requires set up or clean up by helper. Patient completes activity by themselves 4 Supervision or touching assist (CGA). [place] provide cues , steadying assist 3 The helper provides less than half the effort to complete the activity 2 The helper provides more than half the effort to complete the activity 1 Dependent. The helper does all the effort to complete an activity 7 Patient refused to complete or attempt activity 9 The patient did not perform the activity before the current illness or injury 88 Not attempted due to Medical conditions or safety concerns sit to stand x 3 mod to min assist depending on level/height Weight Bearing Right Lower Extremity: Right Full Weight Bearing Left Lower Extremity: Left Full Weight Bearing Gait Training 5-6 steps left and right to side step to bed and BSC, needs some assist to lean to help initiate each step Exercises Seated Therapy Exercises: Ankle pumps, Sit to stand, Long arc quads Seated Reps: 10 Assessment Current Status: Good Progress PT Short Term Goals Short Term Goals Transfers (B,C,W/C) (FIM): 4 PT Longterm Goals Sail Repair Person Goals PT Longterm Goals Time Frame: June 20, 2017 Transfers (B,C,W/C) (FIM): 4 PT Plan Treatment/Plan Treatment Plan: Continue Plan of Care Treatment Plan: Bed Mobility, Education, Functional Activity [place], Functional Strength, Safety, Therapeutic Exercise, Transfers Treatment Duration: June 20, 2017 Frequency: 11 times per week Estimated Hrs Per Day: .5 hour per day Patient and/or Family Agrees t: Yes Safety Risks/Education Patient Education: Transfer Techniques, Correct Positioning, Safety Issues Teaching Recipient: Patient Teaching Methods: Demonstration, Discussion Response to Teaching: Verbalize Understanding, Return Demonstration, Reinforcement Needed Time/GCodes Time In: 1235 Time Out: 1255 Total Billed Treatment Time: 20 Total Billed Treatment 1,FA20m G Codes Necessary: No KAT SAHU EARLY CHILDHOOD COORDINATOR Jun 04, 2017 12:58
[2017-06-04 16:35] VITALS: BP 131/56
[2017-06-04 20:59] VITALS: BP 106/64
[2017-06-04] MEDS: amLODIPine 5 MG (NORVASC) TAB PO SCH (21:02)
[2017-06-04] MEDS: inSUlin DETERMIR 1 UNIT/0.01 ML (LEVEMIR) CHARGE PER UNIT SQ SCH (21:03)
[2017-06-05] VITALS (10 sets, daily range): BP systolic 111–176; BP diastolic 55–77
[2017-06-05] MEDS: HYDROcodone/APAP 10 MG/325 MG (LORTAB) TAB PO PRN ×4 (00:39→22:04)
[2017-06-05] MEDS: inSUlin ASPART (NovoLOG) 1 UNIT/0.01 ML (CHARGE PER UNIT) SC SCH ×4 (05:22→22:00)
[2017-06-05] MEDS: LEVOTHYROXINE 150 MCG (LEVOTHROID) TAB PO SCH (05:57)
[2017-06-05] MEDS: GABAPENTIN 400 MG (NEURONTIN) CAP PO SCH ×5 (05:57→21:58)
[2017-06-05] MEDS: MULTIVIT W/MINERALS TAB (THERAGRAN M) PO SCH (05:58)
[2017-06-05] MEDS: PANTOPRAZOLE 40 MG (PROTONIX) TAB PO SCH (05:58)
[2017-06-05 06:12] LABS: BASOPHILS % (AUTO) 0 % (0-10); EOSINOPHILS # (AUTO) 0.1 10^3/uL (0.0-0.3); EOSINOPHILS % (AUTO) 1 % (0-10); LYMPHOCYTES # (AUTO) 0.9 X 10^3 (1.0-4.0); LYMPHOCYTES % (AUTO) 13 % (12-44); MEAN CORPUSCULAR HEMOGLOBIN 31 PG (25-34); MEAN CORPUSCULAR HGB CONC 33 G/DL (32-36); MEAN CORPUSCULAR VOLUME 96 FL (80-99); MEAN PLATELET VOLUME 9.4 FL (7.4-10.4); MONOCYTES # (AUTO) 0.6 X 10^3 (0.0-1.0); MONOCYTES % (AUTO) 8 % (0-12); NEUTROPHILS # (AUTO) 5.4 X 10^3 (1.8-7.8); NEUTROPHILS % (AUTO) 78 % (42-75); PLATELET COUNT 170 10^3/uL (130-400); RED BLOOD COUNT 2.12 10^6/uL (4.35-5.85); RED CELL DISTRIBUTION WIDTH 13.5 % (10.0-14.5); WHITE BLOOD COUNT 6.9 10^3/uL (4.3-11.0)
--- NOTE | 2017-06-05 06:16 | Progress Note (SOAP) ---
Subjective Date Seen by Provider: Jun 05, 2017 Time Seen by Provider: 06:14 Subjective/Events-last exam Got up yesterday, it feels better, feels straighter. Pain still pretty bad. Doesn't want to stay or go to rehab. Focused Exam Lactate Level 06/03/17 03:10: Lactic Acid Level 3.44*H 06/03/17 05:10: Lactic Acid Level 2.09*H Objective Exam Vital Signs Date Time Temp Pulse Resp B/P (MAP) Pulse Ox O2 Delivery O2 Flow Rate FiO2 06/05/17 00:00 99.7 86 18 112/55 (74) 92 Room Air 06/04/17 21:00 Room Air 06/04/17 20:59 99.1 87 18 106/64 (78) 92 Room Air 06/04/17 16:35 100.0 89 18 131/56 (81) 92 Room Air 06/04/17 14:49 100.0 06/04/17 12:00 100.3 80 18 108/52 (70) 98 Room Air 06/04/17 09:00 Room Air 06/04/17 08:01 98.4 82 20 108/50 (69) 97 Room Air I & O 06/05/17 07:00 Intake Total 1110 ml Output Total 1150 ml Balance -40 ml Capillary Refill : General Appearance: No Apparent Distress Neck: Supple Respiratory: No Accessory Muscle Use, No Respiratory Distress Cardiovascular: Regular Rate, Rhythm Gastrointestinal: non tender, soft Extremity: Normal Capillary Refill, No Calf Tenderness Neurologic/Psychiatric: Alert, Oriented x3, No Motor/Sensory Deficits Results Lab Laboratory Tests 06/04/17 10:56: Glucometer 63L 06/04/17 16:37: Glucometer 289H 06/04/17 20:22: Glucometer 168H 06/05/17 05:15: Glucometer 174H 06/05/17 06:00: Assessment/Plan Assessment/Plan Assess & Plan/Chief Complaint Lumbar Kyphosis/flat back phenomenon Post Laminectomy Kyphosis Lumbar Non-union Plan: continue up with PT D/C Planning await CBC results. Clinical Quality Measures DVT/VTE Risk/Contraindication: Risk Factor Score Per Nursin RFS Level Per Nursing on Admit: 4+=Very High LUIS CARLOS ANNA MD Jun 05, 2017 06:16
[2017-06-05 06:28] LABS: BUN/CREATININE RATIO 34; CALCIUM 8.3 MG/DL (8.5-10.1); CARBON DIOXIDE 26 MMOL/L (21-32); CHLORIDE 105 MMOL/L (98-107); CREATININE SERUM 0.67 MG/DL (0.60-1.30); GFR ESTIMATED > 60; GLUCOSE 141 MG/DL (70-105); POTASSIUM 4.8 MMOL/L (3.6-5.0); SODIUM 135 MMOL/L (135-145)
[2017-06-05 06:32] LABS: HEMATOCRIT 20 % (35-52); HEMOGLOBIN 6.6 G/DL (11.5-16.0)
[2017-06-05] MEDS ORDERED: FUROSEMIDE 40 MG/4 ML INJ (LASIX) IVP NR (06:45)
[2017-06-05] MEDS ORDERED: NS IV 500 ML 500 ML IV SCH (07:30)
[2017-06-05] MEDS: CILOSTAZOL 50 MG PO SCH ×2 (09:04→21:59)
[2017-06-05] MEDS: LIDOCAINE (LIDODERM) 5% PATCH TOP SCH (09:04)
[2017-06-05] MEDS: DULoxetine 30 MG (CYMBALTA) CAP PO SCH ×2 (09:05→21:58)
[2017-06-05] MEDS: DOCUSATE SODIUM 100 MG (COLACE) CAP PO SCH ×2 (09:05→21:58)
[2017-06-05] MEDS: SENNOSIDES 8.6 MG (SENOKOT) TAB PO SCH ×2 (09:05→21:58)
[2017-06-05] MEDS: POLYETHYLENE GLYCOL 17 GM (MIRALAX) PACK PO SCH (09:06)
[2017-06-05] MEDS ORDERED: BISACODYL 10 MG SUPP (DULCOLAX) PR NR (09:15)
--- NOTE | 2017-06-05 10:33 | Progress Note-Hospitalist ---
Subjective HPI/CC On Admission Date Seen by Provider: Jun 05, 2017 Time Seen by Provider: 09:30 CC: Medical management following extensive spine surgery HPI: This is a 71-year-old white female patient of Dr. Zamora in [facility] who presents to the ICU following an uncomplicated extensive spine surgery by Dr. Zuñiga. She is reporting a lot of pain as expected and she is now currently in a chair. I review her home medications and medical problems and visit with patient and her . I instructed her how to use incentive spirometer which will be followed up with instruction by nurse. At this current time she is tolerating sitting in a chair and reports no nausea currently. Subjective/Events-last exam Patient will need to go to a nursing facility since she was so debilitated for urinary half and could not ambulate prior to the surgery but due to the back injury Bowels need more help since she has taken oral meds and they are just not working so I have ordered suppository and soapsuds enema Receiving 2 units of packed red blood cell transfusion today due to hemoglobin of 6.6 Using IS Review of Systems General: Fatigue Gastrointestinal: Constipation Musculoskeletal: back pain Focused Exam Lactate Level 06/03/17 03:10: Lactic Acid Level 3.44*H 06/03/17 05:10: Lactic Acid Level 2.09*H Objective Exam Vital Signs Vital Signs Date Time Temp Pulse Resp B/P (MAP) Pulse Ox O2 Delivery O2 Flow Rate FiO2 06/05/17 10:49 98.7 110 176/77 06/05/17 07:45 16 91 Room Air 06/03/17 09:00 2.00 Capillary Refill : General Appearance: No Apparent Distress, WD/WN, Chronically ill Respiratory: Lungs Clear, Normal Breath Sounds Cardiovascular: Regular Rate, Rhythm, No Edema Neurologic/Psychiatric: Alert, Oriented x3, No Motor/Sensory Deficits, Depressed Affect Skin: Normal Color, Warm/Dry Lymphatic: No Adenopathy Results/Procedures Lab Laboratory Tests 06/05/17 06:00 Patient resulted labs reviewed. Assessment/Plan Assessment and Plan Assess & Plan/Chief Complaint Assessment: Status post uncomplicated extensive spine surgery by Dr. 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 use: with osteologist use Diabetes mellitus complication status: with neurologic complications Diabetes mellitus complication detail: with polyneuropathy Qualified Codes: E11.42 - Type 2 diabetes mellitus with diabetic polyneuropathy ; 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 (3) Hypertension Status: Chronic Qualifiers: Hypertension type: essential hypertension Qualified Codes: I10 - Essential (primary) hypertension (4) Hypothyroidism Status: Chronic Qualifiers: Hypothyroidism type: acquired Qualified Codes: E03.9 - Hypothyroidism, unspecified (5) Smoker Status: Acute (6) Postoperative anemia Status: Acute Assessment & Plan: 06/05/17: 2 units of blood today (7) Debilitated patient Status: Acute Assessment & Plan: Needs NH (8) Constipation Status: Acute Qualifiers: Constipation type: drug induced constipation Qualified Codes: K59.03 - Drug induced constipation Clinical Quality Measures DVT/VTE Risk/Contraindication: Risk Factor Score Per Nursin RFS Level Per Nursing on Admit: 4+=Very High SHERRIE LOUIS DO Jun 05, 2017 10:33
--- NOTE | 2017-06-05 11:04 | Physical Therapy Daily Note ---
PT Daily Note-Current Subjective Patient is in 10/10 LBP at rest. Reluctantly agrees to PT for up in recliner/ commode. Pain Numeric Pain Scale: 10-Worst Possible Pain Location: Lower Location Body Site: Back Pain Description: Acute, Sharp Mental Status Patient Orientation: Normal For Age Transfers Functional [place] Measure 0=Not Assessed/NA 4=Minimal Assistance 1=Total Assistance 5=Supervision or Setup 2=Maximal Assistance 6=Modified [place] 3=Moderate Assistance 7=Complete IndependenceIRFPAI Quality Coding Scale 6 Independent with activity with or without an assistive device 5 Patient requires set up or clean up by helper. Patient completes activity by themselves 4 Supervision or touching assist (CGA). [place] provide cues , steadying assist 3 The helper provides less than half the effort to complete the activity 2 The helper provides more than half the effort to complete the activity 1 Dependent. The helper does all the effort to complete an activity 7 Patient refused to complete or attempt activity 9 The patient did not perform the activity before the current illness or injury 88 Not attempted due to Medical conditions or safety concerns Transfers (B, C, W/C) (FIM): 1 Scootin Supine to/from Sit: 1 Sit to/from Stand: 1 Bed to/from Chair: 1 Dependent assist with sit to stand and SPT bed to commode to recliner. Patient having difficulty with advancing either leg with transfer. Weight Bearing Right Lower Extremity: Right Full Weight Bearing Left Lower Extremity: Left Full Weight Bearing Gait Training Gait (FIM): 1 Distance (FIM): 1=up to 49 ft Distance: 4 steps x 2 Gait Level of Assist: 1 Gait Persons Needed: 1 Gait Assistive Device: None assist with weight shifting and advancing LE's Assessment Mod assist to tera back brace. Patient yelling in pain with minimal activity. Patient had received pain medication 30 minutes prior to PT. RN present in room to begin PRBC. PT Short Term Goals Short Term Goals Transfers (B,C,W/C) (FIM): 4 PT Industrial Eng Goals Senior Care Goals PT Industrial Eng Goals Time Frame: June 20, 2017 Transfers (B,C,W/C) (FIM): 4 PT Plan Treatment/Plan Treatment Plan: Continue Plan of Care Treatment Plan: Bed Mobility, Education, Functional Activity [place], Functional Strength, Safety, Therapeutic Exercise, Transfers Treatment Duration: June 20, 2017 Frequency: 11 times per week Estimated Hrs Per Day: .5 hour per day Patient and/or Family Agrees t: Yes Time/GCodes Time In: 1000 Time Out: 1023 Total Billed Treatment Time: 23 Total Billed Treatment 1 visit FA x 2 23min ROSA BNUDY PT Jun 05, 2017 11:04
[2017-06-05] MEDS ORDERED: FUROSEMIDE 40 MG/4 ML INJ (LASIX) ONE (13:53)
--- NOTE | 2017-06-05 14:19 | Physical Therapy Progress Note ---
Therapy Progress Note Patient continues to c/o 11/19 LBP with no relief from medication. RN is aware. PT adamantly declined PT this p.m. due to pain. PT will attempt in a.m. 1 visit ref ROSA BUNDY PT Jun 05, 2017 14:19
--- NOTE | 2017-06-05 15:31 | Occupational Ther Daily Note ---
OT Current Status-Daily Note Subjective Pt. reports pain with sitting, and pain in back. However, does not give a pain number. Appearance Pt up in chair. States that she is uncomfortable, but is unable to articulate exactly why she is uncomfortable. Does request to go back to bed. Mental Status/Objective Patient Orientation: Person Functional [place] Measure 0=Not Assessed/NA 4=Minimal Assistance 1=Total Assistance 5=Supervision or Setup 2=Maximal Assistance 6=Modified [place] 3=Moderate Assistance 7=Complete [place] ADL-Treatment Lower Body Dressing (FIM): 3 (Pt. issued adaptive equipment. Practiced doffing /donning socks with AE. Required min assist overall.) Transfers (B, C, W/C) (FIM): 1 (Max assist to stand out of chair with max x 1- 2 to pivot to bed. Max x 2 to transfer sit-supine and then bed mobility.) Education OT Patient Education: Correct positioning, Modified ADL techniques, Progress toward Goal/Update tx plan, Purpose of tx/functional activities, Reviewed precautions, Rehab process, Transfer techniques, Use of adapted equipment Teaching Recipient: Patient Teaching Methods: Demonstration, Discussion Response to Teaching: Verbalize Understanding, Return Demonstration OT Short Term Goals Short Term Goals Time Frame: June 10, 2017 Eating(FIM): 5 Grooming(FIM): 4 Bathing(FIM): 3 Upper Body Dressing(FIM): 4 Lower Body Dressing(FIM): 3 Toileting(FIM): 4 Transfers (B,C,W/C) (FIM): 4 Toilet/Commode Transfer(FIM): 4 Additional Short Term Goals: 1-Demonstrate ADL Tasks, 2-Verbalize Understanding , 3-ImproveStrength/[place] 1=Demonstrate adherence to instructed precautions during ADL tasks. 2=Patient will verbalize/demonstrate understanding of assistive devices/ modifications for ADL. 3=Patient will improve strength/tolerance for activity to enable patient to perform ADL's. OT Vp Product Goals Mcc Goals Time Frame: June 24, 2017 Eating (FIM): 6 Grooming(FIM): 6 Bathing(FIM): 4 Upper Body Dressing(FIM): 5 Lower Body Dressing(FIM): 5 Toileting(FIM): 5 Transfers (B,C,W/C) (FIM): 5 Toilet/Commode Transfer(FIM): 5 Shower Transfer(FIM): 4 Additional Goals: 1-Demonstrate ADL Tasks, 2-Verbalize Understanding, 3- ImproveStrength/Tyler 1=Demonstrate adherence to instructed precautions during ADL tasks. 2=Patient will verbalize/demonstrate understanding of assistive devices/ modifications for ADL. 3=Patient will improve strength/tolerance for activity to enable patient to perform ADL's. OT Education/Plan Problem List/Assessment Assessment: Decreased Activ Tolerance, Dependent Transfers, Impaired Bed Mobility, Impaired Funct Balance, Impaired I ADL's, Impaired Self-Care Skills Discharge Recommendations Plan/Recommendations: Continue POC Therapy D/C Recommendations: 24 hr Supervision Treatment Plan/Plan of Care Treatment,Training & Education: Yes Patient would benefit from OT for education, treatment and training to promote independence in ADL's, mobility, safety and/or upper extremity function for ADL' s. Plan of Care: ADL Retraining, Caregiver Training, Functional Mobility, UE Funct Exercise/Act Treatment Duration: June 24, 2017 Frequency: 5 times per week Estimated Hrs Per Day: .25 hour per day Agreement: Yes Rehab Potential: Fair Time/GCodes Start Time: 11:30 Stop Time: 12:00 Total Time Billed (hr/min): 30 Billed Treatment Time 1, ADL x 2 SHADY CHANDLER OT Jun 05, 2017 15:31
[2017-06-05] MEDS ORDERED: LIDODERM PATCH REMOVAL TP SCH (21:00)
[2017-06-05] MEDS: amLODIPine 5 MG (NORVASC) TAB PO SCH (21:58)
[2017-06-05] MEDS: inSUlin DETERMIR 1 UNIT/0.01 ML (LEVEMIR) CHARGE PER UNIT SQ SCH (22:00)
[2017-06-06] VITALS: BP 137/60
[2017-06-06] MEDS ORDERED: HYDR-3820 PO (05:24)
[2017-06-06] MEDS: HYDROcodone/APAP 10 MG/325 MG (LORTAB) TAB PO PRN ×4 (05:24→17:19)
[2017-06-06] MEDS: inSUlin ASPART (NovoLOG) 1 UNIT/0.01 ML (CHARGE PER UNIT) SC SCH ×3 (05:27→17:20)
--- NOTE | 2017-06-06 05:32 | Progress Note (SOAP) ---
Subjective Date Seen by Provider: Jun 06, 2017 Time Seen by Provider: 05:28 Subjective/Events-last exam POD #4 Complains of BLE weakness Denies abdominal pain, has had BM Review of Systems General: No Chills Pulmonary: No Cough Gastrointestinal: No: Nausea, Vomiting, Abdominal Pain Musculoskeletal: back pain; No: leg pain Neurological: Weakness; No: Numbness Objective Exam Vital Signs Date Time Temp Pulse Resp B/P (MAP) Pulse Ox O2 Delivery O2 Flow Rate FiO2 06/06/17 00:00 98.4 80 17 137/60 (85) 94 Room Air 06/05/17 21:56 81 20 160/66 (97) 06/05/17 21:00 Room Air 06/05/17 18:00 98.6 75 132/58 06/05/17 16:00 99.3 82 16 138/62 (87) 92 Room Air 06/05/17 15:11 98.8 80 116/56 06/05/17 14:59 99.2 82 120/57 06/05/17 13:24 98.3 83 134/58 06/05/17 10:49 98.7 110 176/77 06/05/17 10:36 99.5 89 111/55 06/05/17 09:00 Room Air 06/05/17 07:45 98.7 82 16 119/56 (77) 91 Room Air I & O 06/06/17 06:59 Intake Total 1450 ml Output Total 500 ml Balance 950 ml Capillary Refill : Less Than 3 Seconds General Appearance: No Apparent Distress HEENT: PERRL/EOMI Neck: Non Tender Respiratory: No Accessory Muscle Use, No Respiratory Distress Cardiovascular: Regular Rate, Rhythm Gastrointestinal: non tender, soft, other (No Lu-Davis's or [place]'s sign) Extremity: Non Tender, No Calf Tenderness Neurologic/Psychiatric: Alert, Oriented x3, No Motor/Sensory Deficits, Normal Mood/Affect, pi/senior research associate II-XII Norm as Tested Skin: Other (Dressing CDI) Results Lab Laboratory Tests 06/05/17 06:00: White Blood Count 6.9, Red Blood Count 2.12L, Hemoglobin 6.6#*L, Hematocrit 20*L , Mean Corpuscular Volume 96, Mean Corpuscular Hemoglobin 31, Mean Corpuscular Hemoglobin Concent 33, Red Cell Distribution Width 13.5, Platelet Count 170, Mean Platelet Volume 9.4, Neutrophils (%) (Auto) 78H, Lymphocytes (%) (Auto) 13 , Monocytes (%) (Auto) 8, Eosinophils (%) (Auto) 1, Basophils (%) (Auto) 0, Neutrophils # (Auto) 5.4, Lymphocytes # (Auto) 0.9L, Monocytes # (Auto) 0.6, Eosinophils # (Auto) 0.1, Basophils # (Auto) 0.0, Sodium Level 135, Potassium Level 4.8, Chloride Level 105, Carbon Dioxide Level 26, Anion Gap 4L, Blood Urea Nitrogen 23H, Creatinine 0.67, Estimat Glomerular Filtration Rate > 60, BUN /Creatinine Ratio 34, Glucose Level 141H, Calcium Level 8.3L 06/05/17 11:05: Glucometer 125H 06/05/17 16:00: Glucometer 119H 06/05/17 20:17: Glucometer 259H 06/06/17 05:20: Glucometer 114H Assessment/Plan Assessment/Plan Assess & Plan/Chief Complaint Lumbar kyphosis pseudarthrosis s/p L4-S1 ALIF, L2-3 anterolateral, L4-5 Lina osteotomy, L3-5 HDWR, L2-Pelvis fusion Deconditioning Post-operative acute blood loss anemia, s/p 2 units PRBC transfusion, awaiting a.m. labs Awaiting discharge plan Final Diagnosis pseudarthrosis lumbar kyphosis with sagittal imbalance post-operative acute blood loss anemia deconditioning peripheral vascular disease coronary artery disease type 2 diabetes mellitus Clinical Quality Measures DVT/VTE Risk/Contraindication: Risk Factor Score Per Nursin RFS Level Per Nursing on Admit: 4+=Very High HOUSTON CARDOZO Jun 06, 2017 05:32
[2017-06-06] MEDS: MULTIVIT W/MINERALS TAB (THERAGRAN M) PO SCH (06:03)
[2017-06-06] MEDS: GABAPENTIN 400 MG (NEURONTIN) CAP PO SCH ×4 (06:03→17:20)
[2017-06-06] MEDS: PANTOPRAZOLE 40 MG (PROTONIX) TAB PO SCH (06:03)
[2017-06-06] MEDS: LEVOTHYROXINE 150 MCG (LEVOTHROID) TAB PO SCH (06:03)
[2017-06-06 08:00] VITALS: BP 157/79
[2017-06-06] MEDS: SENNOSIDES 8.6 MG (SENOKOT) TAB PO SCH (08:31)
[2017-06-06] MEDS: DOCUSATE SODIUM 100 MG (COLACE) CAP PO SCH (08:31)
[2017-06-06] MEDS: LIDOCAINE (LIDODERM) 5% PATCH TOP SCH (08:32)
[2017-06-06] MEDS: CILOSTAZOL 50 MG PO SCH (08:32)
[2017-06-06] MEDS: DULoxetine 30 MG (CYMBALTA) CAP PO SCH (08:32)
[2017-06-06] MEDS: POLYETHYLENE GLYCOL 17 GM (MIRALAX) PACK PO SCH (08:32)
--- NOTE | 2017-06-06 09:09 | Physical Therapy Daily Note ---
PT Daily Note-Current Subjective Patient reports she still hurts but does feel better today. Pain Numeric Pain Scale: 8 Location: Lower Location Body Site: Back Pain Description: Acute Mental Status Patient Orientation: Normal For Age Transfers Functional [place] Measure 0=Not Assessed/NA 4=Minimal Assistance 1=Total Assistance 5=Supervision or Setup 2=Maximal Assistance 6=Modified [place] 3=Moderate Assistance 7=Complete IndependenceIRFPAI Quality Coding Scale 6 Independent with activity with or without an assistive device 5 Patient requires set up or clean up by helper. Patient completes activity by themselves 4 Supervision or touching assist (CGA). [place] provide cues , steadying assist 3 The helper provides less than half the effort to complete the activity 2 The helper provides more than half the effort to complete the activity 1 Dependent. The helper does all the effort to complete an activity 7 Patient refused to complete or attempt activity 9 The patient did not perform the activity before the current illness or injury 88 Not attempted due to Medical conditions or safety concerns Transfers (B, C, W/C) (FIM): 5 Scootin Sit to/from Stand: 5 sit to stand x 4 sets with stand x 1 min each and recovery periods between sets Weight Bearing Right Lower Extremity: Right Full Weight Bearing Left Lower Extremity: Left Full Weight Bearing Exercises Seated Therapy Exercises: Ankle pumps, Long arc quads Seated Reps: 10 (3 sets with difficulty with right LE due to pain) Assessment Patient is progressing with treatment plan, however, from a PT standpoint, patient will benefit from skilled therapy (LTCF) to ensure safe return to home. PT Short Term Goals Short Term Goals Transfers (B,C,W/C) (FIM): 4 PT Associate Brand Manager Goals Shelter Goals PT Shelter Goals Time Frame: June 20, 2017 Transfers (B,C,W/C) (FIM): 4 PT Plan Treatment/Plan Treatment Plan: Continue Plan of Care Treatment Plan: Bed Mobility, Education, Functional Activity Tyler, Functional Strength, Safety, Therapeutic Exercise, Transfers Treatment Duration: June 20, 2017 Frequency: 11 times per week Estimated Hrs Per Day: .5 hour per day Patient and/or Family Agrees t: Yes Time/GCodes Time In: 842 Time Out: 853 Total Billed Treatment Time: 11 Total Billed Treatment 1 visit EX 11 min ROSA BUNDY PT Jun 06, 2017 09:09
--- NOTE | 2017-06-06 11:34 | Occupational Ther Daily Note ---
OT Current Status-Daily Note Subjective Pt alert, lying in bed. Pt stated that she had just gotten back into bed. Pt did agree to complete UE exercises. Pt c/o pain with movement, did not rate. Mental Status/Objective Patient Orientation: Person, Place, Time, Situation Functional [place] Measure 0=Not Assessed/NA 4=Minimal Assistance 1=Total Assistance 5=Supervision or Setup 2=Maximal Assistance 6=Modified [place] 3=Moderate Assistance 7=Complete [place] Attachments: IV Other Treatment Mod A to turn side to side. Pt was educated on turning while keeping back precautions. Pt was able to hold onto bedrails for 30 seconds to stay in slight sidelying position. Pt had to slowly lay back into supine, pain with the motion to lay back or sit up. UE exercises completed while in supine. Pt able to complete 10 reps of 3 different shldr exercises. After therapy, pt reclined back in bed with call light/phone in reach. All needs met in room. Education OT Patient Education: Correct positioning, Transfer techniques Teaching Recipient: Patient Teaching Methods: Demonstration, Discussion Response to Teaching: Verbalize Understanding, Return Demonstration, Reinforcement Needed OT Short Term Goals Short Term Goals Time Frame: June 10, 2017 Eating(FIM): 5 Grooming(FIM): 4 Bathing(FIM): 3 Upper Body Dressing(FIM): 4 Lower Body Dressing(FIM): 3 Toileting(FIM): 4 Transfers (B,C,W/C) (FIM): 4 Toilet/Commode Transfer(FIM): 4 Additional Short Term Goals: 1-Demonstrate ADL Tasks, 2-Verbalize Understanding , 3-ImproveStrength/Tyler 1=Demonstrate adherence to instructed precautions during ADL tasks. 2=Patient will verbalize/demonstrate understanding of assistive devices/ modifications for ADL. 3=Patient will improve strength/tolerance for activity to enable patient to perform ADL's. OT Prison Goals Tool Lathe Operator Goals Time Frame: June 24, 2017 Eating (FIM): 6 Grooming(FIM): 6 Bathing(FIM): 4 Upper Body Dressing(FIM): 5 Lower Body Dressing(FIM): 5 Toileting(FIM): 5 Transfers (B,C,W/C) (FIM): 5 Toilet/Commode Transfer(FIM): 5 Shower Transfer(FIM): 4 Additional Goals: 1-Demonstrate ADL Tasks, 2-Verbalize Understanding, 3- ImproveStrength/Tyler 1=Demonstrate adherence to instructed precautions during ADL tasks. 2=Patient will verbalize/demonstrate understanding of assistive devices/ modifications for ADL. 3=Patient will improve strength/tolerance for activity to enable patient to perform ADL's. OT Education/Plan Discharge Recommendations Plan/Recommendations: Continue POC Treatment Plan/Plan of Care Patient would benefit from OT for education, treatment and training to promote independence in ADL's, mobility, safety and/or upper extremity function for ADL' s. Plan of Care: ADL Retraining, Caregiver Training, Functional Mobility, UE Funct Exercise/Act Treatment Duration: June 24, 2017 Frequency: 5 times per week Estimated Hrs Per Day: .25 hour per day Agreement: Yes Rehab Potential: Fair Time/GCodes Start Time: 11:00 Stop Time: 11:20 Total Time Billed (hr/min): 20 Billed Treatment Time 1 visit-FA 1 (20 min) AARON SANTOS Jun 06, 2017 11:34
--- NOTE | 2017-06-06 11:43 | Progress Note-Hospitalist ---
Subjective HPI/CC On Admission Date Seen by Provider: Jun 06, 2017 Time Seen by Provider: 10:40 CC: Medical management following extensive spine surgery HPI: This is a 71-year-old white female patient of Dr. Zamora in [facility] who presents to the ICU following an uncomplicated extensive spine surgery by Dr. Zuñiga. She is reporting a lot of pain as expected and she is now currently in a chair. I review her home medications and medical problems and visit with patient and her . I instructed her how to use incentive spirometer which will be followed up with instruction by nurse. At this current time she is tolerating sitting in a chair and reports no nausea currently. Subjective/Events-last exam Patient doing much better and less sedated and more oriented Bowels are moving now several times after bowel regimen Pain is detention controlled Working on placement to nursing facility but appears to have used up a lot of her rehabilitation days so we'll pursue that from a social work standpoint Has no other concerns Using IS Review of Systems Musculoskeletal: other (back pain), neck pain Objective Exam Vital Signs Vital Signs Date Time Temp Pulse Resp B/P (MAP) Pulse Ox O2 Delivery O2 Flow Rate FiO2 06/06/17 09:00 Room Air 06/06/17 08:00 98.4 86 18 157/79 (105) 91 06/03/17 09:00 2.00 Capillary Refill : Less Than 3 Seconds General Appearance: No Apparent Distress, WD/WN, Chronically ill, Other ( improved) Respiratory: Lungs Clear, Normal Breath Sounds, Decreased Breath Sounds Cardiovascular: Regular Rate, Rhythm, No Edema Neurologic/Psychiatric: Alert, Oriented x3, No Motor/Sensory Deficits, event organizer II- XII Norm as Tested, Depressed Affect Skin: Normal Color, Warm/Dry Results/Procedures Lab Laboratory Tests 06/06/17 05:20 Patient resulted labs reviewed. Assessment/Plan Assessment and Plan Assess & Plan/Chief Complaint Assessment: Status post uncomplicated extensive spine surgery by Dr. Zuñiga POD # 4 Diabetes mellitus insulin-dependent Neuropathy Current smoker Hypertension Hypothyroidism Severe anemia requiring 2 units of blood yesterday Postop constipation now resolved Plan: IS Monitor for ATX and pneumonia Insulin Accuchecks Will follow with you Diagnosis/Problems Diagnosis/Problems (1) LUMBAR KYPHOSIS Status: Chronic (2) Diabetes mellitus Status: Chronic Qualifiers: Diabetes mellitus type: type 2 Diabetes mellitus terminal supervisor insulin use: with custodial use Diabetes mellitus complication status: with neurologic complications Diabetes mellitus complication detail: with polyneuropathy Qualified Codes: E11.42 - Type 2 diabetes mellitus with diabetic polyneuropathy ; Z79.4 - intermodal dispatcher (current) use of insulin (3) Hypertension Status: Chronic Qualifiers: Hypertension type: essential hypertension Qualified Codes: I10 - Essential (primary) hypertension (4) Hypothyroidism Status: Chronic Qualifiers: Hypothyroidism type: acquired Qualified Codes: E03.9 - Hypothyroidism, unspecified (5) Smoker Status: Acute (6) Postoperative anemia Status: Acute Assessment & Plan: 06/05/17: 2 units of blood today (7) Debilitated patient Status: Acute Assessment & Plan: Needs NHP (8) Constipation Status: Resolved Qualifiers: Constipation type: drug induced constipation Qualified Codes: K59.03 - Drug induced constipation Clinical Quality Measures DVT/VTE Risk/Contraindication: Risk Factor Score Per Nursin RFS Level Per Nursing on Admit: 4+=Very High SHERRIE LOUIS DO Jun 06, 2017 11:43
--- NOTE | 2017-06-06 12:00 | Physical Therapy Daily Note ---
PT Daily Note-Current Subjective Pt. agrees to rx. Would like to be up in recliner for lunch. C/o pain only during sup to side to sit Pain Numeric Pain Scale: 3 Location: Lower Location Body Site: Back Pain Description: Ache Mental Status Patient Orientation: Normal For Age Transfers Functional [place] Measure 0=Not Assessed/NA 4=Minimal Assistance 1=Total Assistance 5=Supervision or Setup 2=Maximal Assistance 6=Modified [place] 3=Moderate Assistance 7=Complete IndependenceIRFPAI Quality Coding Scale 6 Independent with activity with or without an assistive device 5 Patient requires set up or clean up by helper. Patient completes activity by themselves 4 Supervision or touching assist (CGA). [place] provide cues , steadying assist 3 The helper provides less than half the effort to complete the activity 2 The helper provides more than half the effort to complete the activity 1 Dependent. The helper does all the effort to complete an activity 7 Patient refused to complete or attempt activity 9 The patient did not perform the activity before the current illness or injury 88 Not attempted due to Medical conditions or safety concerns Transfers (B, C, W/C) (FIM): 3 Scootin Rollin Supine to/from Sit: 3 Sit to/from Stand: 4 Weight Bearing Right Lower Extremity: Right Full Weight Bearing Left Lower Extremity: Left Full Weight Bearing Gait Training Gait (FIM): 1 Distance (FIM): 1=up to 49 ft (12ftx2) Gait Level of Assist: 4 Gait Persons Needed: 1 Gait Assistive Device: FWW w/c behind pt. during gait Exercises Supine Ex: Ankle pumps, Heel Slides, Hip abd/add Supine Reps: 10 Seated Therapy Exercises: Ankle pumps, Long arc quads Seated Reps: 10 Treatments up in recliner after Rx, back brace insitu during rx. Assessment Current Status: Good Progress slow steady progress PT Short Term Goals Short Term Goals Transfers (B,C,W/C) (FIM): 4 PT Communication Manager Goals Communication Manager Goals PT Communication Manager Goals Time Frame: June 20, 2017 Transfers (B,C,W/C) (FIM): 4 PT Plan Treatment/Plan Treatment Plan: Continue Plan of Care Treatment Plan: Bed Mobility, Education, Functional Activity [place], Functional Strength, Safety, Therapeutic Exercise, Transfers Treatment Duration: June 20, 2017 Frequency: 11 times per week Estimated Hrs Per Day: .5 hour per day Patient and/or Family Agrees t: Yes Safety Risks/Education Patient Education: Gait Training, Transfer Techniques, Correct Positioning, Safety Issues Teaching Recipient: Patient Teaching Methods: Demonstration, Discussion Response to Teaching: Verbalize Understanding, Return Demonstration, Reinforcement Needed Time/GCodes Time In: 1130 Time Out: 1150 Total Billed Treatment Time: 20 Total Billed Treatment 1,FA20m G Codes Necessary: KAT Desai PTA Jun 06, 2017 12:00
[2017-06-06] MEDS ORDERED: MAGN400O7 PO (12:13)
[2017-06-06] MEDS ORDERED: POLY17PO23 PO (12:13)
[2017-06-06] MEDS ORDERED: SENN-140 PO (12:13)
[2017-06-06] MEDS ORDERED: DOCU100C37 PO (12:13)
--- NOTE | 2017-06-06 12:15 | Discharge Inst-Skilled Nursing ---
Discharge Inst-Skilled NF Patient Instructions Patient Problems: Extensive spine surgery Severe debility DM Smoker Post op anemia Goal: Return to independent living Consult/Follow Up/Orders Follow Up Appt.: Dr Zuñiga as scheduled PCP in 1 week Skilled NF Admit to: Certification (SNF) I certify that SNF services are required to be given on an inpatient basis because of the above named patient's need for longterm care on a continuing basis for the conditions(s) for which he/she was receiving inpatient hospital services prior to his/her transfer to the SNF. Senior Living Facility Order: Nursing Services, Panelboard Assembler-Evaluate & Treat, Physical Therapy-Evaluate & Treat Discharge Diet: ADA Diet Daily Activity as Tolerated: Yes New & Resume Previous Orders Marisela Menon Jun 06, 2017 12:14 MARISELA MENON DO Jun 06, 2017 12:15
[2017-06-06 16:35] VITALS: BP 142/63
--- NOTE | 2017-06-19 05:06 | Discharge Summary ---
Diagnosis/Chief Complaint Date of Admission Jun 02, 2017 at 05:48 Date of Discharge Jun 06, 2017 at 18:00 Discharge Date: Jun 06, 2017 Discharge Time: 18:00 Admission Diagnosis Admission Diagnosis Lumbar kyphosis pseudarthrosis Deconditioning pseudarthrosis Tobacco abuse peripheral vascular disease coronary artery disease type 2 diabetes mellitus Discharge Diagnosis Lumbar kyphosis pseudarthrosis s/p L4-S1 ALIF, L2-3 anterolateral, L4-5 Lina osteotomy, L3-5 HDWR, L2-Pelvis fusion Deconditioning Post-operative acute blood loss anemia Peripheral vascular disease coronary artery disease type 2 diabetes mellitus Tobacco abuse Reason Hospital Visit low back and bilateral lower extremity pain Discharge Summary Hospital Course Hospital Course Patient was brought to [facility] for scheduled surgical intervention. Post-operatively the patient's hospital course was complicated by her significant preoperative deconditioning. She progressed slowly with PT, and it was recommended that she be discharged to SNF for her needs. She did have post-operative ABL anemia which was treated with 2 units of PRBC. Discharge arrangements were made and she was discharged to SNF on POD #4 Procedures s/p L4-S1 ALIF, L2-3 anterolateral, L4-5 Lina osteotomy, L3-5 HDWR, L2-Pelvis fusion Consultations Dr. Menon Discharge Physical Examination Allergies: Coded Allergies: morphine (Verified Allergy, Severe, ANAPHYLAXIS, 05/07/17) Discharge Home Medications Reviewed and agree with Discharge Medication list on patient's Discharge Instruction sheet Condition at Discharge Stable Instructions to Patient/Family Please see electronic discharge instructions given to patient. Clinical Quality Measures DVT/VTE Risk/Contraindication: Risk Factor Score Per Nursin RFS Level Per Nursing on Admit: 4+=Very High HOUSTON CARDOZO June 19, 2017 05:06
== END 2017-06-06 18:00 | DRG 454 ==
LOC: 4TH 06-02 05:48 → SURG 06-02 05:49 → ICU 06-02 14:53 → 4TH 06-03 16:05
PROVIDERS: ADMIT Orthopaedic Surgery Orthopaedic Surgery of the Spine; ATTEND Orthopaedic Surgery Orthopaedic Surgery of the Spine
PROC: 0SG30A0 Fusion of Lumbosacral Joint with Interbody Fusion Device, Anterior Approach, Anterior Column, Open Approach (ICD-10-PCS; 2017-06-02)
PROC: 0SG1071 Fusion of 2 or more Lumbar Vertebral Joints with Autologous Tissue Substitute, Posterior Approach, Posterior Column, Open Approach (ICD-10-PCS; 2017-06-02)
PROC: 0SG3071 Fusion of Lumbosacral Joint with Autologous Tissue Substitute, Posterior Approach, Posterior Column, Open Approach (ICD-10-PCS; 2017-06-02)
PROC: 0SP004Z Removal of Internal Fixation Device from Lumbar Vertebral Joint, Open Approach (ICD-10-PCS; 2017-06-02)
PROC: 0SG10A0 Fusion of 2 or more Lumbar Vertebral Joints with Interbody Fusion Device, Anterior Approach, Anterior Column, Open Approach (ICD-10-PCS; principal; 2017-06-02 07:25)
DX: M96.3 Postlaminectomy kyphosis (principal); M96.0 Pseudarthrosis after fusion or arthrodesis; T84.216A Breakdown (mechanical) of internal fixation device of vertebrae, initial encounter; M48.061 Spinal stenosis, lumbar region without neurogenic claudication; M54.16 Radiculopathy, lumbar region; D62 Acute posthemorrhagic anemia; E87.2 Acidosis; I25.10 Atherosclerotic heart disease of native coronary artery without angina pectoris; F17.210 Nicotine dependence, cigarettes, uncomplicated; E11.42 Type 2 diabetes mellitus with diabetic polyneuropathy; I10 Essential (primary) hypertension; E86.0 Dehydration; J30.2 Other seasonal allergic rhinitis; K59.03 Drug induced constipation; T40.605A Adverse effect of unspecified narcotics, initial encounter; M19.91 Primary osteoarthritis, unspecified site; F41.9 Anxiety disorder, unspecified; F32.9 Major depressive disorder, single episode, unspecified; I95.9 Hypotension, unspecified; E83.42 Hypomagnesemia; E03.9 Hypothyroidism, unspecified; R53.81 Other malaise; Z98.62 Peripheral vascular angioplasty status; Z96.651 Presence of right artificial knee joint; Z79.4 Long term (current) use of insulin
CPT/HCPCS: 36415; 71045; 72100; 76937; 80048; 80053; 82962; 83605; 83735; 84100; 85014; 85018; 85025; 85027; 85610; 86850; 86900; 86901; 86920; 94664

== ENCOUNTER → 2017-07-02 | Outpatient (CLI) | payer MEDICARE, OTHER, MEDICAID ==
[~2017-07-02] MED LIST changes: +BACL10TA PO; +DOCU100C37 PO; +INSU100V5 SQ; +MAGN400O7 PO; +POLY17PO23 PO; +PREG150C PO; +SENN-140 PO
== END ==
LOC: PREOP 15:22
PROVIDERS: ATTEND Orthopaedic Surgery Orthopaedic Surgery of the Spine
DX: Z01.818 Encounter for other preprocedural examination (principal); M96.3 Postlaminectomy kyphosis; T84.216A Breakdown (mechanical) of internal fixation device of vertebrae, initial encounter

== ENCOUNTER 2017-07-03 13:10 | Inpatient (IN) | payer MEDICARE, OTHER, MEDICAID ==
[~2017-07-03] VITALS: Ht 160 cm; Wt 77.3 kg
[~2017-07-03 13:10] MED LIST changes: -BACL10TA PO; +GENTAMICIN 40 MG/ML 2 ML INJ SDV ONE; -INSU100V5 SQ; -PREG150C PO
--- OUTSIDE RECORDS SUMMARY | 2017-07-03 13:15 | XMS REPORT ---
Author Author Mao Zamora MD Address [address] [place] [phone] Care Team Providers Care Ship Erector Name Role Phone Mao Zamora Unavailable PROBLEMS Type Condition ICD9-CM Code PGQ03-TA Code Onset Dates Condition Status SNOMED Code Problem Low back pain M54.5 Active 076224950 Problem Age-related osteoporosis without current pathological fracture M81.0 Active 637102818 Problem Chronic osteomyelitis with draining sinus, unspecified site M86.40 Active 78966466 Problem skilled nursing (current) use of insulin Z79.4 Active 974282965 Problem Hypothyroidism, unspecified E03.9 Active 80279163 Problem 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, 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 Active 80153142772775912 Problem Type 2 diabetes mellitus with diabetic polyneuropathy E11.42 Active 943188308 Problem Essential (primary) hypertension I10 Active 08804432 ALLERGIES Substance Reaction Event Type Date Status Morphine Sulfate anaphylaxis Drug Allergy May, Active ENCOUNTERS Encounter Location Date Diagnosis Mao Zamora MD [address] [place] [address] May, Type 2 diabetes mellitus with diabetic polyneuropathy E11.42 and Chronic osteomyelitis with draining sinus, unspecified site M86.40 Mao Zamora MD [address] [place] [address] May, Chronic osteomyelitis with draining sinus, unspecified site M86.40 Mao Zamora MD [address] [place] [address] May, Hypothyroidism, unspecified E03.9 ; Type 2 diabetes mellitus with diabetic polyneuropathy E11.42 ; Essential (primary) hypertension I10 ; Chronic osteomyelitis with draining sinus, unspecified site M86.40 ; intermodal customer service (current ) use of insulin Z79.4 and Low back pain M54.5 Mao Zamora MD [address] [place] [address] Apr, Mao Zamora MD [address] [place] [address] Apr, Low back pain M54.5 Mao Zamora MD [address] [place] [phone] Apr, Mao Zamora MD [address] [place] [phone] Mar, Mao Zamora MD [address] [place] [address] Mar, Low back pain M54.5 Mao Zamora MD [address] [place] [phone] Mar, Mao Zamora MD [address] [place] [phone] Feb, Mao Zamora MD [address] [place] [phone] Feb, Low back pain M54.5 and Type 2 diabetes mellitus with diabetic polyneuropathy E11.42 IMMUNIZATIONS No Known Immunizations SOCIAL HISTORY Never Assessed REASON FOR VISIT med check, she needs Rx for Hydrocodone, she has been having night sweats X 1 month PLAN OF CARE Activity Details Follow Up 3 Months Reason: VITAL SIGNS Height 60.5 in 2017-05-21 Weight 156 lbs 2017-05-21 BMI 29.96 kg/m2 2017-05-21 Heart Rate 100 /min 2017-05-21 Oximetry 100 % 2017-05-21 Respiratory Rate 18 /min 2017-05-21 Blood pressure systolic 135 mm Hg 2017-05-21 Blood pressure diastolic 99 mm Hg 2017-05-21 MEDICATIONS Medication Instructions Dosage Frequency Start Date End Date Duration Status Gabapentin 800MG TAKE ONE TABLET BY MOUTH 5 TIMES DAILY. Active NovoLog 100 UNIT/ML Subcutaneous 4 time a day 8U Active Plavix 75 MG Orally Once a day 1 tablet 24h 30 days Active Cymbalta 60 MG Orally twice a day 1 capsule 12h Active Hydrocodone-Acetaminophen 10-325 MG Orally every 4- 6 hrs 1 tablet as needed Feb, Active Diclofenac Sodium 75 MG Orally Twice a day 1 tablet with food or milk 12h Active Amlodipine Besylate 5 MG Orally Once a day 1 tablet 24h Active PEG 3350 - Orally once a day 1 capful 24h Apr, Active Accu-Chek SmartView - In Vitro up to 5 times a day 1 strip May, Active Lantus 100 UNIT/ML Subcutaneous at bedtime 20 U Active Prodigy No Coding Blood Gluc - In Vitro up to 5 time a day 1 strip May Active Cilostazol 50 MG Orally Twice a day 1 tablet 30 minutes before or 2 hours after breakfast and dinner 12h 30 days Active Levothyroxine Sodium 150 MCG Orally Once a day 1 tablet on an empty stomach in the morning 24h Active Hydrocodone-Acetaminophen 10-325 MG Orally every 6 hrs 1 tablet 6h June, 30 days Active RESULTS Name Result Date Reference Range COMPLETE BLOOD COUNT 2017-05-21 WBC 4.4 4.3-11.0 RBC 3.98 3.93-5.19 Hemoglobin 12.9 11.6-15.9 Hematocrit 37.5 35.7-47.8 MCV 94.2 83.2-100.5 MCH 32.4 26.8-33.3 MCHC 34.4 30.9-34.7 Platelet Count 286 170-422 Mean Plt Volume 9.9 9.5-12.9 RDW 13.5 12.2-15.3 RDW-SD 45.3 40.1-52.1 Neut Auto 60.7 Lymph Auto 27.8 [place] Auto 10.1 Eos Auto 1.4 Baso Auto 0.0 Neutrophil Abs 2.67 1.80-7.80 Lymphocyte Abs 1.22 1.00-4.00 Monocyte Abs 0.44 0.20-1.00 Eosinophil Abs 0.06 0.00-0.45 Basophil Abs 0.00 0.00-0.20 THYROID STIMULATING HORMONE 2017-05-21 TSH 0.854 0.300-5.000 HEMOGLOBIN A1C (GLYCOSYLATED) 2017-05-21 Hgb A1c 6.8 4.0-5.6 COMPREHENSIVE METABOLIC 2017-05-21 Glucose 294 70-100 Creatinine 1.00 0.50-1.30 BUN 32 5-24 Sodium 134 135-145 Potassium 6.1 3.5-5.5 Chloride 97 96-108 Bicarbonate 24 18-30 AGAP 13 5-16 Calcium 9.8 8.5-10.5 AST 17 0-40 ALT 13 0-30 Alk Phos 84 40-123 Albumin 4.8 3.8-4.8 Bili Total 0.2 0.1-1.3 Total Protein 7.1 6.4-8.2 X ray : Mandible 2017-05-22 PROCEDURES No Known procedures INSTRUCTIONS MEDICATIONS ADMINISTERED No Known Medications MEDICAL (GENERAL) HISTORY Type Description Date Medical History Type 2 diabetes mellitus with diabetic polyneuropathy Medical History Essential (primary) hypertension Medical History Hypothyroidism, unspecified Medical History 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
--- OUTSIDE RECORDS SUMMARY | 2017-07-03 13:16 | XMS REPORT ---
Author Author Mao Zamora MD Address [address] [place] [phone] Care Team Providers Care Wrapper Stemmer Operator Name Role Phone Mao Zamora Unavailable PROBLEMS Type Condition ICD9-CM Code JII03-LA Code Onset Dates Condition Status SNOMED Code Problem Low back pain M54.5 Active 125652878 Problem Age-related osteoporosis without current pathological fracture M81.0 Active 656594912 Problem Chronic osteomyelitis with draining sinus, unspecified site M86.40 Active 87883824 Problem [facility] (current) use of insulin Z79.4 Active 250567506 Problem Hypothyroidism, unspecified E03.9 Active 76458513 Problem Atherosclerosis of [place] arteries of extremities with intermittent claudication, 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 Active 71541835256863943 Problem Type 2 diabetes mellitus with diabetic polyneuropathy E11.42 Active 823620664 Problem Essential (primary) hypertension I10 Active 47291454 ALLERGIES No Information ENCOUNTERS Encounter Location Date Diagnosis Mao Zamora MD [address] [place] [phone] June, Mao Zamora MD [address] [place] [phone] June, Mao Zamora MD [address] [place] [phone] May, Mao Zamora MD [address] [place] [phone] May, Type 2 diabetes mellitus with diabetic polyneuropathy E11.42 and Chronic osteomyelitis with draining sinus, unspecified site M86.40 Mao Zamora MD [address] [place] [phone] May, Chronic osteomyelitis with draining sinus, unspecified site M86.40 Mao Zamora MD [address] [place] [phone] May, Hypothyroidism, unspecified E03.9 ; Type 2 diabetes mellitus with diabetic polyneuropathy E11.42 ; Essential (primary) hypertension I10 ; Chronic osteomyelitis with draining sinus, unspecified site M86.40 ; M[facility] (current ) use of insulin Z79.4 and Low back pain M54.5 Mao Zamora MD [address] [place] [address] Apr, Mao Zamora MD [address] [place] [phone] Apr, Low back pain M54.5 Mao Zamora MD [address] [place] [phone] Apr, Mao Zamora MD [address] [place] [phone] Mar, Mao Zamora MD [address] [place] [phone] Mar, Low back pain M54.5 Mao Zamora MD [address] [place] [phone] Mar, Mao Zamora MD [address] [place] [phone] Feb, Mao Zamora MD [address] [place] [phone] Feb, Low back pain M54.5 and Type 2 diabetes mellitus with diabetic polyneuropathy E11.42 IMMUNIZATIONS No Known Immunizations SOCIAL HISTORY Never Assessed REASON FOR VISIT no reflief PLAN OF CARE VITAL SIGNS MEDICATIONS Unknown Medications RESULTS No Results PROCEDURES No Known procedures INSTRUCTIONS MEDICATIONS ADMINISTERED No Known Medications MEDICAL (GENERAL) HISTORY Type Description Date Medical History Type 2 diabetes mellitus with diabetic polyneuropathy Medical History Essential (primary) hypertension Medical History Hypothyroidism, unspecified Medical History Atherosclerosis of [place] arteries of extremities with intermittent claudication, right leg Medical History Age-related osteoporosis without current pathological fracture Surgical History lumbar spine Surgical History ORIF R shoulder (twice) Surgical History fem-pop bypass, bilateral Surgical History R TKR Hospitalization History Multiple surgeries Hospitalization History Pneumonia at least once
--- OUTSIDE RECORDS SUMMARY | 2017-07-03 13:17 | XMS REPORT | CCD ---
Author Author ARMOND ALVARADO Unknown Address [address] [place] [address] Care Team Providers Care Director Of Hemophilia Name Role Phone JAVIER VARGAS, ISABELA VERAS Attphys F., VERENA NASST W., SASKIA NASST M., SAMMY NASST S., ALVIN NASST D., JOEL NASST A., CONCEPCION ASKEW NASST K., CATARINA Otero NASST A., FAITH NASST L., MEDINA NASST R., SERENE NASST M., REGAN Pérez NASST F., JEB Otero NASST S., ANABEL NASST Allergies Allergy Code Allergy Type Reaction Status PROCHLORPERAZINE 8704 Drug allergy Active THIOTHIXENE 17670 Drug allergy Active MORPHINE 7052 Drug allergy ANAPHYLAXIS Active Active Medications Medication Code Dose Units Frequency Route Modification Start Date/Time Cymbalta 60MG Oral Capsule, Delayed Release 489961 60 MILLIGRAMS TWO TIMES A DAY ORAL 09/23/2016 11:38 Prescription Detail 60 MILLIGRAMS ORAL TWO TIMES A DAY HYDROcodone bitartrate-acetaminophen 10MG-325MG Oral Tablet 590108 1 TABLET NEEDED EVERY 4 HR BY MOUTH 09/23/2016 11:38 Prescription Detail 1 TABLET BY MOUTH NEEDED EVERY 4 HR Losartan Potassium 50MG Oral Tablet 041801 50 MILLIGRAMS DAILY ORAL 09/23/2016 11:38 Prescription Detail 50 MILLIGRAMS ORAL DAILY [place] 5MG-325MG Oral Tablet 057697 1 EACH NEEDED EVERY 4 HR ORAL 09/23/2016 11:38 Prescription Detail 1 EACH ORAL NEEDED EVERY 4 HR traMADol HCl 50MG Oral Tablet 254514 50 MILLIGRAMS FOUR TIMES A DAY BY MOUTH 09/23/2016 11:38 Prescription Detail 50 MILLIGRAMS BY MOUTH FOUR TIMES A DAY Polyethylene Glycol 3350 17GM/1Dose Oral Powder for Solution 841650 17 GRAM BEDTIME BY MOUTH 09/23/2016 11: 37 Prescription Detail 17 GRAM BY MOUTH BEDTIME Thera-M Enhanced 90MG-0.03MG-0.15MG-4 Oral Tablet 600238 1 TABLET DAILY BY MOUTH 09/23/2016 11:37 Prescription Detail 1 TABLET BY MOUTH DAILY Nicotine Transdermal System 14MG/24HR Transdermal Patch, Extended Release 012488 14 MILLIGRAMS DAILY TOPICAL APPLICATION 09/23/2016 11:36 Prescription Detail 14 MILLIGRAMS TOPICAL APPLICATION DAILY Protonix 40MG Oral Tablet, Enteric Coated 671642 40 MILLIGRAMS DAILY BY MOUTH 09/23/2016 11:36 Prescription Detail 40 MILLIGRAMS BY MOUTH DAILY Acetaminophen 325MG Oral Tablet 024444 650 MILLIGRAMS NEEDED BY MOUTH 09/23/2016 11:35 Prescription Detail 650 MILLIGRAMS BY MOUTH NEEDED Docusate Sodium 100MG Oral Capsule, Liquid Filled 0985164 100 MILLIGRAMS TWO TIMES A DAY BY MOUTH 2016 11:35 Prescription Detail 100 MILLIGRAMS BY MOUTH TWO TIMES A DAY Levemir 100U/1ML Subcutaneous Solution 458602 15 UNIT AT BEDTIME SUBCUTANEOUS 09/23/2016 11:35 Prescription Detail 15 UNIT SUBCUTANEOUS AT BEDTIME NovoLOG 100U/1ML Subcutaneous Solution 729969 Per Protocol Unit(s) As Needed SUBCUTANEOUS 09/23/2016 11:35 Prescription Detail Per Protocol Unit(s) SUBCUTANEOUS As Needed Phenaseptic 1.4% Oromucosal [place] 702558 1 EACH NEEDED TOPICAL APPLICATION 09/23/2016 11:35 Prescription Detail 1 EACH TOPICAL APPLICATION NEEDED Vitamin C 500MG Oral Tablet 435246 500 MILLIGRAMS DAILY BY MOUTH 09/23/2016 11:35 Prescription Detail 500 MILLIGRAMS BY MOUTH DAILY Vitamin D 16640ZY Oral Capsule, Liquid Filled 2060385 1 EACH WEEKLY BY MOUTH 09/12/2016 10:29 Prescription Detail 1 EACH BY MOUTH WEEKLY x 8 WEEKS Aspirin 325MG Oral Tablet, Enteric Coated 932994 325 MILLIGRAMS TWO TIMES A DAY BY MOUTH 09/12/2016 10: 28 Prescription Detail 325 MILLIGRAMS BY MOUTH TWO TIMES A DAY X 2 WEEKS dilTIAZem CD 240MG Oral Capsule, Extended Release, 24 HR 311519 240 MILLIGRAMS DAILY BY MOUTH 09/12/2016 10 :28 Prescription Detail 240 MILLIGRAMS BY MOUTH DAILY Gabapentin 800MG Oral Tablet 471453 800 MILLIGRAMS FIVE TIMES A DAY ORAL 01/15/2016 11:45 Prescription Detail 800 MILLIGRAMS ORAL FIVE TIMES A DAY Levothyroxine 150MCG Oral Tablet 701813 150 MCG DAILY ORAL 01/15/2016 11:45 Prescription Detail 150 MCG ORAL DAILY Plavix 75MG Oral Tablet 658538 75 MILLIGRAMS DAILY ORAL 01/15/2016 11:45 Prescription Detail 75 MILLIGRAMS ORAL DAILY Problems Problem Code Start Date Resolved Date Status Periprosthetic fracture around internal prosthetic right shoulder joint, initial encounter 930937362 09/06/2016 Active Pain in arm 044002179 09/06/2016 Active Procedures Procedure Code Procedure Type Date PT ELECTRICAL STIM; UNATTENDED 56462017 SNOMED CT 2016 PT NEUROMUSC REEDUCATION EA [address] PT THERAPEUTIC ACT. ONE ON ONE EA [address] 09/23/2016 PT THERAPEUTIC EXERCISES [address] 2016 PT THERAPEUTIC EXERCISES [address] 2016 PT THERAPEUTIC ACT. ONE ON ONE EA [address] 09/23/2016 OT ADL TRAINING/POSITIONING EA 15MIN 512466012 SNOMED CT 09/23/2016 PT THERAPEUTIC EXERCISES [address] 2016 PT THERAPEUTIC ACT. ONE ON ONE EA [address] 09/19/2016 PT THERAPEUTIC EXERCISES [address] 2016 US VENOUS UPP OR LOW EXT BILATERAL 875272526 SNOMED CT 09/2016 BEDSIDE GLUCOSE 77083844 SNOMED CT 09/24/2016 BEDSIDE GLUCOSE 75707934 SNOMED CT 09/23/2016 BEDSIDE GLUCOSE 12067529 SNOMED CT 09/23/2016 BEDSIDE GLUCOSE 37123470 SNOMED CT 09/23/2016 BEDSIDE GLUCOSE 95505727 SNOMED CT 09/23/2016 BEDSIDE GLUCOSE 12825360 SNOMED CT 09/23/2016 BEDSIDE GLUCOSE 21678426 SNOMED CT 09/22/2016 BEDSIDE GLUCOSE 25022066 SNOMED CT 09/22/2016 BASIC METABOLIC PANEL 004460636 SNOMED CT 09/23/2016 CBC W/ AUTO DIFF (RFLX MAN DIFF IF IND) 0947159 SNOMED CT 09/23/2016 BEDSIDE GLUCOSE 45907553 SNOMED CT 09/22/2016 BEDSIDE GLUCOSE 76347094 SNOMED CT 09/22/2016 BEDSIDE GLUCOSE 80416074 SNOMED CT 09/22/2016 BEDSIDE GLUCOSE 00652297 SNOMED CT 09/21/2016 BEDSIDE GLUCOSE 43215510 SNOMED CT 09/21/2016 BEDSIDE GLUCOSE 13618299 SNOMED CT 09/21/2016 BEDSIDE GLUCOSE 97639844 SNOMED CT 09/21/2016 BEDSIDE GLUCOSE 93116726 SNOMED CT 09/21/2016 BEDSIDE GLUCOSE 50207310 SNOMED CT 09/21/2016 BEDSIDE GLUCOSE 84800219 SNOMED CT 09/20/2016 BEDSIDE GLUCOSE 20767757 SNOMED CT 09/20/2016 BEDSIDE GLUCOSE 24388523 SNOMED CT 09/20/2016 BEDSIDE GLUCOSE 33349446 SNOMED CT 09/20/2016 BEDSIDE GLUCOSE 37629163 SNOMED CT 09/19/2016 BEDSIDE GLUCOSE 84407899 SNOMED CT 09/19/2016 BEDSIDE GLUCOSE 28752790 SNOMED CT 09/19/2016 BEDSIDE GLUCOSE 82368753 SNOMED CT 09/19/2016 BEDSIDE GLUCOSE 19224236 SNOMED CT 09/18/2016 BEDSIDE GLUCOSE 77214612 SNOMED CT 09/18/2016 BASIC METABOLIC PANEL 268773702 SNOMED CT 09/19/2016 CBC W/ AUTO DIFF (RFLX MAN DIFF IF IND) 8875289 SNOMED CT 09/19/2016 BEDSIDE GLUCOSE 63506199 SNOMED CT 09/18/2016 BEDSIDE GLUCOSE 46888835 SNOMED CT 09/18/2016 BEDSIDE GLUCOSE 21534009 SNOMED CT 09/18/2016 BEDSIDE GLUCOSE 96513914 SNOMED CT 09/17/2016 BEDSIDE GLUCOSE 56023316 SNOMED CT 09/17/2016 BEDSIDE GLUCOSE 44915940 SNOMED CT 09/17/2016 BEDSIDE GLUCOSE 31190473 SNOMED CT 09/17/2016 BEDSIDE GLUCOSE 01608149 SNOMED CT 09/17/2016 BEDSIDE GLUCOSE 07623594 SNOMED CT 09/17/2016 BEDSIDE GLUCOSE 70072959 SNOMED CT 09/17/2016 BEDSIDE GLUCOSE 46014358 SNOMED CT 09/16/2016 BEDSIDE GLUCOSE 15333656 SNOMED CT 09/16/2016 BEDSIDE GLUCOSE 03526671 SNOMED CT 09/16/2016 BEDSIDE GLUCOSE 80558504 SNOMED CT 09/16/2016 BEDSIDE GLUCOSE 37166428 SNOMED CT 09/16/2016 BEDSIDE GLUCOSE 00517983 SNOMED CT 09/16/2016 BEDSIDE GLUCOSE 89312756 SNOMED CT 09/16/2016 BEDSIDE GLUCOSE 52869384 SNOMED CT 09/15/2016 BEDSIDE GLUCOSE 30791450 SNOMED CT 09/15/2016 BEDSIDE GLUCOSE 76345832 SNOMED CT 09/15/2016 BEDSIDE GLUCOSE 39395301 SNOMED CT 09/15/2016 BEDSIDE GLUCOSE 85384815 SNOMED CT 09/15/2016 BEDSIDE GLUCOSE 42414950 SNOMED CT 09/15/2016 BEDSIDE GLUCOSE 31611196 SNOMED CT 09/15/2016 BEDSIDE GLUCOSE 43768887 SNOMED CT 09/14/2016 BEDSIDE GLUCOSE 24965038 SNOMED CT 09/14/2016 BEDSIDE GLUCOSE 80793900 SNOMED CT 09/14/2016 CBC W/ AUTO DIFF (RFLX MAN DIFF IF IND) 0517059 SNOMED CT 09/15/2016 BASIC METABOLIC PANEL 558454646 SNOMED CT 09/15/2016 BEDSIDE GLUCOSE 33730672 SNOMED CT 09/14/2016 BEDSIDE GLUCOSE 78343899 SNOMED CT 09/13/2016 BEDSIDE GLUCOSE 17005192 SNOMED CT 09/13/2016 BEDSIDE GLUCOSE 07498638 SNOMED CT 09/13/2016 BEDSIDE GLUCOSE 80664249 SNOMED CT 09/13/2016 BEDSIDE GLUCOSE 76245019 SNOMED CT 09/13/2016 BEDSIDE GLUCOSE 32889245 SNOMED CT 09/13/2016 BEDSIDE GLUCOSE 12008816 SNOMED CT 09/12/2016 BEDSIDE GLUCOSE 97627840 SNOMED CT 09/12/2016 CBC W/ AUTO DIFF (RFLX MAN DIFF IF IND) 7849151 SNOMED CT 09/13/2016 PT THERAPEUTIC ACT. ONE ON ONE EA [address] 09/20/2016 PT THERAPEUTIC EXERCISES [address] 2016 OT THERAPEUTIC ACT. ONE ON ONE EA [address] 09/20/2016 OT THERAPEUTIC ACT. ONE ON ONE EA [address] 09/20/2016 OT THERAPEUTIC EXERCISES [address] 2016 PT THERAPEUTIC ACT. ONE ON ONE EA [address] 09/18/2016 OT ADL TRAINING/POSITIONING EA 15MIN 910917563 SNOMED CT 09/19/2016 OT THERAPEUTIC EXERCISES [address] 2016 PT THERAPEUTIC EXERCISES [address] 2016 PT GAIT TRAINING/STAIRS EA [address] 09/18 OT THERAPEUTIC ACT. ONE ON ONE EA [address] 09/18/2016 OT ADL TRAINING/POSITIONING EA 15MIN 017500082 SNOMED CT 09/18/2016 OT THERAPEUTIC ACT. ONE ON ONE EA [address] 09/18/2016 OT THERAPEUTIC EXERCISES [address] 2016 PT ELEC STIM CONST ATTEN;PER AREA EA 15M 31868802 SNOMED [address] 09/17/2016 PT THERAPEUTIC ACT. ONE ON ONE EA [address] 09/17/2016 PT GAIT TRAINING/STAIRS EA [address] 09/17 OT APPL OF MULTI-LAYER COMPRESSION SYSTE 913494093 SNOMED CT 09/17/2016 OT THERAPEUTIC ACT. ONE ON ONE EA [address] 09/17/2016 OT ADL TRAINING/POSITIONING EA 15MIN 421031792 SNOMED CT 09/17/2016 PT ELEC STIM CONST ATTEN;PER AREA EA [address] SNOM[address] 09/13/2016 PT NEUROMUSC REEDUCATION EA [address] 05/2016 OT ADL TRAINING/POSITIONING EA 15MIN 744215530 SNOMED CT 09/16/2016 OT THERAPEUTIC ACT. ONE ON ONE EA [address] 09/16/2016 OT THERAPEUTIC EXERCISES [address] 2016 PT ELEC STIM CONST ATTEN;PER AREA EA [address] SN[address] 09/16/2016 PT THERAPEUTIC ACT. ONE ON ONE EA [address] 09/16/2016 PT THERAPEUTIC EXERCISES [address] 2016 PT SOFT TISSUE MOBILIZATION-[address] 08/2016 PT GAIT TRAINING/STAIRS EA [address] 09/16 OT APPL OF MULTI-LAYER COMPRESSION SYSTE 308782076 SNOMED CT 09/16/2016 PT THERAPEUTIC ACT. ONE ON ONE EA [address] 09/13/2016 PT THERAPEUTIC EXERCISES [address] 2016 PT GAIT TRAINING/STAIRS EA [address] 09/13 OT SOFT TISSUE MOBILIZATION-EA [address] 09/13/2016 OT ADL TRAINING/POSITIONING EA 15MIN 357878276 SNOMED CT 09/13/2016 PT THERAPEUTIC ACT. ONE ON ONE EA [address] 09/12/2016 PT EVALUATION; MOD 293308759 SNOMED CT 09/12/2016 OT ADL TRAINING/POSITIONING EA 15MIN 002892864 SNOMED CT 09/12/2016 OT EVAL; LOW 446043898 SNOMED CT 09/12/2016 PT EVALUATION 874355877 SNOMED CT 09/12/2016 OT EVALUATION 804794658 SNOMED CT 09/12/2016 ^CBC W/ MANUAL DIFF 14625244 SNOMED CT 09/23/2016 ^CBC W/AUTO DIFF 1718948 SNOMED CT 09/19/2016 ^CBC W/AUTO DIFF 5370380 SNOMED CT 09/15/2016 ^CBC W/AUTO DIFF 3426041 SNOMED CT 09/13/2016 BAN AERO ECLIPSE TREATMENT 84253055 SNOMED CT 09/18/2016 BAN AERO ECLIPSE TREATMENT 66536389 SNOMED CT 09/16/2016 BAN AERO ECLIPSE TREATMENT 84131001 SNOMED CT 09/15/2016 BAN AERO ECLIPSE TREATMENT 25873870 SNOMED CT 09/14/2016 BAN AERO ECLIPSE TREATMENT 39771916 SNOMED CT 09/14/2016 BAN AERO ECLIPSE TREATMENT 95598461 SNOMED CT 09/13/2016 BAN AERO ECLIPSE TREATMENT 52767082 SNOMED CT 09/13/2016 BAN AERO ECLIPSE TREATMENT 02309748 SNOMED CT 09/12/2016 Results BASIC METABOLIC PANEL - Collect Date/Time: 09/23/2016 05:40 Test Name Code Test Result Test Units Test Ref Range GLUCOSE 2345-7 129 MG/DL L=70 H=100 SODIUM 2951-2 136 MEQ/L L=135 H=148 POTASSIUM 2823-3 4.2 MEQ/L L=3.5 H=5.3 CHLORIDE 2075-0 99 MEQ/L L=96 H=110 CO2 2028-9 28 MEQ/L L=22 H=29 BUN 3094-0 23 MG/DL L=8 H=22 CREATININE 2160-0 0.8 MG/DL L=0.6 H=1.6 CALCIUM 34983-6 8.9 MG/DL L=8.2 H=10.6 AGE [address]38-[age] yrs GFR NonAA 07868-7 70 GFR AA 42813-1 85 eGFR 85303-4 >60 N/A eGFR AA* 38669-9 >60 N/A BASIC METABOLIC PANEL - Collect Date/Time: 09/19/2016 06:00 Test Name Code Test Result Test Units Test Ref Range GLUCOSE 2345-7 131 MG/DL L=70 H=100 SODIUM 2951-2 137 MEQ/L L=135 H=148 POTASSIUM 2823-3 4.5 MEQ/L L=3.5 H=5.3 CHLORIDE 2075-0 97 MEQ/L L=96 H=110 CO2 2028-9 33 MEQ/L L=22 H=29 BUN 3094-0 12 MG/DL L=8 H=22 CREATININE 2160-0 0.7 MG/DL L=0.6 H=1.6 CALCIUM 30476-6 9.0 MG/DL L=8.2 H=10.6 AGE 28212-8 71 yrs GFR NonAA 63986-6 82 GFR AA 89100-9 99 eGFR 67063-6 >60 N/A eGFR AA* 17715-6 >60 N/A BASIC METABOLIC PANEL - Collect Date/Time: 09/15/2016 06:20 Test Name Code Test Result Test Units Test Ref Range GLUCOSE 2345-7 45 MG/DL L=70 H=100 SODIUM 2951-2 136 MEQ/L L=135 H=148 POTASSIUM 2823-3 4.2 MEQ/L L=3.5 H=5.3 CHLORIDE 2075-0 98 MEQ/L L=96 H=110 CO2 2028-9 29 MEQ/L L=22 H=29 BUN 3094-0 17 MG/DL L=8 H=22 CREATININE 2160-0 0.7 MG/DL L=0.6 H=1.6 CALCIUM 82398-5 9.3 MG/DL L=8.2 H=10.6 AGE [address]4319-6 71 yrs GFR NonAA 43996-0 82 GFR AA 69007-0 99 eGFR 32761-8 >60 N/A eGFR AA* 78108-1 >60 N/A BEDSIDE GLUCOSE - Collect Date/Time: 09/24/2016 05:02 Test Name Code Test Result Test Units Test Ref Range GLUCOSE POCT 188 MG/DL L=70 H=100 BEDSIDE GLUCOSE - Collect Date/Time: 09/23/2016 21:04 Test Name Code Test Result Test Units Test Ref Range GLUCOSE POCT 124 MG/DL L=70 H=100 BEDSIDE GLUCOSE - Collect Date/Time: 09/23/2016 17:05 Test Name Code Test Result Test Units Test Ref Range GLUCOSE POCT 257 MG/DL L=70 H=100 BEDSIDE GLUCOSE - Collect Date/Time: 09/23/2016 12:12 Test Name Code Test Result Test Units Test Ref Range GLUCOSE POCT 209 MG/DL L=70 H=100 BEDSIDE GLUCOSE - Collect Date/Time: 09/23/2016 05:47 Test Name Code Test Result Test Units Test Ref Range GLUCOSE POCT 125 MG/DL L=70 H=100 BEDSIDE GLUCOSE - Collect Date/Time: 09/23/2016 00:12 Test Name Code Test Result Test Units Test Ref Range GLUCOSE POCT 187 MG/DL L=70 H=100 BEDSIDE GLUCOSE - Collect Date/Time: 09/22/2016 20:35 Test Name Code Test Result Test Units Test Ref Range GLUCOSE POCT 267 MG/DL L=70 H=100 BEDSIDE GLUCOSE - Collect Date/Time: 09/22/2016 16:53 Test Name Code Test Result Test Units Test Ref Range GLUCOSE POCT 172 MG/DL L=70 H=100 BEDSIDE GLUCOSE - Collect Date/Time: 09/22/2016 11:58 Test Name Code Test Result Test Units Test Ref Range GLUCOSE POCT 263 MG/DL L=70 H=100 BEDSIDE GLUCOSE - Collect Date/Time: 09/22/2016 08:11 Test Name Code Test Result Test Units Test Ref Range GLUCOSE POCT 79 MG/DL L=70 H=100 BEDSIDE GLUCOSE - Collect Date/Time: 09/22/2016 03:57 Test Name Code Test Result Test Units Test Ref Range GLUCOSE POCT 142 MG/DL L=70 H=100 BEDSIDE GLUCOSE - Collect Date/Time: 09/21/2016 23:49 Test Name Code Test Result Test Units Test Ref Range GLUCOSE POCT 243 MG/DL L=70 H=100 BEDSIDE GLUCOSE - Collect Date/Time: 09/21/2016 21:57 Test Name Code Test Result Test Units Test Ref Range GLUCOSE POCT 366 MG/DL L=70 H=100 BEDSIDE GLUCOSE - Collect Date/Time: 09/21/2016 20:41 Test Name Code Test Result Test Units Test Ref Range GLUCOSE POCT 399 MG/DL L=70 H=100 BEDSIDE GLUCOSE - Collect Date/Time: 09/21/2016 16:46 Test Name Code Test Result Test Units Test Ref Range GLUCOSE POCT 111 MG/DL L=70 H=100 BEDSIDE GLUCOSE - Collect Date/Time: 09/21/2016 11:47 Test Name Code Test Result Test Units Test Ref Range GLUCOSE POCT 197 MG/DL L=70 H=100 BEDSIDE GLUCOSE - Collect Date/Time: 09/21/2016 05:33 Test Name Code Test Result Test Units Test Ref Range GLUCOSE POCT 278 MG/DL L=70 H=100 BEDSIDE GLUCOSE - Collect Date/Time: 09/20/2016 21:47 Test Name Code Test Result Test Units Test Ref Range GLUCOSE POCT 190 MG/DL L=70 H=100 BEDSIDE GLUCOSE - Collect Date/Time: 09/20/2016 17:32 Test Name Code Test Result Test Units Test Ref Range GLUCOSE POCT 214 MG/DL L=70 H=100 BEDSIDE GLUCOSE - Collect Date/Time: 09/20/2016 11:55 Test Name Code Test Result Test Units Test Ref Range GLUCOSE POCT 202 MG/DL L=70 H=100 BEDSIDE GLUCOSE - Collect Date/Time: 09/20/2016 05:25 Test Name Code Test Result Test Units Test Ref Range GLUCOSE POCT 156 MG/DL L=70 H=100 BEDSIDE GLUCOSE - Collect Date/Time: 09/19/2016 21:00 Test Name Code Test Result Test Units Test Ref Range GLUCOSE POCT 204 MG/DL L=70 H=100 BEDSIDE GLUCOSE - Collect Date/Time: 09/19/2016 16:57 Test Name Code Test Result Test Units Test Ref Range GLUCOSE POCT 149 MG/DL L=70 H=100 BEDSIDE GLUCOSE - Collect Date/Time: 09/19/2016 11:28 Test Name Code Test Result Test Units Test Ref Range GLUCOSE POCT 211 MG/DL L=70 H=100 BEDSIDE GLUCOSE - Collect Date/Time: 09/19/2016 06:05 Test Name Code Test Result Test Units Test Ref Range GLUCOSE POCT 136 MG/DL L=70 H=100 BEDSIDE GLUCOSE - Collect Date/Time: 09/18/2016 20:39 Test Name Code Test Result Test Units Test Ref Range GLUCOSE POCT 229 MG/DL L=70 H=100 BEDSIDE GLUCOSE - Collect Date/Time: 09/18/2016 16:32 Test Name Code Test Result Test Units Test Ref Range GLUCOSE POCT 94 MG/DL L=70 H=100 BEDSIDE GLUCOSE - Collect Date/Time: 09/18/2016 11:39 Test Name Code Test Result Test Units Test Ref Range GLUCOSE POCT 353 MG/DL L=70 H=100 BEDSIDE GLUCOSE - Collect Date/Time: 09/18/2016 06:11 Test Name Code Test Result Test Units Test Ref Range GLUCOSE POCT 74 MG/DL L=70 H=100 BEDSIDE GLUCOSE - Collect Date/Time: 09/18/2016 05:37 Test Name Code Test Result Test Units Test Ref Range GLUCOSE POCT 60 MG/DL L=70 H=100 BEDSIDE GLUCOSE - Collect Date/Time: 09/17/2016 20:43 Test Name Code Test Result Test Units Test Ref Range GLUCOSE POCT 238 MG/DL L=70 H=100 BEDSIDE GLUCOSE - Collect Date/Time: 09/17/2016 16:36 Test Name Code Test Result Test Units Test Ref Range GLUCOSE POCT 276 MG/DL L=70 H=100 BEDSIDE GLUCOSE - Collect Date/Time: 09/17/2016 11:45 Test Name Code Test Result Test Units Test Ref Range GLUCOSE POCT 219 MG/DL L=70 H=100 BEDSIDE GLUCOSE - Collect Date/Time: 09/17/2016 06:25 Test Name Code Test Result Test Units Test Ref Range GLUCOSE POCT 106 MG/DL L=70 H=100 BEDSIDE GLUCOSE - Collect Date/Time: 09/17/2016 05:48 Test Name Code Test Result Test Units Test Ref Range GLUCOSE POCT 83 MG/DL L=70 H=100 BEDSIDE GLUCOSE - Collect Date/Time: 09/17/2016 05:15 Test Name Code Test Result Test Units Test Ref Range GLUCOSE POCT 46 MG/DL L=70 H=100 BEDSIDE GLUCOSE - Collect Date/Time: 09/17/2016 01:09 Test Name Code Test Result Test Units Test Ref Range GLUCOSE POCT 276 MG/DL L=70 H=100 BEDSIDE GLUCOSE - Collect Date/Time: 09/16/2016 20:35 Test Name Code Test Result Test Units Test Ref Range GLUCOSE POCT 174 MG/DL L=70 H=100 BEDSIDE GLUCOSE - Collect Date/Time: 09/16/2016 16:28 Test Name Code Test Result Test Units Test Ref Range GLUCOSE POCT 266 MG/DL L=70 H=100 BEDSIDE GLUCOSE - Collect Date/Time: 09/16/2016 14:55 Test Name Code Test Result Test Units Test Ref Range GLUCOSE POCT 160 MG/DL L=70 H=100 BEDSIDE GLUCOSE - Collect Date/Time: 09/16/2016 11:36 Test Name Code Test Result Test Units Test Ref Range GLUCOSE POCT 132 MG/DL L=70 H=100 BEDSIDE GLUCOSE - Collect Date/Time: 09/16/2016 09:59 Test Name Code Test Result Test Units Test Ref Range GLUCOSE POCT 272 MG/DL L=70 H=100 BEDSIDE GLUCOSE - Collect Date/Time: 09/16/2016 05:54 Test Name Code Test Result Test Units Test Ref Range GLUCOSE POCT 96 MG/DL L=70 H=100 BEDSIDE GLUCOSE - Collect Date/Time: 09/16/2016 02:59 Test Name Code Test Result Test Units Test Ref Range GLUCOSE POCT 179 MG/DL L=70 H=100 BEDSIDE GLUCOSE - Collect Date/Time: 09/15/2016 23:39 Test Name Code Test Result Test Units Test Ref Range GLUCOSE POCT 178 MG/DL L=70 H=100 BEDSIDE GLUCOSE - Collect Date/Time: 09/15/2016 20:55 Test Name Code Test Result Test Units Test Ref Range GLUCOSE POCT 279 MG/DL L=70 H=100 BEDSIDE GLUCOSE - Collect Date/Time: 09/15/2016 19:19 Test Name Code Test Result Test Units Test Ref Range GLUCOSE POCT 353 MG/DL L=70 H=100 BEDSIDE GLUCOSE - Collect Date/Time: 09/15/2016 16:31 Test Name Code Test Result Test Units Test Ref Range GLUCOSE POCT 66 MG/DL L=70 H=100 BEDSIDE GLUCOSE - Collect Date/Time: 09/15/2016 11:29 Test Name Code Test Result Test Units Test Ref Range GLUCOSE POCT 297 MG/DL L=70 H=100 BEDSIDE GLUCOSE - Collect Date/Time: 09/15/2016 07:11 Test Name Code Test Result Test Units Test Ref Range GLUCOSE POCT 71 MG/DL L=70 H=100 BEDSIDE GLUCOSE - Collect Date/Time: 09/15/2016 06:29 Test Name Code Test Result Test Units Test Ref Range GLUCOSE POCT 66 MG/DL L=70 H=100 BEDSIDE GLUCOSE - Collect Date/Time: 09/14/2016 21:06 Test Name Code Test Result Test Units Test Ref Range GLUCOSE POCT 298 MG/DL L=70 H=100 BEDSIDE GLUCOSE - Collect Date/Time: 09/14/2016 16:52 Test Name Code Test Result Test Units Test Ref Range GLUCOSE POCT 167 MG/DL L=70 H=100 BEDSIDE GLUCOSE - Collect Date/Time: 09/14/2016 11:41 Test Name Code Test Result Test Units Test Ref Range GLUCOSE POCT 238 MG/DL L=70 H=100 BEDSIDE GLUCOSE - Collect Date/Time: 09/14/2016 05:08 Test Name Code Test Result Test Units Test Ref Range GLUCOSE POCT 281 MG/DL L=70 H=100 BEDSIDE GLUCOSE - Collect Date/Time: 09/13/2016 20:55 Test Name Code Test Result Test Units Test Ref Range GLUCOSE POCT 258 MG/DL L=70 H=100 BEDSIDE GLUCOSE - Collect Date/Time: 09/13/2016 16:37 Test Name Code Test Result Test Units Test Ref Range GLUCOSE POCT 196 MG/DL L=70 H=100 BEDSIDE GLUCOSE - Collect Date/Time: 09/13/2016 14:55 Test Name Code Test Result Test Units Test Ref Range GLUCOSE POCT 116 MG/DL L=70 H=100 BEDSIDE GLUCOSE - Collect Date/Time: 09/13/2016 12:04 Test Name Code Test Result Test Units Test Ref Range GLUCOSE POCT 283 MG/DL L=70 H=100 BEDSIDE GLUCOSE - Collect Date/Time: 09/13/2016 05:30 Test Name Code Test Result Test Units Test Ref Range GLUCOSE POCT 229 MG/DL L=70 H=100 BEDSIDE GLUCOSE - Collect Date/Time: 09/13/2016 03:26 Test Name Code Test Result Test Units Test Ref Range GLUCOSE POCT 236 MG/DL L=70 H=100 BEDSIDE GLUCOSE - Collect Date/Time: 09/12/2016 20:44 Test Name Code Test Result Test Units Test Ref Range GLUCOSE POCT 237 MG/DL L=70 H=100 BEDSIDE GLUCOSE - Collect Date/Time: 09/12/2016 16:23 Test Name Code Test Result Test Units Test Ref Range GLUCOSE POCT 232 MG/DL L=70 H=100 CBC W/ AUTO DIFF (RFLX MAN DIFF IF IND) - Collect Date/Time: 09/23/2016 05:40 Test Name Code Test Result Test Units Test Ref Range WBC 36656-7 3.6 TH/CMM L=4.5 H=10.8 RBC 789-8 3.63 ML/CMM L=4.20 H=5.40 HGB 718-7 10.9 G/DL L=12.0 H=16.0 HCT 4544-3 34.3 % L=37.0 H=47.0 MCV 13683-3 95 FL L=81 H=99 MCH 63485-0 30.0 PG L=27.0 H=33.0 MCHC 07297-6 31.8 G/DL L=31.0 H=36[place]0 [place] [address]-5 53 FL L=36 H=50 [place] [address]-3 15.1 % L=0.0 H=14.8 MPV 44975-6 8.7 FL L=9.3 H=12.5 PLT 777-3 459 TH/CMM L=130 H=440 NRBC# 17000-5 0.00 TH/CMM L=0.00 H=0.00 NRBC% 21095-9 0.0 /100WBC L=0.0 H=2.0 %NEUT 04667-1 65.4 % %LYMP 69679-9 24.7 % %MONO 22005-6 9.3 % %EOS 92538-4 0.0 % %BASO 95543-1 0.3 % #NEUT 54329-5 2.38 TH/CMM L=2.10 H=8.20 #LYMP 46375-8 0.90 TH/CMM L=0.90 H=5.20 #MONO 18728-6 0.34 TH/CMM L=0.16 H=1.00 #EOS 98723-2 0.00 TH/CMM L=0.00 H=0.80 #BASO 13762-9 0.01 TH/CMM L=0.00 H=0.20 SEGS 47407-6 68 % BANDS 46993-9 0 % LYMPHS 32532-1 26 % MONOS 05233-5 6 % MANUAL DIFF 96813-2 SEE BELOW N/A HYPO 17644-9 1+ N/A CBC W/ AUTO DIFF (RFLX MAN DIFF IF IND) - Collect Date/Time: 09/19/2016 06:00 Test Name Code Test Result Test Units Test Ref Range WBC 80122-3 4.7 TH/CMM L=4.5 H=10.8 RBC 789-8 3.33 ML/CMM L=4.20 H=5.40 HGB 718-7 10.0 G/DL L=12.0 H=16.0 HCT 4544-3 32.0 % L=37.0 H=47.0 MCV 36129-8 96 FL L=81 H=99 MCH 82244-4 30.0 PG L=27.0 H=33.0 MCHC 89704-3 31.3 G/DL L=31.0 H=36[place]0 [place] [address]-1 55 FL L=36 H=50 [place] [address]-9 15.7 % L=0.0 H=14.8 MPV 07601-8 9.2 FL L=9.3 H=12.5 PLT 777-3 400 TH/CMM L=130 H=440 NRBC# 64360-5 0.02 TH/CMM L=0.00 H=0.00 NRBC% 02545-8 0.4 /100WBC L=0.0 H=2.0 %NEUT 78279-8 67.9 % %LYMP 75639-6 20.7 % %MONO 84698-6 11.0 % %EOS 12660-7 0.0 % %BASO 75404-2 0.0 % #NEUT 56978-3 3.22 TH/CMM L=2.10 H=8.20 #LYMP 93861-1 0.98 TH/CMM L=0.90 H=5.20 #MONO 23602-1 0.52 TH/CMM L=0.16 H=1.00 #EOS 51464-4 0.00 TH/CMM L=0.00 H=0.80 #BASO 58211-3 0.00 TH/CMM L=0.00 H=0.20 MANUAL DIFF 78508-7 NOT IND N/A CBC W/ AUTO DIFF (RFLX MAN DIFF IF IND) - Collect Date/Time: 09/15/2016 06:20 Test Name Code Test Result Test Units Test Ref Range WBC 52300-5 5.9 TH/CMM L=4.5 H=10.8 RBC 789-8 3.16 ML/CMM L=4.20 H=5.40 HGB 718-7 9.8 G/DL L=12.0 H=16.0 HCT 4544-3 30.5 % L=37.0 H=47.0 MCV 52688-7 97 FL L=81 H=99 MCH 11149-0 31.0 PG L=27.0 H=33.0 MCHC 29287-9 32.1 G/DL L=31.0 H=36.0 [place] [address]-9 55 FL L=36 H=50 [place] 69[address]-3 15.9 % L=0.0 H=14.8 MPV 27137-1 9.5 FL L=9.3 H=12.5 PLT 777-3 365 TH/CMM L=130 H=440 NRBC# 35667-0 0.08 TH/CMM L=0.00 H=0.00 NRBC% 82190-4 1.4 /100WBC L=0.0 H=2.0 %NEUT 85539-3 66.4 % %LYMP 36160-5 22.9 % %MONO 18425-7 10.4 % %EOS 77439-8 0.0 % %BASO 26751-3 0.0 % #NEUT 90459-7 3.91 TH/CMM L=2.10 H=8.20 #LYMP 24306-8 1.35 TH/CMM L=0.90 H=5.20 #MONO 19363-6 0.61 TH/CMM L=0.16 H=1.00 #EOS 30411-7 0.00 TH/CMM L=0.00 H=0.80 #BASO 16854-3 0.00 TH/CMM L=0.00 H=0.20 MANUAL DIFF 51891-4 NOT IND N/A CBC W/ AUTO DIFF (RFLX MAN DIFF IF IND) - Collect Date/Time: 09/13/2016 06:05 Test Name Code Test Result Test Units Test Ref Range WBC 31166-8 6.4 TH/CMM L=4.5 H=10.8 RBC 789-8 2.90 ML/CMM L=4.20 H=5.40 HGB 718-7 9.0 G/DL L=12.0 H=16.0 HCT 4544-3 27.7 % L=37.0 H=47.0 MCV 18727-3 96 FL L=81 H=99 MCH 75882-4 31.0 PG L=27.0 H=33.0 MCHC 97237-4 32.5 G/DL L=31.0 H=36[place] [address]-2 54 FL L=36 H=50 [place] [address]-4 15.6 % L=0.0 H=14.8 MPV 67796-5 10.1 FL L=9.3 H=12.5 PLT 777-3 328 TH/CMM L=130 H=440 NRBC# 52988-9 0.07 TH/CMM L=0.00 H=0.00 NRBC% 56998-6 1.1 /100WBC L=0.0 H=2.0 %NEUT 13037-7 74.9 % %LYMP 64351-1 15.1 % %MONO 29180-4 9.3 % %EOS 75343-1 0.0 % %BASO 97236-2 0.2 % #NEUT 43190-7 4.83 TH/CMM L=2.10 H=8.20 #LYMP 15101-8 0.97 TH/CMM L=0.90 H=5.20 #MONO 07573-2 0.60 TH/CMM L=0.16 H=1.00 #EOS 76539-4 0.00 TH/CMM L=0.00 H=0.80 #BASO 79362-5 0.01 TH/CMM L=0.00 H=0.20 MANUAL DIFF 89799-3 NOT IND N/A Function Status Unknown or Not Available. History of Immunizations Unknown or Not Available. Plan of Treatment Unknown or Not Available. Social History Smoking Status Code Start Date End Date Current every day smoker [id number] Vital Signs Vital Sign Value Unit Date/Time Recent/Initial? BMI (Body Mass Index) 29.42 kg/m2 09/12/2016 14:35 Initial VS Weight Measured 171.4 [lb_av] 09/12/2016 14:35 Initial VS Height 64 [in_i] 09/12/2016 14:35 Initial VS BSA (Body Surface Area) 1.87 m2 09/12/2016 14:35 Initial VS BP Systolic 147 mm[Hg] 09/12/2016 14:35 Initial VS BP Diastolic 56 mm[Hg] 09/12/2016 14:35 Initial VS Respiratory Rate 16 /min 09/12/2016 14:35 Initial VS Heart Rate 71 /min 09/12/2016 14:35 Initial VS O2 % BldC Oximetry 97 % 09/12/2016 14:35 Initial VS Body Temperature 98.7 [degF] 09/12/2016 14:35 Initial VS BMI (Body Mass Index) 28.24 kg/m2 09/23/2016 06:50 Most Recent VS Weight Measured 164.5 [lb_av] 09/23/2016 06:50 Most Recent VS Height 64 [in_i] 09/23/2016 06:50 Most Recent VS BSA (Body Surface Area) 1.84 m2 09/23/2016 06:50 Most Recent VS BP Systolic 184 mm[Hg] 09/24/2016 06:06 Most Recent VS BP Diastolic 63 mm[Hg] 09/24/2016 06:06 Most Recent VS Respiratory Rate 18 /min 09/24/2016 06:06 Most Recent VS Heart Rate 66 /min 09/24/2016 06:06 Most Recent VS O2 % BldC Oximetry 99 % 09/24/2016 06:06 Most Recent VS Body Temperature 98.3 [degF] 09/24/2016 06:06 Most Recent VS Function Status Unknown or Not Available. Goals Unknown or Not Available. ASSESSMENTS Unknown or Not Available. Health Concerns Section Unknown or Not Available.
[2017-07-03 13:25] VITALS: BP 195/73
[2017-07-03] MEDS ORDERED: ceFAZolin 2 GM IV Premixed 50 ML IV ONE (13:30)
[2017-07-03] MEDS: LACTATED RINGERS 1,000 ML IV PRN ×2 (14:10→19:40)
[2017-07-03] MEDS ORDERED: fentaNYL INJECTION 100 MCG/2 ML AMP IVP ONE (14:30)
[2017-07-03] MEDS ORDERED: fentaNYL INJECTION 250 MCG/5 ML AMP ONE (14:31)
[2017-07-03] MEDS ORDERED: ROCURONIUM 10 MG/ML 5 ML SYRINGE IV ONE (14:31)
[2017-07-03] MEDS ORDERED: SEVOFLURANE (ULTANE) 15 ML INHAL SOLN ONE ×13 (14:31→14:45)
[2017-07-03] MEDS ORDERED: MIDAZOLAM 2 MG/2 ML (VERSED) VIAL ONE (14:31)
[2017-07-03] MEDS ORDERED: SUCCINYLCHOLINE INJ 100 MG/5 ML SYR ONE (14:31)
[2017-07-03] MEDS ORDERED: fentaNYL INJECTION 100 MCG/2 ML AMP ONE (14:31)
[2017-07-03] MEDS ORDERED: LIDOCAINE PF 2% 5 ML (XYLOCAINE) VIAL ONE (14:31)
[2017-07-03] MEDS ORDERED: proPOfol 200 MG/20 ML (DIPRIVAN) VIAL IV ONE (14:31)
[2017-07-03] MEDS ORDERED: PREG150C PO (14:32)
[2017-07-03] MEDS ORDERED: ONDANSETRON 4 MG/2 ML (SDV) Z0FRAN ONE (14:32)
[2017-07-03] MEDS ORDERED: NS (IVPB) 50 ML ONE (14:46)
[2017-07-03] MEDS ORDERED: MEPERIDINE (DEMEROL) INJ 50 MG/ML ONE (15:21)
[2017-07-03] MEDS ORDERED: DEXTROSE 50% 50 ML (IMS) SYR ONE (16:40)
[2017-07-03 16:43] LABS: BASOPHILS % (AUTO) 0 % (0-10); EOSINOPHILS # (AUTO) 0.3 10^3/uL (0.0-0.3); EOSINOPHILS % (AUTO) 6 % (0-10); HEMATOCRIT 37 % (35-52); LYMPHOCYTES # (AUTO) 1.4 X 10^3 (1.0-4.0); LYMPHOCYTES % (AUTO) 31 % (12-44); MEAN CORPUSCULAR HEMOGLOBIN 30 PG (25-34); MEAN CORPUSCULAR HGB CONC 33 G/DL (32-36); MEAN CORPUSCULAR VOLUME 92 FL (80-99); MEAN PLATELET VOLUME 10.5 FL (7.4-10.4); MONOCYTES # (AUTO) 0.4 X 10^3 (0.0-1.0); MONOCYTES % (AUTO) 8 % (0-12); NEUTROPHILS # (AUTO) 2.6 X 10^3 (1.8-7.8); NEUTROPHILS % (AUTO) 55 % (42-75); PLATELET COUNT 247 10^3/uL (130-400); RED BLOOD COUNT 3.95 10^6/uL (4.35-5.85); RED CELL DISTRIBUTION WIDTH 14.2 % (10.0-14.5); WHITE BLOOD COUNT 4.6 10^3/uL (4.3-11.0)
[2017-07-03] MEDS ORDERED: VANCOMYCIN 1000 MG/VIAL ONE ×3 (18:29→19:55)
[2017-07-03] MEDS ORDERED: NS (IVPB) 100 ML ONE (18:33)
[2017-07-03] MEDS ORDERED: GLYCOPYRROLATE 0.2 MG/ML (ROBINUL) 2 ML VIAL ONE (20:14)
[2017-07-03] MEDS ORDERED: NEOSTIGMINE 1 MG/ML 5 ML SYRINGE ONE (20:14)
[2017-07-03] MEDS ORDERED: MEPERIDINE (DEMEROL) INJ 50 MG/ML IVP PRN (21:00)
[2017-07-03] MEDS ORDERED: ONDANSETRON 4 MG/2 ML (SDV) Z0FRAN IVP PRN (21:00)
--- NOTE | 2017-07-03 21:01 | Progress Note-Post Operative ---
Post-Operative Progess Note Surgeon (s)/Emotionally Impaired Teacher (s) Surgeon LUIS CARLOS ANNA MD Emotionally Impaired Teacher: FREDERICK Payne Pre-Operative Diagnosis L2 Compression Fracture w/ myelopathy, instability Post-Operative Diagnosis Same Procedure & Operative Findings Date of Procedure 07/03/17 Procedure Performed/Findings Open Treatment Of L2 Fracture, T7-L2 PSF for Fracture and T7-Pelvis fixation Anesthesia Type GETA Estimated Blood Loss Estimated blood loss (mL): 700 Specimens/Packing Specimens Removed Cultures Packing: None LUIS CARLOS ANNA MD July 03, 2017 9:01 pm
[2017-07-03] MEDS ORDERED: FLUTICASONE NASAL SPRAY (FLONASE) 16 GM BTL NS PRN (21:15)
[2017-07-03] MEDS ORDERED: MILK OF MAGNESIA 400 MG/5 ML 30 ML UDC PO PRN ×2 (21:15)
[2017-07-03] MEDS ORDERED: ONDANSETRON 4 MG/2 ML (SDV) Z0FRAN IV PRN (21:15)
[2017-07-03] MEDS ORDERED: ACETAMINOPHEN 325 MG TABLET/CAPLET (TYLENOL) PO PRN (21:15)
[2017-07-03] MEDS ORDERED: PROMETHAZINE 25 MG (PHENERGAN) TAB PO PRN (21:15)
[2017-07-03 22:05] VITALS: BP 84/37
[2017-07-03] MEDS ORDERED: NS IV 1000 ML 500 ML IV PRN (22:45)
[2017-07-03] MEDS: HYDROcodone/APAP 10 MG/325 MG (LORTAB) TAB PO PRN (22:51)
[2017-07-03] MEDS: NS IV 1000 ML 1,000 ML IV SCH (22:52)
[2017-07-03] MEDS: fentaNYL INJECTION 100 MCG/2 ML AMP IVP PRN (22:52)
[2017-07-03 23:00] VITALS: BP 73/39
--- NOTE | 2017-07-03 23:29 | OPERATIVE REPORT ---
DATE OF SERVICE: 07/03/2017 PREOPERATIVE DIAGNOSES: L2 fracture closed with myelopathy and cord compression, lumbar radiculopathy, mechanical complication of internal orthopedic hardware, osteoporosis, focal kyphosis and spinal instability, post laminectomy syndrome. POSTOPERATIVE DIAGNOSES: L2 fracture closed with myelopathy and cord compression, lumbar radiculopathy, mechanical complication of internal orthopedic hardware, osteoporosis, focal kyphosis and spinal instability, post laminectomy syndrome. PROCEDURES PERFORMED: 1. Open treatment of lumbar fracture posterior approach. 2. T7-L2 posterior spinal fusion for fracture and kyphosis deformity. 3. T7-L2 posterior segmental instrumentation with re-instrumentation down to the pelvis. 4. Autograft for spine surgery, local. 5. Allograft for spine surgery, morselized. DATE AND TIME OF SURGERY: Please see anesthesia record. IMPLANTS USED: K2M [place] posterior pedicle screws, K2M Nile bands, Medtronic Magnifused bone graft and K2M [place] bone graft. SURGEON: Luis Carlos Anna MD. ALCOHOL LAW ENFORCEMENT AGENT: JORI Payne. ROLE OF PULP MIXER: Aid in retraction of the procedure, aid in implantation and station wound closure. ANESTHESIA: General endotracheal. ESTIMATED BLOOD LOSS: 700 mL. INTRAVENOUS FLUIDS: Please see anesthesia record. ANTIBIOTICS: Ancef. COMPLICATIONS: None. DRAIN: Times one. SPECIMENS: Cultures were obtained. INDICATIONS FOR PROCEDURE: The patient is a 71-year-old female with previous surgery several weeks ago with minimal trauma and she has had acute onset of pain, weakness in her legs, acute spinal deformity and progressive fracture and collapse of L2 at the top of her construct. She has focal instability with approximately 25 to 30 degrees of focal kyphosis on a prone versus standing films at the L1-2 level with significant hypermobility present. Risks, benefits, alternatives discussed and she elected to proceed with operative intervention. NEUROMONITORING: Standard intraoperative neurophysiological monitoring carried out by means of real time continuous high quality bidirectional mode, audio and visual communication to both the optical lab technician and surgeon by Dr. Alejandra was performed. SSEPs, EMGs, TcMEPs, TOFs were carried out continuously throughout the procedure stable. DESCRIPTION OF PROCEDURE: The patient was turned prone on [place] table, careful padding to all extremities, sterilely prepped and draped posterior thoracic and lumbar sacral spine. Incision was made from T7 down to the pelvis. Full exposure of the hardware, which was previously placed, was performed. Cultures were obtained. The area was exposed. The levels were confirmed on imaging. Previous rods removed from the previous hardware and then new screws were placed into the L1, T12, T11, T10 and T9 and then laminotomies were created and Nile bands were placed bilaterally at T7 and T8. Jovon to band connectors were then placed. Rods were contoured and fit. Final tightening was performed. Cross connectors were placed. Wound was copiously irrigated. A high speed bur was used to decorticate from T7 all the way down to the L3 and then a combination of autograft and allograft bone was packed posteriorly for the fusion portion of the procedure. Deep drain was placed. Wound was closed in layers and patient transferred to recovery room in stable condition having tolerated the procedure well. Job ID: [id number] DocumentID: [id number] Dictated Date: 07/03/2017 20:58:39 Striper Spray Gun Date: 07/03/2017 23:28:32 Dictated By: LUIS CARLOS ANNA MD
[2017-07-04] VITALS (29 sets, daily range): BP systolic 73–143; BP diastolic 30–93
[2017-07-04] MEDS: fentaNYL INJECTION 100 MCG/2 ML AMP IVP PRN ×9 (00:04→21:15)
[2017-07-04] MEDS ORDERED: NS IV 1000 ML 1,000 ML IV ONE (03:00)
[2017-07-04] MEDS ORDERED: NS 1000 ML IV BAG IV ONE (03:00)
[2017-07-04] MEDS: HYDROcodone/APAP 10 MG/325 MG (LORTAB) TAB PO PRN ×4 (03:15→21:15)
[2017-07-04] MEDS: ceFAZolin INJECTION 2,000 MG in NS (IVPB) 50 ML IV SCH ×2 (03:16→09:43)
[2017-07-04 04:08] LABS: HEMOGLOBIN 9.7 G/DL (11.5-16.0); MEAN PLATELET VOLUME 11.6 FL (7.4-10.4); RED BLOOD COUNT 3.17 10^6/uL (4.35-5.85); RED CELL DISTRIBUTION WIDTH 14.2 % (10.0-14.5); WHITE BLOOD COUNT 11.7 10^3/uL (4.3-11.0)
[2017-07-04 04:34] LABS: CALCIUM 8.5 MG/DL (8.5-10.1); CREATININE SERUM 1.05 MG/DL (0.60-1.30); POTASSIUM 5.3 MMOL/L (3.6-5.0)
[2017-07-04] MEDS ORDERED: inSUlin DETERMIR 1 UNIT/0.01 ML (LEVEMIR) CHARGE PER UNIT SQ ONE ×4 (04:59→21:45)
[2017-07-04] MEDS: inSUlin ASPART (NovoLOG) 1 UNIT/0.01 ML (CHARGE PER UNIT) SC SCH ×4 (05:06→20:54)
--- NOTE | 2017-07-04 06:01 | Progress Note (SOAP) ---
Subjective Date Seen by Provider: July 04, 2017 Time Seen by Provider: 05:59 Subjective/Events-last exam Hurting, but legs feeling and moving better. Objective Exam Vital Signs Date Time Temp Pulse Resp B/P (MAP) Pulse Ox O2 Delivery O2 Flow Rate FiO2 07/04/17 05:39 Room Air 07/04/17 05:00 86 16 92/44 (60) 98 Room Air 07/04/17 04:00 92 25 109/31 (57) 97 Room Air 07/04/17 03:00 76 18 80/42 (55) 98 Room Air 07/04/17 02:00 96 32 86/68 (74) 100 Room Air 07/04/17 01:00 67 07/04/17 01:00 67 14 78/30 (46) 95 Room Air 07/04/17 00:00 71 19 73/32 (46) 96 Room Air 07/03/17 23:00 68 21 73/39 (50) 100 Room Air 07/03/17 22:46 61 07/03/17 22:05 85 25 84/37 (53) 100 Room Air 07/03/17 13:25 99.4 69 18 195/73 (113) 96 Room Air I & O 07/04/17 07:00 Intake Total 1150 ml Output Total 1000 ml Balance 150 ml Capillary Refill : General Appearance: No Apparent Distress, Other (sleeping) Neck: Supple Respiratory: No Accessory Muscle Use, No Respiratory Distress Cardiovascular: Regular Rate, Rhythm Gastrointestinal: non tender, soft Extremity: Normal Capillary Refill, Normal Inspection Neurologic/Psychiatric: Alert, Oriented x3, No Motor/Sensory Deficits Skin: Normal Color Results Lab Laboratory Tests 07/03/17 13:40: Glucometer 122H 07/03/17 16:33: White Blood Count 4.6, Red Blood Count 3.95L, Hemoglobin 12.0, Hematocrit 37, Mean Corpuscular Volume 92, Mean Corpuscular Hemoglobin 30, Mean Corpuscular Hemoglobin Concent 33, Red Cell Distribution Width 14.2, Platelet Count 247, Mean Platelet Volume 10.5H, Neutrophils (%) (Auto) 55, Lymphocytes (%) (Auto) 31 , Monocytes (%) (Auto) 8, Eosinophils (%) (Auto) 6, Basophils (%) (Auto) 0, Neutrophils # (Auto) 2.6, Lymphocytes # (Auto) 1.4, Monocytes # (Auto) 0.4, Eosinophils # (Auto) 0.3, Basophils # (Auto) 0.0 07/03/17 16:42: Glucometer 75 07/03/17 17:14: Glucometer 81 07/04/17 03:20: White Blood Count 11.7H, Red Blood Count 3.17L, Hemoglobin 9.7L, Hematocrit 30L , Mean Corpuscular Volume 96, Mean Corpuscular Hemoglobin 31, Mean Corpuscular Hemoglobin Concent 32, Red Cell Distribution Width 14.2, Platelet Count 148, Mean Platelet Volume 11.6H, Sodium Level 136, Potassium Level 5.3H, Chloride Level 106, Carbon Dioxide Level 13L, Anion Gap 17H, Blood Urea Nitrogen 27H, Creatinine 1.05, Estimat Glomerular Filtration Rate 51, BUN/Creatinine Ratio 26 , Glucose Level 455*H, Calcium Level 8.5 Assessment/Plan Assessment/Plan Assess & Plan/Chief Complaint L2 fracture with myelopathy/radiculopathy Lumbar instability/kyphosis Osteoporosis Hyperkalemia Acute Blood Loss Anemia Plan: Mobilize today Pain Control Work on BS and K+ Clinical Quality Measures DVT/VTE Risk/Contraindication: Risk Factor Score Per Nursin RFS Level Per Nursing on Admit: 4+=Very High LUIS CARLOS ANNA MD July 04, 2017 6:01 am
--- NOTE | 2017-07-04 08:02 | Diagnostic Imaging Report ---
INDICATION: Back surgery. Fluoroscopic guidance. COMPARISON: 06/02/2017 FINDINGS: Multiple intraoperative image intensifier views of the thoracic and lumbar spine were obtained during extension of thoracolumbar and sacral fusion. Please note, interpreting radiologist was not present during the procedure. Bilateral multilevel interpedicular screws and posterior fusion rods are noted. Intervertebral disc spacers are also present in the lumbar spine. IMPRESSION: 1. Fluoroscopic guidance provided during thoracolumbar fusion as described above. Dictated by: Dictated on workstation # [id number]
[2017-07-04] MEDS ORDERED: NON-FORMULARY MEDICATION 1 EA EA (Duloxetine HCl (Cymbalta) 60 MG) PO SCH (09:00)
[2017-07-04] MEDS ORDERED: CILOSTAZOL 50 MG PO SCH (09:00)
[2017-07-04] MEDS ORDERED: NOREPINEPHRINE 4 MG/4 ML (LEVOPHED) AMP IV ONE ×2 (09:17→09:19)
[2017-07-04] MEDS ORDERED: NS (IVPB) 250 ML ONE (09:19)
[2017-07-04] MEDS: LEVOTHYROXINE 150 MCG (LEVOTHROID) TAB PO SCH (09:41)
[2017-07-04] MEDS: DULoxetine 30 MG (CYMBALTA) CAP PO SCH ×2 (09:41→21:15)
[2017-07-04] MEDS: FAMOTIDINE 20 MG (PEPCID) TABLET PO SCH ×2 (09:42→21:15)
[2017-07-04] MEDS: MULTIVIT W/MINERALS TAB (THERAGRAN M) PO SCH (09:42)
[2017-07-04] MEDS: NS IV 1000 ML 1,000 ML IV SCH ×4 (09:43→21:23)
--- NOTE | 2017-07-04 09:44 | Physical Therapy Evaluation ---
PT Evaluation-General Medical Diagnosis Admission Date July 03, 2017 at 13:11 Medical Diagnosis: hardware failure Onset Date: July 03, 2017 Therapy Diagnosis Therapy Diagnosis: generalized weakness/debility Height/Weight Height (Feet): 5 Height (Inches): 3.00 Weight (Pounds): 157 Weight (Ounces): 1.0 Precautions Precautions/Isolations: Fall Prevention, Standard Precautions Weight Bear Status Right Lower Extremity: Right Full Weight Bearing Left Lower Extremity: Left Full Weight Bearing Referral Physician: Zara Reason for Referral: Evaluation/Treatment Medical History Pertinent Medical History: Arthritis, PVD, Smoking Additional Medical History osteoporosis/L2 fracture, myelopathy/radiculopathy Current History a/p T7-L2 PSF for fracture and T7 to pelvis fixation Reviewed History: Yes Social History Home: Single Level Current Living Status: Spouse Entry Into Home: Ramp Prior/Core FIM Prior Level of Function Functional [place] Measure 0=Not Assessed/NA 4=Minimal Assistance 1=Total Assistance 5=Supervision or Setup 2=Maximal Assistance 6=Modified [place] 3=Moderate Assistance 7=Complete [place] Bed Mobility: 2 Transfers (B,C,W/C) (FIM): 2 spouse performs all functional mobility with patient and patient has power chair for mobility PT Evaluation-Current Subjective Patient reports 10/10 pain. Pain Numeric Pain Scale: 10-Worst Possible Pain Location: Medial, Lower Location Body Site: Back Pain Description: Acute, Chronic Objective Patient Orientation: Confused Problem Solving: Poor Attachments: Oxygen, Drains, Morris Catheter, IV ROM/Strength ROM Lower Extremities bilateral LE WNL Strength Lower Extremities 2+/5 grossly/patient unable to follow simple direction Integumentary/Posture Integumentary refer to nursing notes Bladder Incontinence: Morris Cath Posture functional Neuromuscular (Tone, Coordination, Reflexes) severely diminished coordination and tone due to inactivity PLOF and chronic back issues Sensory Vision: Functional Hearing: Impaired Sensation Right Lower Extremit: Impaired Sensation Left Lower Extremity: Impaired Transfers Functional [place] Measure 0=Not Assessed/NA 4=Minimal Assistance 1=Total Assistance 5=Supervision or Setup 2=Maximal Assistance 6=Modified [place] 3=Moderate Assistance 7=Complete [place] Transfers (B, C, W/C) (FIM): 1 Scootin Rollin Supine to/from Sit: 1 Sit to/from Stand: 1 bed t/f WC(FIM only if WC use): 1 dependent with all mobility Gait Mode of Locomotion: Wheelchair (power chair) Anticipated Mode of Locomotion: Wheelchair (power chair) Balance Sitting Static: Poor Sitting Dynamic: Poor Standing Static: Poor Standing Dynamic: Poor Assessment/Needs 71 y.o. female, will benefit from skilled PT to address functional strength and mobility to improve current LOF. Patient is dependent/max assist PLOF. Patient was dismissed from last hospital stay to [place] which spouse reports she was there for 3 hours before he took her home. From a PT standpoint, patient will require LTCF. Rehab Potential: Fair PT Currency Examiner Goals Penitentiary Goals PT Currency Examiner Goals Time Frame: Jul 18, 2017 Transfers (B,C,W/C) (FIM): 2 PT Plan Problem List Problem List: Activity Tolerance, Functional Strength, Safety, Balance, Transfer, Bed Mobility Treatment/Plan Treatment Plan: Continue Plan of Care Treatment Plan: Bed Mobility, Education, Functional Activity [place], Functional Strength, Safety, Therapeutic Exercise, Transfers Treatment Duration: Jul 18, 2017 Frequency: 6 times per week Estimated Hrs Per Day: .5 hour per day Patient and/or Family Agrees t: Yes Discharge Recommendations Therapy D/C Recommendations: Retirement Placement, Prison (TCU/[facility]) Time/GCodes Time In: 906 Time Out: 925 Total Billed Treatment Time: 19 Total Billed Treatment 1 visit EVMod 19 min G Codes Necessary: ROSA Kern PT July 04, 2017 09:44
[2017-07-04] MEDS: ceFAZolin 2 GM IV Premixed 50 ML IV SCH ×2 (09:59→19:04)
--- NOTE | 2017-07-04 10:02 | Consultation-Hospitalist ---
HPI History of Present Illness: HPI/Chief Complaint CC: Hypotension HPI: This is a 71-year-old white female known to me from prior hospital stay from 06/02// after very complex lumbar and thoracic spine surgery due to severe spine disease who presented after an uncomplicated repair of hardware disruption and fracture above all of the hardware placed in May by Dr. Zuñiga. This is the patient that had a lengthy hospital stay last time requiring transfusion of blood and smoking cessation counseling who was set up to go to care home arrived at the care home and was taken home 3 hours after arrival by her at her insistence he went home and did her own rehabilitation. I had multiple calls last night due to hypotension and her chronic systolic blood pressures between 90 and 100 so ultimately I put her on severe sepsis IV fluid orders although she was not in severe sepsis and patient did stabilize but upon assessment when she got out of bed in a chair for systolic blood pressure was 65 so we put her back to bed that improved to 100 systolic but central line will be placed in case pressor therapy will be needed after IV fluid resuscitation had been completed and if it fails she will need pressor therapy. Overall very poor prognosis considering the lack of recovery she had an chronic debilitated state since she had not walked for several months prior to the last surgery in May and considering this severe hypotension that has turned into a critical status. I did speak with Dr. Lennon regarding this case and he agrees with the plan. Source: family, RN/MD Exam Limitations: clinical condition Date Seen 07/04/17 Attending Physician Winston Zuñiga MD PCP Mao Zamora MD Referring Physician Date of Admission July 03, 2017 at 13:11 Home Medications & Allergies Home Medications Reviewed patient Home Medication Reconciliation performed by pharmacy medication reconciliations military administrative technician and/or nursing. Patients Allergies have been reviewed. Allergies Allergies Coded Allergies morphine (Verified Allergy, Severe, ANAPHYLAXIS, 05/07/17) Past [id number] Hx Past Med/Social Hx: Reviewed Nursing Past Med/Soc Hx, Reviewed and Corrections made Patient Social History Marrital Status: Employed/Student: retired Alcohol Use: Denies Use Recreational Drug Use: No Smoking Status: Current Everyday Smoker Type Used: Cigarettes Physical Abuse Screen: No Sexual Abuse: No Recent Foreign Travel: No Contact w/other who traveled: No Recent Hopitalizations: No Recent Infectious Disease Expo: No Immunizations Up To Date Pediatric: No Date of Pneumonia Vaccine: May 07, 2013 Seasonal Allergies Seasonal Allergies: Yes (MILD) Past Medical History Surgeries: Orthopedic Respiratory: COPD Cardiac: High Cholesterol, Hypotension Neurological: Neuropathy Sexually Transmitted Disease: No HIV/AIDS: No Female Reproductive Disorders: Denies Gastrointestinal: Chronic Constipation Musculoskeletal: Arthritis, Chronic Back Pain Endocrine: Diabetes, Insulin dep Loss of Vision: Bilateral Hearing Impairment: Denies Psychosocial: Anxiety, Depression History of Blood Disorders: No Adverse Reaction to Blood Ellis: No (HAS HAD BLOOD WITH NO REACTION) Family History Diabetes Review of Systems Constitutional: see HPI, dizziness, malaise, weakness EENTM: no symptoms reported Respiratory: no symptoms reported Cardiovascular: no symptoms reported Gastrointestinal: nausea, vomiting Genitourinary: no symptoms reported Musculoskeletal: back pain Skin: no symptoms reported Psychiatric/Neurological: No Symptoms Reported All Other Systems Reviewed Negative Unless Noted: Yes Physical Exam Physical Exam Vital Signs Vital Signs - First Documented 07/03/17 13:25 Temp 99.4 Pulse 69 Resp 18 B/P (MAP) 195/73 (113) Pulse Ox 96 O2 Delivery Room Air Capillary Refill : General Appearance: No Apparent Distress, WD/WN, Chronically ill, Other (very frail, declined since last seen) HEENT: PERRL/EOMI, Normal ENT Inspection Neck: Full Range of Motion, Normal Inspection, Non Tender, Supple, Carotid Bruit Respiratory: Chest Non Tender, Lungs Clear, No Accessory Muscle Use, No Respiratory Distress Cardiovascular: Regular Rate, Rhythm, No Edema, No Gallop, No JVD, No Murmur, Normal Peripheral Pulses Extremity: Normal Capillary Refill, Normal Inspection, Normal Range of Motion, Non Tender, No Calf Tenderness, No Pedal Edema Neurologic/Psychiatric: Depressed Affect, Other (drowsy) Skin: Normal Color, Warm/Dry Results Results/Procedures Labs Laboratory Tests 07/03/17 16:33 07/04/17 03:20 Patient resulted labs reviewed. Assessment/Plan Assessment and Plan Assess & Plan/Chief Complaint Assessment: Hardware failure with fracture above hardware placement from May 2017 status post uncomplicated repair last night Acute on chronic hypotension requiring large volume IV fluid resuscitation Severe hyperglycemia with history of diabetes Current smoker Chronic debilitation unable to ambulate for months before surgery done in May and has not really progressed well at home after went home from care home 3 hours after admitted after discharge in May Plan: ICU status Monitor closely Prognosis guarded Diagnosis/Problems Diagnosis/Problems (1) Hypotension Status: Acute Qualifiers: Hypotension type: postprocedural hypotension Qualified Codes: I95.81 - Postprocedural hypotension (2) Poor prognosis Status: Chronic (3) Debilitated patient Status: Chronic (4) Postoperative anemia Status: Acute (5) Hypothyroidism Status: Chronic Qualifiers: Hypothyroidism type: acquired Qualified Codes: E03.9 - Hypothyroidism, unspecified (6) Diabetes mellitus Status: Chronic Qualifiers: Diabetes mellitus type: type 2 Diabetes mellitus jail insulin use: without intermodal dispatcher use Diabetes mellitus complication status: with circulatory complication Diabetes mellitus complication detail: with other circulatory complications Qualified Codes: E11.59 - Type 2 diabetes mellitus with other circulatory complications (7) Smoker Status: Chronic Clinical Quality Measures DVT/VTE Risk/Contraindication: Risk Factor Score Per Nursin RFS Level Per Nursing on Admit: 4+=Very High SHERRIE LOUIS DO July 04, 2017 10:02
--- NOTE | 2017-07-04 10:47 | Diagnostic Imaging Report ---
INDICATION: Shortness of breath. Comparison made with prior examination from 06/03/2017. FINDINGS: The heart size is normal. There is minimal discoid atelectasis in the left lung base. There is no pleural effusion or pneumothorax. The mediastinum is unremarkable. IMPRESSION: Minimal discoid atelectasis in the left lung base otherwise unremarkable. Dictated by: Dictated on workstation # [id number]
--- NOTE | 2017-07-04 10:54 | Pulmonary Consultation ---
History of Present Illness History of Present Illness Date of Consultation 07/04/17 10:51 Time Seen by Provider: 10:51 Date of Admission History of Present Illness 71yo with of recent spinal surgery and hospitalization 06/02-/06/06 directly admitted after elective repair of hardware disruption/fracture. Pt has been hypotensive through the night. SHe was placed on sepsis protocol and aggressive IVF given. PT still currently remains hypotensive in ICU. I am consulted for ICU management Allergies and Home Medications Allergies Coded Allergies: morphine (Verified Allergy, Severe, ANAPHYLAXIS, 05/07/17) Home Medications Amlodipine Besylate 5 Mg Tablet, 5 MG PO HS, (Reported) Baclofen 10 Mg Tablet, 10 MG PO TID PRN for spasm Prescribed by: JEWELL DEL VALLE on 07/10/17 1219 Cilostazol 50 Mg Tablet, 50 MG PO BID, (Reported) Clopidogrel Bisulfate 75 Mg Tablet, 75 MG PO HS, (Reported) Duloxetine HCl 60 Mg Capsule.dr, 60 MG PO BID, (Reported) Fluticasone Propionate 16 Gm Docena.susp, 1 SPRAY NS BID PRN for CONGESTION, ( Reported) Hydrocodone/Acetaminophen 1 Each Tablet, 1-2 EA PO Q4H PRN for PAIN-MODERATE Prescribed by: JEWELL DEL VALLE on 07/10/17 1219 Insulin Aspart 100 Unit/1 Ml Susp, 8 UNIT SQ ACHS, (Reported) Insulin Determir 1,000 Units/10 Ml Soln, 8 UNIT SQ HS Prescribed by: LALITA MOORE on 07/10/17 1238 Levothyroxine Sodium 150 Mcg Tablet, 150 MCG PO DAILY, (Reported) Magnesium Hydroxide 400 Mg/5 Ml Oral.susp, 30 ML PO DAILY PRN for CONSTIPATION- 7TH LINE Prescribed by: SHERRIE LOUIS on 06/06/17 1213 Polyethylene Glycol 3350 17 Gm Powd.pack, 17 GM PO DAILY, (Reported) Pregabalin 150 Mg Capsule, 150 MG PO TID Prescribed by: JEWELL DEL VALLE on 07/11/17 1209 Past Dkauzrl-Xlfvnm-Pzhdri Hx Past Med/Social Hx: Reviewed Nursing Past Med/Soc Hx, Reviewed and Corrections made Patient Social History Alcohol Use: Denies Use Recreational Drug Use: No Smoking Status: Current Everyday Smoker Type Used: Cigarettes Recent Foreign Travel: No Contact w/Someone Who Travel: No Recent Infectious Disease Expo: No Recent Hopitalizations: No Immunizations Up To Date PED Vaccines UTD: No Date of Pneumonia Vaccine: May 07, 2013 Seasonal Allergies Seasonal Allergies: Yes (MILD) Past Medical History Surgeries: Yes (SHOULDER X2, STENTS IN EACH LEG, BYPASS NIRMAL LEGS, BACK, R TKR) Orthopedic Respiratory: No Cardiac: Yes High Cholesterol, Hypotension Neurological: No Neuropathy Female Reproductive Disorders: Denies Sexually Transmitted Disease: No HIV/AIDS: No Genitourinary: No Gastrointestinal: Yes Chronic Constipation Musculoskeletal: Yes (LUMBAR KYPHOSIS) Arthritis, Chronic Back Pain Endocrine: Yes Diabetes, Insulin dep HEENT: Yes (GLASSES, TOP DENTURES) Loss of Vision: Bilateral Hearing Impairment: Denies Cancer: No Psychosocial: Yes Anxiety, Depression Integumentary: No Blood Disorders: No Adverse Reaction/Blood Tranf: No (HAS HAD BLOOD WITH NO REACTION) Family Medical History Diabetes Review of Systems Time Seen by Provider: 09:05 Constitutional: Weakness, Malaise; No: Fever, Chills ENT: Nose congestion Respiratory: Shortness of breath; No: Wheezing, Hemoptysis Gastrointestinal: No: Nausea, Vomiting, Abdominal Pain Exam Exam Vital Signs Date Time Temp Pulse Resp B/P (MAP) Pulse Ox O2 Delivery O2 Flow Rate FiO2 07/04/17 07:00 85 07/04/17 06:00 92 15 95/54 (68) 100 Room Air 07/04/17 05:39 Room Air 07/04/17 05:00 86 16 92/44 (60) 98 Room Air 07/04/17 04:00 92 25 109/31 (57) 97 Room Air 07/04/17 03:00 76 18 80/42 (55) 98 Room Air 07/04/17 02:00 96 32 86/68 (74) 100 Room Air 07/04/17 01:00 67 07/04/17 01:00 67 14 78/30 (46) 95 Room Air 07/04/17 00:00 71 19 73/32 (46) 96 Room Air 07/03/17 23:00 68 21 73/39 (50) 100 Room Air 07/03/17 22:46 61 07/03/17 22:05 85 25 84/37 (53) 100 Room Air 07/03/17 13:25 99.4 69 18 195/73 (113) 96 Room Air I & O 07/04/17 07:00 Intake Total 1150 ml Output Total 1500 ml Balance -350 ml General Appearance: No Apparent Distress, WD/WN, Chronically ill, Other (very frail, declined since last seen) HEENT: PERRL/EOMI, Normal ENT Inspection Neck: Full Range of Motion, Normal Inspection, Non Tender, Supple, Carotid Bruit Respiratory: Chest Non Tender, Lungs Clear, No Accessory Muscle Use, No Respiratory Distress Cardiovascular: Regular Rate, Rhythm, No Edema, No Gallop, No JVD, No Murmur, Normal Peripheral Pulses Gastrointestinal: non tender, soft Extremity: Normal Capillary Refill, Normal Inspection, Normal Range of Motion, Non Tender, No Calf Tenderness, No Pedal Edema Neurologic/Psychiatric: Depressed Affect, Other (drowsy) Skin: Normal Color, Warm/Dry Results Lab Laboratory Tests 07/03/17 16:33 07/04/17 03:20 Assessment/Plan Assessment/Plan S/p spinal surgery -Pain control Hypotension -Pt was requiring levophed however responded to IVF and is now off Levophed -WIll place central line Leukocytosis- probably reactive -monitor Hyperkalemia -monitor and repeat labs Metabolic acidosis secondary to dehydration and hypotension -Will give another liter of NS -Check LA -IVF and monitor hx of tobacco use 255 BONNIE PECK DO July 04, 2017 10:54
--- NOTE | 2017-07-04 10:56 | Anesthesia-General Post-Op ---
General Patient Condition Mental Status/LOC: Same as Preop Cardiovascular: Satisfactory Nausea/Vomiting: Absent Respiratory: Satisfactory Pain: Controlled Complications: Absent Post Op Complications Complications None Follow Up Care/Instructions Patient Instructions None needed. Anesthesia/Patient Condition Patient Condition Patient is doing well, no complaints, stable vital signs, no apparent adverse anesthesia problems. No complications reported per nursing. D/C home per [facility] [place] Criteria: KAMLESH Rosenberg CRNA July 04, 2017 10:56
[2017-07-04] MEDS ORDERED: NOREPINEPHRINE 4 MG in NS (IVPB) 250 ML IV SCH (11:00)
[2017-07-04] MEDS ORDERED: LIDOCAINE 1% INJ 20 ML 20 ML VIAL ONE (12:20)
[2017-07-04] MEDS ORDERED: MIDAZOLAM 5 MG/5 ML (VERSED) VIAL ONE (12:24)
[2017-07-04] MEDS ORDERED: MIDAZOLAM 2 MG/2 ML (VERSED) VIAL ONE (12:24)
[2017-07-04] MEDS ORDERED: LIDOCAINE 1% INJ 20 ML 20 ML VIAL INJ ONE (12:45)
[2017-07-04] MEDS ORDERED: fentaNYL INJECTION 100 MCG/2 ML AMP IVP ONE (12:45)
--- NOTE | 2017-07-04 12:51 | Pulmonary Procedures ---
Pulmonary Procedures Date of Procedure Date of Service: July 04, 2017 Lumen: triple (us guided ) Central Line Procedure: betadine prep, sterile drapes applied, sterile dressing applied Position: internal jugular (R) Anesthesia: Lidocaine Volume Anesthetic (ccs): 5 Complications: none Post Position: sutured, good blood return, position confirmed w/ CXR (pending ) BONNIE PECK DO July 04, 2017 12:51
[2017-07-04 13:26] LABS: BASOPHILS % (AUTO) 0 % (0-10); EOSINOPHILS % (AUTO) 0 % (0-10); HEMATOCRIT 23 % (35-52); HEMOGLOBIN 7.3 G/DL (11.5-16.0); LYMPHOCYTES # (AUTO) 0.6 X 10^3 (1.0-4.0); LYMPHOCYTES % (AUTO) 7 % (12-44); MEAN CORPUSCULAR HEMOGLOBIN 30 PG (25-34); MEAN CORPUSCULAR HGB CONC 32 G/DL (32-36); MEAN CORPUSCULAR VOLUME 94 FL (80-99); MEAN PLATELET VOLUME 10.7 FL (7.4-10.4); MONOCYTES # (AUTO) 0.5 X 10^3 (0.0-1.0); MONOCYTES % (AUTO) 6 % (0-12); NEUTROPHILS # (AUTO) 8.2 X 10^3 (1.8-7.8); NEUTROPHILS % (AUTO) 88 % (42-75); PLATELET COUNT 218 10^3/uL (130-400); RED BLOOD COUNT 2.41 10^6/uL (4.35-5.85); RED CELL DISTRIBUTION WIDTH 14.4 % (10.0-14.5); WHITE BLOOD COUNT 9.3 10^3/uL (4.3-11.0)
--- NOTE | 2017-07-04 13:29 | Diagnostic Imaging Report ---
EXAMINATION: Portable semierect AP chest at 1253. INDICATION: Central line placement In the interval since the exam performed earlier today at 10:32 AM a central venous catheter has been inserted through the internal jugular vein on the right. The tip of the catheter overlies the mid portion of the superior vena cava and seems to be in good position. There is no sign of pneumothorax and the overall appearance of the chest has not changed significantly otherwise. IMPRESSION: There has been interval insertion of central venous catheter on the right without apparent complication. A followup study would be recommend for continued evaluation. Dictated by: Dictated on workstation # [id number]
[2017-07-04 13:48] LABS: ALANINE AMINOTRANSFERASE 12 U/L (0-55); ALBUMIN 3.1 GM/DL (3.2-4.5); ALKALINE PHOSPHATASE 98 U/L (40-136); BILIRUBIN,TOTAL 0.3 MG/DL (0.1-1.0); BUN/CREATININE RATIO 27; CALCIUM 7.6 MG/DL (8.5-10.1); CARBON DIOXIDE 18 MMOL/L (21-32); CHLORIDE 112 MMOL/L (98-107); CREATININE SERUM 0.88 MG/DL (0.60-1.30); GFR ESTIMATED > 60; GLUCOSE 217 MG/DL (70-105); MAGNESIUM 1.8 MG/DL (1.8-2.4); PHOSPHORUS 1.8 MG/DL (2.3-4.7); POTASSIUM 4.1 MMOL/L (3.6-5.0); SODIUM 137 MMOL/L (135-145); TOTAL PROTEIN 5.2 GM/DL (6.4-8.2)
[2017-07-04 14:02] LABS: BAND NEUTROPHILS 0 %; BASOPHILS % (MANUAL) 0 %; EOSINOPHILS % (MANUAL) 0 %; LYMPHOCYTES % (MANUAL) 8 %; MONOCYTES % (MANUAL) 9 %; NEUTROPHILS % (MANUAL) 83 %
[2017-07-04 14:03] LABS: RBC MORPH NORMAL
[2017-07-04] MEDS ORDERED: NS IV 500 ML 500 ML ONE (14:07)
--- NOTE | 2017-07-04 14:30 | Occupational Therapy Eval ---
OT Evaluation-General/PLF Medical Diagnosis Admission Date July 03, 2017 at 13:11 Medical Diagnosis: hardware failure L2 compression fx with myelopathy Onset Date: July 03, 2017 Therapy Diagnosis Therapy Diagnosis: Weakness Height/Weight Height (Feet): 5 Height (Inches): 3.00 Weight (Pounds): 157 Weight (Ounces): 1.0 Precautions Precautions/Isolations: Fall Prevention, Standard Precautions Safety Interventions: Notify Family, Reorient-Attempt, Reorient-PRN Weight Bear Status Weight Bearing Restriction: Weight Bearing/Tolerated Referral Physician: Zara Referral Reason: Activity Tolerance, Self Care, Evaluation/Treatment, Strengthening/ROM Referral Comments Spouse states that pt. is supposed to have a custom back brace made. States that her physician reported to him that they would be here today to fit her. Medical History Pertinent Medical History: Arthritis, PVD, Smoking Additional Medical History Pt. has had multiple back surgeries. Spouse states that when she went home from hospital last time, he helped her bathe and dress. States that she had increasingly bad back pain, and it was found that she had a fx in her vertebrae. Current History Pt. has had multiple back surgeries recently. Spouse states that she does not walk at home, but transfers from surface to surface with a walker, and utilizes a scooter at home. Reviewed History: Yes Social History Home: Single Level Current Living Status: Spouse Entry Into Home: Ramp ADL-Prior Level of Function ADL PLOF Comments Spouse states that pt. does not do very much physical activity at home. States that she was afraid to come to rehab at last admission because she was afraid of how intense it might be. DME/Equipment: Bath Chair, Shower OT Current Status Subjective Pt. moans and keeps her eyes closed during most of treatment. Blood pressure is low. Spouse states that she always has low blood pressure after surgery. Blood pressure was 65/48. Nursing okayed this therapist to assist pt. back to bed. Appearance Pt. has pale affect. Reports pain but does not state pain level. Nursing aware and is getting pt. pain medicine. Mental Status/Objective Patient Orientation: Unable to Assess Attachments: IV, Oxygen, Telemetry Current Pt does not open eyes. Reports significant pain. Did not attempt to test UE strength or ROM. ADL-Treatment Functional [place] Measure 0=Not Assessed/NA 4=Minimal Assistance 1=Total Assistance 5=Supervision or Setup 2=Maximal Assistance 6=Modified [place] 3=Moderate Assistance 7=Complete IndependenceIRFPAI Quality Coding Scale 6 Independent with activity with or without an assistive device 5 Patient requires set up or clean up by helper. Patient completes activity by themselves 4 Supervision or touching assist (CGA). [place] provide cues , steadying assist 3 The helper provides less than half the effort to complete the activity 2 The helper provides more than half the effort to complete the activity 1 Dependent. The helper does all the effort to complete an activity 7 Patient refused to complete or attempt activity 9 The patient did not perform the activity before the current illness or injury 88 Not attempted due to Medical conditions or safety concerns Transfers (B, C, W/C) (FIM): 2 (Pt. requires max assist to stand out of chair and transfer to bed. Dependent assist x 2 sit-supine and bed mobility.) Education OT Patient Education: Correct positioning, Modified ADL techniques, Progress toward Goal/Update tx plan, Purpose of tx/functional activities, Reviewed precautions, Rehab process, Transfer techniques Teaching Recipient: Patient Teaching Methods: Demonstration, Discussion Response to Teaching: Verbalize Understanding, Return Demonstration OT Short Term Goals Short Term Goals Time Frame: Jul 11, 2017 Eating(FIM): 5 Grooming(FIM): 4 Bathing(FIM): 3 Upper Body Dressing(FIM): 3 Lower Body Dressing(FIM): 3 Transfers (B,C,W/C) (FIM): 4 Toilet/Commode Transfer(FIM): 4 Additional Short Term Goals: 1-Demonstrate ADL Tasks, 2-Verbalize Understanding , 3-ImproveStrength/[place] 1=Demonstrate adherence to instructed precautions during ADL tasks. 2=Patient will verbalize/demonstrate understanding of assistive devices/ modifications for ADL. 3=Patient will improve strength/tolerance for activity to enable patient to perform ADL's. OT Shelter Goals [employer] Casting Machine Setter Goals Time Frame: Jul 18, 2017 Eating (FIM): 6 Grooming(FIM): 5 Bathing(FIM): 4 Upper Body Dressing(FIM): 5 Lower Body Dressing(FIM): 4 Toileting(FIM): 5 Transfers (B,C,W/C) (FIM): 5 Toilet/Commode Transfer(FIM): 5 Shower Transfer(FIM): 4 Additional Goals: 1-Demonstrate ADL Tasks, 2-Verbalize Understanding, 3- ImproveStrength/[place]yler 1=Demonstrate adherence to instructed precautions during ADL tasks. 2=Patient will verbalize/demonstrate understanding of assistive devices/ modifications for ADL. 3=Patient will improve strength/tolerance for activity to enable patient to perform ADL's. OT Education/Plan Problem List/Assessment Assessment: Decreased Activ Tolerance, Decreased UE Strength, Dependent Transfers, Impaired Bed Mobility, Impaired Funct Balance, Impaired I ADL's, Impaired Self-Care Skills, Restricted Funct UE ROM Discharge Recommendations Plan/Recommendations: Continue POC Therapy D/C Recommendations: 24 hr Supervision Comment Discharge location and equipment needs to be determined. Pt. would benefit from inpt. rehab if she can sustain 3 hours of therapy. Treatment Plan/Plan of Care Treatment,Training & Education: Yes Patient would benefit from OT for education, treatment and training to promote independence in ADL's, mobility, safety and/or upper extremity function for ADL' s. Plan of Care: ADL Retraining, Caregiver Training, Functional Mobility, UE Funct Exercise/Act Treatment Duration: Jul 18, 2017 Frequency: 5 times per week Estimated Hrs Per Day: .5 hour per day Agreement: Yes Rehab Potential: Fair Time/GCodes Start Time: 09:05 Stop Time: 09:35 Total Time Billed (hr/min): 30 Billed Treatment Time 1, EVH x 15minutes, FA x 15minutes SHADY CHANDLER OT July 04, 2017 14:30
[2017-07-04] MEDS ORDERED: inSUlin DETERMIR 1 UNIT/0.01 ML (LEVEMIR) CHARGE PER UNIT SQ SCH (21:00)
[2017-07-04] MEDS ORDERED: NON-FORMULARY MEDICATION 1 EA EA (Amlodipine Besylate 5 MG) PO SCH (21:00)
[2017-07-04] MEDS: amLODIPine 5 MG (NORVASC) TAB PO SCH (21:15)
[2017-07-04] MEDS ORDERED: PREGABALIN 75 MG (LYRICA) CAP PO SCH (21:45)
[2017-07-04] MEDS: PREGABALIN 50 MG (LYRICA) CAP PO SCH (21:47)
[2017-07-05] VITALS (23 sets, daily range): BP systolic 97–162; BP diastolic 51–82
[2017-07-05] MEDS: HYDROcodone/APAP 10 MG/325 MG (LORTAB) TAB PO PRN ×4 (02:39→20:54)
[2017-07-05 03:49] LABS: BASOPHILS % (AUTO) 0 % (0-10); EOSINOPHILS % (AUTO) 0 % (0-10); HEMATOCRIT 28 % (35-52); HEMOGLOBIN 9.6 G/DL (11.5-16.0); LYMPHOCYTES # (AUTO) 1.2 X 10^3 (1.0-4.0); LYMPHOCYTES % (AUTO) 14 % (12-44); MEAN CORPUSCULAR HEMOGLOBIN 30 PG (25-34); MEAN CORPUSCULAR HGB CONC 34 G/DL (32-36); MEAN CORPUSCULAR VOLUME 88 FL (80-99); MEAN PLATELET VOLUME 10.6 FL (7.4-10.4); MONOCYTES # (AUTO) 0.8 X 10^3 (0.0-1.0); MONOCYTES % (AUTO) 9 % (0-12); NEUTROPHILS # (AUTO) 6.8 X 10^3 (1.8-7.8); NEUTROPHILS % (AUTO) 77 % (42-75); PLATELET COUNT 196 10^3/uL (130-400); RED BLOOD COUNT 3.18 10^6/uL (4.35-5.85); RED CELL DISTRIBUTION WIDTH 15.8 % (10.0-14.5); WHITE BLOOD COUNT 8.8 10^3/uL (4.3-11.0)
[2017-07-05] MEDS: NS IV 1000 ML 1,000 ML IV SCH ×3 (04:11→22:45)
[2017-07-05] MEDS: inSUlin ASPART (NovoLOG) 1 UNIT/0.01 ML (CHARGE PER UNIT) SC SCH ×2 (05:07→12:47)
[2017-07-05 05:09] LABS: BUN/CREATININE RATIO 22; CALCIUM 7.9 MG/DL (8.5-10.1); CARBON DIOXIDE 18 MMOL/L (21-32); CHLORIDE 115 MMOL/L (98-107); CREATININE SERUM 0.64 MG/DL (0.60-1.30); GFR ESTIMATED > 60; MAGNESIUM 1.9 MG/DL (1.8-2.4); PHOSPHORUS 2.1 MG/DL (2.3-4.7); POTASSIUM 3.7 MMOL/L (3.6-5.0); SODIUM 140 MMOL/L (135-145)
[2017-07-05 05:11] LABS: GLUCOSE 55 MG/DL (70-105)
[2017-07-05] MEDS: LEVOTHYROXINE 150 MCG (LEVOTHROID) TAB PO SCH (05:18)
[2017-07-05] MEDS: KCL 20 MEQ TAB (K-DUR) PO SCH (05:43)
[2017-07-05] MEDS: MAGNESIUM 1 GM/100 ML IVPB 100 ML IV SCH (05:44)
[2017-07-05] MEDS: POTASSIUM CL 10MEQ/50ML IVPB 50 ML IV SCH (05:44)
[2017-07-05] MEDS: DULoxetine 30 MG (CYMBALTA) CAP PO SCH ×2 (08:35→20:54)
[2017-07-05] MEDS: FAMOTIDINE 20 MG (PEPCID) TABLET PO SCH ×2 (08:35→20:55)
[2017-07-05] MEDS: PREGABALIN 50 MG (LYRICA) CAP PO SCH ×3 (08:36→20:54)
[2017-07-05] MEDS: MULTIVIT W/MINERALS TAB (THERAGRAN M) PO SCH (08:36)
--- NOTE | 2017-07-05 10:03 | Physical Therapy Daily Note ---
PT Daily Note-Current Subjective Patient is more alert and agrees to up in chair. Pain Numeric Pain Scale: 8 Location: Medial, Lower Location Body Site: Back Pain Description: Acute Mental Status Patient Orientation: Normal For Age Attachments: Drains, Morris Catheter, IV Transfers Functional [place] Measure 0=Not Assessed/NA 4=Minimal Assistance 1=Total Assistance 5=Supervision or Setup 2=Maximal Assistance 6=Modified [place] 3=Moderate Assistance 7=Complete IndependenceIRFPAI Quality Coding Scale 6 Independent with activity with or without an assistive device 5 Patient requires set up or clean up by helper. Patient completes activity by themselves 4 Supervision or touching assist (CGA). [place] provide cues , steadying assist 3 The helper provides less than half the effort to complete the activity 2 The helper provides more than half the effort to complete the activity 1 Dependent. The helper does all the effort to complete an activity 7 Patient refused to complete or attempt activity 9 The patient did not perform the activity before the current illness or injury 88 Not attempted due to Medical conditions or safety concerns Transfers (B, C, W/C) (FIM): 2 Scootin Rollin Supine to/from Sit: 2 Sit to/from Stand: 2 Bed to/from Chair: 2 Patient is severely deconditioned due to chronic back issues. Weight Bearing Right Lower Extremity: Right Full Weight Bearing Left Lower Extremity: Left Full Weight Bearing Exercises Supine Ex: Ankle pumps, Quad Set Supine Reps: 15 Seated Therapy Exercises: Long arc quads Seated Reps: 10 Assessment Patient is up with TLSO in place. PT to increase activity as tolerated by patient. PT Short Term Goals Short Term Goals Transfers (B,C,W/C) (FIM): 4 PT Director Of Cath Lab Goals Usp Goals PT Usp Goals Time Frame: Jul 18, 2017 Transfers (B,C,W/C) (FIM): 2 PT Plan Treatment/Plan Treatment Plan: Continue Plan of Care Treatment Plan: Bed Mobility, Education, Functional Activity [place], Functional Strength, Safety, Therapeutic Exercise, Transfers Treatment Duration: Jul 18, 2017 Frequency: 6 times per week Estimated Hrs Per Day: .5 hour per day Patient and/or Family Agrees t: Yes Time/GCodes Time In: 915 Time Out: 928 Total Billed Treatment Time: 13 Total Billed Treatment 1 visit FA 13 min ROSA BUNDY PT July 05, 2017 10:02
[2017-07-05] MEDS: BACLOFEN 10 MG (LIORESAL) TAB PO PRN (10:37)
--- NOTE | 2017-07-05 11:30 | Progress Note (SOAP) ---
Subjective Date Seen by Provider: July 05, 2017 Time Seen by Provider: 11:29 Subjective/Events-last exam Resting comfortably Up with PT today Focused Exam Lactate Level 07/04/17 13:15: Lactic Acid Level 2.97*H 07/04/17 15:02: Lactic Acid Level 1.20 Respiratory: No Accessory Muscle Use, No Respiratory Distress Cardiovascular: Regular Rate, Rhythm Skin: normal color, warm/dry Objective Exam Vital Signs Date Time Temp Pulse Resp B/P (MAP) Pulse Ox O2 Delivery O2 Flow Rate FiO2 07/05/17 08:00 97.8 73 12 121/76 (91) 100 Room Air 07/05/17 08:00 Room Air 07/05/17 07:00 71 07/05/17 06:00 72 8 127/56 (79) 100 Room Air 07/05/17 05:00 77 9 120/55 (76) 100 Room Air 07/05/17 04:00 100 Room Air 07/05/17 04:00 77 9 125/53 (77) 100 Room Air 07/05/17 03:00 78 13 157/57 (90) 100 Room Air 07/05/17 02:00 79 12 140/59 (86) 100 Room Air 07/05/17 01:00 84 07/05/17 01:00 84 15 97/82 (87) 100 Room Air 07/05/17 00:03 98.5 07/05/17 00:00 100 Room Air 07/05/17 00:00 77 13 140/61 (87) 100 Room Air 07/04/17 23:00 80 13 129/79 (96) 100 Room Air 07/04/17 22:00 80 13 142/57 (85) 98 Room Air 07/04/17 21:00 81 11 143/64 (90) 99 Room Air 07/04/17 20:25 100.2 79 20 131/58 100 Room Air 07/04/17 20:00 81 12 142/54 (83) 100 Room Air 07/04/17 20:00 100 Room Air 07/04/17 19:00 82 07/04/17 19:00 82 14 133/61 (85) 100 Room Air 07/04/17 18:43 99.8 86 20 141/65 100 Room Air 07/04/17 18:27 100.0 81 20 138/62 100 Room Air 07/04/17 18:00 84 11 138/63 (88) 100 Room Air 07/04/17 17:29 99.9 103 23 125/62 100 Room Air 07/04/17 17:00 100 20 96/44 (61) 100 Room Air 07/04/17 16:00 101 17 105/53 (70) Room Air 07/04/17 15:15 99.5 99 15 100/53 99 Room Air 07/04/17 14:50 99.8 105 15 95/43 97 Room Air 07/04/17 14:00 98 13 77/47 (57) 95 Room Air 07/04/17 13:00 140 07/04/17 13:00 140 14 83/62 (69) 96 Room Air 07/04/17 12:00 Room Air 07/04/17 12:00 140 10 82/52 (62) 95 Room Air I & O 07/05/17 07:00 Intake Total 4955 ml Output Total 2460 ml Balance 2495 ml Capillary Refill : General Appearance: No Apparent Distress Results Lab Laboratory Tests 07/04/17 13:15: White Blood Count 9.3, Red Blood Count 2.41L, Hemoglobin 7.3#L, Hematocrit 23L, Mean Corpuscular Volume 94, Mean Corpuscular Hemoglobin 30, Mean Corpuscular Hemoglobin Concent 32, Red Cell Distribution Width 14.4, Platelet Count 218, Mean Platelet Volume 10.7H, Neutrophils (%) (Auto) 88H, Lymphocytes (%) (Auto) 7L, Monocytes (%) (Auto) 6, Eosinophils (%) (Auto) 0, Basophils (%) (Auto) 0, Neutrophils # (Auto) 8.2H, Lymphocytes # (Auto) 0.6L, Monocytes # (Auto) 0.5, Eosinophils # (Auto) 0.0, Basophils # (Auto) 0.0, Neutrophils % (Manual) 83, Lymphocytes % (Manual) 8, Monocytes % (Manual) 9, Eosinophils % (Manual) 0, Basophils % (Manual) 0, Band Neutrophils 0, Blood Morphology Comment NORMAL, Sodium Level 137, Potassium Level 4.1, Chloride Level 112H, Carbon Dioxide Level 18L, Anion Gap 7, Blood Urea Nitrogen 24H, Creatinine 0.88, Estimat Glomerular Filtration Rate > 60, BUN/Creatinine Ratio 27, Glucose Level 217H, Lactic Acid Level 2.97*H, Calcium Level 7.6L, Phosphorus Level 1.8L, Magnesium Level 1.8, Total Bilirubin 0.3, Aspartate Amino Transf (AST/SGOT) 27, Alanine Aminotransferase (ALT/SGPT) 12, Alkaline Phosphatase 98, Total Protein 5.2L, Albumin 3.1L 07/04/17 15:02: Lactic Acid Level 1.20 07/04/17 16:28: Glucometer 130H 07/04/17 20:51: Glucometer 93 07/04/17 23:54: Glucometer 84 07/05/17 03:08: Glucometer 45*L 07/05/17 03:32: Glucometer 61L 07/05/17 03:35: White Blood Count 8.8, Red Blood Count 3.18L, Hemoglobin 9.6#L, Hematocrit 28L, Mean Corpuscular Volume 88, Mean Corpuscular Hemoglobin 30, Mean Corpuscular Hemoglobin Concent 34, Red Cell Distribution Width 15.8H, Platelet Count 196, Mean Platelet Volume 10.6H, Neutrophils (%) (Auto) 77H, Lymphocytes (%) (Auto) 14, Monocytes (%) (Auto) 9, Eosinophils (%) (Auto) 0, Basophils (%) (Auto) 0, Neutrophils # (Auto) 6.8, Lymphocytes # (Auto) 1.2, Monocytes # (Auto) 0.8, Eosinophils # (Auto) 0.0, Basophils # (Auto) 0.0, Sodium Level 140, Potassium Level 3.7, Chloride Level 115H, Carbon Dioxide Level 18L, Anion Gap 7, Blood Urea Nitrogen 14, Creatinine 0.64, Estimat Glomerular Filtration Rate > 60, BUN/ Creatinine Ratio 22, Glucose Level 55*L, Calcium Level 7.9L, Phosphorus Level 2.1L, Magnesium Level 1.9 07/05/17 05:17: Glucometer 68L Microbiology 07/03/17 MRSA Screen - Final, Complete MRSA not isolated 07/03/17 Gram Stain - Final, Resulted 07/03/17 Anaerobic Culture, Resulted Pending 07/03/17 Surgical Culture - Preliminary, Resulted No growth Assessment/Plan Assessment/Plan Assess & Plan/Chief Complaint L2 fracture with myelopathy/radiculopathy Lumbar instability/kyphosis Osteoporosis Hyperkalemia Acute Blood Loss Anemia Plan: Mobilize today Pain Control S/P 2 units of PRBC's looks much better Clinical Quality Measures DVT/VTE Risk/Contraindication: Risk Factor Score Per Nursin RFS Level Per Nursing on Admit: 4+=Very High LUIS CARLOS ANNA MD July 05, 2017 11:30
--- NOTE | 2017-07-05 13:49 | Diagnostic Imaging Report ---
EXAMINATION: Portable erect AP chest at 03:09 a.m. INDICATION: Respiratory distress, sepsis. FINDINGS: The cardiomegaly noted on the prior exam of 07/04/2017 is again evident and no different. There is still a band of atelectasis/infiltrate in the left lung base. The interstitial densities in both lungs are somewhat prominent, but there is no sign of failure or pneumonia. The mediastinum is not widened. The osseous structures are intact. The total shoulder prosthesis on the right, the extensive postoperative changes involving the thoracolumbar spine, and the right-sided central venous catheter noted previously are again evident and no different. There is less distention of the stomach by gas than noted on the prior exam. IMPRESSION: Stable chest. There has been no adverse change since the prior exam. Dictated by: Dictated on workstation # [id number]
[2017-07-05] MEDS ORDERED: LACTULOSE SYRUP 10GM/15ML (ENULOSE) 30ML UDC PO PRN (14:15)
--- NOTE | 2017-07-05 14:20 | Progress Note-Hospitalist ---
Subjective HPI/CC On Admission Date Seen by Provider: July 05, 2017 Time Seen by Provider: 10:00 CC: Hypotension HPI: This is a 71-year-old white female known to me from prior hospital stay from after very complex lumbar and thoracic spine surgery due to severe spine disease who presented after an uncomplicated repair of hardware disruption and fracture above all of the hardware placed in May by Dr. Zuñiag. This is the patient that had a lengthy hospital stay last time requiring transfusion of blood and smoking cessation counseling who was set up to go to longterm arrived at the longterm and was taken home 3 hours after arrival by her at her insistence he went home and did her own rehabilitation. I had multiple calls last night due to hypotension and her chronic systolic blood pressures between 90 and 100 so ultimately I put her on severe sepsis IV fluid orders although she was not in severe sepsis and patient did stabilize but upon assessment when she got out of bed in a chair for systolic blood pressure was 65 so we put her back to bed that improved to 100 systolic but central line will be placed in case pressor therapy will be needed after IV fluid resuscitation had been completed and if it fails she will need pressor therapy. Overall very poor prognosis considering the lack of recovery she had an chronic debilitated state since she had not walked for several months prior to the last surgery in May and considering this severe hypotension that has turned into a critical status. I did speak with Dr. Lennon regarding this case and he agrees with the plan. Subjective/Events-last exam Patient is doing much better since Dr. Lennon intervened and gave 2 units of blood yesterday and continue the IV fluid resuscitation Hypotension now resolved May eventually need diuresis but currently she is without shortness of breath and overall much better Hemoglobin 9.4 Required transfusion last hospital stay also Spoke with Dr. Zuñiga at the bedside Feels like she is about to have a bowel movement but has a history of narcotic bowel so will initiate additional medication for that Pain is somewhat controlled Review of Systems General: Malaise Musculoskeletal: back pain Focused Exam Lactate Level 07/04/17 13:15: Lactic Acid Level 2.97*H 07/04/17 15:02: Lactic Acid Level 1.20 Objective Exam Vital Signs Vital Signs Date Time Temp Pulse Resp B/P (MAP) Pulse Ox O2 Delivery O2 Flow Rate FiO2 5/26/18 13:00 68 07/05/17 12:48 98.8 07/05/17 12:00 Room Air 07/05/17 08:00 12 121/76 (91) 100 Capillary Refill : General Appearance: No Apparent Distress, WD/WN, Chronically ill Respiratory: Lungs Clear Cardiovascular: Regular Rate, Rhythm, No Edema Neurologic/Psychiatric: Alert, Oriented x3, No Motor/Sensory Deficits, Normal Mood/Affect Results/Procedures Lab Laboratory Tests 07/05/17 03:35 Patient resulted labs reviewed. Assessment/Plan Assessment and Plan Assess & Plan/Chief Complaint Assessment: Hardware failure with fracture above hardware placement from May 2017 status post uncomplicated repair POD # 2 Acute on chronic hypotension requiring large volume IV fluid resuscitation now resolved since blood transfusion Severe hyperglycemia with history of diabetes now hypoglycemic so will decrease insulin Current smoker but quit recently per Chronic debilitation unable to ambulate for months before surgery done in May and has not really progressed well at home after went home from longterm 3 hours after admitted after discharge in May Plan: May need Lasix for volume overload within the next 48 hours Monitor closely Prognosis guarded Diagnosis/Problems Diagnosis/Problems (1) Hypotension Status: Resolved Qualifiers: Hypotension type: postprocedural hypotension Qualified Codes: I95.81 - Postprocedural hypotension (2) Poor prognosis Status: Chronic (3) Debilitated patient Status: Chronic (4) Postoperative anemia Status: Acute Assessment & Plan: s/p 2 units of blood yesterday (5) Hypothyroidism Status: Chronic Qualifiers: Hypothyroidism type: acquired Qualified Codes: E03.9 - Hypothyroidism, unspecified (6) Diabetes mellitus Status: Chronic Qualifiers: Diabetes mellitus type: type 2 Diabetes mellitus assistant terminal manager insulin use: without assistant terminal manager use Diabetes mellitus complication status: with circulatory complication Diabetes mellitus complication detail: with other circulatory complications Qualified Codes: E11.59 - Type 2 diabetes mellitus with other circulatory complications (7) Smoker Status: Chronic (8) Hypoglycemia associated with diabetes Status: Acute (9) Transfusion of blood during current hospitalisation Clinical Quality Measures DVT/VTE Risk/Contraindication: Risk Factor Score Per Nursin RFS Level Per Nursing on Admit: 4+=Very High SHERRIE LOUIS DO July 05, 2017 14:20
[2017-07-05] MEDS: DOCUSATE SODIUM 100 MG (COLACE) CAP PO SCH (20:55)
[2017-07-05] MEDS: amLODIPine 5 MG (NORVASC) TAB PO SCH (20:55)
[2017-07-05] MEDS: POLYETHYLENE GLYCOL 17 GM (MIRALAX) PACK PO SCH (20:55)
[2017-07-06] VITALS (24 sets, daily range): BP systolic 92–182; BP diastolic 32–85
[2017-07-06] MEDS: HYDROcodone/APAP 10 MG/325 MG (LORTAB) TAB PO PRN ×3 (03:35→21:17)
[2017-07-06] MEDS: LEVOTHYROXINE 150 MCG (LEVOTHROID) TAB PO SCH (03:35)
[2017-07-06 03:39] LABS: BASOPHILS % (AUTO) 0 % (0-10); EOSINOPHILS # (AUTO) 0.1 10^3/uL (0.0-0.3); EOSINOPHILS % (AUTO) 2 % (0-10); HEMATOCRIT 30 % (35-52); HEMOGLOBIN 10.1 G/DL (11.5-16.0); LYMPHOCYTES # (AUTO) 0.6 X 10^3 (1.0-4.0); LYMPHOCYTES % (AUTO) 9 % (12-44); MEAN CORPUSCULAR HEMOGLOBIN 30 PG (25-34); MEAN CORPUSCULAR HGB CONC 34 G/DL (32-36); MEAN CORPUSCULAR VOLUME 89 FL (80-99); MEAN PLATELET VOLUME 10.7 FL (7.4-10.4); MONOCYTES # (AUTO) 0.4 X 10^3 (0.0-1.0); MONOCYTES % (AUTO) 6 % (0-12); NEUTROPHILS # (AUTO) 5.8 X 10^3 (1.8-7.8); NEUTROPHILS % (AUTO) 83 % (42-75); PLATELET COUNT 191 10^3/uL (130-400); RED BLOOD COUNT 3.33 10^6/uL (4.35-5.85); RED CELL DISTRIBUTION WIDTH 15.3 % (10.0-14.5); WHITE BLOOD COUNT 6.9 10^3/uL (4.3-11.0)
[2017-07-06 04:00] LABS: BUN/CREATININE RATIO 21; CARBON DIOXIDE 16 MMOL/L (21-32); CHLORIDE 108 MMOL/L (98-107); CREATININE SERUM 0.63 MG/DL (0.60-1.30); GFR ESTIMATED > 60; GLUCOSE 325 MG/DL (70-105); MAGNESIUM 1.8 MG/DL (1.8-2.4); POTASSIUM 4.3 MMOL/L (3.6-5.0); SODIUM 137 MMOL/L (135-145)
[2017-07-06] MEDS: POTASSIUM CL 10MEQ/50ML IVPB 50 ML IV SCH (06:14)
[2017-07-06] MEDS: KCL 20 MEQ TAB (K-DUR) PO SCH (06:14)
[2017-07-06] MEDS: MAGNESIUM 1 GM/100 ML IVPB 100 ML IV SCH (06:14)
--- NOTE | 2017-07-06 07:57 | Progress Note (SOAP) ---
Subjective Time Seen by Provider: 07:52 Subjective/Events-last exam Pt discouraged, but seemed to be resting comfortably. States that she has been up a couple of times with PT. She hasn't had a bowel movement, but is passing gas. RENITA drain put out 110 last shift. Focused Exam Lactate Level 07/04/17 13:15: Lactic Acid Level 2.97*H 07/04/17 15:02: Lactic Acid Level 1.20 Objective Exam Vital Signs Date Time Temp Pulse Resp B/P (MAP) Pulse Ox O2 Delivery O2 Flow Rate FiO2 07/06/17 06:00 77 14 129/54 (79) 100 Room Air 07/06/17 05:00 94 10 122/59 (80) 100 Room Air 07/06/17 04:00 Room Air 07/06/17 04:00 81 13 148/63 (91) 100 Room Air 07/06/17 03:34 98.3 07/06/17 03:00 90 14 154/61 (92) 100 Room Air 07/06/17 02:00 80 13 164/68 (100) 100 Room Air 07/06/17 01:00 81 07/06/17 01:00 81 14 164/69 (100) 99 Room Air 07/06/17 00:30 98.5 07/06/17 00:00 Room Air 07/06/17 00:00 71 12 182/74 (110) 94 Room Air 07/05/17 23:00 75 17 162/58 (92) 100 Room Air 07/05/17 22:00 77 23 142/58 (86) 100 Room Air 07/05/17 21:00 77 17 147/66 (93) 100 Room Air 07/05/17 20:00 79 14 136/56 (82) 100 Room Air 07/05/17 20:00 98.8 07/05/17 20:00 Room Air 07/05/17 19:00 74 07/05/17 19:00 74 10 125/81 (96) 100 Room Air 07/05/17 18:00 70 9 161/58 (92) 100 Room Air 07/05/17 17:00 97.8 07/05/17 17:00 71 9 159/61 (93) 100 Room Air 07/05/17 16:00 60 16 114/58 (76) 100 Room Air 07/05/17 16:00 Room Air 07/05/17 15:00 67 8 113/55 (74) 100 Room Air 07/05/17 14:00 67 8 131/51 (77) 100 Room Air 07/05/17 13:00 68 07/05/17 13:00 75 14 149/57 (87) 100 Room Air 07/05/17 12:48 98.8 07/05/17 12:00 Room Air 07/05/17 12:00 67 12 142/59 (86) 100 Room Air 07/05/17 11:00 67 12 100 Room Air 07/05/17 10:00 84 19 149/59 (89) 100 Room Air 07/05/17 09:00 76 29 137/62 (87) 100 Room Air 07/05/17 08:00 75 15 138/55 (82) 100 Room Air 07/05/17 08:00 97.8 73 12 121/76 (91) 100 Room Air 07/05/17 08:00 Room Air I & O 07/06/17 07:00 Intake Total 1830 ml Output Total 5300 ml Balance -3470 ml Capillary Refill : General Appearance: No Apparent Distress, WD/WN Respiratory: No Accessory Muscle Use, No Respiratory Distress Extremity: Non Tender Neurologic/Psychiatric: Alert, Depressed Affect, Other (Has trouble lifting legs, question effort.) Results Lab Laboratory Tests 07/05/17 12:46: Glucometer 74 07/05/17 17:53: Glucometer 146H 07/05/17 20:51: Glucometer 226H 07/06/17 03:30: White Blood Count 6.9, Red Blood Count 3.33L, Hemoglobin 10.1L, Hematocrit 30L, Mean Corpuscular Volume 89, Mean Corpuscular Hemoglobin 30, Mean Corpuscular Hemoglobin Concent 34, Red Cell Distribution Width 15.3H, Platelet Count 191, Mean Platelet Volume 10.7H, Neutrophils (%) (Auto) 83H, Lymphocytes (%) (Auto) 9L, Monocytes (%) (Auto) 6, Eosinophils (%) (Auto) 2, Basophils (%) (Auto) 0, Neutrophils # (Auto) 5.8, Lymphocytes # (Auto) 0.6L, Monocytes # (Auto) 0.4, Eosinophils # (Auto) 0.1, Basophils # (Auto) 0.0, Sodium Level 137, Potassium Level 4.3, Chloride Level 108H, Carbon Dioxide Level 16L, Anion Gap 13, Blood Urea Nitrogen 13, Creatinine 0.63, Estimat Glomerular Filtration Rate > 60, BUN/ Creatinine Ratio 21, Glucose Level 325H, Calcium Level 8.0L, Phosphorus Level 2.0L, Magnesium Level 1.8 Microbiology 07/03/17 MRSA Screen - Final, Complete MRSA not isolated 07/03/17 Gram Stain - Final, Resulted 07/03/17 Anaerobic Culture - Preliminary, Resulted No growth 07/03/17 Surgical Culture - Preliminary, Resulted No growth Assessment/Plan Assessment/Plan Assess & Plan/Chief Complaint 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
[2017-07-06] MEDS: MULTIVIT W/MINERALS TAB (THERAGRAN M) PO SCH (08:58)
[2017-07-06] MEDS: DOCUSATE SODIUM 100 MG (COLACE) CAP PO SCH ×2 (08:59→21:17)
[2017-07-06] MEDS: DULoxetine 30 MG (CYMBALTA) CAP PO SCH ×2 (08:59→21:17)
[2017-07-06] MEDS: PREGABALIN 50 MG (LYRICA) CAP PO SCH ×2 (08:59→13:21)
[2017-07-06] MEDS: POLYETHYLENE GLYCOL 17 GM (MIRALAX) PACK PO SCH ×2 (08:59→21:18)
[2017-07-06] MEDS: FAMOTIDINE 20 MG (PEPCID) TABLET PO SCH ×2 (08:59→21:17)
[2017-07-06] MEDS: NS IV 1000 ML 1,000 ML IV SCH ×2 (09:00→14:57)
[2017-07-06] MEDS: inSUlin ASPART (NovoLOG) 1 UNIT/0.01 ML (CHARGE PER UNIT) SC PRN ×2 (09:11→15:47)
--- NOTE | 2017-07-06 09:32 | Diagnostic Imaging Report ---
Portable chest compared to prior study from 07/05/2017 Indication: Sepsis. Findings: The right internal jugular central line is present. There has been prior right shoulder arthroplasty and extensive thoracic and lumbar spinal fusion. The lungs demonstrate some obscuration of the left hemidiaphragm. A left effusion or left base consolidation cannot be excluded based on this single view. There is no pneumothorax. Heart size and mediastinal contours appear appropriate without findings to suggest congestive failure. Impression: 1. Obscuration of the left hemidiaphragm suggesting the possibility of a left-sided pleural effusion or left base consolidation. Lungs otherwise appear clear. Dictated by: Dictated on workstation # [id number]
--- NOTE | 2017-07-06 12:42 | Progress Note-Hospitalist ---
Subjective HPI/CC On Admission Date Seen by Provider: July 06, 2017 Time Seen by Provider: 10:40 CC: Hypotension HPI: This is a 71-year-old white female known to me from prior hospital stay from / after very complex lumbar and thoracic spine surgery due to severe spine disease who presented after an uncomplicated repair of hardware disruption and fracture above all of the hardware placed in May by Dr. Zuñiga. This is the patient that had a lengthy hospital stay last time requiring transfusion of blood and smoking cessation counseling who was set up to go to alf arrived at the alf and was taken home 3 hours after arrival by her at her insistence he went home and did her own rehabilitation. I had multiple calls last night due to hypotension and her chronic systolic blood pressures between 90 and 100 so ultimately I put her on severe sepsis IV fluid orders although she was not in severe sepsis and patient did stabilize but upon assessment when she got out of bed in a chair for systolic blood pressure was 65 so we put her back to bed that improved to 100 systolic but central line will be placed in case pressor therapy will be needed after IV fluid resuscitation had been completed and if it fails she will need pressor therapy. Overall very poor prognosis considering the lack of recovery she had an chronic debilitated state since she had not walked for several months prior to the last surgery in May and considering this severe hypotension that has turned into a critical status. I did speak with Dr. Lennon regarding this case and he agrees with the plan. Subjective/Events-last exam Overall patient doing much better Hypotension resolved and even required amlodipine 5 mg one time last night at 12 :45 AM Patient did have a large bowel movement and now doing well on current bowel regimen Pain is about the same Hemoglobin 10.1 today after 2 units of packed red blood cell transfusion 2 days ago I was set to transfer to fourth floor but later she had hypotensive episode is 65 systolic so we'll start Florinef 0.1 mg twice a day and monitor for fluid overload. I may be able to once again transferred to fourth floor but with hypotension requiring IV fluid resuscitation this is still a guarded situation Review of Systems General: Fatigue, Malaise Musculoskeletal: back pain Focused Exam Lactate Level 07/04/17 13:15: Lactic Acid Level 2.97*H 07/04/17 15:02: Lactic Acid Level 1.20 Objective Exam Vital Signs Vital Signs Date Time Temp Pulse Resp B/P (MAP) Pulse Ox O2 Delivery O2 Flow Rate FiO2 07/06/17 13:00 85 07/06/17 12:00 13 137/57 (83) 100 Room Air 07/06/17 03:34 98.3 Capillary Refill : General Appearance: No Apparent Distress, WD/WN, Chronically ill Respiratory: Lungs Clear, Decreased Breath Sounds Cardiovascular: Regular Rate, Rhythm, No Edema Neurologic/Psychiatric: Alert, Oriented x3, No Motor/Sensory Deficits, Depressed Affect Results/Procedures Lab Laboratory Tests 07/06/17 03:30 Patient resulted labs reviewed. Assessment/Plan Assessment and Plan Assess & Plan/Chief Complaint Assessment: Hardware failure with fracture above hardware placement from May 2017 status post uncomplicated repair POD # 3 Acute on chronic hypotension requiring large volume IV fluid resuscitation now resolved since blood transfusion but once again recurred so holding transfer to 4th floor and starting Florinef Severe hyperglycemia with history of diabetes now hypoglycemic so will decrease insulin Current smoker but quit recently per Chronic debilitation unable to ambulate for months before surgery done in May and has not really progressed well at home after went home from alf 3 hours after admitted after discharge in May Plan: Monitor for fluid overload due to Florinef initiated for orthostasis Monitor closely Prognosis guarded Diagnosis/Problems Diagnosis/Problems (1) Hypotension Status: Acute Qualifiers: Hypotension type: neurogenic orthostatic hypotension Qualified Codes: G90.3 - Multi-system degeneration of the autonomic nervous system (2) Poor prognosis Status: Chronic (3) Debilitated patient Status: Chronic (4) Postoperative anemia Status: Acute Assessment & Plan: s/p 2 units of blood yesterday (5) Hypothyroidism Status: Chronic Qualifiers: Hypothyroidism type: acquired Qualified Codes: E03.9 - Hypothyroidism, unspecified (6) Diabetes mellitus Status: Chronic Qualifiers: Diabetes mellitus type: type 2 Diabetes mellitus prison insulin use: without long goods drier use Diabetes mellitus complication status: with circulatory complication Diabetes mellitus complication detail: with other circulatory complications Qualified Codes: E11.59 - Type 2 diabetes mellitus with other circulatory complications (7) Smoker Status: Chronic (8) Hypoglycemia associated with diabetes Status: Acute (9) Transfusion of blood during current hospitalisation Status: Acute Clinical Quality Measures DVT/VTE Risk/Contraindication: Risk Factor Score Per Nursin RFS Level Per Nursing on Admit: 4+=Very High SHERRIE LOUIS DO July 06, 2017 12:42
[2017-07-06] MEDS ORDERED: FLUDROCORTISONE 0.1 MG (FLORINEF) TAB PO NR (14:44)
[2017-07-06] MEDS ORDERED: inSUlin ASPART (NovoLOG) 1 UNIT/0.01 ML (CHARGE PER UNIT) SC PRN (16:00)
[2017-07-06] MEDS: fentaNYL INJECTION 100 MCG/2 ML AMP IVP PRN ×5 (16:03→22:43)
[2017-07-06 16:28] LABS: ABG BASE EXCESS -18.7 MMOL/L (-2.5-2.5); ABG OXYGEN SATURATION 98 % (94-100); ABG PO2 109 MMHG (79-93); ABG TCO2 8.1 MMOL/L (21.0-31.0)
[2017-07-06 16:34] LABS: ABG PH 7.23 (7.37-7.43)
[2017-07-06 16:35] LABS: ABG PCO2 19 MMHG (35-45); ALLENS TEST POSITIVE; INSPIRED O2 ROOM AIR; PATIENT TEMP 99.5; VENTILATOR NO
[2017-07-06 16:38] LABS: BASOPHILS % (AUTO) 0 % (0-10); EOSINOPHILS % (AUTO) 0 % (0-10); HEMATOCRIT 27 % (35-52); HEMOGLOBIN 9.2 G/DL (11.5-16.0); LYMPHOCYTES # (AUTO) 0.7 X 10^3 (1.0-4.0); LYMPHOCYTES % (AUTO) 8 % (12-44); MEAN CORPUSCULAR HEMOGLOBIN 31 PG (25-34); MEAN CORPUSCULAR HGB CONC 34 G/DL (32-36); MEAN CORPUSCULAR VOLUME 91 FL (80-99); MONOCYTES # (AUTO) 0.6 X 10^3 (0.0-1.0); MONOCYTES % (AUTO) 6 % (0-12); NEUTROPHILS # (AUTO) 8.2 X 10^3 (1.8-7.8); NEUTROPHILS % (AUTO) 86 % (42-75); PLATELET COUNT 244 10^3/uL (130-400); RED BLOOD COUNT 3.02 10^6/uL (4.35-5.85); RED CELL DISTRIBUTION WIDTH 15.1 % (10.0-14.5); WHITE BLOOD COUNT 9.5 10^3/uL (4.3-11.0)
--- NOTE | 2017-07-06 16:47 | Diagnostic Imaging Report ---
PROCEDURE: CT head without contrast. TECHNIQUE: Multiple contiguous axial images were obtained through the brain without the use of intravenous contrast. INDICATION: Postsurgical confusion. COMPARISON: No comparison is available. FINDINGS: There is no CT evidence of acute intracranial hemorrhage. There is no evidence of intracranial mass effect or shift. There is no hydrocephalus. There is no abnormal extra-axial fluid collection. The basilar cisterns are patent. The posterior fossa demonstrates no acute process. There is no evidence to suggest a territorial loss of rapp-white differentiation. The mastoid air cells appear clear. The visualized paranasal sinuses are clear. Orbital contents are unremarkable. There is no acute calvarial abnormality. IMPRESSION: Age-appropriate global volume loss with no CT evidence of an acute intracranial abnormality. Dictated by: Dictated on workstation # [id number]
[2017-07-06 16:53] LABS: ALANINE AMINOTRANSFERASE 13 U/L (0-55); ALBUMIN 2.8 GM/DL (3.2-4.5); ALKALINE PHOSPHATASE 116 U/L (40-136); BILIRUBIN,TOTAL 0.6 MG/DL (0.1-1.0); BUN/CREATININE RATIO 26; CALCIUM 8.1 MG/DL (8.5-10.1); CHLORIDE 110 MMOL/L (98-107); CREATININE SERUM 0.76 MG/DL (0.60-1.30); GFR ESTIMATED > 60; GLUCOSE 360 MG/DL (70-105); POTASSIUM 4.6 MMOL/L (3.6-5.0); SODIUM 138 MMOL/L (135-145); TOTAL PROTEIN 5.3 GM/DL (6.4-8.2)
[2017-07-06 17:00] LABS: BILIRUBIN,URINE NEGATIVE (NEGATIVE); CLARITY,URINE CLEAR; COLOR,URINE YELLOW; GLUCOSE, URINE (UA) 4+ (NEGATIVE); KETONES,URINE 4+ (NEGATIVE); LEUKOCYTE ESTERASE ,URINE 3+ (NEGATIVE); NITRITE,URINE NEGATIVE (NEGATIVE); PH,URINE 5 (5-9); PROTEIN,URINE 3+ (NEGATIVE); UROBILINOGEN,URINE NORMAL (NORMAL)
[2017-07-06] MEDS ORDERED: NS IV 1000 ML 1,000 ML IV ONE (17:01)
[2017-07-06 17:02] LABS: BACTERIA,URINE TRACE /HPF; RBC,URINE RARE /HPF; SQUAMOUS EPITHELIAL CELL,UR RARE /HPF; YEAST,URINE FEW /HPF
[2017-07-06 17:05] LABS: CARBON DIOXIDE 7 MMOL/L (21-32); SMEAR SCAN COMMENT YES
[2017-07-06] MEDS ORDERED: inSUlin REGULAR TPN/DRIP ONLY 250 UNITS in NORMAL SALINE 250 ML IV SCH (17:15)
[2017-07-06] MEDS ORDERED: D5 1/2 NS 1000 ML IV SOLUTION 1,000 ML IV SCH (17:15)
[2017-07-06] MEDS: 1/2 NS W/KCL 20 MEQ/L 1,000 ML IV SCH (17:27)
[2017-07-06] MEDS: D5 1/2 NS W/KCL 20 MEQ/L 1,000 ML IV SCH ×2 (17:28→20:15)
[2017-07-06] MEDS: 1/2 NS IV SOLUTION 1,000 ML IV SCH (17:28)
[2017-07-06] MEDS ORDERED: inSUlin (REGULAR) HUMAN 1 UNIT/0.01 ML (CHARGE PER UNIT) ONE ×3 (17:37→17:45)
[2017-07-06] MEDS ORDERED: NORMAL SALINE 250 ML ONE (17:37)
[2017-07-06 19:36] LABS: BUN/CREATININE RATIO 25; CALCIUM 7.9 MG/DL (8.5-10.1); CHLORIDE 112 MMOL/L (98-107); CREATININE SERUM 0.71 MG/DL (0.60-1.30); GFR ESTIMATED > 60; GLUCOSE 248 MG/DL (70-105); SODIUM 137 MMOL/L (135-145)
[2017-07-06 19:59] LABS: CARBON DIOXIDE 9 MMOL/L (21-32)
[2017-07-06] MEDS ORDERED: D5 1/2 NS W/KCL 20 MEQ/L 1,000 ML IV ONE (20:07)
[2017-07-06] MEDS: FLUDROCORTISONE 0.1 MG (FLORINEF) TAB PO SCH (21:18)
[2017-07-06] MEDS: inSUlin DETERMIR 1 UNIT/0.01 ML (LEVEMIR) CHARGE PER UNIT SQ SCH (21:18)
[2017-07-06 21:29] LABS: BUN/CREATININE RATIO 24; CALCIUM 7.9 MG/DL (8.5-10.1); CARBON DIOXIDE 13 MMOL/L (21-32); CHLORIDE 113 MMOL/L (98-107); CREATININE SERUM 0.72 MG/DL (0.60-1.30); GFR ESTIMATED > 60; GLUCOSE 176 MG/DL (70-105); POTASSIUM 3.8 MMOL/L (3.6-5.0); SODIUM 137 MMOL/L (135-145)
[2017-07-06 23:42] LABS: BUN/CREATININE RATIO 24; CALCIUM 7.7 MG/DL (8.5-10.1); CARBON DIOXIDE 17 MMOL/L (21-32); CHLORIDE 113 MMOL/L (98-107); CREATININE SERUM 0.67 MG/DL (0.60-1.30); GFR ESTIMATED > 60; GLUCOSE 144 MG/DL (70-105); POTASSIUM 3.8 MMOL/L (3.6-5.0); SODIUM 136 MMOL/L (135-145)
[2017-07-07] VITALS (39 sets, daily range): BP systolic 9–155; BP diastolic 42–107
[2017-07-07] MEDS: fentaNYL INJECTION 100 MCG/2 ML AMP IVP PRN ×7 (00:01→15:43)
[2017-07-07] MEDS: D5 1/2 NS W/KCL 20 MEQ/L 1,000 ML IV SCH ×7 (00:55→22:59)
[2017-07-07] MEDS ORDERED: DEXTROSE 10% IV SOLUTION 1,000 ML IV ONE (01:28)
[2017-07-07 01:33] LABS: CARBON DIOXIDE 17 MMOL/L (21-32); CHLORIDE 113 MMOL/L (98-107); POTASSIUM 3.8 MMOL/L (3.6-5.0); SODIUM 137 MMOL/L (135-145)
[2017-07-07 01:34] LABS: BUN/CREATININE RATIO 24; CALCIUM 7.8 MG/DL (8.5-10.1); CREATININE SERUM 0.67 MG/DL (0.60-1.30); GFR ESTIMATED > 60; GLUCOSE 92 MG/DL (70-105)
[2017-07-07] MEDS ORDERED: DEXTROSE 10% IV SOLUTION 1,000 ML IV PRN (01:45)
[2017-07-07 03:17] LABS: BASOPHILS % (AUTO) 0 % (0-10); EOSINOPHILS # (AUTO) 0.2 10^3/uL (0.0-0.3); EOSINOPHILS % (AUTO) 3 % (0-10); HEMATOCRIT 25 % (35-52); HEMOGLOBIN 8.3 G/DL (11.5-16.0); LYMPHOCYTES # (AUTO) 1.4 X 10^3 (1.0-4.0); LYMPHOCYTES % (AUTO) 16 % (12-44); MEAN CORPUSCULAR HEMOGLOBIN 30 PG (25-34); MEAN CORPUSCULAR HGB CONC 34 G/DL (32-36); MEAN CORPUSCULAR VOLUME 89 FL (80-99); MEAN PLATELET VOLUME 9.8 FL (7.4-10.4); MONOCYTES # (AUTO) 0.8 X 10^3 (0.0-1.0); MONOCYTES % (AUTO) 10 % (0-12); NEUTROPHILS # (AUTO) 6.3 X 10^3 (1.8-7.8); NEUTROPHILS % (AUTO) 72 % (42-75); PLATELET COUNT 232 10^3/uL (130-400); RED BLOOD COUNT 2.77 10^6/uL (4.35-5.85); WHITE BLOOD COUNT 8.8 10^3/uL (4.3-11.0)
[2017-07-07 03:34] LABS: BUN/CREATININE RATIO 24; CALCIUM 7.8 MG/DL (8.5-10.1); CARBON DIOXIDE 17 MMOL/L (21-32); CHLORIDE 113 MMOL/L (98-107); CREATININE SERUM 0.67 MG/DL (0.60-1.30); GFR ESTIMATED > 60; GLUCOSE 86 MG/DL (70-105); POTASSIUM 3.9 MMOL/L (3.6-5.0); SODIUM 137 MMOL/L (135-145)
[2017-07-07] MEDS: HYDROcodone/APAP 10 MG/325 MG (LORTAB) TAB PO PRN ×3 (05:03→20:15)
[2017-07-07] MEDS: 1/2 NS IV SOLUTION 1,000 ML IV SCH ×7 (05:21→21:57)
[2017-07-07] MEDS: NS IV 1000 ML 1,000 ML IV SCH ×4 (05:21→17:47)
[2017-07-07] MEDS: 1/2 NS W/KCL 20 MEQ/L 1,000 ML IV SCH ×7 (05:21→21:00)
[2017-07-07 05:32] LABS: BUN/CREATININE RATIO 23; CALCIUM 7.9 MG/DL (8.5-10.1); CARBON DIOXIDE 17 MMOL/L (21-32); CHLORIDE 111 MMOL/L (98-107); CREATININE SERUM 0.66 MG/DL (0.60-1.30); GFR ESTIMATED > 60; GLUCOSE 134 MG/DL (70-105); POTASSIUM 4.3 MMOL/L (3.6-5.0); SODIUM 135 MMOL/L (135-145)
[2017-07-07 05:44] LABS: MAGNESIUM 1.9 MG/DL (1.8-2.4); PHOSPHORUS 1.4 MG/DL (2.3-4.7)
[2017-07-07] MEDS: KCL 20 MEQ TAB (K-DUR) PO SCH (06:50)
[2017-07-07] MEDS: MAGNESIUM 1 GM/100 ML IVPB 100 ML IV SCH (06:50)
[2017-07-07] MEDS: POTASSIUM CL 10MEQ/50ML IVPB 50 ML IV SCH (06:50)
--- NOTE | 2017-07-07 07:27 | Progress Note (SOAP) ---
Subjective Time Seen by Provider: 07:22 Subjective/Events-last exam Pt resting comfortably this morning, but states that she had a long day and night due to comorbidities. No new complaints this morning. Focused Exam Lactate Level 07/04/17 13:15: Lactic Acid Level 2.97*H 07/04/17 15:02: Lactic Acid Level 1.20 07/06/17 16:25: Lactic Acid Level 1.47 Objective Exam Vital Signs Date Time Temp Pulse Resp B/P (MAP) Pulse Ox O2 Delivery O2 Flow Rate FiO2 07/07/17 06:00 82 22 116/44 (68) 98 Room Air 07/07/17 05:00 74 15 129/48 (75) 100 Room Air 07/07/17 04:00 98.4 67 18 125/45 (71) 100 Room Air 07/07/17 04:00 Room Air 07/07/17 03:00 72 16 97/42 (60) 100 Room Air 07/07/17 02:00 67 13 110/44 (66) 100 Room Air 07/07/17 01:00 75 13 110/50 (70) 100 Room Air 07/07/17 01:00 75 07/07/17 00:00 Room Air 07/07/17 00:00 98.8 71 19 87/43 (58) 100 Room Air 07/06/17 23:00 73 23 92/39 (56) 100 Room Air 07/06/17 22:00 92 20 127/60 (82) 100 Room Air 07/06/17 21:00 96 16 116/57 (76) 100 Room Air 07/06/17 20:00 Room Air 07/06/17 20:00 99.3 98 25 112/56 (74) 100 Room Air 07/06/17 19:00 97 07/06/17 19:00 97 20 133/49 (77) 99 Room Air 07/06/17 18:00 111 21 158/50 (86) 100 Room Air 07/06/17 17:00 105 34 149/74 (99) 97 Room Air 07/06/17 16:00 99.5 07/06/17 16:00 105 24 100/54 (69) 98 Room Air 07/06/17 16:00 100 Room Air 07/06/17 15:00 92 22 113/43 (66) 100 Room Air 07/06/17 14:00 89 23 123/46 (71) 100 Room Air 07/06/17 13:00 86 13 98/40 (59) 100 Room Air 07/06/17 13:00 85 07/06/17 12:00 70 13 137/57 (83) 100 Room Air 07/06/17 12:00 99.5 07/06/17 12:00 100 Room Air 07/06/17 11:00 77 15 109/46 (67) 100 Room Air 07/06/17 10:00 84 17 121/85 (97) 100 Room Air 07/06/17 09:00 81 15 96/32 (53) 100 Room Air 07/06/17 08:00 82 17 111/48 (69) 100 Room Air 07/06/17 08:00 100 Room Air 07/06/17 08:00 99.1 I & O 07/07/17 07:00 Intake Total 1000 ml Output Total 1990 ml Balance -990 ml Capillary Refill : General Appearance: No Apparent Distress, WD/WN Respiratory: No Accessory Muscle Use, No Respiratory Distress Extremity: Calf Tenderness Neurologic/Psychiatric: Alert, Oriented x3 Results Lab Laboratory Tests 07/06/17 09:06: Glucometer 315H 07/06/17 15:42: Glucometer 358H 07/06/17 16:15: Blood Gas Puncture Site LEFT RADIAL, Blood Gas Patient Temperature 99.5, Arterial Blood pH 7.23*L, Arterial Blood Partial Pressure CO2 19*L, Arterial Blood Partial Pressure O2 109H, Arterial Blood HCO3 8*L, Arterial Blood Total CO2 8.1L, Arterial Blood Oxygen Saturation 98, Arterial Blood Base Excess -18.7L , Hussein Test POSITIVE, Blood Gas Ventilator Setting NO, Blood Gas Inspired Oxygen ROOM AIR 07/06/17 16:17: Urine Color YELLOW, Urine Clarity CLEAR, Urine pH 5, Urine Specific [place] 1.025H, Urine Protein 3+H, Urine Glucose (UA) 4+H, Urine Ketones 4+H, Urine Nitrite NEGATIVE, Urine Bilirubin NEGATIVE, Urine Urobilinogen NORMAL, Urine Leukocyte Esterase 3+H, Urine RBC (Auto) 3+H, Urine RBC RARE, Urine WBC 10-25H, Urine Squamous Epithelial Cells RARE, Urine Crystals NONE, Urine Bacteria TRACE , Urine Casts NONE, Urine Mucus NEGATIVE, Urine Yeast FEWH, Urine Culture Indicated YES 07/06/17 16:25: White Blood Count 9.5, Red Blood Count 3.02L, Hemoglobin 9.2L, Hematocrit 27L, Mean Corpuscular Volume 91, Mean Corpuscular Hemoglobin 31, Mean Corpuscular Hemoglobin Concent 34, Red Cell Distribution Width 15.1H, Platelet Count 244, Mean Platelet Volume 11.0H, Neutrophils (%) (Auto) 86H, Lymphocytes (%) (Auto) 8L, Monocytes (%) (Auto) 6, Eosinophils (%) (Auto) 0, Basophils (%) (Auto) 0, Neutrophils # (Auto) 8.2H, Lymphocytes # (Auto) 0.7L, Monocytes # (Auto) 0.6, Eosinophils # (Auto) 0.0, Basophils # (Auto) 0.0, Sodium Level 138, Potassium Level 4.6, Chloride Level 110H, Carbon Dioxide Level 7*L, Anion Gap 21H, Blood Urea Nitrogen 20H, Creatinine 0.76, Estimat Glomerular Filtration Rate > 60, BUN /Creatinine Ratio 26, Glucose Level 360H, Lactic Acid Level 1.47, Calcium Level 8.1L, Total Bilirubin 0.6, Aspartate Amino Transf (AST/SGOT) 23, Alanine Aminotransferase (ALT/SGPT) 13, Alkaline Phosphatase 116, Troponin I < 0.30, Total Protein 5.3L, Albumin 2.8L, Smear Scan YES 07/06/17 18:01: Glucometer 302H 07/06/17 18:53: Glucometer 252H 07/06/17 19:01: Sodium Level 137, Potassium Level 4.0, Chloride Level 112H, Carbon Dioxide Level 9*L, Anion Gap 16H, Blood Urea Nitrogen 18, Creatinine 0.71, Estimat Glomerular Filtration Rate > 60, BUN/Creatinine Ratio 25, Glucose Level 248H, Calcium Level 7.9L 07/06/17 20:05: Glucometer 223H 07/06/17 21:00: Sodium Level 137, Potassium Level 3.8, Chloride Level 113H, Carbon Dioxide Level 13L, Anion Gap 11, Blood Urea Nitrogen 17, Creatinine 0.72, Estimat Glomerular Filtration Rate > 60, BUN/Creatinine Ratio 24, Glucose Level 176H, Calcium Level 7.9L 07/06/17 21:03: Glucometer 191H 07/06/17 22:00: Glucometer 174H 07/06/17 23:15: Sodium Level 136, Potassium Level 3.8, Chloride Level 113H, Carbon Dioxide Level 17L, Anion Gap 6, Blood Urea Nitrogen 16, Creatinine 0.67, Estimat Glomerular Filtration Rate > 60, BUN/Creatinine Ratio 24, Glucose Level 144H, Calcium Level 7.7L 07/06/17 23:17: Glucometer 151H 07/07/17 00:00: Glucometer 153H 07/07/17 00:58: Glucometer 113H 07/07/17 01:00: Sodium Level 137, Potassium Level 3.8, Chloride Level 113H, Carbon Dioxide Level 17L, Anion Gap 7, Blood Urea Nitrogen 16, Creatinine 0.67, Estimat Glomerular Filtration Rate > 60, BUN/Creatinine Ratio 24, Glucose Level 92, Calcium Level 7.8L 07/07/17 01:31: Glucometer 100 07/07/17 03:05: Sodium Level 137, Potassium Level 3.9, Chloride Level 113H, Carbon Dioxide Level 17L, Anion Gap 7, Blood Urea Nitrogen 16, Creatinine 0.67, Estimat Glomerular Filtration Rate > 60, BUN/Creatinine Ratio 24, Glucose Level 86, Calcium Level 7.8L, White Blood Count 8.8, Red Blood Count 2.77L, Hemoglobin 8.3L, Hematocrit 25L, Mean Corpuscular Volume 89, Mean Corpuscular Hemoglobin 30 , Mean Corpuscular Hemoglobin Concent 34, Red Cell Distribution Width 15.0H, Platelet Count 232, Mean Platelet Volume 9.8, Neutrophils (%) (Auto) 72, Lymphocytes (%) (Auto) 16, Monocytes (%) (Auto) 10, Eosinophils (%) (Auto) 3, Basophils (%) (Auto) 0, Neutrophils # (Auto) 6.3, Lymphocytes # (Auto) 1.4, Monocytes # (Auto) 0.8, Eosinophils # (Auto) 0.2, Basophils # (Auto) 0.0 07/07/17 03:06: Glucometer 94 07/07/17 03:39: Glucometer 81 07/07/17 04:32: Glucometer 89 07/07/17 05:05: Sodium Level 135, Potassium Level 4.3, Chloride Level 111H, Carbon Dioxide Level 17L, Anion Gap 7, Blood Urea Nitrogen 15, Creatinine 0.66, Estimat Glomerular Filtration Rate > 60, BUN/Creatinine Ratio 23, Glucose Level 134H, Calcium Level 7.9L, Phosphorus Level 1.4L, Magnesium Level 1.9 07/07/17 05:06: Glucometer 90 07/07/17 06:05: Glucometer 179H 07/07/17 07:00: 07/07/17 07:02: Glucometer 216H Microbiology 07/03/17 MRSA Screen - Final, Complete MRSA not isolated 07/03/17 Gram Stain - Final, Resulted 07/03/17 Anaerobic Culture - Preliminary, Resulted No growth 07/03/17 Surgical Culture - Preliminary, Resulted No growth Assessment/Plan Assessment/Plan Assess & Plan/Chief Complaint L2 fracture with myelopathy/radiculopathy Lumbar instability/kyphosis Osteoporosis Hyperkalemia Acute Blood Loss Anemia Continue PT and pain control DC RENITA drain if around 50 output this afternoon Venous doppler left leg Clinical Quality Measures DVT/VTE Risk/Contraindication: Risk Factor Score Per Nursin RFS Level Per Nursing on Admit: 4+=Very High JEWELL DEL VALLE July 07, 2017 07:27
[2017-07-07 07:33] LABS: BUN/CREATININE RATIO 21; CALCIUM 7.7 MG/DL (8.5-10.1); CARBON DIOXIDE 14 MMOL/L (21-32); CHLORIDE 109 MMOL/L (98-107); GFR ESTIMATED > 60; GLUCOSE 278 MG/DL (70-105); POTASSIUM 4.4 MMOL/L (3.6-5.0); SODIUM 133 MMOL/L (135-145)
--- NOTE | 2017-07-07 07:51 | Diagnostic Imaging Report ---
EXAMINATION: Chest radiograph, portable AP view. DATE: July 07, 2017 at 0341 hours. INDICATION: 71-year-old female, sepsis. COMPARISON: July 06, 2017. FINDINGS: The right internal jugular central venous line overlies the mid SVC. There are midline skin bertha at the level of the chest and the abdomen. Stable overall appearance of the cardiomediastinal silhouette. There is no identified pneumothorax. There is no large pleural effusion. There are streaky opacities in the left lung base. There is a reverse right shoulder prosthesis. There is partially visualized spinal hardware. IMPRESSION: 1. Streaky opacities in the left lung base may reflect atelectasis and/or infiltrate. 2. Right-sided internal jugular central venous line overlying the mid SVC. Dictated by: Dictated on workstation # [id number]
[2017-07-07] MEDS: DULoxetine 30 MG (CYMBALTA) CAP PO SCH ×2 (08:47→20:14)
[2017-07-07] MEDS: LEVOTHYROXINE 150 MCG (LEVOTHROID) TAB PO SCH (08:48)
[2017-07-07] MEDS: POLYETHYLENE GLYCOL 17 GM (MIRALAX) PACK PO SCH ×2 (08:48→20:15)
[2017-07-07] MEDS: MULTIVIT W/MINERALS TAB (THERAGRAN M) PO SCH (08:48)
[2017-07-07] MEDS: DOCUSATE SODIUM 100 MG (COLACE) CAP PO SCH ×2 (08:48→20:14)
[2017-07-07] MEDS: FLUDROCORTISONE 0.1 MG (FLORINEF) TAB PO SCH ×2 (08:58→20:14)
[2017-07-07] MEDS: FAMOTIDINE 20 MG (PEPCID) TABLET PO SCH (08:58)
[2017-07-07 09:17] LABS: BUN/CREATININE RATIO 21; CALCIUM 7.9 MG/DL (8.5-10.1); CARBON DIOXIDE 15 MMOL/L (21-32); CHLORIDE 109 MMOL/L (98-107); CREATININE SERUM 0.71 MG/DL (0.60-1.30); GFR ESTIMATED > 60; GLUCOSE 236 MG/DL (70-105); POTASSIUM 4.4 MMOL/L (3.6-5.0); SODIUM 132 MMOL/L (135-145)
--- NOTE | 2017-07-07 10:56 | Physical Therapy Progress Note ---
Therapy Progress Note Nursing reports that Pt was up to chair this AM and just returned to bed prior to PT arrival. Nursing reports Pt was ready to lie down when returned to bed. PT will resume Friday as tolerated. BRENDEN ENAMORADO DPT July 07, 2017 10:56
[2017-07-07 11:36] LABS: BUN/CREATININE RATIO 21; CALCIUM 7.6 MG/DL (8.5-10.1); CARBON DIOXIDE 16 MMOL/L (21-32); CHLORIDE 109 MMOL/L (98-107); CREATININE SERUM 0.66 MG/DL (0.60-1.30); GFR ESTIMATED > 60; GLUCOSE 218 MG/DL (70-105); POTASSIUM 4.1 MMOL/L (3.6-5.0); SODIUM 132 MMOL/L (135-145)
--- NOTE | 2017-07-07 11:57 | Diagnostic Imaging Report ---
PROCEDURE: US left lower extremity venous. TECHNIQUE: Multiple real-time grayscale images were obtained over the left lower extremity in various projections. Additional duplex Doppler and color Doppler images were also obtained. INDICATION: Leg pain and swelling There are no prior studies available for comparison. There is generally good blood flow and compressibility at all levels. There is no evidence for deep venous thrombosis. IMPRESSION: There is no evidence for deep venous thrombosis of the left lower extremity. Dictated by: Dictated on workstation # [id number]
--- NOTE | 2017-07-07 12:46 | Progress Note-Hospitalist ---
Subjective HPI/CC On Admission Date Seen by Provider: July 07, 2017 Time Seen by Provider: 11:00 CC: Hypotension HPI: This is a 71-year-old white female known to me from prior hospital stay from after very complex lumbar and thoracic spine surgery due to severe spine disease who presented after an uncomplicated repair of hardware disruption and fracture above all of the hardware placed in May by Dr. Zuñiga. This is the patient that had a lengthy hospital stay last time requiring transfusion of blood and smoking cessation counseling who was set up to go to residential arrived at the residential and was taken home 3 hours after arrival by her at her insistence he went home and did her own rehabilitation. I had multiple calls last night due to hypotension and her chronic systolic blood pressures between 90 and 100 so ultimately I put her on severe sepsis IV fluid orders although she was not in severe sepsis and patient did stabilize but upon assessment when she got out of bed in a chair for systolic blood pressure was 65 so we put her back to bed that improved to 100 systolic but central line will be placed in case pressor therapy will be needed after IV fluid resuscitation had been completed and if it fails she will need pressor therapy. Overall very poor prognosis considering the lack of recovery she had an chronic debilitated state since she had not walked for several months prior to the last surgery in May and considering this severe hypotension that has turned into a critical status. I did speak with Dr. Lennon regarding this case and he agrees with the plan. Subjective/Events-last exam Patient had more and more lethargy and confusion yesterday afternoon per ICU nurse after I assessed her on rounds so I ordered a set of labs and CT scan of the head and health most of her neuropathic medication and was found to have severe acidosis and considering lactic acid was normal I diagnosed diabetic ketoacidosis placed on insulin drip and now she is doing much better and overall stabilized Patient has more more complex medical problems as the days passed and considering her overall poor status and chronic debility her prognosis becomes more more poor as she accumulates more critical illnesses Lower extremity ultrasound was obtained by spine surgery and that showed just chronic occlusion of the arterial femoropopliteal bypass nothing acute and no limb threatening status. Focused Exam Lactate Level 07/06/17 16:25: Lactic Acid Level 1.47 Objective Exam Vital Signs Vital Signs Date Time Temp Pulse Resp B/P (MAP) Pulse Ox O2 Delivery O2 Flow Rate FiO2 07/07/17 17:00 78 20 123/47 (72) 100 Room Air 07/07/17 16:00 99.1 Capillary Refill : General Appearance: No Apparent Distress, Chronically ill Respiratory: Lungs Clear, Normal Breath Sounds, Decreased Breath Sounds Cardiovascular: Regular Rate, Rhythm, No Edema Neurologic/Psychiatric: Alert, Oriented x3, No Motor/Sensory Deficits, Depressed Affect Results/Procedures Lab Laboratory Tests 07/06/17 19:01 07/06/17 21:00 07/06/17 23:15 07/07/17 01:00 07/07/17 03:05 07/07/17 05:05 07/07/17 07:00 07/07/17 08:50 07/07/17 11:00 07/07/17 12:55 07/07/17 15:05 07/07/17 17:00 Patient resulted labs reviewed. 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 per Current smoker but quit recently per Chronic debilitation unable to ambulate for months before surgery done in May and has not really progressed well at home after went home from residential 3 hours after admitted after discharge in May 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 USG ordered by Spine surgery Plan: Insulin drip Monitor for fluid overload due to Florinef initiated for orthostasis Monitor closely Prognosis guarded Diagnosis/Problems Diagnosis/Problems (1) DKA (diabetic ketoacidoses) Status: Acute Qualifiers: Diabetes mellitus type: type 2 Diabetes mellitus complication detail: with coma Qualified Codes: E11.11 - Type 2 diabetes mellitus with ketoacidosis with coma (2) Hypotension Status: Resolved Qualifiers: Hypotension type: neurogenic orthostatic hypotension Qualified Codes: G90.3 - Multi-system degeneration of the autonomic nervous system (3) Poor prognosis Status: Chronic (4) Debilitated patient Status: Chronic (5) Postoperative anemia Status: Acute Assessment & Plan: s/p 2 units of blood yesterday (6) Hypothyroidism Status: Chronic Qualifiers: Hypothyroidism type: acquired Qualified Codes: E03.9 - Hypothyroidism, unspecified (7) Diabetes mellitus Status: Chronic Qualifiers: Diabetes mellitus type: type 2 Diabetes mellitus health spa manager insulin use: without health spa manager use Diabetes mellitus complication status: with circulatory complication Diabetes mellitus complication detail: with other circulatory complications Qualified Codes: E11.59 - Type 2 diabetes mellitus with other circulatory complications (8) Smoker Status: Chronic (9) Hypoglycemia associated with diabetes Status: Acute (10) Transfusion of blood during current hospitalisation Status: Acute (11) Femoral-popliteal bypass graft occlusion, left Status: Chronic Assessment & Plan: Arterial USG noted chronic occlusion no limb-threatening status Qualifiers: Encounter type: sequela Qualified Codes: T82.898S - Other specified complication of vascular prosthetic devices, implants and grafts, sequela (12) PVD (peripheral vascular disease) Status: Chronic Clinical Quality Measures DVT/VTE Risk/Contraindication: Risk Factor Score Per Nursin RFS Level Per Nursing on Admit: 4+=Very High SHERRIE LOUIS DO July 07, 2017 12:46
--- NOTE | 2017-07-07 12:56 | Occupational Ther Daily Note ---
OT Current Status-Daily Note Subjective Pt. reports pain with movement, but does not report pain level. Reports feeling better when lying flat in bed. Appearance Pt. in bed. Agreeable to work with OT. Mental Status/Objective Patient Orientation: Person Functional [place] Measure 0=Not Assessed/NA 4=Minimal Assistance 1=Total Assistance 5=Supervision or Setup 2=Maximal Assistance 6=Modified [place] 3=Moderate Assistance 7=Complete [place] Attachments: Drains, Morris Catheter, IV, Oxygen ADL-Treatment Transfers (B, C, W/C) (FIM): 1 Other Treatment Custom clamshell brace has arrived. Pt. rolled side to side with max assist while OT and tech applied brace. Once brace was on, pt. educated in log roll and safe transfer. Transferred to side of bed with max x 1-2 people. Sat upright on side of bed and practiced deep breathing. Sat approximately 10 minutes with min support at times. Spoke with pt. and spouse about need for having brace on before transfer. Also talked with them about possible equipment needs. Full equipment needs to be determined at later time. Will continue to assess pt. Education OT Patient Education: Correct positioning, Exercise program, Modified ADL techniques, Progress toward Goal/Update tx plan, Purpose of tx/functional activities, Reviewed precautions, Rehab process, Transfer techniques Teaching Recipient: Patient Teaching Methods: Demonstration, Discussion Response to Teaching: Verbalize Understanding, Return Demonstration OT Short Term Goals Short Term Goals Time Frame: Jul 11, 2017 Eating(FIM): 5 Grooming(FIM): 4 Bathing(FIM): 3 Upper Body Dressing(FIM): 3 Lower Body Dressing(FIM): 3 Transfers (B,C,W/C) (FIM): 4 Toilet/Commode Transfer(FIM): 4 Additional Short Term Goals: 1-Demonstrate ADL Tasks, 2-Verbalize Understanding , 3-ImproveStrength/Tyler 1=Demonstrate adherence to instructed precautions during ADL tasks. 2=Patient will verbalize/demonstrate understanding of assistive devices/ modifications for ADL. 3=Patient will improve strength/tolerance for activity to enable patient to perform ADL's. OT Fdc Goals Degreaser Goals Time Frame: Jul 18, 2017 Eating (FIM): 6 Grooming(FIM): 5 Bathing(FIM): 4 Upper Body Dressing(FIM): 5 Lower Body Dressing(FIM): 4 Toileting(FIM): 5 Transfers (B,C,W/C) (FIM): 5 Toilet/Commode Transfer(FIM): 5 Shower Transfer(FIM): 4 Additional Goals: 1-Demonstrate ADL Tasks, 2-Verbalize Understanding, 3- ImproveStrength/Tyler 1=Demonstrate adherence to instructed precautions during ADL tasks. 2=Patient will verbalize/demonstrate understanding of assistive devices/ modifications for ADL. 3=Patient will improve strength/tolerance for activity to enable patient to perform ADL's. OT Education/Plan Problem List/Assessment Assessment: Decreased Activ Tolerance, Decreased UE Strength, Dependent Transfers, Impaired Bed Mobility, Impaired Funct Balance, Impaired I ADL's, Impaired Self-Care Skills Discharge Recommendations Plan/Recommendations: Continue POC Therapy D/C Recommendations: 24 hr Supervision Target Placement Discharge destination and equipment needs to be determined. Treatment Plan/Plan of Care Treatment,Training & Education: Yes Patient would benefit from OT for education, treatment and training to promote independence in ADL's, mobility, safety and/or upper extremity function for ADL' s. Plan of Care: ADL Retraining, Caregiver Training, Functional Mobility, UE Funct Exercise/Act Treatment Duration: Jul 18, 2017 Frequency: 5 times per week Estimated Hrs Per Day: .5 hour per day Agreement: Yes Rehab Potential: Fair Time/GCodes Start Time: 12:10 Stop Time: 12:35 Total Time Billed (hr/min): 25 Billed Treatment Time 1, FA x 2 SHADY CHANDLER OT July 07, 2017 12:56
[2017-07-07 13:23] LABS: BUN/CREATININE RATIO 21; CALCIUM 7.7 MG/DL (8.5-10.1); CARBON DIOXIDE 16 MMOL/L (21-32); CHLORIDE 109 MMOL/L (98-107); CREATININE SERUM 0.62 MG/DL (0.60-1.30); GFR ESTIMATED > 60; GLUCOSE 193 MG/DL (70-105); SODIUM 132 MMOL/L (135-145)
[2017-07-07 15:38] LABS: BUN/CREATININE RATIO 17; CALCIUM 7.7 MG/DL (8.5-10.1); CARBON DIOXIDE 17 MMOL/L (21-32); CHLORIDE 110 MMOL/L (98-107); CREATININE SERUM 0.63 MG/DL (0.60-1.30); GFR ESTIMATED > 60; GLUCOSE 153 MG/DL (70-105); POTASSIUM 3.9 MMOL/L (3.6-5.0); SODIUM 133 MMOL/L (135-145)
[2017-07-07 17:41] LABS: BUN/CREATININE RATIO 17; CALCIUM 7.7 MG/DL (8.5-10.1); CARBON DIOXIDE 16 MMOL/L (21-32); CHLORIDE 110 MMOL/L (98-107); CREATININE SERUM 0.59 MG/DL (0.60-1.30); GFR ESTIMATED > 60; GLUCOSE 160 MG/DL (70-105); POTASSIUM 4.3 MMOL/L (3.6-5.0); SODIUM 133 MMOL/L (135-145)
[2017-07-07 19:21] LABS: BUN/CREATININE RATIO 15; CALCIUM 7.6 MG/DL (8.5-10.1); CARBON DIOXIDE 17 MMOL/L (21-32); CHLORIDE 110 MMOL/L (98-107); GFR ESTIMATED > 60; GLUCOSE 174 MG/DL (70-105); POTASSIUM 4.2 MMOL/L (3.6-5.0); SODIUM 132 MMOL/L (135-145)
[2017-07-07] MEDS: inSUlin DETERMIR 1 UNIT/0.01 ML (LEVEMIR) CHARGE PER UNIT SQ SCH (20:15)
[2017-07-07 21:43] LABS: BUN/CREATININE RATIO 15; CALCIUM 7.7 MG/DL (8.5-10.1); CARBON DIOXIDE 17 MMOL/L (21-32); CHLORIDE 111 MMOL/L (98-107); CREATININE SERUM 0.55 MG/DL (0.60-1.30); GFR ESTIMATED > 60; GLUCOSE 156 MG/DL (70-105); POTASSIUM 4.2 MMOL/L (3.6-5.0); SODIUM 133 MMOL/L (135-145)
[2017-07-08] VITALS (45 sets, daily range): BP systolic 102–160; BP diastolic 39–93
[2017-07-08 00:23] LABS: BUN/CREATININE RATIO 14; CALCIUM 7.5 MG/DL (8.5-10.1); CARBON DIOXIDE 16 MMOL/L (21-32); CHLORIDE 110 MMOL/L (98-107); CREATININE SERUM 0.57 MG/DL (0.60-1.30); GFR ESTIMATED > 60; GLUCOSE 180 MG/DL (70-105); POTASSIUM 4.6 MMOL/L (3.6-5.0); SODIUM 132 MMOL/L (135-145)
[2017-07-08] MEDS: NS IV 1000 ML 1,000 ML IV SCH ×3 (00:35→12:22)
[2017-07-08] MEDS: 1/2 NS IV SOLUTION 1,000 ML IV SCH ×3 (00:53→15:36)
[2017-07-08] MEDS: 1/2 NS W/KCL 20 MEQ/L 1,000 ML IV SCH ×2 (00:54→05:20)
[2017-07-08] MEDS: HYDROcodone/APAP 10 MG/325 MG (LORTAB) TAB PO PRN ×5 (02:08→18:38)
[2017-07-08 02:53] LABS: BASOPHILS % (AUTO) 0 % (0-10); EOSINOPHILS # (AUTO) 0.4 10^3/uL (0.0-0.3); EOSINOPHILS % (AUTO) 8 % (0-10); HEMATOCRIT 25 % (35-52); HEMOGLOBIN 8.3 G/DL (11.5-16.0); LYMPHOCYTES # (AUTO) 1.3 X 10^3 (1.0-4.0); LYMPHOCYTES % (AUTO) 27 % (12-44); MEAN CORPUSCULAR HEMOGLOBIN 30 PG (25-34); MEAN CORPUSCULAR HGB CONC 33 G/DL (32-36); MEAN CORPUSCULAR VOLUME 90 FL (80-99); MONOCYTES # (AUTO) 0.5 X 10^3 (0.0-1.0); MONOCYTES % (AUTO) 10 % (0-12); NEUTROPHILS # (AUTO) 2.6 X 10^3 (1.8-7.8); NEUTROPHILS % (AUTO) 54 % (42-75); PLATELET COUNT 220 10^3/uL (130-400); RED BLOOD COUNT 2.79 10^6/uL (4.35-5.85); WHITE BLOOD COUNT 4.8 10^3/uL (4.3-11.0)
[2017-07-08 03:19] LABS: BUN/CREATININE RATIO 12; CALCIUM 7.4 MG/DL (8.5-10.1); CARBON DIOXIDE 16 MMOL/L (21-32); CHLORIDE 111 MMOL/L (98-107); CREATININE SERUM 0.57 MG/DL (0.60-1.30); GFR ESTIMATED > 60; GLUCOSE 179 MG/DL (70-105); MAGNESIUM 1.5 MG/DL (1.8-2.4); POTASSIUM 4.3 MMOL/L (3.6-5.0); SODIUM 133 MMOL/L (135-145)
[2017-07-08] MEDS: D5 1/2 NS W/KCL 20 MEQ/L 1,000 ML IV SCH ×2 (03:27→07:32)
[2017-07-08 03:29] LABS: PHOSPHORUS 0.9 MG/DL (2.3-4.7)
[2017-07-08] MEDS: MAGNESIUM 1 GM/100 ML IVPB 100 ML IV SCH ×3 (05:15→06:30)
[2017-07-08] MEDS: KCL 20 MEQ TAB (K-DUR) PO SCH (05:20)
[2017-07-08] MEDS: POTASSIUM CL 10MEQ/50ML IVPB 50 ML IV SCH (05:20)
[2017-07-08] MEDS ORDERED: SODIUM PHOSPHATE INJ 40 MM in NS (IVPB) 250 ML INJ ONE (06:00)
[2017-07-08] MEDS: MULTIVIT W/MINERALS TAB (THERAGRAN M) PO SCH (06:03)
[2017-07-08] MEDS ORDERED: inSUlin DETERMIR 1 UNIT/0.01 ML (LEVEMIR) CHARGE PER UNIT SQ NR (08:00)
[2017-07-08] MEDS: LEVOTHYROXINE 150 MCG (LEVOTHROID) TAB PO SCH (08:12)
[2017-07-08] MEDS: FAMOTIDINE 20 MG (PEPCID) TABLET PO SCH (08:12)
[2017-07-08] MEDS: DOCUSATE SODIUM 100 MG (COLACE) CAP PO SCH ×2 (08:12→20:44)
[2017-07-08] MEDS ORDERED: PREGABALIN 50 MG (LYRICA) CAP ONE (08:13)
[2017-07-08] MEDS: FLUDROCORTISONE 0.1 MG (FLORINEF) TAB PO SCH ×2 (08:13→20:44)
[2017-07-08] MEDS: DULoxetine 30 MG (CYMBALTA) CAP PO SCH ×2 (08:18→20:44)
[2017-07-08] MEDS: PREGABALIN 50 MG (LYRICA) CAP PO SCH ×2 (08:18→12:22)
[2017-07-08 08:23] LABS: BUN/CREATININE RATIO 9; CALCIUM 7.6 MG/DL (8.5-10.1); CARBON DIOXIDE 19 MMOL/L (21-32); CHLORIDE 110 MMOL/L (98-107); CREATININE SERUM 0.54 MG/DL (0.60-1.30); GFR ESTIMATED > 60; GLUCOSE 219 MG/DL (70-105); POTASSIUM 4.4 MMOL/L (3.6-5.0); SODIUM 133 MMOL/L (135-145)
[2017-07-08] MEDS: POLYETHYLENE GLYCOL 17 GM (MIRALAX) PACK PO SCH ×2 (08:38→20:45)
--- NOTE | 2017-07-08 09:05 | Progress Note-Hospitalist ---
Subjective HPI/CC On Admission Date Seen by Provider: July 08, 2017 Time Seen by Provider: 08:52 CC: Hypotension HPI: This is a 71-year-old white female known to me from prior hospital stay from 06/02/ after very complex lumbar and thoracic spine surgery due to severe spine disease who presented after an uncomplicated repair of hardware disruption and fracture above all of the hardware placed in May by Dr. Zuñiga. This is the patient that had a lengthy hospital stay last time requiring transfusion of blood and smoking cessation counseling who was set up to go to longterm arrived at the longterm and was taken home 3 hours after arrival by her at her insistence he went home and did her own rehabilitation. I had multiple calls last night due to hypotension and her chronic systolic blood pressures between 90 and 100 so ultimately I put her on severe sepsis IV fluid orders although she was not in severe sepsis and patient did stabilize but upon assessment when she got out of bed in a chair for systolic blood pressure was 65 so we put her back to bed that improved to 100 systolic but central line will be placed in case pressor therapy will be needed after IV fluid resuscitation had been completed and if it fails she will need pressor therapy. Overall very poor prognosis considering the lack of recovery she had an chronic debilitated state since she had not walked for several months prior to the last surgery in May and considering this severe hypotension that has turned into a critical status. I did speak with Dr. Lennon regarding this case and he agrees with the plan. Subjective/Events-last exam Pt reports having a horrible night with pain and is requesting her Lyrica be restarted. Has previously been confused and hypotensive so it was held earlier this hospitalization. She states she is out of bed 2x/day and feels like that is a lot. Discussed need to DC [place] but she refused. She would like to wait until tomorrow. Focused Exam Lactate Level 07/06/17 16:25: Lactic Acid Level 1.47 Objective Exam Vital Signs Vital Signs Date Time Temp Pulse Resp B/P (MAP) Pulse Ox O2 Delivery O2 Flow Rate FiO2 07/08/17 07:00 68 07/08/17 06:45 20 141/62 (88) 100 Room Air 07/07/17 23:56 98.1 Capillary Refill : General Appearance: No Apparent Distress, WD/WN Respiratory: Lungs Clear, No Respiratory Distress Cardiovascular: Regular Rate, Rhythm, No Murmur Gastrointestinal: Normal Bowel Sounds, Non Tender, Soft Extremity: No Calf Tenderness, No Pedal Edema Neurologic/Psychiatric: Alert, Oriented x3, Normal Mood/Affect Results/Procedures Lab Laboratory Tests 07/07/17 11:00 07/07/17 12:55 07/07/17 15:05 07/07/17 17:00 07/07/17 18:55 07/07/17 21:13 07/07/17 23:56 07/08/17 02:50 07/08/17 07:45 Patient resulted labs reviewed. 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 per Current smoker but quit recently per Chronic debilitation unable to ambulate for months before surgery done in May and has not really progressed well at home after went home from longterm 3 hours after admitted after discharge in May 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 USG ordered by Spine surgery Plan: Will try to transition off insulin gtt, start Levemir 10 units now then DC gtt in 2 hours Maintain in ICU given brittle diabetes for close blood sugar checks Monitor for fluid overload due to Florinef initiated for orthostasis Monitor closely Prognosis guarded Diagnosis/Problems Diagnosis/Problems (1) DKA (diabetic ketoacidoses) Status: Acute Qualifiers: Diabetes mellitus type: type 2 Diabetes mellitus complication detail: without coma Qualified Codes: E11.10 - Type 2 diabetes mellitus with ketoacidosis without coma (2) Transfusion of blood during current hospitalisation Status: Acute (3) Hypoglycemia associated with diabetes Status: Acute (4) Postoperative anemia Status: Acute (5) Femoral-popliteal bypass graft occlusion, left Status: Chronic Qualifiers: Encounter type: sequela Qualified Codes: T82.898S - Other specified complication of vascular prosthetic devices, implants and grafts, sequela (6) Hypothyroidism Status: Chronic Qualifiers: Hypothyroidism type: acquired Qualified Codes: E03.9 - Hypothyroidism, unspecified Clinical Quality Measures DVT/VTE Risk/Contraindication: Risk Factor Score Per Nursin RFS Level Per Nursing on Admit: 4+=Very High LALITA MOORE MD July 08, 2017 9:05 am
--- NOTE | 2017-07-08 09:16 | Diagnostic Imaging Report ---
INDICATION: Postop evaluation. COMPARISON: 07/07/2017 FINDINGS: Upright portable view of the chest is obtained. Right central line is unchanged. Surgical bertha of the midline of the chest are again noted. Heart size and pulmonary vasculature appear unremarkable. There is no pneumothorax, mediastinal widening or pleural fluid. Lungs are fairly clear. Postoperative change in the right shoulder and spine are again noted. IMPRESSION: There is no radiographic evidence of an acute cardiopulmonary abnormality. Dictated by: Dictated on workstation # [id number]
--- NOTE | 2017-07-08 09:39 | Physical Therapy Daily Note ---
PT Daily Note-Current Subjective Patient agrees to PT. She continues to be confused. Pain Numeric Pain Scale: 8 Location: Medial, Lower Location Body Site: Back Pain Description: Acute Mental Status Patient Orientation: Confused Attachments: Drains, Morris Catheter, IV Transfers Functional [place] Measure 0=Not Assessed/NA 4=Minimal Assistance 1=Total Assistance 5=Supervision or Setup 2=Maximal Assistance 6=Modified [place] 3=Moderate Assistance 7=Complete IndependenceIRFPAI Quality Coding Scale 6 Independent with activity with or without an assistive device 5 Patient requires set up or clean up by helper. Patient completes activity by themselves 4 Supervision or touching assist (CGA). [place] provide cues , steadying assist 3 The helper provides less than half the effort to complete the activity 2 The helper provides more than half the effort to complete the activity 1 Dependent. The helper does all the effort to complete an activity 7 Patient refused to complete or attempt activity 9 The patient did not perform the activity before the current illness or injury 88 Not attempted due to Medical conditions or safety concerns Transfers (B, C, W/C) (FIM): 1 Scootin Rollin Supine to/from Sit: 1 Sit to/from Stand: 2 Bed to/from Chair: 2 Patient is able to stand and take 5 steps to chair with PT assist with weight shifting. Weight Bearing Right Lower Extremity: Right Full Weight Bearing Left Lower Extremity: Left Full Weight Bearing Gait Training Gait (FIM): 1 Distance (FIM): 1=up to 49 ft Distance: 4' Gait Level of Assist: 2 Gait Persons Needed: 1 Gait Assistive Device: None PT assist with weight shifting to advance bilateral LE's Exercises Supine Ex: Ankle pumps, Quad Set, Heel Slides, Straight leg raise Supine Reps: 15 (AAROM bilateral LE) Seated Therapy Exercises: Long arc quads Seated Reps: 15 Assessment Patient is progressing slowly with treatment. It appears that the TLSO is too big for patient. RN notified. PT Short Term Goals Short Term Goals Transfers (B,C,W/C) (FIM): 4 PT Assisted Goals Assisted Goals PT Assisted Goals Time Frame: Jul 18, 2017 Transfers (B,C,W/C) (FIM): 2 PT Plan Treatment/Plan Treatment Plan: Continue Plan of Care Treatment Plan: Bed Mobility, Education, Functional Activity Tyler, Functional Strength, Safety, Therapeutic Exercise, Transfers Treatment Duration: Jul 18, 2017 Frequency: 6 times per week Estimated Hrs Per Day: .5 hour per day Patient and/or Family Agrees t: Yes Time/GCodes Time In: 820 Time Out: 843 Total Billed Treatment Time: 23 Total Billed Treatment 1 visit EX 13 min FA 10 min ROSA BUNDY PT July 08, 2017 09:39
[2017-07-08] MEDS: inSUlin ASPART (NovoLOG) 1 UNIT/0.01 ML (CHARGE PER UNIT) SC SCH ×4 (11:26→23:57)
--- NOTE | 2017-07-08 13:24 | Diagnostic Imaging Report ---
Indication: Left leg pain. Duplex ultrasound of the arterial system of the left leg was done with grayscale, spectral waveform and color Doppler flow analysis. Common femoral artery is widely patent. The profunda femoris has histologic origin but is patent. Superficial femoral artery is occluded at its origin. The patient has a femoral-popliteal bypass graft which is also occluded at its origin. There is an associated in the popliteal artery which measures 33 cm/s. The posterior tibial artery was not seen. The posterior tibial artery had diminished velocities with a monophasic wave pattern. Impression: There appears be the same amount of occlusion of the superficial femoral artery and at the femoral-popliteal bypass. Amongst the runoff of those vessels, the superficial femoral appears to be occluded as is the femoral-popliteal bypass graft. Dictated by: Dictated on workstation # [id number]
--- NOTE | 2017-07-08 14:15 | Occupational Ther Daily Note ---
OT Current Status-Daily Note Subjective Pt alert and oriented, up in chair upon therapist arrival. Pt agreeable to therapy, however she stated that she is feeling very tired. Mental Status/Objective Functional [place] Measure 0=Not Assessed/NA 4=Minimal Assistance 1=Total Assistance 5=Supervision or Setup 2=Maximal Assistance 6=Modified [place] 3=Moderate Assistance 7=Complete [place] ADL-Treatment Grooming (FIM): 5 Transfers (B, C, W/C) (FIM): 3 Other Treatment Pt participated in grooming/hygiene while seated in chair. Pt performed basic grooming/hygiene with setup. Pt required ModA for stand pivot transfer from chair to bed. Pt required ModA for bed mobility, with verbal cues for proper technique. Education OT Patient Education: Correct positioning, Energy conservation, Instructions don/doff splint/brace, Purpose of tx/functional activities, Transfer techniques OT Short Term Goals Short Term Goals Time Frame: Jul 11, 2017 Eating(FIM): 5 Grooming(FIM): 4 Bathing(FIM): 3 Upper Body Dressing(FIM): 3 Lower Body Dressing(FIM): 3 Transfers (B,C,W/C) (FIM): 4 Toilet/Commode Transfer(FIM): 4 Additional Short Term Goals: 1-Demonstrate ADL Tasks, 2-Verbalize Understanding , 3-ImproveStrength/Tyler 1=Demonstrate adherence to instructed precautions during ADL tasks. 2=Patient will verbalize/demonstrate understanding of assistive devices/ modifications for ADL. 3=Patient will improve strength/tolerance for activity to enable patient to perform ADL's. OT Residential Goals Supervisor Mixing Goals Time Frame: Jul 18, 2017 Eating (FIM): 6 Grooming(FIM): 5 Bathing(FIM): 4 Upper Body Dressing(FIM): 5 Lower Body Dressing(FIM): 4 Toileting(FIM): 5 Transfers (B,C,W/C) (FIM): 5 Toilet/Commode Transfer(FIM): 5 Shower Transfer(FIM): 4 Additional Goals: 1-Demonstrate ADL Tasks, 2-Verbalize Understanding, 3- ImproveStrength/Tyler 1=Demonstrate adherence to instructed precautions during ADL tasks. 2=Patient will verbalize/demonstrate understanding of assistive devices/ modifications for ADL. 3=Patient will improve strength/tolerance for activity to enable patient to perform ADL's. OT Education/Plan Discharge Recommendations Plan/Recommendations: Continue POC Treatment Plan/Plan of Care Patient would benefit from OT for education, treatment and training to promote independence in ADL's, mobility, safety and/or upper extremity function for ADL' s. Plan of Care: ADL Retraining, Caregiver Training, Functional Mobility, UE Funct Exercise/Act Treatment Duration: Jul 18, 2017 Frequency: 5 times per week Estimated Hrs Per Day: .5 hour per day Agreement: Yes Rehab Potential: Fair Time/GCodes Start Time: 10:40 Stop Time: 11:05 Billed Treatment Time 1 visit, 10 minutes self care, 15 minutes functional activity JODY JACOBSON OT July 08, 2017 14:15
[2017-07-08] MEDS ORDERED: 1/2 NS IV SOLUTION 1,000 ML IV ONE (15:30)
--- NOTE | 2017-07-08 15:31 | Progress Note (SOAP) ---
Subjective Time Seen by Provider: 15:28 Subjective/Events-last exam Pt states that her back is doing better. She is not having much pain at this point. Her legs are hurting, but better since the Lyrica was restarted. Focused Exam Lactate Level 07/06/17 16:25: Lactic Acid Level 1.47 Objective Exam Vital Signs Date Time Temp Pulse Resp B/P (MAP) Pulse Ox O2 Delivery O2 Flow Rate FiO2 07/08/17 13:00 63 07/08/17 12:04 Room Air 07/08/17 12:00 66 19 155/66 (95) 100 Room Air 07/08/17 11:00 91 18 126/93 (104) 98 Room Air 07/08/17 10:00 80 18 102/92 (95) 98 Room Air 07/08/17 09:00 77 9 120/50 (73) 100 Room Air 07/08/17 08:00 81 18 153/73 (99) 100 Room Air 07/08/17 08:00 Room Air 07/08/17 07:00 69 12 147/53 (84) 100 Room Air 07/08/17 07:00 68 07/08/17 06:45 67 20 141/62 (88) 100 Room Air 07/08/17 06:30 76 13 156/64 (94) 100 Room Air 07/08/17 06:15 73 12 148/59 (88) 100 Room Air 07/08/17 06:00 72 15 159/58 (91) 100 Room Air 07/08/17 05:45 80 10 149/82 (104) 100 Room Air 07/08/17 05:30 88 13 157/68 (97) 100 Room Air 07/08/17 05:15 67 9 129/53 (78) 100 Room Air 07/08/17 05:00 67 9 131/51 (77) 98 Room Air 07/08/17 04:45 68 13 134/48 (76) 95 Room Air 07/08/17 04:30 70 14 129/52 (77) 100 Room Air 07/08/17 04:15 75 13 133/56 (81) 92 Room Air 07/08/17 04:00 69 8 132/50 (77) 93 Room Air 07/08/17 04:00 100 Room Air 07/08/17 03:45 76 19 137/57 (83) 96 Room Air 07/08/17 03:30 73 10 127/90 (102) 97 Room Air 07/08/17 03:15 73 10 143/55 (84) 100 Room Air 07/08/17 03:00 68 10 142/57 (85) 97 Room Air 07/08/17 02:45 66 10 149/61 (90) 100 Room Air 07/08/17 02:30 68 11 147/59 (88) 100 Room Air 07/08/17 02:15 78 13 151/72 (98) 100 Room Air 07/08/17 02:00 70 12 139/54 (82) 100 Room Air 07/08/17 01:45 73 10 141/57 (85) 100 Room Air 07/08/17 01:30 79 34 140/58 (85) 100 Room Air 07/08/17 01:15 70 12 142/58 (86) 100 Room Air 07/08/17 01:00 66 10 126/55 (78) 100 Room Air 07/08/17 01:00 66 07/08/17 00:45 68 11 128/50 (76) 100 Room Air 07/08/17 00:30 81 18 126/46 (72) 100 Room Air 07/08/17 00:15 68 16 128/47 (74) 98 Room Air 07/08/17 00:00 72 10 142/54 (83) 100 Room Air 07/08/17 00:00 100 Room Air 07/07/17 23:56 98.1 07/07/17 23:45 70 16 141/50 (80) 100 Room Air 07/07/17 23:30 65 19 140/49 (79) 100 Room Air 07/07/17 23:15 69 21 138/54 (82) 100 Room Air 07/07/17 23:00 74 10 116/59 (78) 100 Room Air 07/07/17 22:45 73 8 120/50 (73) 100 Room Air 07/07/17 22:30 67 12 118/58 (78) 100 Room Air 07/07/17 22:15 66 11 138/53 (81) 100 Room Air 07/07/17 22:00 70 11 135/48 (77) 100 Room Air 07/07/17 21:45 70 20 141/55 (83) 100 Room Air 07/07/17 21:30 66 12 137/55 (82) 100 Room Air 07/07/17 21:15 69 18 143/59 (87) 100 Room Air 07/07/17 21:00 71 14 144/52 (82) 100 Room Air 07/07/17 20:45 70 25 149/57 (87) 100 Room Air 07/07/17 20:30 71 14 155/58 (90) 100 Room Air 07/07/17 20:15 75 19 125/43 (70) 100 Room Air 07/07/17 20:00 98.0 65 11 126/49 (74) 100 Room Air 07/07/17 20:00 100 Room Air 07/07/17 19:45 69 11 138/52 (80) 100 Room Air 07/07/17 19:30 70 15 127/50 (75) 100 Room Air 07/07/17 19:15 75 12 120/47 (71) 100 Room Air 07/07/17 19:00 83 14 100/64 (76) 100 Room Air 07/07/17 19:00 83 07/07/17 18:00 83 19 109/49 (69) 100 Room Air 07/07/17 17:00 78 20 123/47 (72) 100 Room Air 07/07/17 16:00 80 38 137/107 (117) 100 Room Air 07/07/17 16:00 100 Room Air 07/07/17 16:00 99.1 I & O 07/08/17 07:00 Intake Total 5350 ml Output Total 2735 ml Balance 2615 ml Capillary Refill : General Appearance: No Apparent Distress, WD/WN Respiratory: No Accessory Muscle Use, No Respiratory Distress Extremity: Calf Tenderness Neurologic/Psychiatric: Alert Results Lab Laboratory Tests 07/07/17 16:17: Glucometer 140H 07/07/17 17:00: Sodium Level 133L, Potassium Level 4.3, Chloride Level 110H, Carbon Dioxide Level 16L, Anion Gap 7, Blood Urea Nitrogen 10, Creatinine 0.59L, Estimat Glomerular Filtration Rate > 60, BUN/Creatinine Ratio 17, Glucose Level 160H, Calcium Level 7.7L 07/07/17 17:04: Glucometer 167H 07/07/17 18:01: Glucometer 163H 07/07/17 18:54: Glucometer 190H 07/07/17 18:55: Sodium Level 132L, Potassium Level 4.2, Chloride Level 110H, Carbon Dioxide Level 17L, Anion Gap 5, Blood Urea Nitrogen 9, Creatinine 0.60, Estimat Glomerular Filtration Rate > 60, BUN/Creatinine Ratio 15, Glucose Level 174H, Calcium Level 7.6L 07/07/17 20:04: Glucometer 165H 07/07/17 21:13: Glucometer 166H, Sodium Level 133L, Potassium Level 4.2, Chloride Level 111H, Carbon Dioxide Level 17L, Anion Gap 5, Blood Urea Nitrogen 8, Creatinine 0.55L, Estimat Glomerular Filtration Rate > 60, BUN/Creatinine Ratio 15, Glucose Level 156H, Calcium Level 7.7L 07/07/17 22:03: Glucometer 165H 07/07/17 23:00: Glucometer 147H 07/07/17 23:56: Glucometer 199H, Sodium Level 132L, Potassium Level 4.6, Chloride Level 110H, Carbon Dioxide Level 16L, Anion Gap 6, Blood Urea Nitrogen 8, Creatinine 0.57L, Estimat Glomerular Filtration Rate > 60, BUN/Creatinine Ratio 14, Glucose Level 180H, Calcium Level 7.5L 07/08/17 01:36: Glucometer 196H 07/08/17 02:46: Glucometer 195H 07/08/17 02:50: White Blood Count 4.8, Red Blood Count 2.79L, Hemoglobin 8.3L, Hematocrit 25L, Mean Corpuscular Volume 90, Mean Corpuscular Hemoglobin 30, Mean Corpuscular Hemoglobin Concent 33, Red Cell Distribution Width 15.0H, Platelet Count 220, Mean Platelet Volume 10.0, Neutrophils (%) (Auto) 54, Lymphocytes (%) (Auto) 27 , Monocytes (%) (Auto) 10, Eosinophils (%) (Auto) 8, Basophils (%) (Auto) 0, Neutrophils # (Auto) 2.6, Lymphocytes # (Auto) 1.3, Monocytes # (Auto) 0.5, Eosinophils # (Auto) 0.4H, Basophils # (Auto) 0.0, Sodium Level 133L, Potassium Level 4.3, Chloride Level 111H, Carbon Dioxide Level 16L, Anion Gap 6, Blood Urea Nitrogen 7, Creatinine 0.57L, Estimat Glomerular Filtration Rate > 60, BUN/ Creatinine Ratio 12, Glucose Level 179H, Calcium Level 7.4L, Phosphorus Level 0.9*L, Magnesium Level 1.5L 07/08/17 03:45: Glucometer 184H 07/08/17 05:17: Glucometer 192H 07/08/17 06:35: Glucometer 196H 07/08/17 07:45: Sodium Level 133L, Potassium Level 4.4, Chloride Level 110H, Carbon Dioxide Level 19L, Anion Gap 4L, Blood Urea Nitrogen 5L, Creatinine 0.54L, Estimat Glomerular Filtration Rate > 60, BUN/Creatinine Ratio 9, Glucose Level 219H, Calcium Level 7.6L 07/08/17 11:11: Glucometer 156H 07/08/17 15:18: Glucometer 93 Microbiology 07/03/17 MRSA Screen - Final, Complete MRSA not isolated 07/06/17 Urine Culture - Preliminary, Resulted Sent To [facility] 07/03/17 Gram Stain - Final, Complete 07/03/17 Anaerobic Culture - Final, Complete No growth 07/03/17 Surgical Culture - Final, Complete No growth Assessment/Plan Assessment/Plan Assess & Plan/Chief Complaint 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 Clinical Quality Measures DVT/VTE Risk/Contraindication: Risk Factor Score Per Nursin RFS Level Per Nursing on Admit: 4+=Very High JEWELL DEL VALLE July 08, 2017 15:31
[2017-07-08] MEDS: BACLOFEN 10 MG (LIORESAL) TAB PO PRN (18:38)
[2017-07-08] MEDS ORDERED: DEXTROSE 50% 50 ML (IMS) SYR ONE (20:00)
[2017-07-08] MEDS: inSUlin DETERMIR 1 UNIT/0.01 ML (LEVEMIR) CHARGE PER UNIT SQ SCH (20:32)
[2017-07-08] MEDS: PREGABALIN 100 MG (LYRICA) CAPSULE PO SCH (20:45)
[2017-07-08] MEDS ORDERED: inSUlin DETERMIR 1 UNIT/0.01 ML (LEVEMIR) CHARGE PER UNIT SQ SCH (21:00)
[2017-07-09] VITALS (17 sets, daily range): BP systolic 97–179; BP diastolic 41–82
[2017-07-09] MEDS: 1/2 NS IV SOLUTION 1,000 ML IV SCH (01:29)
[2017-07-09] MEDS: HYDROcodone/APAP 10 MG/325 MG (LORTAB) TAB PO PRN ×5 (03:30→18:01)
[2017-07-09 04:08] LABS: BASOPHILS % (AUTO) 0 % (0-10); EOSINOPHILS # (AUTO) 0.4 10^3/uL (0.0-0.3); EOSINOPHILS % (AUTO) 9 % (0-10); HEMATOCRIT 26 % (35-52); HEMOGLOBIN 8.5 G/DL (11.5-16.0); LYMPHOCYTES # (AUTO) 0.9 X 10^3 (1.0-4.0); LYMPHOCYTES % (AUTO) 22 % (12-44); MEAN CORPUSCULAR HEMOGLOBIN 30 PG (25-34); MEAN CORPUSCULAR HGB CONC 33 G/DL (32-36); MEAN CORPUSCULAR VOLUME 91 FL (80-99); MONOCYTES # (AUTO) 0.4 X 10^3 (0.0-1.0); MONOCYTES % (AUTO) 11 % (0-12); NEUTROPHILS # (AUTO) 2.4 X 10^3 (1.8-7.8); NEUTROPHILS % (AUTO) 59 % (42-75); PLATELET COUNT 262 10^3/uL (130-400); RED BLOOD COUNT 2.85 10^6/uL (4.35-5.85); RED CELL DISTRIBUTION WIDTH 15.3 % (10.0-14.5); WHITE BLOOD COUNT 4.1 10^3/uL (4.3-11.0)
[2017-07-09 04:29] LABS: BUN/CREATININE RATIO 6; CALCIUM 7.7 MG/DL (8.5-10.1); CARBON DIOXIDE 19 MMOL/L (21-32); CHLORIDE 112 MMOL/L (98-107); CREATININE SERUM 0.53 MG/DL (0.60-1.30); GFR ESTIMATED > 60; GLUCOSE 156 MG/DL (70-105); MAGNESIUM 1.8 MG/DL (1.8-2.4); PHOSPHORUS 2.2 MG/DL (2.3-4.7); POTASSIUM 4.3 MMOL/L (3.6-5.0); SODIUM 139 MMOL/L (135-145)
[2017-07-09] MEDS: POTASSIUM CL 10MEQ/50ML IVPB 50 ML IV SCH (04:43)
[2017-07-09] MEDS: inSUlin ASPART (NovoLOG) 1 UNIT/0.01 ML (CHARGE PER UNIT) SC SCH ×5 (04:43→20:16)
[2017-07-09] MEDS: MAGNESIUM 1 GM/100 ML IVPB 100 ML IV SCH (04:43)
[2017-07-09] MEDS: KCL 20 MEQ TAB (K-DUR) PO SCH (04:44)
--- NOTE | 2017-07-09 05:42 | Pulmonary Progress Note ---
Subjective Time Seen by Provider: 05:44 Subjective/Events-last exam PT became hypoglycemic last night was give 1/2 amp of D50. Focused Exam Lactate Level 07/06/17 16:25: Lactic Acid Level 1.47 Exam Exam Vital Signs Date Time Temp Pulse Resp B/P (MAP) Pulse Ox O2 Delivery O2 Flow Rate FiO2 07/09/17 05:00 71 12 142/60 (87) 100 Nasal Cannula 2.00 07/09/17 04:00 75 14 164/64 (97) 88 Nasal Cannula 2.00 07/09/17 04:00 Nasal Cannula 2.00 07/09/17 03:00 84 12 131/49 (76) 100 Nasal Cannula 2.00 07/09/17 02:00 74 19 118/43 (68) 96 Nasal Cannula 2.00 07/09/17 01:00 70 07/09/17 01:00 68 22 99/41 (60) 96 Nasal Cannula 2.00 07/09/17 00:28 98.8 07/09/17 00:00 Nasal Cannula 2.00 07/09/17 00:00 67 8 97/52 (67) 98 Nasal Cannula 2.00 07/08/17 23:00 Nasal Cannula 2.00 07/08/17 23:00 79 19 149/66 (93) 97 Nasal Cannula 2.00 07/08/17 22:00 67 7 141/69 (93) 98 Nasal Cannula 2.00 07/08/17 21:00 71 7 147/62 (90) 100 Nasal Cannula 2.00 07/08/17 20:00 69 8 146/67 (93) 98 Nasal Cannula 2.00 07/08/17 20:00 Nasal Cannula 2.00 07/08/17 19:50 98.8 74 16 146/67 (93) 96 Nasal Cannula 2.00 07/08/17 19:00 70 9 91 07/08/17 19:00 69 07/08/17 18:00 78 11 124/43 (70) 94 Room Air 07/08/17 17:00 83 21 142/53 (82) 92 Room Air 07/08/17 16:44 Room Air 07/08/17 16:00 68 10 139/51 (80) 100 Room Air 07/08/17 15:23 98.4 Room Air 07/08/17 15:00 71 13 152/39 (76) 100 Room Air 07/08/17 14:00 82 12 160/76 (104) 100 Room Air 07/08/17 13:00 63 10 148/65 (92) 100 Room Air 07/08/17 13:00 63 07/08/17 12:04 Room Air 07/08/17 12:00 66 19 155/66 (95) 100 Room Air 07/08/17 12:00 97.8 Room Air 07/08/17 11:00 91 18 126/93 (104) 98 Room Air 07/08/17 10:00 80 18 102/92 (95) 98 Room Air 07/08/17 09:00 77 9 120/50 (73) 100 Room Air 07/08/17 08:00 98.2 Room Air 07/08/17 08:00 81 18 153/73 (99) 100 Room Air 07/08/17 08:00 Room Air 07/08/17 07:00 69 12 147/53 (84) 100 Room Air 07/08/17 07:00 68 07/08/17 06:45 67 20 141/62 (88) 100 Room Air 07/08/17 06:30 76 13 156/64 (94) 100 Room Air 07/08/17 06:15 73 12 148/59 (88) 100 Room Air 07/08/17 06:00 72 15 159/58 (91) 100 Room Air 07/08/17 05:45 80 10 149/82 (104) 100 Room Air I & O 07/09/17 07:00 Intake Total 2113.3333 ml Output Total 2580 ml Balance -466.6667 ml General Appearance: No Apparent Distress, WD/WN HEENT: PERRL/EOMI, Normal ENT Inspection Neck: Full Range of Motion, Normal Inspection, Non Tender, Supple, Carotid Bruit Respiratory: No Accessory Muscle Use, No Respiratory Distress Cardiovascular: Regular Rate, Rhythm, No Murmur Gastrointestinal: non tender, soft Extremity: Calf Tenderness Neurologic/Psychiatric: Alert Skin: Normal Color, Warm/Dry Results Lab Laboratory Tests 07/07/17 07:00 07/07/17 08:50 07/07/17 11:00 07/07/17 12:55 07/07/17 15:05 07/07/17 17:00 07/07/17 18:55 07/07/17 21:13 07/07/17 23:56 07/08/17 02:50 07/08/17 07:45 07/09/17 04:00 Assessment/Plan Assessment/Plan S/p spinal surgery -Pain control DKA- -Monitor -DKA protocol now d/c'd -IVF Hypoglycemic last night -Accu checks Q4 -monitor close Anemia - s/p transfusion -Monitor hx of tobacco use Labs and radiology reviewed 233 BONNIE PECK DO July 09, 2017 05:42
[2017-07-09] MEDS ORDERED: SODIUM PHOSPHATE INJ 30 MM in NS (IVPB) 250 ML IV ONE (06:15)
--- NOTE | 2017-07-09 07:29 | Progress Note-Hospitalist ---
Subjective HPI/CC On Admission Date Seen by Provider: July 09, 2017 Time Seen by Provider: 07:25 CC: Hypotension HPI: This is a 71-year-old white female known to me from prior hospital stay from 06/02/ after very complex lumbar and thoracic spine surgery due to severe spine disease who presented after an uncomplicated repair of hardware disruption and fracture above all of the hardware placed in May by Dr. Zuñiga. This is the patient that had a lengthy hospital stay last time requiring transfusion of blood and smoking cessation counseling who was set up to go to skilled nursing arrived at the skilled nursing and was taken home 3 hours after arrival by her at her insistence he went home and did her own rehabilitation. I had multiple calls last night due to hypotension and her chronic systolic blood pressures between 90 and 100 so ultimately I put her on severe sepsis IV fluid orders although she was not in severe sepsis and patient did stabilize but upon assessment when she got out of bed in a chair for systolic blood pressure was 65 so we put her back to bed that improved to 100 systolic but central line will be placed in case pressor therapy will be needed after IV fluid resuscitation had been completed and if it fails she will need pressor therapy. Overall very poor prognosis considering the lack of recovery she had an chronic debilitated state since she had not walked for several months prior to the last surgery in May and considering this severe hypotension that has turned into a critical status. I did speak with Dr. Lennno regarding this case and he agrees with the plan. Subjective/Events-last exam Pt reports doing well. No complaints. Eating better. Denies pain. Was up in chair yesterday. Focused Exam Lactate Level 07/06/17 16:25: Lactic Acid Level 1.47 Objective Exam Vital Signs Vital Signs Date Time Temp Pulse Resp B/P (MAP) Pulse Ox O2 Delivery O2 Flow Rate FiO2 07/09/17 06:00 77 11 172/63 (99) 100 Nasal Cannula 2.00 07/09/17 00:28 98.8 Capillary Refill : General Appearance: No Apparent Distress, Chronically ill Respiratory: Lungs Clear, No Respiratory Distress Cardiovascular: Regular Rate, Rhythm, No Murmur Gastrointestinal: Normal Bowel Sounds, Non Tender, Soft Extremity: No Calf Tenderness, No Pedal Edema Neurologic/Psychiatric: Alert, Oriented x3 Results/Procedures Lab Laboratory Tests 07/08/17 07:45 07/09/17 04:00 Patient resulted labs reviewed. Assessment/Plan Assessment and Plan Assess & Plan/Chief Complaint Assessment: Acute DKA- resolved Postoperative anemia Hardware failure with fracture above hardware placement from May 2017 status post uncomplicated repair POD # 5 Acute on chronic hypotension s/p large volume IV fluid resuscitation now resolved since blood transfusion and Florinef Severe hyperglycemia with history of diabetes brittle type per Current smoker but quit recently per Chronic debilitation unable to ambulate for months before surgery done in May and has not really progressed well at home after went home from skilled nursing 3 hours after admitted after discharge in May 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 USG ordered by Spine surgery Plan: Off insulin gtt- had 1 episode of hypoglycmia overnight but BS WNL now Trend Ok to transfer to floor from medical point of view Trend hemoglobin- could benefit from IV Iron Prognosis guarded Diagnosis/Problems Diagnosis/Problems (1) DKA (diabetic ketoacidoses) Status: Acute Qualifiers: Diabetes mellitus type: type 2 Diabetes mellitus complication detail: without coma Qualified Codes: E11.10 - Type 2 diabetes mellitus with ketoacidosis without coma (2) Transfusion of blood during current hospitalisation Status: Acute (3) Hypoglycemia associated with diabetes Status: Acute (4) Postoperative anemia Status: Acute (5) Femoral-popliteal bypass graft occlusion, left Status: Chronic Qualifiers: Encounter type: sequela Qualified Codes: T82.898S - Other specified complication of vascular prosthetic devices, implants and grafts, sequela (6) Hypothyroidism Status: Chronic Qualifiers: Hypothyroidism type: acquired Qualified Codes: E03.9 - Hypothyroidism, unspecified Clinical Quality Measures DVT/VTE Risk/Contraindication: Risk Factor Score Per Nursin RFS Level Per Nursing on Admit: 4+=Very High LALITA MOORE MD July 09, 2017 07:29
--- NOTE | 2017-07-09 07:50 | Diagnostic Imaging Report ---
EXAMINATION: Chest radiograph, portable AP view. DATE: July 09, 2017 at 0313 hours. INDICATION: 71-year-old female, sepsis. COMPARISON: July 08, 2017. FINDINGS: The right internal jugular central venous line overlies the upper SVC. There is spinal hardware. There are midline skin bertha. There is a right total reverse shoulder prosthesis. Stable overall appearance of the cardiomediastinal silhouette. There is no identified pneumothorax. There is no large pleural effusion. There is no identified interval focal airspace consolidation. IMPRESSION: 1. No identified interval acute cardiopulmonary abnormality. 2. Stable positioning of right internal jugular central venous line. Dictated by: Dictated on workstation # [id number]
[2017-07-09] MEDS: LEVOTHYROXINE 150 MCG (LEVOTHROID) TAB PO SCH (07:54)
[2017-07-09] MEDS: PREGABALIN 100 MG (LYRICA) CAPSULE PO SCH ×3 (07:54→20:15)
[2017-07-09] MEDS: MULTIVIT W/MINERALS TAB (THERAGRAN M) PO SCH (07:54)
[2017-07-09] MEDS: DULoxetine 30 MG (CYMBALTA) CAP PO SCH ×2 (07:54→20:15)
[2017-07-09] MEDS: POLYETHYLENE GLYCOL 17 GM (MIRALAX) PACK PO SCH ×2 (07:54→20:15)
[2017-07-09] MEDS: DOCUSATE SODIUM 100 MG (COLACE) CAP PO SCH ×2 (07:54→20:15)
[2017-07-09] MEDS: FLUDROCORTISONE 0.1 MG (FLORINEF) TAB PO SCH ×2 (07:54→20:15)
[2017-07-09] MEDS: FAMOTIDINE 20 MG (PEPCID) TABLET PO SCH (07:54)
[2017-07-09] MEDS: CILOSTAZOL 50 MG PO SCH ×2 (09:25→20:16)
--- NOTE | 2017-07-09 11:21 | Physical Therapy Daily Note ---
PT Daily Note-Current Subjective Pt laying Supine in bed. Pt agrees to PT for Supine Ex. Nurse advised pt had already been up to recliner & that she put back brace on and it seemed to fit. Pain Numeric Pain Scale: 8 Location: Medial, Lower Location Body Site: Back Pain Description: Ache Comment: Pt described pain in LB & R hip as intermittent. Mental Status Patient Orientation: Person, Place, Time, Situation Attachments: Drains, Morris Catheter, IV Transfers Functional [place] Measure 0=Not Assessed/NA 4=Minimal Assistance 1=Total Assistance 5=Supervision or Setup 2=Maximal Assistance 6=Modified [place] 3=Moderate Assistance 7=Complete IndependenceIRFPAI Quality Coding Scale 6 Independent with activity with or without an assistive device 5 Patient requires set up or clean up by helper. Patient completes activity by themselves 4 Supervision or touching assist (CGA). [place] provide cues , steadying assist 3 The helper provides less than half the effort to complete the activity 2 The helper provides more than half the effort to complete the activity 1 Dependent. 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 Nurse ask for assistance for placing bed ku for pt. Pt resting at end of tx with all needs met, including call light next to pt. Assessment Current Status: Good Progress Pt reports continued pain but no increase with Ex. PT Short Term Goals Short Term Goals Transfers (B,C,W/C) (FIM): 4 PT Electronic Sales And Service Technician Goals Retirement Goals PT Electronic Sales And Service Technician Goals Time Frame: Jul 18, 2017 Transfers (B,C,W/C) (FIM): 2 PT Plan Problem List Problem List: Activity Tolerance, Functional Strength, Safety, Balance, Gait, Transfer, Bed Mobility Treatment/Plan Treatment Plan: Continue Plan of Care Treatment Plan: Bed Mobility, Education, Functional Activity [place], Functional Strength, Safety, Therapeutic Exercise, Transfers Treatment Duration: Jul 18, 2017 Frequency: 6 times per week Estimated Hrs Per Day: .5 hour per day Patient and/or Family Agrees t: Yes Safety Risks/Education Patient Education: Transfer Techniques, Correct Positioning, Disease Process, Safety Issues Teaching Recipient: Patient Teaching Methods: Discussion Response to Teaching: Verbalize Understanding Time/GCodes Time In: 1035 Time Out: 1058 Total Billed Treatment Time: 23 Total Billed Treatment 1, EX (15m) & FA (8m) G Codes Necessary: BLAIRE Caban 8[employer] GRADE MATHEMATICS TEACHER July 09, 2017 11:21
--- NOTE | 2017-07-09 13:25 | Occupational Ther Daily Note ---
OT Current Status-Daily Note Subjective Pt asleep, supine in bed upon therapist arrival. Pt reports feeling moderate pain and discomfort through abdomen region this date. She reports not having a bowel movement in past two days, resulting in complaints of pain. Mental Status/Objective Functional [place] Measure 0=Not Assessed/NA 4=Minimal Assistance 1=Total Assistance 5=Supervision or Setup 2=Maximal Assistance 6=Modified [place] 3=Moderate Assistance 7=Complete [place] ADL-Treatment Grooming (FIM): 5 (Pt able to perform hygiene through washing face/hands/arms. Pt also performed brushing dentures and teeth while seated upright in bed.) Other Treatment Pt participated in bed mobility through rolling side to side while maintaining precautions. Pt required MaxA for side rolling, and required verbal cues for proper technique. Pt declined transferring to chair, as well as to commode, due to moderate complaints of pain. Pt educated on importance of participating in out of bed activity to facilitate physical and medical improvement. Pt verbalizes understanding, however requested to complete therapy session from bed level. Education OT Patient Education: Correct positioning, Modified ADL techniques, Purpose of tx/functional activities, Reviewed precautions, Transfer techniques Teaching Recipient: Patient Teaching Methods: Demonstration, Discussion OT Short Term Goals Short Term Goals Time Frame: Jul 11, 2017 Eating(FIM): 5 Grooming(FIM): 4 Bathing(FIM): 3 Upper Body Dressing(FIM): 3 Lower Body Dressing(FIM): 3 Transfers (B,C,W/C) (FIM): 4 Toilet/Commode Transfer(FIM): 4 Additional Short Term Goals: 1-Demonstrate ADL Tasks, 2-Verbalize Understanding , 3-ImproveStrength/[place] 1=Demonstrate adherence to instructed precautions during ADL tasks. 2=Patient will verbalize/demonstrate understanding of assistive devices/ modifications for ADL. 3=Patient will improve strength/tolerance for activity to enable patient to perform ADL's. OT General Ledger Bookkeeper Goals General Ledger Bookkeeper Goals Time Frame: Jul 18, 2017 Eating (FIM): 6 Grooming(FIM): 5 Bathing(FIM): 4 Upper Body Dressing(FIM): 5 Lower Body Dressing(FIM): 4 Toileting(FIM): 5 Transfers (B,C,W/C) (FIM): 5 Toilet/Commode Transfer(FIM): 5 Shower Transfer(FIM): 4 Additional Goals: 1-Demonstrate ADL Tasks, 2-Verbalize Understanding, 3- ImproveStrength/Tyler 1=Demonstrate adherence to instructed precautions during ADL tasks. 2=Patient will verbalize/demonstrate understanding of assistive devices/ modifications for ADL. 3=Patient will improve strength/tolerance for activity to enable patient to perform ADL's. OT Education/Plan Discharge Recommendations Plan/Recommendations: Continue POC Treatment Plan/Plan of Care Patient would benefit from OT for education, treatment and training to promote independence in ADL's, mobility, safety and/or upper extremity function for ADL' s. Plan of Care: ADL Retraining, Caregiver Training, Functional Mobility, UE Funct Exercise/Act Treatment Duration: Jul 18, 2017 Frequency: 5 times per week Estimated Hrs Per Day: .5 hour per day Agreement: Yes Rehab Potential: Fair Time/GCodes Start Time: 12:35 Stop Time: 13:10 Total Time Billed (hr/min): 35 Billed Treatment Time visit, 10 minutes FA, 25 minutes ADL JODY JACOBSON OT July 09, 2017 13:25
[2017-07-09] MEDS: BACLOFEN 10 MG (LIORESAL) TAB PO PRN (16:34)
--- NOTE | 2017-07-09 18:52 | Progress Note (SOAP) ---
Subjective Time Seen by Provider: 18:48 Subjective/Events-last exam Pt was moved to the floor today and states that she has had a bad day. She has had increased pain in her back and is a little more anxious. She is okay with going to the rehab facility, but wants to go to one in [place]. Objective Exam Vital Signs Date Time Temp Pulse Resp B/P (MAP) Pulse Ox O2 Delivery O2 Flow Rate FiO2 07/09/17 16:00 98.4 88 18 108/61 (77) 100 Room Air 07/09/17 15:08 100 Room Air 07/09/17 13:45 98.9 83 18 147/63 (91) 97 Room Air 07/09/17 13:00 90 07/09/17 13:00 90 14 120/82 (95) 97 Room Air 07/09/17 12:55 100 Room Air 07/09/17 12:00 81 13 145/71 (95) 100 Room Air 07/09/17 11:00 76 15 167/72 (103) 100 Room Air 07/09/17 10:00 67 12 167/75 (105) 100 Room Air 07/09/17 09:00 74 18 142/62 (88) 100 Room Air 07/09/17 08:25 100 Room Air 07/09/17 08:22 99.2 70 24 142/62 (88) 100 Room Air 07/09/17 07:00 77 10 179/68 (105) 100 Nasal Cannula 2.00 07/09/17 07:00 77 07/09/17 06:00 77 11 172/63 (99) 100 Nasal Cannula 2.00 07/09/17 05:00 71 12 142/60 (87) 100 Nasal Cannula 2.00 07/09/17 04:00 75 14 164/64 (97) 88 Nasal Cannula 2.00 07/09/17 04:00 Nasal Cannula 2.00 07/09/17 03:00 84 12 131/49 (76) 100 Nasal Cannula 2.00 07/09/17 02:00 74 19 118/43 (68) 96 Nasal Cannula 2.00 07/09/17 01:00 70 07/09/17 01:00 68 22 99/41 (60) 96 Nasal Cannula 2.00 07/09/17 00:28 98.8 07/09/17 00:00 Nasal Cannula 2.00 07/09/17 00:00 67 8 97/52 (67) 98 Nasal Cannula 2.00 07/08/17 23:00 Nasal Cannula 2.00 07/08/17 23:00 79 19 149/66 (93) 97 Nasal Cannula 2.00 07/08/17 22:00 67 7 141/69 (93) 98 Nasal Cannula 2.00 07/08/17 21:00 71 7 147/62 (90) 100 Nasal Cannula 2.00 07/08/17 20:00 69 8 146/67 (93) 98 Nasal Cannula 2.00 07/08/17 20:00 Nasal Cannula 2.00 07/08/17 19:50 98.8 74 16 146/67 (93) 96 Nasal Cannula 2.00 07/08/17 19:00 70 9 91 07/08/17 19:00 69 I & O 07/09/17 07:00 Intake Total 2213.3333 ml Output Total 3420 ml Balance -1206.6667 ml Capillary Refill : General Appearance: WD/WN, Anxious Respiratory: No Accessory Muscle Use, No Respiratory Distress Neurologic/Psychiatric: Alert, Motor Weakness Results Lab Laboratory Tests 07/08/17 20:04: Glucometer 43*L 07/08/17 20:48: Glucometer 87 07/08/17 23:52: Glucometer 101 07/09/17 04:00: White Blood Count 4.1L, Red Blood Count 2.85L, Hemoglobin 8.5L, Hematocrit 26L, Mean Corpuscular Volume 91, Mean Corpuscular Hemoglobin 30, Mean Corpuscular Hemoglobin Concent 33, Red Cell Distribution Width 15.3H, Platelet Count 262, Mean Platelet Volume 10.0, Neutrophils (%) (Auto) 59, Lymphocytes (%) (Auto) 22 , Monocytes (%) (Auto) 11, Eosinophils (%) (Auto) 9, Basophils (%) (Auto) 0, Neutrophils # (Auto) 2.4, Lymphocytes # (Auto) 0.9L, Monocytes # (Auto) 0.4, Eosinophils # (Auto) 0.4H, Basophils # (Auto) 0.0, Sodium Level 139, Potassium Level 4.3, Chloride Level 112H, Carbon Dioxide Level 19L, Anion Gap 8, Blood Urea Nitrogen 3L, Creatinine 0.53L, Estimat Glomerular Filtration Rate > 60, BUN /Creatinine Ratio 6, Glucose Level 156H, Calcium Level 7.7L, Phosphorus Level 2.2L, Magnesium Level 1.8 07/09/17 08:05: Glucometer 250H 07/09/17 09:45: Lab Scanned Report Transfusion Reaction Form 07/09/17 09:47: Lab Scanned Report Transfusion Reaction Form 07/09/17 13:18: Glucometer 198H 07/09/17 16:17: Glucometer 223H Microbiology 07/03/17 MRSA Screen - Final, Complete MRSA not isolated 07/06/17 Urine Culture - Final, Complete Yeast species 07/03/17 Gram Stain - Final, Complete 07/03/17 Anaerobic Culture - Final, Complete No growth 07/03/17 Surgical Culture - Final, Complete No growth Assessment/Plan Assessment/Plan Assess & Plan/Chief Complaint 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 Clinical Quality Measures DVT/VTE Risk/Contraindication: Risk Factor Score Per Nursin RFS Level Per Nursing on Admit: 4+=Very High JEWELL DEL VALLE July 09, 2017 18:52
[2017-07-09] MEDS: hydrOXYzine (ATARAX) 10 MG TAB PO PRN (19:07)
[2017-07-09] MEDS: inSUlin DETERMIR 1 UNIT/0.01 ML (LEVEMIR) CHARGE PER UNIT SQ SCH (20:16)
[2017-07-10] VITALS: BP 145/63
[2017-07-10] MEDS: inSUlin ASPART (NovoLOG) 1 UNIT/0.01 ML (CHARGE PER UNIT) SC SCH ×7 (00:08→23:42)
[2017-07-10] MEDS: HYDROcodone/APAP 10 MG/325 MG (LORTAB) TAB PO PRN ×6 (00:10→19:28)
[2017-07-10] MEDS: BACLOFEN 10 MG (LIORESAL) TAB PO PRN ×2 (04:46→12:29)
[2017-07-10] MEDS: MULTIVIT W/MINERALS TAB (THERAGRAN M) PO SCH (04:46)
[2017-07-10 05:00] VITALS: BP 131/63
--- NOTE | 2017-07-10 05:13 | Pulmonary Progress Note ---
Subjective Time Seen by Provider: 05:13 Subjective/Events-last exam No respiratory complications noted. Exam Exam Vital Signs Date Time Temp Pulse Resp B/P (MAP) Pulse Ox O2 Delivery O2 Flow Rate FiO2 07/10/17 00:00 98.4 83 16 145/63 (90) 99 Nasal Cannula 2.00 07/09/17 20:00 Room Air 07/09/17 19:25 98.4 76 16 103/53 (70) 95 Room Air 07/09/17 16:00 98.4 88 18 108/61 (77) 100 Room Air 07/09/17 15:08 100 Room Air 07/09/17 13:45 98.9 83 18 147/63 (91) 97 Room Air 07/09/17 13:00 90 07/09/17 13:00 90 14 120/82 (95) 97 Room Air 07/09/17 12:55 100 Room Air 07/09/17 12:00 81 13 145/71 (95) 100 Room Air 07/09/17 11:00 76 15 167/72 (103) 100 Room Air 07/09/17 10:00 67 12 167/75 (105) 100 Room Air 07/09/17 09:00 74 18 142/62 (88) 100 Room Air 07/09/17 08:25 100 Room Air 07/09/17 08:22 99.2 70 24 142/62 (88) 100 Room Air 07/09/17 07:00 77 10 179/68 (105) 100 Nasal Cannula 2.00 07/09/17 07:00 77 07/09/17 06:00 77 11 172/63 (99) 100 Nasal Cannula 2.00 I & O 07/10/17 07:00 Intake Total 700 ml Output Total 2150 ml Balance -1450 ml General Appearance: WD/WN, Anxious HEENT: PERRL/EOMI, Normal ENT Inspection Neck: Full Range of Motion, Normal Inspection, Non Tender, Supple, Carotid Bruit Respiratory: No Accessory Muscle Use, No Respiratory Distress Cardiovascular: Regular Rate, Rhythm, No Murmur Gastrointestinal: non tender, soft Extremity: No Calf Tenderness, No Pedal Edema Neurologic/Psychiatric: Alert, Motor Weakness Skin: Normal Color, Warm/Dry Results Lab Laboratory Tests 07/08/17 07:45 07/09/17 04:00 Assessment/Plan Assessment/Plan S/p spinal surgery -Pain control DM s/p DKA Hypoglycemic last night -Accu checks Q4 -monitor close Anemia - s/p transfusion -Monitor hx of tobacco use Pt appears to be doing better. I am going to sign off please call with any questions or concerns. 232 BONNIE PECK DO July 10, 2017 05:13
[2017-07-10 05:43] LABS: BASOPHILS % (AUTO) 0 % (0-10); EOSINOPHILS # (AUTO) 0.2 10^3/uL (0.0-0.3); EOSINOPHILS % (AUTO) 4 % (0-10); HEMATOCRIT 26 % (35-52); HEMOGLOBIN 8.6 G/DL (11.5-16.0); LYMPHOCYTES # (AUTO) 0.9 X 10^3 (1.0-4.0); LYMPHOCYTES % (AUTO) 18 % (12-44); MEAN CORPUSCULAR HEMOGLOBIN 30 PG (25-34); MEAN CORPUSCULAR HGB CONC 33 G/DL (32-36); MEAN CORPUSCULAR VOLUME 91 FL (80-99); MEAN PLATELET VOLUME 9.6 FL (7.4-10.4); MONOCYTES # (AUTO) 0.6 X 10^3 (0.0-1.0); MONOCYTES % (AUTO) 10 % (0-12); NEUTROPHILS # (AUTO) 3.6 X 10^3 (1.8-7.8); NEUTROPHILS % (AUTO) 68 % (42-75); PLATELET COUNT 370 10^3/uL (130-400); RED BLOOD COUNT 2.88 10^6/uL (4.35-5.85); RED CELL DISTRIBUTION WIDTH 15.2 % (10.0-14.5); WHITE BLOOD COUNT 5.3 10^3/uL (4.3-11.0)
[2017-07-10 06:16] LABS: BUN/CREATININE RATIO 13; CALCIUM 8.1 MG/DL (8.5-10.1); CARBON DIOXIDE 23 MMOL/L (21-32); CHLORIDE 107 MMOL/L (98-107); CREATININE SERUM 0.55 MG/DL (0.60-1.30); GFR ESTIMATED > 60; GLUCOSE 148 MG/DL (70-105); POTASSIUM 3.7 MMOL/L (3.6-5.0); SODIUM 141 MMOL/L (135-145)
[2017-07-10] MEDS: hydrOXYzine (ATARAX) 10 MG TAB PO PRN ×3 (06:22→21:06)
[2017-07-10] MEDS: FAMOTIDINE 20 MG (PEPCID) TABLET PO SCH (07:55)
[2017-07-10] MEDS: DULoxetine 30 MG (CYMBALTA) CAP PO SCH ×2 (07:55→21:06)
[2017-07-10] MEDS: DOCUSATE SODIUM 100 MG (COLACE) CAP PO SCH ×2 (07:55→19:29)
[2017-07-10] MEDS: PREGABALIN 100 MG (LYRICA) CAPSULE PO SCH ×3 (07:55→21:06)
[2017-07-10] MEDS: FLUDROCORTISONE 0.1 MG (FLORINEF) TAB PO SCH ×2 (07:55→21:06)
[2017-07-10] MEDS: POLYETHYLENE GLYCOL 17 GM (MIRALAX) PACK PO SCH ×2 (08:03→19:30)
[2017-07-10] MEDS: LEVOTHYROXINE 150 MCG (LEVOTHROID) TAB PO SCH (08:03)
[2017-07-10] MEDS: CILOSTAZOL 50 MG PO SCH ×2 (08:04→21:06)
[2017-07-10 08:11] VITALS: BP 141/65
--- NOTE | 2017-07-10 09:53 | Physical Therapy Daily Note ---
PT Daily Note-Current Subjective Patient agrees to PT. Patient incontinent urine and BM requiring dependent assist to change and cleanse. Pain Numeric Pain Scale: 10-Worst Possible Pain Location: Medial, Upper, Lower Location Body Site: Back Pain Description: Acute Mental Status Patient Orientation: Person, Time, Situation TLSO Transfers Functional [place] Measure 0=Not Assessed/NA 4=Minimal Assistance 1=Total Assistance 5=Supervision or Setup 2=Maximal Assistance 6=Modified [place] 3=Moderate Assistance 7=Complete IndependenceIRFPAI Quality Coding Scale 6 Independent with activity with or without an assistive device 5 Patient requires set up or clean up by helper. Patient completes activity by themselves 4 Supervision or touching assist (CGA). [place] provide cues , steadying assist 3 The helper provides less than half the effort to complete the activity 2 The helper provides more than half the effort to complete the activity 1 Dependent. The helper does all the effort to complete an activity 7 Patient refused to complete or attempt activity 9 The patient did not perform the activity before the current illness or injury 88 Not attempted due to Medical conditions or safety concerns Transfers (B, C, W/C) (FIM): 2 Scootin Rollin Supine to/from Sit: 2 Sit to/from Stand: 2 Bed to/from Chair: 2 max assist with all mobility with patient taking steps with transfers bed to commode to recliner. Weight Bearing Right Lower Extremity: Right Full Weight Bearing Left Lower Extremity: Left Full Weight Bearing Exercises Seated Therapy Exercises: Ankle pumps, Long arc quads Seated Reps: 15 (AAROM bilaterally) Assessment Patient is up in recliner with needs met. Patient requires dependent assist to tera TLSO. Plan dismissal to [place] this week. PT Short Term Goals Short Term Goals Transfers (B,C,W/C) (FIM): 4 PT Pc Technician Goals Assisted Goals PT Assisted Goals Time Frame: Jul 18, 2017 Transfers (B,C,W/C) (FIM): 2 PT Plan Treatment/Plan Treatment Plan: Continue Plan of Care Treatment Plan: Bed Mobility, Education, Functional Activity [place], Functional Strength, Safety, Therapeutic Exercise, Transfers Treatment Duration: Jul 18, 2017 Frequency: 6 times per week Estimated Hrs Per Day: .5 hour per day Patient and/or Family Agrees t: Yes Time/GCodes Time In: 907 Time Out: 933 Total Billed Treatment Time: 26 Total Billed Treatment 1 visit FA x 2 26 min ROSA BUNDY PT July 10, 2017 09:53
[2017-07-10 12:00] VITALS: BP 164/72
[2017-07-10] MEDS: fentaNYL INJECTION 100 MCG/2 ML AMP IVP PRN ×3 (12:01→19:28)
--- NOTE | 2017-07-10 12:14 | Progress Note (SOAP) ---
Subjective Time Seen by Provider: 12:12 Subjective/Events-last exam Pt is states that her back continues to hurt and is most comfortable in bed. She has been up in the chair some today. She is ready to be transferred to a facility closer to home. Objective Exam Vital Signs Date Time Temp Pulse Resp B/P (MAP) Pulse Ox O2 Delivery O2 Flow Rate FiO2 07/10/17 08:11 98.9 86 16 141/65 (90) 93 Room Air 07/10/17 05:00 98.2 84 17 131/63 (85) 96 Nasal Cannula 2.00 07/10/17 00:00 98.4 83 16 145/63 (90) 99 Nasal Cannula 2.00 07/09/17 20:00 Room Air 07/09/17 19:25 98.4 76 16 103/53 (70) 95 Room Air 07/09/17 16:00 98.4 88 18 108/61 (77) 100 Room Air 07/09/17 15:08 100 Room Air 07/09/17 13:45 98.9 83 18 147/63 (91) 97 Room Air 07/09/17 13:00 90 07/09/17 13:00 90 14 120/82 (95) 97 Room Air 07/09/17 12:55 100 Room Air I & O 07/10/17 07:00 Intake Total 1440 ml Output Total 2195 ml Balance -755 ml Capillary Refill : General Appearance: No Apparent Distress, WD/WN Respiratory: No Accessory Muscle Use, No Respiratory Distress Extremity: Calf Tenderness Neurologic/Psychiatric: Alert, Depressed Affect, Motor Weakness Results Lab Laboratory Tests 07/09/17 13:18: Glucometer 198H 07/09/17 16:17: Glucometer 223H 07/09/17 19:51: Glucometer 243H 07/09/17 23:31: Glucometer 192H 07/10/17 03:57: Glucometer 34*L 07/10/17 04:20: Glucometer 41*L 07/10/17 04:44: Glucometer 79 07/10/17 05:24: Glucometer 134H 07/10/17 05:30: White Blood Count 5.3, Red Blood Count 2.88L, Hemoglobin 8.6L, Hematocrit 26L, Mean Corpuscular Volume 91, Mean Corpuscular Hemoglobin 30, Mean Corpuscular Hemoglobin Concent 33, Red Cell Distribution Width 15.2H, Platelet Count 370, Mean Platelet Volume 9.6, Neutrophils (%) (Auto) 68, Lymphocytes (%) (Auto) 18, Monocytes (%) (Auto) 10, Eosinophils (%) (Auto) 4, Basophils (%) (Auto) 0, Neutrophils # (Auto) 3.6, Lymphocytes # (Auto) 0.9L, Monocytes # (Auto) 0.6, Eosinophils # (Auto) 0.2, Basophils # (Auto) 0.0, Sodium Level 141, Potassium Level 3.7, Chloride Level 107, Carbon Dioxide Level 23, Anion Gap 11, Blood Urea Nitrogen 7, Creatinine 0.55L, Estimat Glomerular Filtration Rate > 60, BUN/ Creatinine Ratio 13, Glucose Level 148H, Calcium Level 8.1L 07/10/17 07:24: Glucometer 280H Microbiology 07/03/17 MRSA Screen - Final, Complete MRSA not isolated 07/06/17 Urine Culture - Final, Complete 07/03/17 Gram Stain - Final, Complete 07/03/17 Anaerobic Culture - Final, Complete No growth 07/03/17 Surgical Culture - Final, Complete No growth Assessment/Plan Assessment/Plan Assess & Plan/Chief Complaint 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 Hopefully transfer today, if not, tomorrow. Clinical Quality Measures DVT/VTE Risk/Contraindication: Risk Factor Score Per Nursin RFS Level Per Nursing on Admit: 4+=Very High JEWELL DEL VALLE July 10, 2017 12:14
[2017-07-10] MEDS ORDERED: HYDR-3820 PO (12:19)
[2017-07-10] MEDS ORDERED: BACL10TA PO (12:19)
--- NOTE | 2017-07-10 12:30 | Occupational Ther Daily Note ---
OT Current Status-Daily Note Subjective Pt alert, sitting up in recliner. Pt voiced pain, did not rate. Pt agrees to therapy. Mental Status/Objective Patient Orientation: Person, Place, Time, Situation Functional [place] Measure 0=Not Assessed/NA 4=Minimal Assistance 1=Total Assistance 5=Supervision or Setup 2=Maximal Assistance 6=Modified [place] 3=Moderate Assistance 7=Complete [place] Attachments: Other-See Comments (back brace) ADL-Treatment Pt was able to complete oral care with set up while supine in bed. Pt able to take out and put in dentures. Brushed mouth and lower teeth by self. After therapy, pt lying in bed with call light/phone in reach. All needs met in room. Other Treatment Pt max assist with transfers. Pt taking steps with transfers from recliner to bed. Assist x2 to go from sitting on EOB to supine. Pt able to complete 3 UE exercises without resistance to increase strength and activity tolerance for daily functional tasks. OT Short Term Goals Short Term Goals Time Frame: Jul 11, 2017 Eating(FIM): 5 Grooming(FIM): 4 Bathing(FIM): 3 Upper Body Dressing(FIM): 3 Lower Body Dressing(FIM): 3 Transfers (B,C,W/C) (FIM): 4 Toilet/Commode Transfer(FIM): 4 Additional Short Term Goals: 1-Demonstrate ADL Tasks, 2-Verbalize Understanding , 3-ImproveStrength/[place]yler 1=Demonstrate adherence to instructed precautions during ADL tasks. 2=Patient will verbalize/demonstrate understanding of assistive devices/ modifications for ADL. 3=Patient will improve strength/tolerance for activity to enable patient to perform ADL's. OT Group Home Goals Group Home Goals Time Frame: Jul 18, 2017 Eating (FIM): 6 Grooming(FIM): 5 Bathing(FIM): 4 Upper Body Dressing(FIM): 5 Lower Body Dressing(FIM): 4 Toileting(FIM): 5 Transfers (B,C,W/C) (FIM): 5 Toilet/Commode Transfer(FIM): 5 Shower Transfer(FIM): 4 Additional Goals: 1-Demonstrate ADL Tasks, 2-Verbalize Understanding, 3- ImproveStrength/Tyler 1=Demonstrate adherence to instructed precautions during ADL tasks. 2=Patient will verbalize/demonstrate understanding of assistive devices/ modifications for ADL. 3=Patient will improve strength/tolerance for activity to enable patient to perform ADL's. OT Education/Plan Discharge Recommendations Plan/Recommendations: Continue POC Treatment Plan/Plan of Care Patient would benefit from OT for education, treatment and training to promote independence in ADL's, mobility, safety and/or upper extremity function for ADL' s. Plan of Care: ADL Retraining, Caregiver Training, Functional Mobility, UE Funct Exercise/Act Treatment Duration: Jul 18, 2017 Frequency: 5 times per week Estimated Hrs Per Day: .5 hour per day Agreement: Yes Rehab Potential: Fair Time/GCodes Start Time: 10:15 Stop Time: 10:31 Total Time Billed (hr/min): 16 Billed Treatment Time 1 visit-ADL 1 (16 min) AARON SANTOS July 10, 2017 12:30
[2017-07-10] MEDS ORDERED: INSU100V5 SQ (12:38)
--- NOTE | 2017-07-10 12:40 | Progress Note-Hospitalist ---
Subjective HPI/CC On Admission Date Seen by Provider: July 10, 2017 Time Seen by Provider: 12:35 CC: Hypotension HPI: This is a 71-year-old white female known to me from prior hospital stay from 06/02// after very complex lumbar and thoracic spine surgery due to severe spine disease who presented after an uncomplicated repair of hardware disruption and fracture above all of the hardware placed in May by Dr. Zuñiga. This is the patient that had a lengthy hospital stay last time requiring transfusion of blood and smoking cessation counseling who was set up to go to half-way arrived at the half-way and was taken home 3 hours after arrival by her at her insistence he went home and did her own rehabilitation. I had multiple calls last night due to hypotension and her chronic systolic blood pressures between 90 and 100 so ultimately I put her on severe sepsis IV fluid orders although she was not in severe sepsis and patient did stabilize but upon assessment when she got out of bed in a chair for systolic blood pressure was 65 so we put her back to bed that improved to 100 systolic but central line will be placed in case pressor therapy will be needed after IV fluid resuscitation had been completed and if it fails she will need pressor therapy. Overall very poor prognosis considering the lack of recovery she had an chronic debilitated state since she had not walked for several months prior to the last surgery in May and considering this severe hypotension that has turned into a critical status. I did speak with Dr. Lennon regarding this case and he agrees with the plan. Subjective/Events-last exam Pt reports feeling better today. Up in chair. Ready for DC to SNF. [facility] as she was there previously. Objective Exam Vital Signs Vital Signs Date Time Temp Pulse Resp B/P (MAP) Pulse Ox O2 Delivery O2 Flow Rate FiO2 07/10/17 08:11 98.9 86 16 141/65 (90) 93 Room Air 07/10/17 05:00 2.00 Capillary Refill : General Appearance: No Apparent Distress, WD/WN Respiratory: Lungs Clear, No Respiratory Distress Cardiovascular: Regular Rate, Rhythm, No Murmur Gastrointestinal: Normal Bowel Sounds, Non Tender, Soft Back: Other (brace in place) Neurologic/Psychiatric: Alert, Oriented x3 Results/Procedures Lab Laboratory Tests 07/10/17 05:30 Patient resulted labs reviewed. Assessment/Plan Assessment and Plan Assess & Plan/Chief Complaint Assessment: Acute DKA- resolved Postoperative anemia Hardware failure with fracture above hardware placement from May 2017 status post uncomplicated repair POD # 6 Acute on chronic hypotension s/p large volume IV fluid resuscitation now resolved since blood transfusion and Florinef Diabetes brittle type per Current smoker but quit recently per Chronic debilitation unable to ambulate for months before surgery done in May and has not really progressed well at home after went home from half-way 3 hours after admitted after discharge in May 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 USG ordered by Spine surgery Plan: Has brittle DM with labile BS and sever hypoglycemia overnight, will decrease basal dose even further Ok to transfer to SNF when Ortho deems appropriate Diagnosis/Problems Diagnosis/Problems (1) DKA (diabetic ketoacidoses) Status: Acute Qualifiers: Diabetes mellitus type: type 2 Diabetes mellitus complication detail: without coma Qualified Codes: E11.10 - Type 2 diabetes mellitus with ketoacidosis without coma (2) Transfusion of blood during current hospitalisation Status: Acute (3) Hypoglycemia associated with diabetes Status: Acute (4) Postoperative anemia Status: Acute (5) Femoral-popliteal bypass graft occlusion, left Status: Chronic Qualifiers: Encounter type: sequela Qualified Codes: T82.898S - Other specified complication of vascular prosthetic devices, implants and grafts, sequela (6) Hypothyroidism Status: Chronic Qualifiers: Hypothyroidism type: acquired Qualified Codes: E03.9 - Hypothyroidism, unspecified Clinical Quality Measures DVT/VTE Risk/Contraindication: Risk Factor Score Per Nursin RFS Level Per Nursing on Admit: 4+=Very High LALITA MOORE MD July 10, 2017 12:40 pm
[2017-07-10 15:50] VITALS: BP 145/63
[2017-07-10] MEDS ORDERED: ceFAZolin 2 GM IV Premixed 0 ML ONE (16:51)
[2017-07-10 19:35] VITALS: BP 172/75
[2017-07-10] MEDS: inSUlin DETERMIR 1 UNIT/0.01 ML (LEVEMIR) CHARGE PER UNIT SQ SCH (21:05)
[2017-07-11] VITALS: BP 187/77
[2017-07-11] MEDS: HYDROcodone/APAP 10 MG/325 MG (LORTAB) TAB PO PRN ×3 (03:32→15:17)
[2017-07-11] MEDS: MULTIVIT W/MINERALS TAB (THERAGRAN M) PO SCH (04:43)
[2017-07-11] MEDS: inSUlin ASPART (NovoLOG) 1 UNIT/0.01 ML (CHARGE PER UNIT) SC SCH ×4 (04:43→16:04)
[2017-07-11 06:42] LABS: BASOPHILS % (AUTO) 0 % (0-10); EOSINOPHILS # (AUTO) 0.2 10^3/uL (0.0-0.3); EOSINOPHILS % (AUTO) 2 % (0-10); HEMATOCRIT 27 % (35-52); HEMOGLOBIN 8.8 G/DL (11.5-16.0); LYMPHOCYTES # (AUTO) 1.2 X 10^3 (1.0-4.0); LYMPHOCYTES % (AUTO) 17 % (12-44); MEAN CORPUSCULAR HEMOGLOBIN 30 PG (25-34); MEAN CORPUSCULAR HGB CONC 33 G/DL (32-36); MEAN CORPUSCULAR VOLUME 91 FL (80-99); MEAN PLATELET VOLUME 9.4 FL (7.4-10.4); MONOCYTES # (AUTO) 0.9 X 10^3 (0.0-1.0); MONOCYTES % (AUTO) 12 % (0-12); NEUTROPHILS # (AUTO) 5.2 X 10^3 (1.8-7.8); NEUTROPHILS % (AUTO) 69 % (42-75); PLATELET COUNT 452 10^3/uL (130-400); RED BLOOD COUNT 2.94 10^6/uL (4.35-5.85); RED CELL DISTRIBUTION WIDTH 15.4 % (10.0-14.5); WHITE BLOOD COUNT 7.5 10^3/uL (4.3-11.0)
[2017-07-11 07:03] LABS: BUN/CREATININE RATIO 10; CALCIUM 8.5 MG/DL (8.5-10.1); CARBON DIOXIDE 28 MMOL/L (21-32); CHLORIDE 99 MMOL/L (98-107); CREATININE SERUM 0.58 MG/DL (0.60-1.30); GFR ESTIMATED > 60; GLUCOSE 186 MG/DL (70-105); POTASSIUM 3.3 MMOL/L (3.6-5.0); SODIUM 140 MMOL/L (135-145)
[2017-07-11] MEDS: CILOSTAZOL 50 MG PO SCH (08:32)
[2017-07-11] MEDS: DOCUSATE SODIUM 100 MG (COLACE) CAP PO SCH (08:33)
[2017-07-11] MEDS: FAMOTIDINE 20 MG (PEPCID) TABLET PO SCH (08:33)
[2017-07-11] MEDS: PREGABALIN 100 MG (LYRICA) CAPSULE PO SCH ×2 (08:33→12:25)
[2017-07-11] MEDS: LEVOTHYROXINE 150 MCG (LEVOTHROID) TAB PO SCH (08:33)
[2017-07-11] MEDS: FLUDROCORTISONE 0.1 MG (FLORINEF) TAB PO SCH (08:33)
[2017-07-11] MEDS: POLYETHYLENE GLYCOL 17 GM (MIRALAX) PACK PO SCH (08:33)
[2017-07-11 08:35] VITALS: BP 172/75
[2017-07-11] MEDS: DULoxetine 30 MG (CYMBALTA) CAP PO SCH (08:35)
--- NOTE | 2017-07-11 09:14 | Progress Note-Hospitalist ---
Subjective HPI/CC On Admission Date Seen by Provider: Jul 11, 2017 Time Seen by Provider: 09:11 CC: Hypotension HPI: This is a 71-year-old white female known to me from prior hospital stay from 06/02// after very complex lumbar and thoracic spine surgery due to severe spine disease who presented after an uncomplicated repair of hardware disruption and fracture above all of the hardware placed in May by Dr. Zuñiga. This is the patient that had a lengthy hospital stay last time requiring transfusion of blood and smoking cessation counseling who was set up to go to senior care arrived at the senior care and was taken home 3 hours after arrival by her at her insistence he went home and did her own rehabilitation. I had multiple calls last night due to hypotension and her chronic systolic blood pressures between 90 and 100 so ultimately I put her on severe sepsis IV fluid orders although she was not in severe sepsis and patient did stabilize but upon assessment when she got out of bed in a chair for systolic blood pressure was 65 so we put her back to bed that improved to 100 systolic but central line will be placed in case pressor therapy will be needed after IV fluid resuscitation had been completed and if it fails she will need pressor therapy. Overall very poor prognosis considering the lack of recovery she had an chronic debilitated state since she had not walked for several months prior to the last surgery in May and considering this severe hypotension that has turned into a critical status. I did speak with Dr. Lennon regarding this case and he agrees with the plan. Subjective/Events-last exam Pt is ready to DC. Her only concern is about when she can leave. Objective Exam Vital Signs Vital Signs Date Time Temp Pulse Resp B/P (MAP) Pulse Ox O2 Delivery O2 Flow Rate FiO2 07/11/17 08:35 98.5 89 16 172/75 (107) 98 Room Air 07/10/17 05:00 2.00 Capillary Refill : General Appearance: No Apparent Distress, WD/WN Respiratory: Lungs Clear, No Respiratory Distress Cardiovascular: Regular Rate, Rhythm, No Murmur Gastrointestinal: Normal Bowel Sounds, Soft Neurologic/Psychiatric: Alert, Oriented x3 Results/Procedures Lab Laboratory Tests 07/11/17 06:30 Patient resulted labs reviewed. Assessment/Plan Assessment and Plan Assess & Plan/Chief Complaint Assessment: Acute DKA- resolved Postoperative anemia Hardware failure with fracture above hardware placement from May 2017 status post uncomplicated repair POD # 6 Acute on chronic hypotension s/p large volume IV fluid resuscitation now resolved since blood transfusion and Florale Diabetes brittle type per Current smoker but quit recently per Chronic debilitation unable to ambulate for months before surgery done in May and has not really progressed well at home after went home from senior care 3 hours after admitted after discharge in May 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 USG ordered by Spine surgery Plan: Has brittle DM with labile BS and sever hypoglycemia overnight, will decrease basal dose even further Improved today- still slightly above goal but no further episodes of severe hypoglycemia Ok to transfer to SNF when Ortho deems appropriate, defer to them Diagnosis/Problems Diagnosis/Problems (1) DKA (diabetic ketoacidoses) Status: Acute Qualifiers: Diabetes mellitus type: type 2 Diabetes mellitus complication detail: without coma Qualified Codes: E11.10 - Type 2 diabetes mellitus with ketoacidosis without coma (2) Transfusion of blood during current hospitalisation Status: Acute (3) Hypoglycemia associated with diabetes Status: Acute (4) Postoperative anemia Status: Acute (5) Femoral-popliteal bypass graft occlusion, left Status: Chronic Qualifiers: Encounter type: sequela Qualified Codes: T82.898S - Other specified complication of vascular prosthetic devices, implants and grafts, sequela (6) Hypothyroidism Status: Chronic Qualifiers: Hypothyroidism type: acquired Qualified Codes: E03.9 - Hypothyroidism, unspecified Clinical Quality Measures DVT/VTE Risk/Contraindication: Risk Factor Score Per Nursin RFS Level Per Nursing on Admit: 4+=Very High LALITA MOORE MD Jul 11, 2017 09:14
--- NOTE | 2017-07-11 11:54 | Progress Note (SOAP) ---
Subjective Time Seen by Provider: 11:43 Subjective/Events-last exam Pt doing better today. Back improved, still having some leg pain. Was taking Lyrica 150 mg TID prior to surgery. Objective Exam Vital Signs Date Time Temp Pulse Resp B/P (MAP) Pulse Ox O2 Delivery O2 Flow Rate FiO2 07/11/17 08:35 98.5 89 16 172/75 (107) 98 Room Air 07/11/17 00:00 99.1 83 16 187/77 (113) 93 Room Air 07/10/17 19:35 99.1 85 18 172/75 (107) 95 Room Air 07/10/17 15:50 98.9 90 20 145/63 (90) 95 Room Air 07/10/17 12:00 99.1 88 18 164/72 (102) 96 Room Air I & O 07/11/17 07:00 Intake Total 2320 ml Output Total 1400 ml Balance 920 ml Capillary Refill : NONE General Appearance: No Apparent Distress, WD/WN Respiratory: No Accessory Muscle Use, No Respiratory Distress Neurologic/Psychiatric: Alert, Motor Weakness Results Lab Laboratory Tests 07/10/17 12:55: Glucometer 185H 07/10/17 15:47: Glucometer 260H 07/10/17 20:30: Glucometer 235H 07/11/17 03:59: Glucometer 194H 07/11/17 06:30: White Blood Count 7.5, Red Blood Count 2.94L, Hemoglobin 8.8L, Hematocrit 27L, Mean Corpuscular Volume 91, Mean Corpuscular Hemoglobin 30, Mean Corpuscular Hemoglobin Concent 33, Red Cell Distribution Width 15.4H, Platelet Count 452H, Mean Platelet Volume 9.4, Neutrophils (%) (Auto) 69, Lymphocytes (%) (Auto) 17, Monocytes (%) (Auto) 12, Eosinophils (%) (Auto) 2, Basophils (%) (Auto) 0, Neutrophils # (Auto) 5.2, Lymphocytes # (Auto) 1.2, Monocytes # (Auto) 0.9, Eosinophils # (Auto) 0.2, Basophils # (Auto) 0.0, Sodium Level 140, Potassium Level 3.3L, Chloride Level 99, Carbon Dioxide Level 28, Anion Gap 13, Blood Urea Nitrogen 6L, Creatinine 0.58L, Estimat Glomerular Filtration Rate > 60, BUN /Creatinine Ratio 10, Glucose Level 186H, Calcium Level 8.5 07/11/17 07:19: Glucometer 182H Microbiology 07/03/17 MRSA Screen - Final, Complete MRSA not isolated 07/06/17 Urine Culture - Final, Complete 07/03/17 Gram Stain - Final, Complete 07/03/17 Anaerobic Culture - Final, Complete No growth 07/03/17 Surgical Culture - Final, Complete No growth Assessment/Plan Assessment/Plan Assess & Plan/Chief Complaint 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 Zuñiga in 2 weeks Will increase Lyrica to 150 TID Clinical Quality Measures DVT/VTE Risk/Contraindication: Risk Factor Score Per Nursin RFS Level Per Nursing on Admit: 4+=Very High JEWELL DEL VALLE Jul 11, 2017 11:53
[2017-07-11] MEDS ORDERED: PREG150C PO (12:09)
--- NOTE | 2017-07-11 12:09 | Discharge Inst-Skilled Nursing ---
Discharge Inst-Skilled NF Consult/Follow Up/Orders [place]illed [facility] [place] I certify that SNF services are required to be given on an inpatient basis because of the above named patient's need for longterm care on a continuing basis for the conditions(s) for which he/she was receiving inpatient hospital services prior to his/her transfer to the SNF. [facility] Facility Order: Nursing Services, Water Safety Teacher-Evaluate & Treat, Physical Therapy-Evaluate & Treat Discharge Diet: ADA Diet Daily Activity as Tolerated: Yes New & Resume Previous Orders New & Resume Previous Orders FSBS ahs prn hyper and hypoglycemia symptoms Other Instructions PT to work on gait training. OT for activities of daily living. She needs her brace anytime she is up and about, but not necessary with sitting or laying down. No lifting, bending or twisting, but can log roll in bed. Karson Gleason Kevin Jul 11, 2017 12:03 Medication List: Active Scripts Active Lyrica (Pregabalin) 150 Mg Capsule 150 Mg PO TID Levemir (Insulin Determir) 1,000 Units/10 Ml Soln 8 Unit SQ HS Baclofen 10 Mg Tablet 10 Mg PO TID PRN 20 Days Hydrocodon-Acetaminophn 10-325 (Hydrocodone/Acetaminophen) 1 Each Tablet 1-2 Ea PO Q4H PRN Milk of Magnesia (Magnesium Hydroxide) 400 Mg/5 Ml Oral.susp 30 Ml PO DAILY PRN 14 Days Reported Fluticasone Propionate 16 Gm Henderson.susp 1 Henderson NS BID PRN Miralax (Polyethylene Glycol 3350) 17 Gm Powd.pack 17 Gm PO DAILY Cymbalta (Duloxetine HCl) 60 Mg Capsule.dr 60 Mg PO BID Cilostazol 50 Mg Tablet 50 Mg PO BID Amlodipine Besylate 5 Mg Tablet 5 Mg PO HS Levothyroxine Sodium 150 Mcg Tablet 150 Mcg PO DAILY Plavix (Clopidogrel Bisulfate) 75 Mg Tablet 75 Mg PO HS Lantus Solostar (Insulin Glargine,Hum.rec.anlog) 100 Unit/1 Ml Insuln.pen 20 Unit SQ HS Novolog (Insulin Aspart) 100 Unit/1 Ml Susp 8 Unit SQ ACHS Lab results: Laboratory Tests Test 07/10/17 12:55 07/10/17 15:47 07/10/17 20:30 07/11/17 03:59 Range/Units Glucometer 185 H 260 H 235 H 194 H 70-110 MG/DL Test 07/11/17 06:30 07/11/17 07:19 Range/Units White Blood Count 7.5 4.3-11.0 10^3/uL Red Blood Count 2.94 L 4.35-5.85 10^6/uL Hemoglobin 8.8 L 11.5-16.0 G/DL Hematocrit 27 L 35-52 % Mean Corpuscular Volume 91 80-99 FL Mean Corpuscular Hemoglobin 30 25-34 PG Mean Corpuscular Hemoglobin Concent 33 32-36 G/DL Red Cell Distribution Width 15.4 H 10.0-14.5 % Platelet Count 452 H 130-400 10^3/uL Mean Platelet Volume 9.4 7.4-10.4 FL Neutrophils (%) (Auto) 69 42-75 % Lymphocytes (%) (Auto) 17 12-44 % Monocytes (%) (Auto) 12 0-12 % Eosinophils (%) (Auto) 2 0-10 % Basophils (%) (Auto) 0 0-10 % Neutrophils # (Auto) 5.2 1.8-7.8 X 10^3 Lymphocytes # (Auto) 1.2 1.0-4.0 X 10^3 Monocytes # (Auto) 0.9 0.0-1.0 X 10^3 Eosinophils # (Auto) 0.2 0.0-0.3 10^3/uL Basophils # (Auto) 0.0 0.0-0.1 10^3/uL Sodium Level 140 135-145 MMOL/L Potassium Level 3.3 L 3.6-5.0 MMOL/L Chloride Level 99 98-107 MMOL/L Carbon Dioxide Level 28 21-32 MMOL/L Anion Gap 13 5-14 MMOL/L Blood Urea Nitrogen 6 L 7-18 MG/DL Creatinine 0.58 L 0.60-1.30 MG/DL Estimat Glomerular Filtration Rate > 60 BUN/Creatinine Ratio 10 Glucose Level 186 H 70-105 MG/DL Calcium Level 8.5 8.5-10.1 MG/DL Glucometer 182 H 70-110 MG/DL KARSON DEL VALLE Jul 11, 2017 12:08
[2017-07-11 14:17] VITALS: BP 137/62
--- NOTE | 2017-07-28 10:51 | Discharge Summary ---
Diagnosis/Chief Complaint Date of Admission July 03, 2017 at 13:11 Date of Discharge Jul 11, 2017 at 15:55 Discharge Date: Jul 11, 2017 Admission Diagnosis Admission Diagnosis L2 Fracture, with hardware failure Discharge Diagnosis L2 Fracture, with hardware failure Osteoporosis Lumbar Kyphosis Acute DKA Postoperative anemia Acute on chronic hypotension Diabetes Current smoker but quit recently per Chronic occlusion of fem-pop bypass graft Reason Hospital Visit Patient had prior surgery, and went home, and fracture level at top on construct. Worsening kyphosis and pain. Discharge Summary Hospital Course Hospital Course Admitted to hospital, revision fusion performed, transferred to ICU and subsequently stabilized and ready for transfer to SNF. Procedures T7-Pelvis revision fusion. Discharge Physical Examination Allergies: Coded Allergies: morphine (Verified Allergy, Severe, ANAPHYLAXIS, 05/07/17) General Appearance: Alert, Oriented X3, Cooperative Discharge Home Medications Reviewed and agree with Discharge Medication list on patient's Discharge Instruction sheet Instructions to Patient/Family Please see electronic discharge instructions given to patient. Clinical Quality Measures DVT/VTE Risk/Contraindication: Risk Factor Score Per Nursin RFS Level Per Nursing on Admit: 4+=Very High LUIS CARLOS ANNA MD Jul 28, 2017 10:50
== END 2017-07-11 15:55 | DRG 456 ==
LOC: SDC 13:10 → 4TH 13:11 → SURG 13:12 → ICU 22:05 → 4TH 07-09 13:45
PROVIDERS: ADMIT Orthopaedic Surgery Orthopaedic Surgery of the Spine; ATTEND Internal Medicine
PROC: 0RGA071 Fusion of Thoracolumbar Vertebral Joint with Autologous Tissue Substitute, Posterior Approach, Posterior Column, Open Approach (ICD-10-PCS; 2017-07-03)
PROC: 0SG0071 Fusion of Lumbar Vertebral Joint with Autologous Tissue Substitute, Posterior Approach, Posterior Column, Open Approach (ICD-10-PCS; 2017-07-03)
PROC: 0SP004Z Removal of Internal Fixation Device from Lumbar Vertebral Joint, Open Approach (ICD-10-PCS; 2017-07-03)
PROC: 0RP604Z Removal of Internal Fixation Device from Thoracic Vertebral Joint, Open Approach (ICD-10-PCS; 2017-07-03)
PROC: 0RPA04Z Removal of Internal Fixation Device from Thoracolumbar Vertebral Joint, Open Approach (ICD-10-PCS; 2017-07-03)
PROC: 0RG7071 Fusion of 2 to 7 Thoracic Vertebral Joints with Autologous Tissue Substitute, Posterior Approach, Posterior Column, Open Approach (ICD-10-PCS; principal; 2017-07-03 17:55)
DX: M80.08XA Age-related osteoporosis with current pathological fracture, vertebra(e), initial encounter for fracture (principal); G95.9 Disease of spinal cord, unspecified; T84.498A Other mechanical complication of other internal orthopedic devices, implants and grafts, initial encounter; M96.1 Postlaminectomy syndrome, not elsewhere classified; E11.10 Type 2 diabetes mellitus with ketoacidosis without coma; D62 Acute posthemorrhagic anemia; E87.2 Acidosis; I70.92 Chronic total occlusion of artery of the extremities; I95.81 Postprocedural hypotension; E86.0 Dehydration; I25.10 Atherosclerotic heart disease of native coronary artery without angina pectoris; E11.65 Type 2 diabetes mellitus with hyperglycemia; I10 Essential (primary) hypertension; F17.210 Nicotine dependence, cigarettes, uncomplicated; E87.5 Hyperkalemia; E11.649 Type 2 diabetes mellitus with hypoglycemia without coma; I70.202 Unspecified atherosclerosis of native arteries of extremities, left leg; E03.9 Hypothyroidism, unspecified; Z79.4 Long term (current) use of insulin
CPT/HCPCS: 36415; 70450; 71045; 80048; 80053; 81000; 82805; 82962; 83036; 83605; 83735; 84100; 84484; 85007; 85025; 85027; 86850; 86900; 86901; 86920; 87070; 87075; 87081; 87088; 87205; 93926; 94664